=== PATIENT | male | born 1950 | race Caucasian/White ===

== ENCOUNTER → 2018-06-01 12:08 | Outpatient (CLI) | payer MEDICARE, OTHER, SELFPAY ==
[2018-06-01 13:33] LABS: Absolute Lymphocyte Count 2.23 X10^3/ul (0.83-4.51); Absolute Neutrophil Count 6.2 X10^3/uL (2.0-7.7); Basophil# 0.02 X10^3/uL; Basophil% 0.2 % (0-1); Eosinophil# 0.09 X10^3/uL; Hematocrit 42.7 % (40-54); Lymphocyte # 2.23 X10^3/ul (4.0); Lymphocyte % 24.2 % (19-41); Mean Corp Hgb Conc 32.8 g/gl (32-36); Mean Corpuscular Hgb 31.3 pg (27.0-32.0); Mean Corpuscular Volume 95.5 fL (80-94); Mean Platelet Vol. 10.4 fl (6.2-12.0); Monocyte# 0.61 X10^3/uL; Monocyte% 6.6 % (0-10); Neutrophil # 6.23 X10^3/uL (2.7-7.7); Neutrophil % 67.7 % (47-70); POSITIVE COUNT NO; POSITIVE DIFFERENTIAL NO; POSITIVE MORPHOLOGY NO; Platelet Count 207 K/mm3 (150-450); RBC Distribution Width CV 13.6 % (11.6-14.6); RBC Distribution Width SD 46.8 fl (35.1-43.9); Red Blood Count 4.47 M/mm3 (4.6-6.2); White Blood Count 9.2 K/mm3 (4.4-11.0)
[2018-06-01 14:05] LABS: Vitamin B12 413 pg/mL (211-911)
[2018-06-01 14:06] LABS: ALB/GLOB Ratio 1.1 RATIO (0.9-2.4); AST(SGOT) 17 U/L (15-37); Alanine Aminotransfer ALT/SGPT 23 U/L (16-61); Albumin, Serum 4.1 g/dL (3.2-5.0); Alkaline Phosphatase 111 U/L (45-117); Anion Gap 6 (5-15); BUN 25 mg/dL (7-18); BUN/Creat Ratio 17.6 RATIO (10-20); Calcium,Total 8.7 mg/dL (8.5-10.1); Chloride 109 mmol/L (98-107); Creatinine, Serum 1.42 mg/dL (0.70-1.30); EST Glomerular Filtration Rate 53 mL/min (>60); Est Glom Filt Rate - Afr Amer 64 mL/min (>60); Globulin 3.7 g/dL (2.2-4.2); Glucose 76 mg/dL (74-106); Potassium 4.2 mmol/L (3.5-5.1); Protein, Total 7.8 g/dL (6.4-8.2); Sodium Level 140 mmol/L (136-145)
[2018-06-03 08:12] LABS: Ceruloplasmin 25.3 mg/dL (16.0-31.0)
[2018-06-03 09:25] LABS: Copper, Serum or Plasma 82 ug/dL (72-166)
[2018-06-03 09:36] LABS: ANTINUCLEAR ANTIBODIES DIRECT Positive (Negative)
--- OUTSIDE RECORDS SUMMARY | 2018-08-06 08:07 | XMS RPT_ITS | Summary of Care ---
:1950 Author Organization [facility] Address [address] [place] [address] Care Team Providers Name Role Phone Wil Newman MD Primary Care Provider Wil Newamn MD Unavailable Encounter Details Date Type Department Care Team Description 03/23/2018 Hospital Encounter [facility] Colette Loving, [address] [place], [place] [address] [id number] [place] [address] Allergies No Known Allergiesas of this encounter Medications Prescription Sig. Disp. Refills Start Date End Date Status gabapentin (NEURONTIN) Take 100 mg by Active 100 MG capsule mouth daily . pantoprazole (PROTONIX) Take 40 mg by Active 40 MG tablet mouth daily. nitroGLYCERIN Place 0.4 mg Active (NITROSTAT) 0.4 MG SL under the tongue tablet every 5 (five) minutes as needed for chest pain. prasugrel (EFFIENT) 10 Take 10 mg by Active mg tablet mouth daily. aspirin 325 MG EC Take 325 mg by Active tablet mouth daily. miSOPROStol (CYTOTEC) Take 200 mcg by 3 11/18/2016 Active 200 MCG tablet mouth 2 (two) times a day. diclofenac sodium Take 75 mg by Active (VOLTAREN) 75 MG EC mouth 2 (two) tablet times a day with meals. carvedilol (COREG) 6.25 Take 6.25 mg by Active MG tablet mouth 2 (two) times a day with meals. isosorbide mononitrate Take 60 mg by Active (IMDUR) 60 MG 24 hr mouth daily. tablet losartan (COZAAR) 25 MG Take 25 mg by Active tablet mouth daily. ranolazine (RANEXA) 500 Take 1 (one) 180 tablet 3 06/11/2017 Active MG 12 hr tablet (500 mg tabletIndications: total) by mouth Coronary artery disease 2 (two) times a of [place] artery of day. [place] heart with stable angina pectoris (HCC) as of this encounter Active Problems Problem Noted Date S/P PTCA (percutaneous transluminal coronary angioplasty) 03/12/2017 S/P CABG x 1 03/12/2017 ICD (implantable cardioverter-defibrillator) in place 03/12/2017 Ischemic cardiomyopathy 09/27/2015 Last Assessment & Plan: Patient has known severe LV dysfunction. He recently received ICD for primary prevention. He does not demonstrate any signs or symptoms of congestion. Hx of Lyme disease 09/27/2015 Overview: Treated in 2014. He is concerned about recurrence. Told him to follow up with PCP. ASHD (arteriosclerotic heart disease) 06/28/2015 Overview: s/p PCI MARGO to circ. with a history of aggressive coronary artery disease. With myocardial infarction 2008 with multivessel stenting second heart attack in 2009 with 4 additional stents. 2011 he was found to have severe in-stent restenosis left anterior descending underwent left internal mammary artery left anterior descending open heart surgery done at [facility]. Stress test July 2014 showed old inferior latera l infarct with no michael-infarct ischemia ejection fraction was 33%. Feels better since the stent to the circumflex. Breathing is much better still has some vague chest discomfort from time to time. Ejection fraction was reduced to 30% range. No heart failure symptoms. Last Assessment & Plan: Persistent reduced EF 28 % by echo recently. Referral to EP for prophylactic ICD. S/p cath with PCI earlier this year. Maximal medical therapy. BP and pulse reviewed. Chest pain 06/28/2015 Overview: Gentleman with a history of aggressive coronary artery disease. With myocardial infarction 2008 with multivessel stenting second heart attack in 2009 with 4 additional stents. 2011 he was found to hav e severe in-stent restenosis left anterior descending underwent left internal mammary artery left anterior descending open heart surgery done at [facility]. Stress test July 2014 showed old inferi or lateral infarct with no michael-infarct ischemia ejection fraction was 33%. He continues to smoke occasionally. Over the last 6 weeks he has had marked fatigue chest discomfort that comes and goes not clear-cut said to exertion however. Patient had decreased his exercise capacity. He was treated for Lyme's disease last year and was wondering if he has a recurrence. Denies any fever chills he has had no rashes. EKG today shows sinus rhythm with left axis old inferior myocardial infarction evidence of old anterior lateral myocardial infarction sinus rhythm at 70 bpm no new changes. He has been compliant with his medications. Last Assessment & Plan: Plan we will add isosorbide 30 mg 1 daily. Continue other medications including dual antiplatelet therapy We discussed the merits of repeat stress test versus going directly to left heart catheterization. He would favor going directly to a left heart catheterization. Which I think is reasonable. The hist ory of a nuclear stress test a year ago which showed no significant ischemia. We will check blood work including a chest x-ray. Told him to avoid any moderate or heavy exercise until results of a heart catheterization are known. It is ejection fraction is still less than 35% would consider him a candidate for prophylactic ICD therapy. Dizzy 06/28/2015 Last Assessment & Plan: The patient continues to note significant dizziness. I would recommend ENT evaluation to rule out vertigo. Is not describing classic orthostasis. Coronary artery disease Last Assessment & Plan: The patient does note occasional chest tightness every 3 or 4 days. It is not reliably elicited by exertion. 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 I would continue to observe him clinically. Hypertension Last Assessment & Plan: Blood pressures well controlled on current medical therapy. I did consider increasing his carvedilol but apparently, his systolic blood pressure does run in the 80s at home on occasion. I would leave him on his current therapy for now. Hypertriglyceridemia Social History Tobacco Use Types Packs/Day Years Used Date Former Smoker 0 Quit: 05/11/2017 Smokeless Tobacco: Never Used Alcohol Use Drinks/Week oz/Week Comments No 0 Standard drinks or equivalent 0.0 Sex Assigned at Date Recorded Not on file as of this encounter Plan of Treatment Health Maintenance Due Date Last Done Comments COLONOSCOPY 1950 HEPATITIS C SCREENING 1950 TETANUS EVERY 10 YR 1950 ZOSTER VACCINES (1 of 2) 2002 ABDOMINAL AORTIC ULTRASOUND 2017 PNEUMOCOCCAL VACCINE AGE 65+ (1 of 2 - PCV13) 2017 Steadi Fall Risk Assessment 2017 SEQUENTIAL INFLUENZA VACCINE (#1) 2018 as of this encounter Implants Implanted Type Area Reproductive Endocrinologist Device Expiration Date Model / Identifier Serial / Lot Salo [id number] Visia Af Mri Vr [id number] ICD SALO [id number] VISIA AF MRI VR / Implanted: 06/11/2016 (Quantity not on file) [id number] / Salo 6935m Pacing Lead SALO 6935M SPRINT QUATTRO SECURE S / Sprint Quattro [id number] / Secure S [id number] Salo 6935m Pacing Lead SALO 6935M SPRINT QUATTRO SECURE S MRI SURESCAN / Sprint Quattro [id number] / Secure S Mri Surescan [id number] as of this encounter
--- OUTSIDE RECORDS SUMMARY | 2018-08-06 08:07 | XMS RPT_ITS ---
:1950 Author Organization [facility] Address [address] [place] [address] Phone Care Team Providers Name Role Phone Lucie GOMEZ, Shanna Dick Unavailable Reason for Visit Reason For Visit Description Start Date New/Est - 1st visit with physician Preliminary reason for visit data, not yet signed by the author as of lower back Preliminary reason for visit data, not yet signed by the author as of Chief Complaint Chief Complaint Description Start Date lower back Preliminary chief complaint data, not yet signed by the author as of Instructions Instruction Description Start Date Patient advised to follow-up with Primary Care Physician for BMI management. Plan of Care Type Date Detail Appointment 09:40 AM Shanna GOMEZ, [address] [facility], [facility], [place], [address], Pending order XR LUMBAR 4VWS FLEX/EX Pending order CT lumbar without contrast Medications Medication Instructions Start Stop Generic Name NDC Provider Date Date MULTIVITAMIN take 1 chewable / MULTIPLE [id number] Flavia GUMMIES MENS once daily 02 VITAMINS-MINERA Abdulaziz POWER LINE INSTALLER AND REPAIRER CHEW LS HYDROCODONE-ROSANNA take 1 tablet / HYDROCODONE-ROSANNA [id number] Flavia TAMINOPHEN every 8 hours 02 TAMINOPHEN Abdulaziz VELÁSQUEZN 5-325 MG TABS as needed LOSARTAN take 1 tablet / LOSARTAN [id number] Flavia POTASSIUM 25 MG once daily 02 POTASSIUM Abdulaziz POWER LINE INSTALLER AND REPAIRER TABS ASPIRIN 81 MG take 2 tablets / ASPIRIN [id number] Flavia TABS once daily 02 [place] POWER LINE INSTALLER AND REPAIRER LASIX 20 MG take 1 tablet / FUROSEMIDE [id number] Flavia TABS three days a Abdulaziz POWER LINE INSTALLER AND REPAIRER week TRICOR 48 MG take 1 tablet / FENOFIBRATE [id number] Flavia TABS once daily 02 [place] POWER LINE INSTALLER AND REPAIRER CRESTOR 40 MG take 1 tablet / ROSUVASTATIN [id number] Flavia TABS once daily CALCIUM Abdulaziz POWER LINE INSTALLER AND REPAIRER CARVEDILOL 6.25 take 1 tablet / CARVEDILOL [id number] Flavia MG TABS twice daily 02 [place] POWER LINE INSTALLER AND REPAIRER PANTOPRAZOLE take 1 tablet / PANTOPRAZOLE 71008860246 Flavia SODIUM 40 MG once daily SODIUM [place] POWER LINE INSTALLER AND REPAIRER TBEC GABAPENTIN 300 take 1 capsule / GABAPENTIN [id number] Flavia MG CAPS twice daily Abdulaziz POWER LINE INSTALLER AND REPAIRER Conditions or Problems Problem Name Problem Onset Status Entry Provider Comment Standard Annotate Code Date Date Description Lumbar [id number] Active Shanna Dick 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 Vital Signs Date Name Value Unit Description BMI (Body Mass 31.68 kg/m2 Body Mass Index Index) [Ratio] Preliminary vital sign data, not yet signed by the author as of BP Diastolic 77 mm[Hg] blood pressure, diastolic Preliminary vital sign data, not yet signed by the author as of BP Systolic 115 mm[Hg] blood pressure, systolic Preliminary vital sign data, not yet signed by the author as of Heart Rate 71 /min pulse rate E&M Preliminary vital sign data, not yet signed by the author as of Height 70 [in_us] height E&M Preliminary vital sign data, not yet signed by the author as of Height 178 cm height in centimeters E&M Preliminary vital sign data, not yet signed by the author as of Weight Measured 220 [lb_av] weight E&M Preliminary vital sign data, not yet signed by the author as of Weight Measured 100 kg weight in kilograms E&M Preliminary vital sign data, not yet signed by the author as of Results Date Name Value Unit Range Flag Description Office Visit: New/Est - 1st visit with physician, Rm: 42 MEDS REVIEW Done Documentation of current medications (procedure) Preliminary observation data, not yet signed by the author as of Preliminary observation data, not yet signed by the author as of Clinical Summary: Scanned ROS Summary ROS: Denies genitourinary review of systems, E&M ROS: GI Denies ROS gastrointestinal E&M ROS ENDO Denies endocrine ROS ROS MSK COMM Pain,Stiffness ROS Musculoskeletal comments ROS:MUSCSKEL Complains ROS musculoskeletal E&M ROSPSYCHCOMM Difficulty ROS Psych comment Sleeping ROS: PSYCH Complains ROS psychiatric E&M ROS HEME Denies ROS hematologic/lymphatic E&M ROS SKIN Denies ROS skin E&M ROS ENT Denies ROS ENT E&M ROS:GENERAL Denies ROS general E&M ROS_NEUR_COM Numbness Review of Systems Neurologic comment ROS: NEURO Complains ROS neurological E&M ROSPULMCOMM Sleep Apnea ROS Pulmonary comment ROS:PULMON Complains ROS pulmonary E&M ROS CARD COM Chest Pain ROS Cardiac: Comments ROS: CARDIAC Complains ROS cardiovascular E&M Clinical Summary: HMSPatientID OOP account number Procedures Code Procedure Name Date Entry Date G8730 Pain assessment documented as positive - follow-up documented G8427 Current medications documented 1036F Tobacco screening was negative - non user G8417 BMI documented as above normal parameters - follow-up documented G8783 Blood pressure within normal parameters - no follow-up required [facility]-[id number] Patient Encounter Medications Administered No information available. Immunizations No information available. Advance Directives There may be information available, but it has not been provided by the sender. Assessments There may be information available, but it has not been provided by the sender. Review of Systems There may be information available, but it has not been provided by the sender. Family History There may be information available, but it has not been provided by the sender. History of Past Illness There may be information available, but it has not been provided by the sender. History of Present Illness There may be information available, but it has not been provided by the sender.
--- OUTSIDE RECORDS SUMMARY | 2018-08-06 08:07 | XMS RPT_ITS | Summary of Care ---
:1950 Author Organization [facility] Address [address] [place] [address] Care Team Providers Name Role Phone Wil Newman MD Primary Care Provider Wil Newman MD Unavailable Encounter Details Date Type Department Care Team Description 09/03/2017 Hospital Encounter [facility], [place], [address] [place], [place] [address] [facility] [address] [address] [facility] [address] [place] [address] Allergies No Known Allergiesas of this encounter Medications Prescription Sig. Disp. Refills Start Date End Date Status gabapentin (NEURONTIN) Take 100 mg by Active 100 MG capsule mouth daily . pantoprazole Take 40 mg by Active (PROTONIX) 40 MG mouth daily. tablet nitroGLYCERIN Place 0.4 mg Active (NITROSTAT) 0.4 MG SL under the tablet tongue every 5 (five) minutes as needed for chest pain. prasugrel (EFFIENT) 10 Take 10 mg by Active mg tablet mouth daily. aspirin 325 MG EC Take 325 mg by Active tablet mouth daily. miSOPROStol (CYTOTEC) Take 200 mcg by 3 11/18/2016 Active 200 MCG tablet mouth 2 (two) times a day. furosemide (LASIX) 20 Take 1 (one) 31 tablet 4 12/09/2016 12/09/2017 Active MG tablet tablet (20 mg total) by mouth Wednesday, Wednesday, Wednesday. diclofenac sodium Take 75 mg by Active (VOLTAREN) 75 MG EC mouth 2 (two) tablet times a day with meals. carvedilol (COREG) Take 6.25 mg by Active 6.25 MG tablet mouth 2 (two) times a day with meals. isosorbide mononitrate Take 60 mg by Active (IMDUR) 60 MG 24 hr mouth daily. tablet losartan (COZAAR) 25 Take 25 mg by Active MG tablet mouth daily. ranolazine (RANEXA) Take 1 (one) 180 tablet 3 06/11/2017 Active 500 MG 12 hr tablet (500 mg tabletIndications: total) by mouth Coronary artery 2 (two) times a disease of [place] day. artery of [place] heart with stable angina pectoris (HCC) as [...] anterior descending open heart surgery done at [facility]. Stress test July 2014 showed [...] anterior descending open heart surgery done at [facility]. Stress test July 2014 showed [...] as of this encounter Plan of Treatment Upcoming Encounters Date Type Specialty Care Team Description 12/10/2017 PaceArt Device Check Cardiology Health Maintenance Due Date Last Done Comments COLONOSCOPY 1950 HEPATITIS C SCREENING 1950 TETANUS EVERY 10 YR 1950 ZOSTER VACCINE 2012 ABDOMINAL AORTIC ULTRASOUND 2017 PNEUMOCOCCAL VACCINE AGE 65+ (1 of 2 - PCV13) 2017 SEQUENTIAL INFLUENZA VACCINE (Season Ended) 2018 as of this encounter Implants Implanted Type Area Risk Control Officer Device Expiration Date Model / Identifier Serial / Lot Salo [id number] Visia Af Mri Vr [id number] ICD SALO [id number] VISIA AF MRI VR / Implanted: 06/11/2016 (Quantity not on file) [id number] / Salo 6935m Pacing Lead SALO 6935M SPRINT QUATTRO SECURE S / Sprint Quattro [id number] / Secure S [id number] as of this encounter
--- OUTSIDE RECORDS SUMMARY | 2018-08-06 08:09 | XMS RPT_ITS ---
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 Consistency is the small. Find a technique that works for you and do it every day. CULTIVATE RELATIONSHIPS Loneliness and isolation have a major negative impact on health. Seek out others who can love, care for and nurture you. Avoid hurtful relationships. MAINTAIN IDEAL BODY WEIGHT The best way to do this is to do all the things above. Our bodies naturally find the right weight if we keep moving and feed ourselves the right food. If your BMI is greater than 25, we strongly recommend a referral to a weight management program. Please speak to us or your family physician about available programs. AVOID NICOTINE IN ALL FORMS This includes all tobacco products, whether chewed, smoked, vaped, or rubbed on the skin. Smoking cessation programs, which can make use of tobacco substitutes, medications to suppress cravings and behavior management, are available. Please contact your family physician about programs in your area. Referring Provider: SELF [[id number]] Allergies As of Date: 03/16/2018 Noted Allergy Reaction PERCOCET (OXYCODONE-ACETAMINOPHEN)07/21/2017 14 - Other: See Comments Comments: Pt has severe tremors when taking Percocet Date Reviewed: 03/16/2018 Reviewed by: Manolo Ga - Fully Assessed Reason for Visit: Consult [502] Primary Visit Diagnosis:ASHD (arteriosclerotic heart disease) [I25.10] Order(s):BASIC METABOLIC PNL [SQBMP] Order #: [id number] FUTURE MAGNESIUM BLD [SQMG1] Order #: [id number] FUTURE furosemide (LASIX) 40 mg tabletTake 1 tablet by mouth once daily.Disp: 30 tabletRfl: 6 Prescriptions as of 03/16/2018 Sig: FUROSEMIDE 40 MG TABLET Take 1 tablet by mouth once d* CLOPIDOGREL 75 MG TABLET Take 1 tablet by mouth once d* TRAZODONE 50 MG TABLET Take 1 tablet by mouth daily * MISOPROSTOL 200 MCG TABLET Take 1 tablet by mouth twice * DICLOFENAC SODIUM 75 MG TABLE* Take 1 tablet by mouth twice * NITROGLYCERIN 0.4 MG SUBLINGU* Dissolve 1 tablet under the t* POTASSIUM CHLORIDE ER 20 MEQ * Take 1 tablet by mouth once d* BUPROPION XL 150 MG TAB Take 150 mg by mouth twice da* BACITRACIN 500 UNIT/GRAM EYE * Use 1 application in both eye* ROSUVASTATIN 40 MG TABLET Take 1 tablet by mouth daily * LOSARTAN 25 MG TABLET Take 1 tablet by mouth once d* CARVEDILOL 6.25 MG TABLET Take 1 tablet by mouth twice * FENOFIBRATE NANOCRYSTALLIZED * Take 1 tablet by mouth once d* GABAPENTIN 300 MG CAPSULE Take 1 capsule by mouth every* MAGNESIUM OXIDE 400 MG (241.3* Take 2 tablets by mouth once * THERAPEUTIC MULTIVITAMIN TABL* Take 1 tablet by mouth daily * ASPIRIN 81 MG CHEWABLE TABLET Take 2 tablets by mouth once * PANTOPRAZOLE 40 MG TABLET,DEL* Take 1 tablet by mouth DAILY * Problem List As Of Date 03/16/2018 Noted Resolved Bladder wall thickening [N32.89] INVALID FOR* Urethral polyp [N36.2] INVALID FOR* Smoking history [Z87.891] INVALID FOR* Priority: J More... 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 Preop testing [Z01.818] INVALID FOR* More... Encounter for preoperative anesthesiology asses*INVALID FOR* Cardiomyopathy, ischemic [I25.5] INVALID FOR* Priority: A More... 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 Bronchospasm [J98.01] INVALID FOR*07/30/2017 More... Respiratory insufficiency [R06.89] INVALID FOR*07/30/2017 More... Hyperglycemia [R73.9] INVALID FOR*08/02/2017 Priority: E More... Cardiogenic shock (HCC) [R57.0] INVALID FOR*07/31/2017 Priority: C More... Dehydration [E86.0] INVALID FOR*07/30/2017 More... Postoperative hypotension [I95.89] INVALID FOR*07/30/2017 More... Atelectasis [J98.11] INVALID FOR*08/02/2017 Priority: B More... Primary hypertension [I10] INVALID FOR* Priority: C More... Altered mental status [R41.82] INVALID FOR*08/02/2017 Priority: D More... Pneumothorax [J93.9] INVALID FOR*08/02/2017 Priority: B More... Transition of care performed with sharing of cl*INVALID FOR* Priority: Very Severe More... Hyperlipidemia LDL goal <70 [E78.5] INVALID FOR* Priority: C More... Hypertriglyceridemia, essential [E78.1] INVALID FOR* Priority: C More... Gastroesophageal reflux disease without esophag*INVALID FOR* Priority: G More... Atherosclerosis of [place] coronary artery of na*INVALID FOR* More... Obesity, Class I, BMI 30-34.9 E66.9 [E66.9] INVALID FOR* More... Meibomian gland dysfunction (MGD) of upper and *INVALID FOR* NSTEMI (non-ST elevated myocardial infarction) *INVALID FOR* Priority: A More... Nicotine use disorder, F17.2 [F17.200] INVALID FOR* Post PTCA [Z98.61] INVALID FOR* More... Shortness of breath [R06.02] INVALID FOR* More... SAIMA (acute kidney injury) (HCC) [N17.9] INVALID FOR* More... Other instructions from your clinician: LIFESTYLE CHANGE A healthy lifestyle is the most important component of your overall treatment plan. Please give serious thought to the following areas and commit to making oil heaterman changes. EAT A WHOLE FOOD, PLANT BASED DIET The nutrition your body gets is more important than the medicine you take. What matters most is the overall way you eat. We encourage you to minimize the use of animal products (which include dairy and all meats except fatty fish) and use whole, unprocessed plant foods to provide your protein, vitamins and other nutrients. We have a lot of information to share with you on this topic. This is not a diet. It is a way of life that you will keep with you. EXERCISE REGULARLY It is not important to spend hours in the gym, lifting weights and perspiring heavily. A total of 2-3 hours per week of aerobic (causing you to be moderately short of breath) exercise is sufficient to improve your health. Talk to us before you begin a new exercise program, if you have heart disease or experience shortness of breath or chest pain. REDUCE STRESS Chronic emotional and physical stress leads to disease. Ways of reducing stress include meditation, visualization, prayer, yoga and other forms of relaxation therapy. Consistency is the small. Find a technique that works for you and do it every day. CULTIVATE RELATIONSHIPS Loneliness and isolation have a major negative impact on health. Seek out others who can love, care for and nurture you. Avoid hurtful relationships. MAINTAIN IDEAL BODY WEIGHT The best way to do this is to do all the things above. Our bodies naturally find the right weight if we keep moving and feed ourselves the right food. If your BMI is greater than 25, we strongly recommend a referral to a weight management program. Please speak to us or your family physician about available programs. AVOID NICOTINE IN ALL FORMS This includes all tobacco products, whether chewed, smoked, vaped, or rubbed on the skin. Smoking cessation programs, which can make use of tobacco substitutes, medications to suppress cravings and behavior management, are available. Please contact your family physician about programs in your area. Prescriptions ordered this encounter Disp Refills Start End FUROSEMIDE 40 MG TABLET 30 t* 6 03/16/2018 03/16/2018 Route: ORAL Sig: Take 1 tablet by mouth once daily. Take one tab three times a week FUROSEMIDE 40 MG TABLET 30 t* 6 03/16/2018 Route: ORAL Sig: Take 1 tablet by mouth once daily. Medications Discontinued During This Encounter furosemide (LASIX) 40 mg tablet 30 t* 6 02/16/2018 03/16/2018 Route: ORAL Sig: Take 1 tablet by mouth once daily. Take one tab three times a week Disc: Reason for discontinue is not on file. furosemide (LASIX) 40 mg tablet 30 t* 6 03/16/2018 03/16/2018 Route: ORAL Sig: Take 1 tablet by mouth once daily. Take one tab three times a week Disc: Reason for discontinue is not on file. Follow-up and Disposition History Recorded Encounter Status:Closed by DIOMEDES SHAH MD on 03/16/18 XR CHEST 2 VIEWS Observed: 03/07/2018 Status: F Source: [place] 1:[address] [facility] REPOSITORY Exam Date/Time: 03/07/2018 14:05 EDT Reason for Exam: Congestive Heart Failure Report STUDY: XR Chest 2 Views; 03/07/2018 2:05 pm INDICATION: Congestive Heart Failure. COMPARISON: Chest x-ray 02/22/2018 ACCESSION NUMBER(S): [id number] ORDERING CLINICIAN: Zi Chamberlain FINDINGS: Sternotomy wires. Pacemaker. The lungs are clear without pleural effusion. Mild cardiomegaly. Unremarkable mediastinum, gage, and pulmonary vasculature. Thoracic degenerative changes. IMPRESSION: No active disease in the chest. FINAL REPORT Dictated: 03/07/2018 6:42 pm Stan Ivan MD Signed (Electronic Signature): 03/07/2018 6:42 pm Signed by: Stan Ivan MD Technologist: JASEN PT ED Observed: 2018 Status: COMPLETED Source: [place] 2:58 PM [facility] REPOSITORY HNO ID: [id number] Author: Tawnya Reyes (Pharmacist) Service: Pharmacy Author Type: Pharmacist Type: Patient Education Filed: 2018 3:00 PM Note Text: Heart Failure Counseling with Class Instruction Education Note Patient Name:Law Leavitt Service Date: 2018 Service Time: 2:58 PM Heart Failure Education Provided: Brief overview of heart failure and non-pharmacologic therapy options. Medication Education Provided: 1. Reason for taking medications and treatment goals. 2. Benefits of medication therapy. 3. How medications work. 4. Necessary laboratory monitoring. 5. When to take medications and what to do if a dose is missed. 6. Drug interactions (Rx, OTC, herbal) and importance of notifying healthcare provider with any medication changes. 7. Potential duration of therapy. 8. Potential side effects of medications. 9. Use of control measures if applicable. 10. Importance of regularly filling prescriptions and taking medications. 11. Proper storage of medications. Patient was given opportunity to ask questions and receive answers. Current Inpatient Medications: Current hospital medications: furosemide 40 mg tab(s) (LASIX) 40 mg ORAL ONCE clopidogrel 75 mg tab(s) (PLAVIX) 75 mg ORAL DAILY traZODone 50 mg tab(s) (DESYREL) 50 mg ORAL AT BEDTIME gabapentin 300 mg cap(s) (NEURONTIN) 300 mg ORAL AT BEDTIME carvedilol 6.25 mg tab(s) (COREG) 6.25 mg ORAL BID w MEALS miSOPROStol 200 mcg tab(s) (CYTOTEC) 200 mcg ORAL BID rosuvastatin 40 mg tab(s) (CRESTOR) 40 mg ORAL AT BEDTIME fenofibrate nanocrystallized 48 mg tab(s) (TRICOR) 48 mg ORAL DAILY buPROPion XL 150 mg tab(s) (WELLBUTRIN XL) 150 mg ORAL DAILY pantoprazole DR 40 mg tab(s) (PROTONIX) 40 mg ORAL DAILY (6 AM) acetaminophen 325-650 mg tab(s) (TYLENOL) 325-650 mg ORAL q 4 H PRN docusate sodium 100 mg cap(s) (COLACE) 100 mg ORAL BID PRN heparin 5,000 Units injection 5,000 Units SUBCUTANEOUS q 12 H aspirin 81 mg chewable tab(s) 81 mg ORAL DAILY READINESS TO LEARN COGNITIVE ABILITY: Alert and Oriented MOTIVATION TO LEARN: Interested FAMILY SUPPORT: High - Very involved in pt care INSTRUCTION PROVIDED TO: Patient and family member PATIENT LEARNS BEST BY: Multiple Methods FACTORS AFFECTING LEARNING: None or unable to assess PHYSICAL LIMITATIONS AFFECTING LEARNING: none or unable to assess ? LEARNING RESPONSE DIAGNOSIS: Heart Failure PATIENT/FAMILY RESPONSE: Verbalizes understanding of: The signs and symptoms of a worsening condition that warrant a call to the physician. The correct actions to take to manage symptoms associated with his/her disease/illness. Accurate knowledge of prescribed medication prior to discharge. The correct action to take if medication dose is missed. The side effects associated with the medication that warrant a call to the physician. Post discharge follow up instruction Diet / weight monitoring METHOD OF INSTRUCTION: Group Class Instruction FOLLOW-UP PLAN: None INSTRUCTIONAL AIDS USED: Slides Your Guide to Managing Heart Failure SUPPLEMENTAL MATERIAL PROVIDED: Slides ? FURTHER RECOMMENDATIONS (IF ANY): None SIGNATURE: Aditya Duggan (Technical Adjuster) Cosigned: Tawnya Reyes Pharmacist Pager: [phone] PT ED Observed: 2018 Status: COMPLETED Source: [place] 2:32 PM [facility] [place] REPOSITORY HNO ID: [id number] Author: Penelope Marquez (Diet-T) Service: Nutrition Therapy Author Type: Braille Typist Type: Patient Education Filed: 2018 2:33 PM Note Text: [facility] NUTRITION HEART FAILURE PATIENT EDUCATION TOPIC: Survival Skills: Diet PATIENT NAME: Amelia Leavitt SERVICE DATE: 2018 Diagnosis: ADULT: Heart Failure READINESS TO LEARN Cognitive Ability: Alert and oriented Motivation to Learn: Eager Family Support: Unable to assess - Family not present Instruction Provided to: Patient Patient Learns Best by: Unable to Assess Factors Affecting Learning: None Physical Limitations Affecting Learning: None LEARNING RESPONSE Enteral Nutrition Access Device: None Patient/Family Response: Verbalizes understanding of Heart Failure Diet: Rationale of sodium restriction, food sources typically high in sodium, acceptable food choices, foods to avoid, seasoning alternatives, how to read a food label and fluid guidelines as applicable. Method of Instruction: Group class instruction Follow-Up Plan: Complete - No need for follow-up Instructional Aids Used: Slides Supplemental Material Provided to Patient: Heart Failure book addressing diet, activity, medications, symptoms and weight monitoring Referral (Recommendation): None MNT Billing Type: Routine Care/15 min 2 units Jong MendiolaT Pager: 2018 2:33 PM PROGRESS Observed: 2018 Status: COMPLETED Source: [place] 1:18 PM [facility] [place] REPOSITORY HNO ID: [id number] Author: Di Rivero (Pa) Service: Cardiovascular Medicine Author Type: Physician Striper Type: Progress Notes Filed: 2018 2:52 PM Note Text: [facility] CARDI[facility]ULAR [facility]ICINE PROGRESS NOTE (Template ID [id number]) Amelia Leavitt [id number] PRIMARY SERVICE: Hvi Card Coco, Dr Rowe [facility] DAY: # 3 INTERVAL HISTORY Pt is lying in bed. His breathing is better. He has no chest pain. Pt's had questions, ok to restart home lasix, losartan. CHF appt made For -2. PHYSICAL EXAM BP 114/79 Pulse 72 Temp 36.8 ?C (98.3 ?F) (Oral) Resp 14 Ht 177.8 cm (5' 10) Wt 98 kg (216 lb 1.6 oz) SpO2 93% BMI 31.01 kg/m? Intake/Output Summary (Last 24 hours) at 03/02/18 1318 Last data filed at 03/02/18 0840 Gross per 24 hour Intake 120 ml Output 0 ml Net 120 ml General Appearance: Well developed and No distress HEENT: EOM's intact, JVD - no and Bruits - no Lungs: Crackles in Both bases Heart: Regular rate AND rhythm, Murmur , S1, S2 normal, S4 present, Edema and Vascular: Pulses - +2 intact, Abdomen: Soft, Round, Non-tender, Bowel sounds present, Bruits - no and Organomegaly - no Skin: Warm and Dry Musculoskeletal: No deformities Neurologic/Psychiatric: Oriented to time, place AND person MEDICATIONS Current hospital medications: furosemide 40 mg tab(s) (LASIX) 40 mg ORAL ONCE clopidogrel 75 mg tab(s) (PLAVIX) 75 mg ORAL DAILY traZODone 50 mg tab(s) (DESYREL) 50 mg ORAL AT BEDTIME gabapentin 300 mg cap(s) (NEURONTIN) 300 mg ORAL AT BEDTIME carvedilol 6.25 mg tab(s) (COREG) 6.25 mg ORAL BID w MEALS miSOPROStol 200 mcg tab(s) (CYTOTEC) 200 mcg ORAL BID rosuvastatin 40 mg tab(s) (CRESTOR) 40 mg ORAL AT BEDTIME fenofibrate nanocrystallized 48 mg tab(s) (TRICOR) 48 mg ORAL DAILY buPROPion XL 150 mg tab(s) (WELLBUTRIN XL) 150 mg ORAL DAILY pantoprazole DR 40 mg tab(s) (PROTONIX) 40 mg ORAL DAILY (6 AM) acetaminophen 325-650 mg tab(s) (TYLENOL) 325-650 mg ORAL q 4 H PRN docusate sodium 100 mg cap(s) (COLACE) 100 mg ORAL BID PRN heparin 5,000 Units injection 5,000 Units SUBCUTANEOUS q 12 H aspirin 81 mg chewable tab(s) 81 mg ORAL DAILY DATA Recent Labs 03/02/18 0450 03/01/18 0500 02/28/18 0455 WBC 9.41 8.33 9.49 HB 12.5* 13.0 12.6* HCT 37.0* 40.1 38.3* PLT 203 213 222 Recent Labs 03/02/18 0450 03/01/18 0500 02/28/18 0455 NA 140 138 141 K 4.5 3.8 4.0 CO2 23 24 25 BUN 35* 36* 48* CREAT 1.57* 1.76* 2.08* GLUC 111* 83 87 MG 2.3 2.5* 2.5* IMAGING ASSESSMENT AND PLAN 67M w PMH of CAD sp multi PCI and CABG, HFrEF, HTN, HLD, Obesity who presents w chest pain without ECG changes concerning for NSTEMI. Troponins trended up at OSH to 0.7, pt was started on ASA, heparin, Brilinta loaded and placed on NTG drip with incomplete relief of CP. Transferred to [facility] C[facility] for further mgmt and possible urgent LHC if no significant relief of CP with uptitration of NTG. Pt is HDS, on RA, and with 3/10 CP. Plan for LHC w PCI vs third CABG. In acute setting, will cont ASA, heparin, and NTG, while holding BB and BP meds. Problem Nstemi (Non-St Elevated Myocardial Infarction) (Hcc) Hx: Troponin I leak to 0.7, no peak observed yet, no ECG changes A: NSTEMI Plan: PCI MARGO to SVG-RCA 02-15-2018 Re-admitted with dyspnea -14 Switch from Brilinta to Plavix For cath today, 10-16 Patent stents to SVG-RCA Cardiomyopathy, Ischemic History: h/o CAD with multiple stents and CABG. EF - 30%. Prior ICD placement Assessment: S/p 07/28/2017 CABGx3 (SVG1 to PDA, SVG2 to OM, Free ROMAN as jump graft from prox. SVG2 to LAD) Plan: ASA, heparin gtt, statin Hold BB and HTN meds in acute setting Plan for ICD check Hold lasix in acute setting Plan to restart cardiac meds when pt stable, likely after LHC vs redo CABG ECHO 02-15 EF 25% Hyperlipidemia Ldl Goal <70 History: h/o HLP well controlled on Crestor 40 Assessment: LFTs - WNL Plan: Goal LDL < 70. Crestor 40mg Primary Hypertension History: h/o HTN on Coreg, cozaar, lasix Assessment: SBP - 120s Plan: Plan: ASA, heparin gtt, statin Restarted BB and HTN meds in acute setting Plan for ICD check Hold lasix in acute setting Shortness of Breath H Recent onset of dyspnea Lasix increased not much help May be related to brilinta Switched to plavix. 02-28 Dr Rowe plan on doing cath today to look at PCI to RCA Patent SVR-RCA Dyspnea related to brilinta, improved now Saima (Acute Kidney Injury) (Hcc) H On discharge creatinine 1.50 On admission 2.34 (had taken lasix 80mg for 3 days) A 03-01 creatinine 1.76 03/02 creatinine 1.57 /P Hold losartan, lasix Continue to monitor Post Ptca S/P PCI MARGO x2 to SVG-RCA 02-15-2018 Started on brilinta, switch to Plavix, load with 300mg of Plavix Plan:cath today Patent stents to SVG-RCA Obesity, Class I, BMI 30-34.9 E66.9 Encourage diet and exercise program Case to be discussed with staff Di Rivero PA-C Pager [phone](please see below for after hours communication) 2018 1:[address] Rowe ok to DC home, follow up appts made, continue all home meds including losartan and lasix 3 days week, new med Plavix( sent to [facility] [place] pharmacy) Care Coordination Discharge Management: I personally spent greater than 30 minutes involved in the discharge management of this patient. All medications and potential SE were discussed with the Patient. Di Rivero PA-C 1:23 PM CASE MANAGEM Observed: 2018 Status: COMPLETED Source: [place] 12:21 PM [facility] REPOSITORY O ID: [id number] Author: Beryl Cortes (Asst) Service: Care Management Author Type: Resource Center Striper Type: Care Mgt Progress Note Filed: 2018 12:22 PM Note Text: CARE MANAGEMENT PROGRESS NOTE SERVICE DATE: 2018 SERVICE TIME: 11:10 am LOS: 3 days IM letter given to patient on 03/02/18. SIGNATURE: Asst Robert PATIENT NAME: Amelia Leavitt DATE: 2018 TIME: 12:21 PM PAGER/CONTACT #: [phone] CNDS Observed: 2018 Status: COMPLETED Source: [place] 7:47 AM [facility] REPOSITORY HNO ID: [id number] Author: Di Rivero (Pa) Service: Cardiovascular Medicine Author Type: Physician Striper Type: Discharge Summaries Filed: 2018 6:03 PM Note Text: Department of Cardivascular Medicine Discharge Summary PATIENT NAME: Amelia Leavitt ADMISSION DATE: 02/27/2018 DISCHARGE DATE: 2018 Attending Physician: Shen Rowe DO Code Status: Not on file Primary Service: Hvi Card Intervention Admission Diagnosis: DYSPNEA Discharge Diagnosis: dyspnea Secondary Diagnoses: Patient Active Hospital Problem List: Cardiomyopathy, ischemic (07/28/2017) NSTEMI (non-ST elevated myocardial infarction) ([facility]) (02/14/2018) Primary hypertension (07/30/2017) Hyperlipidemia LDL goal <70 (08/02/2017) Obesity, Class I, BMI 30-34.9 E66.9 (09/06/2017) Post PTCA (02/16/2018) Shortness of breath (02/27/2018) SAIMA (acute kidney injury) ([facility]) (02/27/2018) Reason for Hospitalization: CHIEF COMPLAINT: shortness of breath ? HISTORY OF PRESENT ILLNESS Amelia Leavitt is a 67 year old male with PMHx significant for ICM (EF=30 percent), s/p ICD in 04/2017, CAD s/p CABG x 2 and recent PCI to SVG to RCA who presents with dyspnea. Per the patient was doing well until 2 weeks ago when he was admitted with chest pain. He was found to have a NSTEMI. He underwent MARGO x 2 to SVG-RCA. He was placed on aspirin and brilinta. He was discharged and told to follow-up. ? He states since discharge he was having significant shortness of breath. He increased his furosemide 40 mg three times a week to 80 mg daily. He states maybe one day he felt better but than felt significantly worse. He states that he can't breathe out. He was instructed to come here by Dr. Rowe. ? Here ED workup was fairly unremarkable except for a rise in his creatinine level. His chest xray did not show significant pulmonary edema Hospital Course: Medical management of dyspnea was continued, Pt switched from Brilinta to Plavix, lasix and losartan held for elevated creatinine. .Patient was scheduled for cardiac catheterization +/- revascularation. Patient underwent cardiac catheterization which revealed a patent stents in SVG-RCA. Pt's dyspnea improved with the change in medication. His creatinine improved, to 1.57. The patient remained HD stable. Assess site was stable, no hematoma. The patient was discharged in stable condition Consults: None Major Procedure or Operation: Cath 03-01-2018 Impression: Patent SVG-PDA Recommended Treatment: Medical Therapy. Plan: Dyspnea not related to graft occlusion. Likely mediated by ticagrelor. Recommend continuation on clopidogrel. Other Procedures, Testing AND Radiology: None Patient Condition at Discharge: Stable Disposition: Home/Self Care Information Provided to the Patient: Patient given copy of After Visit Summary which included activity instructions, diet instructions, wound care instructions, medication instructions and follow up appointment ALLERGIES Allergen Reactions - Percocet [Oxycodone* Other: See Comments Pt has severe tremors when taking Percocet Discharge Medications: Discharge Medication List as of 2018 3:11 PM START taking these medications clopidogrel (PLAVIX) 75 mg tablet Take 1 tablet by mouth once daily. Normal, Disp-30 tablet, R-11, Long-term traZODone (DESYREL) 50 mg tablet Take 1 tablet by mouth daily at bedtime. Med Update CONTINUE these medications which have NOT CHANGED miSOPROStol (CYTOTEC) 200 mcg tablet Take 1 tablet by mouth twice daily. Normal, Disp-60 tablet, R-1 furosemide (LASIX) 40 mg tablet Take 1 tablet by mouth once daily. Take one tab three times a week Normal, Disp-30 tablet, R-6, Long-term diclofenac, EC, (VOLTAREN) 75 mg EC tablet Take 1 tablet by mouth twice daily. Normal, Disp-60 tablet, R-1 nitroglycerin sublingual (NITROQUICK) 0.4 mg SL tablet Dissolve 1 tablet under the tongue as needed for Chest Pain. Med Update, Long-term potassium chloride ER (K-DUR, KLOR-CON) 20 mEq tablet Take 1 tablet by mouth once daily. Normal, Disp-30 tablet, R-6 buPROPion XL (WELLBUTRIN XL) 150 mg 24 hr tablet Take 150 mg by mouth twice daily. Historical Med, R-2, Long-term bacitracin ophthalmic ophthalmic ointment Use 1 application in both eyes once each week. One application at bedtime Med Update rosuvastatin (CRESTOR) 40 mg tablet Take 1 tablet by mouth daily at bedtime. Print RX, Disp-90 tablet, R-3, Long-term losartan (COZAAR) 25 mg tablet Take 1 tablet by mouth once daily. Print RX, Disp-90 tablet, R-3, Long-term carvedilol (COREG) 6.25 mg tablet Take 1 tablet by mouth twice daily with meals. Print RX, Disp-180 tablet, R-1, Long-term fenofibrate nanocrystallized (TRICOR) 48 mg tablet Take 1 tablet by mouth once daily. Print RX, Disp-90 tablet, R-3, Long-term gabapentin (NEURONTIN) 300 mg capsule Take 1 capsule by mouth every 12 hours for 30 days. Normal, Disp-60 capsule, R-0, Long-term Dx: 1. Pain syndrome, chronic magnesium oxide (MAG-OX) 400 mg tablet Take 2 tablets by mouth once daily for 10 days. Normal, Disp-20 tablet, R-0, Long-term therapeutic multivitamin (THERA VITAMIN) tablet Take 1 tablet by mouth daily with breakfast. Normal, Disp-100 tablet, R-1, Long-term aspirin 81 mg chewable tablet Take 2 tablets by mouth once daily. Normal, Disp-180 tablet, R-1, Long-term pantoprazole DR (PROTONIX) 40 mg tablet Take 1 tablet by mouth DAILY (6 AM). Normal, Disp-90 tablet, R-1, Long-term STOP taking these medications ticagrelor (BRILINTA) 90 mg tablet Comments: Reason for Stopping: Outpatient Management: * Are there important medication changes and/or outstanding issues that need to be addressed: creatinine remains stable * What is the plan for follow up: see below Future Appointments Date Time Provider Department Center 03/16/2018 1:45 PM [id number] CARMONA [facility] 03/16/2018 1:45 PM [id number] GAR [facility] 03/18/2018 12:45 PM [id number] SALCEDO MAI 03/18/2018 12:45 PM [id number] SALCEDO [facility]Y DASH 05/23/2018 12:10 PM [id number] MAIN LBJ1-4 TEQUILA Douglas BLD 05/23/2018 12:30 PM [id number] LAB TTE J1-5B CAFLMN TEQUILA Douglas BLD 05/23/2018 2:00 PM 6025-SHEN ROWE BLD 05/23/2018 2:00 PM [id number] VILLA BLD 07/13/2018 8:45 AM [id number], RYAN OPHTSA OPHT SUGAR A Highest Readmission Risk Score: 17 The 30 day readmissions risk score is derived from an internally validated risk model which evaluates patient level characteristics, utilization history, medication orders and lab results up until the day of discharge. Patients with a score of 40 or above are considered highest risk for readmission. Specific patient level drivers will be listed at the bottom of the summary. This patient?s risk for 30-day readmission is determined using the following contributing drivers Pt variables contributing to increased readmission risk: 35 Most Recent BUN Result 13 Active Medication Orders 9.3 First Resulted Calcium During Admission 2 Number of Hospitalizations (12 mos.) 1 Previous ED Visit (6 mos.)? 1 Number of Previous ED Visits (6 mos.) 1 Insurance - Medicare 1 Active Anticoagulant Electronically SIGNED by Licensed Independent Practitioner: Di Rivero PA-C CBC Collected: 2018 Status: F Source: [place] 4:50 AM [facility] REPOSITORY TYPE CODE TESTS RESULT OUT OF REFERENCE UNITS RANGE LAB WBC 3.70-11.00 k/uL WBC 9.41 LAB RBC 4.20-6.00 m/uL Low RBC 3.97 LAB HGB 13.0-17.0 g/dL Low Hemoglobin 12.5 LAB HCT 39.0-51.0 % Low Hematocrit 37.0 LAB MCV 80.0-100.0 fL MCV 93.2 LAB MCH 26.0-34.0 pG MCH 31.5 LAB MCHC 30.5-36.0 g/dL MCHC 33.8 LAB RDWCV 11.5-15.0 % RDW-CV 13.9 LAB PLTCT 150-400 k/uL Platelet Count 203 LAB MPV 9.0-12.7 fL MPV 10.5 LAB ABSNUC <0.01 k/uL Absolute nRBC <0.01 Performed By: #### CBC, PT, CMP, MG1 #### [facility] [address] [place], [place] [address] PROTIME Collected: 2018 Status: F Source: [place] 4:50 AM [facility] REPOSITORY TYPE CODE TESTS RESULT OUT OF RANGE REFERENCE UNITS LAB PSEC 9.7-13.0 sec PT Sec 10.9 LAB INR 0.9-1.3 PT INR 1.0 Result Comment: Vitamin K Antagonist (VKA) Therapeutic Range: INR 2 to 3 (Target INR of 2.5) Note: For patients treated with VKA drugs, such as warfarin, the [place] [employer] 2012 Guideline recommends a therapeutic INR range of 2 to 3 (target INR of 2.5). This recommendation includes high-risk patients with antiphospholipid syndrome with previous arterial or venous thromboembolism, current-generation mechanical or bioprosthetic aortic heart valve replacement. Note: Patients with mechanical aortic valve replacement and additional risk factors for thromboembolic events (atrial fibrillation, previous thromboembolism, LV dysfunction, hypercoagulable conditions) or an older generation mechanical AVR (i.e., ball in-Cage) or any mechanical MVR should have a INR therapeutic range of 2.5 to 3.5 (target INR of 3). Brandontt GH, et al. Chest 2012, 141:7S-47S Wanda RA, et al. [facility] 2017, 70: 252-289 Performed By: #### CBC, PT, CMP, MG1 #### [facility] [address] [place], [place] [address] COMP METABOLIC PANEL Collected: 2018 Status: F Source: [place] 4:50 AM [facility] REPOSITORY TYPE CODE TESTS RESULT OUT OF REFERENCE UNITS RANGE LAB TP 6.3-8.0 g/dL Protein, Total 7.1 LAB ALB 3.9-4.9 g/dL Albumin 4.1 LAB CA 8.5-10.2 mg/dL Calcium, Total 9.1 LAB TBIL 0.2-1.3 mg/dL Bilirubin, Total 0.4 LAB ALKP 38-113 U/L Alkaline Phosphatase 84 LAB AST 14-40 U/L AST 16 LAB GLU 74-99 mg/dL Glucose High 111 Result Comment: The [place] [employer] (ADA) provides guidance for cutoff values for fasting glucose and random glucose. The ADA defines fasting as no caloric intake for at least 8 hours. Fas ting plasma glucose results between 100 to 125 mg/dL indicate increased risk for diabetes (prediabetes). Fasting plasma glucose results greater than or equal to 126 mg/dL meet the criteria for diagnosis of diabetes. In the absence of unequivocal hyperglycemia, results should be confirmed by repeat testing. In a patient with classic symptoms of hyperglycemia or hyperglycemic crisis, random plasma glucose results greater than or equal to 200 mg/dL meet the criteria for diagnosis of diabetes. Reference: Standards of Medical Care in Diabetes 2016, [place] [employer]. Diabetes Care. 2016.39(Suppl 1). LAB BUN 9-24 mg/dL BUN High 35 LAB CRET 0.73-1.22 mg/dL Creatinine High 1.57 LAB NA 136-144 mmol/L Sodium 140 LAB K 3.7-5.1 mmol/L Potassium 4.5 LAB CL 97-105 mmol/L Chloride 102 LAB CO2 22-30 mmol/L CO2 23 LAB AGAP 9-18 mmol/L Anion Gap 15 LAB ALT 10-54 U/L ALT 13 LAB GFRAA eGFR- Amer. 54 LAB GFRNAA . eGFR-All Other Races 44 Result Comment: eGFR (Estimated GFR) Units of measure: mL/min/1.73 meters squared eGFR is derived from the reexpressed MDRD Study equation using the following parameters: serum creatinine, age, gender and race. The creatinine assay has been calibrated to be traceable to IDMS. An eGFR <60 mL/min/1.73m2 for >3 months is consistent with chronic kidney disease. Refer to KDOQI guidelines for clinical interpretation. In patients with unstable renal function, e.g. those with acute kidney injury, the eGFR may not accurately reflect actual GFR. Performed By: #### CBC, PT, CMP, MG1 #### [facility] [address] [place], [place] [address] MAGNESIUM Collected: 2018 Status: F Source: [place] 4:50 AM [facility] REPOSITORY TYPE CODE TESTS RESULT OUT OF REFERENCE UNITS RANGE LAB MG 1.7-2.3 mg/dL Magnesium 2.3 Performed By: #### CBC, PT, CMP, MG1 #### [facility] [address] [place], [place] [address] CNCO Observed: 2018 Status: COMPLETED Source: [place] 12:00 AM [facility] REPOSITORY Letter Text Shen Rowe DO, [facility], [facility] Interventional Cardiology Vinod Carrasco Department of Cardiovascular Medicine [address] [place] [address] / [facility] [place] [address] Appt: [phone] [email or web address] Diomedes Shah MD [facility] NAME: AMELIA LEAVITT [facility] NO: [id number] DATE: 03/01/[address] Shah: Mr. Amelia Leavitt was admitted last Wednesday evening with recurrent dyspnea at rest and some exacerbation with exertion. I initially felt that this was secondary to ticagrelor, but we needed to be certain that his saphenous vein graft to the right coronary artery was patent. Repeat catheterization on March 01, 2018 demonstrated widely patent saphenous vein graft to the right coronary artery as well as a left internal mammary artery to the left anterior descending. Things were as we left them at his last percutaneous coronary intervention approximately 3-4 weeks ago. We switched him from ticagrelor to Plavix. He should do very well. Obviously, his oil heaterman prognosis is guarded secondary to the degree of left ventricular dysfunction, but I am optimistic. We will be setting him up to see one of our congestive heart failure physicians in the near future. Now that all of his ?plumbing? is patent and we have done as much as we can do in that regard, I would like one of our heart failure physicians to help us manage his left ventricular dysfunction. Fortunately, he already has an ICD to protect him from sudden arrhythmias. I hope this update will be helpful for your continued care of this very kind gentleman. Please let me know if I can be of any further service. Respectfully yours, Shen Rowe DO Electronically signed to expedite mailing CC: ZI CHAMBERLAIN MD [address] [facility] [id number] MR AMELIA LEAVITT [address] [facility] [id number] PROGRESS Observed: 03/01/2018 Status: COMPLETED Source: [place] 11:36 AM [facility] REPOSITORY HNO ID: [id number] Author: Di Rivero (Pa) Service: Cardiovascular Medicine Author Type: Physician Striper Type: Progress Notes Filed: 03/01/2018 11:41 AM Note Text: [facility] CARDIOVASCULAR [facility]ICINE PROGRESS NOTE (Template ID [id number]) Amelia Calderon Noemi [id number] PRIMARY SERVICE: Hvi Card Intervention, Dr Rowe [facility] DAY: # 2 INTERVAL HISTORY He is sitting up in bed, he has mild dyspnea, somewhat better than yesterday. He is going for cath today with either dr Rowe or Dr Willams. PHYSICAL EXAM BP 110/59 Pulse 75 Temp 36.6 ?C (97.9 ?F) (Oral) Resp 18 Ht 177.8 cm (5' 10) Wt 97.4 kg (214 lb 11.2 oz) SpO2 93% BMI 30.81 kg/m? Intake/Output Summary (Last 24 hours) at 03/01/18 1137 Last data filed at 03/01/18 0500 Gross per 24 hour Intake 540 ml Output 2350 ml Net -1810 ml General Appearance: Well developed and No distress HEENT: EOM's intact, JVD - no and Bruits - no Lungs: Crackles in L base Heart: Regular rate AND rhythm,no Murmur , S1, S2 normal, S4 present, no Edema and Vascular: Pulses -+2 intact Abdomen: Soft, Round, Non-tender, Bowel sounds present, Bruits - no and Organomegaly - no Skin: Warm and Dry Musculoskeletal: No deformities Neurologic/Psychiatric: Oriented to time, place AND person MEDICATIONS Current hospital medications: clopidogrel 75 mg tab(s) (PLAVIX) 75 mg ORAL DAILY traZODone 50 mg tab(s) (DESYREL) 50 mg ORAL AT BEDTIME gabapentin 300 mg cap(s) (NEURONTIN) 300 mg ORAL AT BEDTIME carvedilol 6.25 mg tab(s) (COREG) 6.25 mg ORAL BID w MEALS miSOPROStol 200 mcg tab(s) (CYTOTEC) 200 mcg ORAL BID rosuvastatin 40 mg tab(s) (CRESTOR) 40 mg ORAL AT BEDTIME fenofibrate nanocrystallized 48 mg tab(s) (TRICOR) 48 mg ORAL DAILY buPROPion XL 150 mg tab(s) (WELLBUTRIN XL) 150 mg ORAL DAILY pantoprazole DR 40 mg tab(s) (PROTONIX) 40 mg ORAL DAILY (6 AM) acetaminophen 325-650 mg tab(s) (TYLENOL) 325-650 mg ORAL q 4 H PRN docusate sodium 100 mg cap(s) (COLACE) 100 mg ORAL BID PRN heparin 5,000 Units injection 5,000 Units SUBCUTANEOUS q 12 H aspirin 81 mg chewable tab(s) 81 mg ORAL DAILY DATA Recent Labs 03/01/18 0500 02/28/18 0455 02/27/18 1129 WBC 8.33 9.49 9.34 HB 13.0 12.6* 12.9* HCT 40.1 38.3* 36.9* PLT 213 222 230 Recent Labs 03/01/18 0500 02/28/18 0455 02/27/18 1129 NA 138 141 141 K 3.8 4.0 4.4 CO2 24 25 25 BUN 36* 48* 48* CREAT 1.76* 2.08* 2.34* GLUC 83 87 114* MG 2.5* 2.5* 2.3 IMAGING ASSESSMENT AND PLAN 67M w PMH of CAD sp multi PCI and CABG, HFrEF, HTN, HLD, Obesity who presents w chest pain without ECG changes concerning for NSTEMI. Troponins trended up at OSH to 0.7, pt was started on ASA, heparin, Brilinta loaded and placed on NTG drip with incomplete relief of CP. Transferred to [facility] CICU for further mgmt and possible urgent LHC if no significant relief of CP with uptitration of NTG. Pt is HDS, on RA, and with 3/10 CP. Plan for LHC w PCI vs third CABG. In acute setting, will cont ASA, heparin, and NTG, while holding BB and BP meds. Problem Nstemi (Non-St Elevated Myocardial Infarction) (Hcc) Hx: Troponin I leak to 0.7, no peak observed yet, no ECG changes A: NSTEMI Plan: PCI MARGO to SVG-RCA 02-15-2018 Re-admitted with dyspnea 10-14 Switch from Brilinta to Plavix For cath today Cardiomyopathy, Ischemic History: h/o CAD with multiple stents and CABG. EF - 30%. Prior ICD placement Assessment: S/p 07/28/2017 CABGx3 (SVG1 to PDA, SVG2 to OM, Free ROMAN as jump graft from prox. SVG2 to LAD) Plan: ASA, heparin gtt, statin Hold BB and HTN meds in acute setting Plan for ICD check Hold lasix in acute setting Plan to restart cardiac meds when pt stable, likely after LHC vs redo CABG ECHO 10-2 EF 25% Hyperlipidemia Ldl Goal <70 History: h/o HLP well controlled on Crestor 40 Assessment: LFTs - WNL Plan: Goal LDL < 70. Crestor 40mg Primary Hypertension History: h/o HTN on Coreg, cozaar, lasix Assessment: SBP - 120s Plan: Plan: ASA, heparin gtt, statin Restarted BB and HTN meds in acute setting Plan for ICD check Hold lasix in acute setting Shortness of Breath H Recent onset of dyspnea Lasix increased not much help May be related to brilinta Switched to plavix. 02-28 Dr Rowe plan on doing cath today to look at PCI to RCA Saima (Acute Kidney Injury) (Hcc) H On discharge creatinine 1.50 On admission 2.34 (had taken lasix 80mg for 3 days) A 03-01 creatinine 1.76 /P Hold losartan, lasix Continue to monitor Post Ptca S/P PCI MARGO x2 to SVG-RCA 02-15-2018 Started on brilinta, switch to Plavix, load with 300mg of Plavix Plan:cath today Obesity, Class I, BMI 30-34.9 E66.9 Encourage diet and exercise program Case to be discussed with staff Di Rivero PA-C Pager [phone] (please see below for after hours communication) 03/01/2018 11:37 AM For communication after 5 pm on weekdays and after 12 pm on weekends, please page the following: - Clinical Cardiology patients on all floors: page [phone] - Other Cardiology patients on J5 and J6: page [phone] - Other Cardiology patients on J7 and J8: page [phone] PROTIME Collected: 03/01/2018 Status: F Source: [place] 5:00 AM [facility] REPOSITORY TYPE CODE TESTS RESULT OUT OF RANGE REFERENCE UNITS LAB PSEC 9.7-13.0 sec PT Sec 10.9 LAB INR 0.9-1.3 PT INR 1.0 Result Comment: Vitamin K Antagonist (VKA) Therapeutic Range: INR 2 to 3 (Target INR of 2.5) Note: For patients treated with VKA drugs, such as warfarin, the [place] [employer] 2012 Guideline recommends a therapeutic INR range of 2 to 3 (target INR of 2.5). This recommendation includes high-risk patients with antiphospholipid syndrome with previous arterial or venous thromboembolism, current-generation mechanical or bioprosthetic aortic heart valve replacement. Note: Patients with mechanical aortic valve replacement and additional risk factors for thromboembolic events (atrial fibrillation, previous thromboembolism, LV dysfunction, hypercoagulable conditions) or an older generation mechanical AVR (i.e., ball in-Cage) or any mechanical MVR should have a INR therapeutic range of 2.5 to 3.5 (target INR of 3). Josse ESCOBEDO, et al. Chest 2012, 141:7S-47S Wanda RA, et al. [facility] 2017, 70: 252-289 Performed By: #### PT, CBC, CMP, MG1 #### [facility] [address] [place], [place] [address] CBC Collected: 03/01/2018 Status: F Source: [place] 5:00 AM [facility] REPOSITORY TYPE CODE TESTS RESULT OUT OF REFERENCE UNITS RANGE LAB WBC 3.70-11.00 k/uL WBC 8.33 LAB RBC 4.20-6.00 m/uL RBC 4.22 LAB HGB 13.0-17.0 g/dL Hemoglobin 13.0 LAB HCT 39.0-51.0 % Hematocrit 40.1 LAB MCV 80.0-100.0 fL MCV 95.0 LAB MCH 26.0-34.0 pG MCH 30.8 LAB MCHC 30.5-36.0 g/dL MCHC 32.4 LAB RDWCV 11.5-15.0 % RDW-CV 14.0 LAB PLTCT 150-400 k/uL Platelet Count 213 LAB MPV 9.0-12.7 fL MPV 10.2 LAB ABSNUC <0.01 k/uL Absolute nRBC <0.01 Performed By: #### PT, CBC, CMP, MG1 #### [facility] [address] [place], [place] [address] COMP METABOLIC PANEL Collected: 03/01/2018 Status: F Source: [place] 5:00 AM [facility] REPOSITORY TYPE CODE TESTS RESULT OUT OF REFERENCE UNITS RANGE LAB TP 6.3-8.0 g/dL Protein, Total 7.4 LAB ALB 3.9-4.9 g/dL Albumin 4.1 LAB CA 8.5-10.2 mg/dL Calcium, Total 9.3 LAB TBIL 0.2-1.3 mg/dL Bilirubin, Total 0.4 LAB ALKP 38-113 U/L Alkaline Phosphatase 84 LAB AST 14-40 U/L AST 20 LAB GLU 74-99 mg/dL Glucose 83 Result Comment: The [place] [employer] (ADA) provides guidance for cutoff values for fasting glucose and random glucose. The ADA defines fasting as no caloric intake for at least 8 hours. Fas ting plasma glucose results between 100 to 125 mg/dL indicate increased risk for diabetes (prediabetes). Fasting plasma glucose results greater than or equal to 126 mg/dL meet the criteria for diagnosis of diabetes. In the absence of unequivocal hyperglycemia, results should be confirmed by repeat testing. In a patient with classic symptoms of hyperglycemia or hyperglycemic crisis, random plasma glucose results greater than or equal to 200 mg/dL meet the criteria for diagnosis of diabetes. Reference: Standards of Medical Care in Diabetes 2016, [place] [employer]. Diabetes Care. 2016.39(Suppl 1). LAB BUN 9-24 mg/dL BUN High 36 LAB CRET 0.73-1.22 mg/dL Creatinine High 1.76 LAB NA 136-144 mmol/L Sodium 138 LAB K 3.7-5.1 mmol/L Potassium 3.8 LAB CL 97-105 mmol/L Chloride 100 LAB CO2 22-30 mmol/L CO2 24 LAB AGAP 9-18 mmol/L Anion Gap 14 LAB ALT 10-54 U/L ALT 14 LAB GFRAA eGFR- Amer. 47 LAB GFRNAA . eGFR-All Other Races 39 Result Comment: eGFR (Estimated GFR) Units of measure: mL/min/1.73 meters squared eGFR is derived from the reexpressed MDRD Study equation using the following parameters: serum creatinine, age, gender and race. The creatinine assay has been calibrated to be traceable to IDMS. An eGFR <60 mL/min/1.73m2 for >3 months is consistent with chronic kidney disease. Refer to KDOQI guidelines for clinical interpretation. In patients with unstable renal function, e.g. those with acute kidney injury, the eGFR may not accurately reflect actual GFR. Performed By: #### PT, CBC, CMP, MG1 #### [facility] [address] [place], [place] [address] MAGNESIUM Collected: 03/01/2018 Status: F Source: [place] 5:00 AM [facility] REPOSITORY TYPE CODE TESTS RESULT OUT OF REFERENCE UNITS RANGE LAB MG 1.7-2.3 mg/dL High Magnesium 2.5 Performed By: #### PT, CBC, CMP, MG1 #### [facility] [address] [place], [place] [address] PT ED Observed: 02/28/2018 Status: COMPLETED Source: [place] 2:00 PM [facility] REPOSITORY HNO ID: [id number] Author: Flavia Koroma) Юлия Service: Nutrition Therapy Author Type: Braille Typist Type: Patient Education Filed: 02/28/2018 2:02 PM Note Text: [facility] NUTRITION HEART FAILURE PATIENT EDUCATION TOPIC: Survival Skills: Diet, Lifestyle Changes: Diet and Health Promotion: Diet PATIENT NAME: Amelia Leavitt SERVICE DATE: February 28, 2018 Diagnosis: ADULT: Congestive Heart failure READINESS TO LEARN Cognitive Ability: Alert and oriented Motivation to Learn: Interested Family Support: High - Very involved in pt care Instruction Provided to: Patient, Family member, Patient and family member and Spouse Patient Learns Best by: Individual Instruction Written Instruction - Hand-outs Verbal Instruction Factors Affecting Learning: None Physical Limitations Affecting Learning: None LEARNING RESPONSE Enteral Nutrition Access Device: None Patient/Family Response: Verbalizes understanding of Heart Failure Diet: Rationale of sodium restriction, food sources typically high in sodium, acceptable food choices, foods to avoid, seasoning alternatives, how to read a food label and fluid guidelines as applicable. Method of Instruction: Individual instruction Written instruction - handouts Verbal instruction Follow-Up Plan: Complete - No need for follow-up Instructional Aids Used: Heart Failure Pamphlet Supplemental Material Provided to Patient: Heart Failure pamplet addressing diet, activity, medications, symptoms and weight monitoring Referral (Recommendation): none MNT Billing Type: Routine Care/15 min 2 units Flavia Redman, DTR Pager: February 28, 2018 2:00 PM CASE MGT INIT Observed: 02/28/2018 Status: COMPLETED Source: [facility] 10:43 AM [facility] REPOSITORY HNO ID: [id number] Author: Tamiko BeckmanRn) KATARINA Cortez Service: Pulmonary Disease Author Type: Registered Nurse Type: Care Mgt Initial Assessment Filed: 02/28/2018 11:16 AM Note Text: CARE MANAGEMENT: ASSESSMENT AND DISCHARGE PLAN SERVICE DATE: 02/28/2018 SERVICE TIME: 10:43 AM PRIMARY CARE PHYSICIAN: Zi Chamberlain MD ADMISSION STATUS: Inpatient Needs Prior to Discharge: Discharge Prescriptions 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 Yes Is This a Planned Readmission? No: Recurrent symptoms of underlying disease Followed Up with Appointment Prior to Admission: Appointment completed Where Did the Patient Come From? Home Intervention Taken to Avoid Future Readmission? Diagnostic tests in place to determine treatment plan. Advance Directive: Current Advance Directive: Health Care Power of Document Control Clerk In Chart: Yes Up To Date and Valid: Yes Health Literacy: 1. How often do you need to have someone help you when you read instructions, pamphlets, or other written material from your doctor or pharmacy? Never - 1 2. How confident are you filling out medical forms by yourself? Extremely - 1 If Patient scores > 3 on either question, the following interventions were put into place: Patient did not score > 3 FUNCTIONAL AND COGNITIVE/BEHAVIORAL PRIOR TO ADMISSION: Baseline Mental Status: Alert AND Oriented, Person, Place , Time and Situation Functional Status: Independent Does Patient Currently Receive Any Community Services or Home Care? None Equipment Prior to Admission: CPAP at night Has the Patient Been in a Care Home Facility in the Past 30 days? No SOCIAL: Living Arrangement: Home Lives With: Partner and Daughter Financial Resources: Retired Primary Contact: Extended Emergency Contact Information Primary Emergency Contact: Silvia Leavitt Address: [address] [place] [address] OF [facility] Mobile Relation: Spouse Supportive: Yes Other Important Patient Contacts: None Caregiver Assessment: Caregiver is ready, willing and able to meet the patient's needs as recommended by the inter-professional team? Yes Patient's transition needs and plan for meeting these needs: yes Does the patient have an acute stroke diagnosis, or has the patient had a stroke during this admission? No Medication Adherence: I am convinced of the importance of my prescription medication: Agree completely - 0 I worry that my prescription medication will do more harm than good to me Disagree completely - 0 I feel financially burdened by my [id number] expenses for my prescription medication: Disagree completely - 0 Patient is categorized as low risk < 2 Are you interested in bedside delivery of your medications? No Food Concerns: In the Last Month, Have You had Trouble Getting Food? No trouble getting food During the Last Month, Have You Worried Whether Your Food Would Run Out Before You Had Enough Money to Buy More? No Is the Patient Psychosocially Complex? No ASSESSMENT AND PLAN: Medical Needs: 2 or more chronic diseases Psychosocial Needs: None FREEDOM OF CHOICE EXPLAINED: N/A POTENTIAL TRANSITION PLANS Home 67 y/o male, recurrent admissions for worsening CP and SOB. Patient has 18 stents and had a CABG 07/2017. Plan for a cath today. Lives with and daughter (RN). Family very involved. No DME, no O2, CPAP at night. No transportation issues. No copay issues. No anticipated skilled needs. CM to follow until DC. SIGNATURE: Tamiko Cortez RN PATIENT NAME: Amelia Leavitt DATE: February 28, 2018 TIME: 10:43 AM PAGER/CONTACT #: [phone] CBC Collected: 02/28/2018 Status: F Source: [place] 4:55 AM [facility] REPOSITORY TYPE CODE TESTS RESULT OUT OF REFERENCE UNITS RANGE LAB WBC 3.70-11.00 k/uL WBC 9.49 LAB RBC 4.20-6.00 m/uL Low RBC 4.06 LAB HGB 13.0-17.0 g/dL Low Hemoglobin 12.6 LAB HCT 39.0-51.0 % Low Hematocrit 38.3 LAB MCV 80.0-100.0 fL MCV 94.3 LAB MCH 26.0-34.0 pG MCH 31.0 LAB MCHC 30.5-36.0 g/dL MCHC 32.9 LAB RDWCV 11.5-15.0 % RDW-CV 14.2 LAB PLTCT 150-400 k/uL Platelet Count 222 LAB MPV 9.0-12.7 fL MPV 10.3 LAB ABSNUC <0.01 k/uL Absolute nRBC <0.01 Performed By: #### CBC, CMP, MG1, PT #### [facility] [address] [place], [place] [address] COMP METABOLIC PANEL Collected: 02/28/2018 Status: F Source: [place] 4:55 AM [facility] REPOSITORY TYPE CODE TESTS RESULT OUT OF REFERENCE UNITS RANGE LAB TP 6.3-8.0 g/dL Protein, Total 7.1 LAB ALB 3.9-4.9 g/dL Albumin 4.3 LAB CA 8.5-10.2 mg/dL Calcium, Total 9.1 LAB TBIL 0.2-1.3 mg/dL Bilirubin, Total 0.4 LAB ALKP 38-113 U/L Alkaline Phosphatase 94 LAB AST 14-40 U/L AST 19 LAB GLU 74-99 mg/dL Glucose 87 Result Comment: The [place] [employer] (ADA) provides guidance for cutoff values for fasting glucose and random glucose. The ADA defines fasting as no caloric intake for at least 8 hours. Fas ting plasma glucose results between 100 to 125 mg/dL indicate increased risk for diabetes (prediabetes). Fasting plasma glucose results greater than or equal to 126 mg/dL meet the criteria for diagnosis of diabetes. In the absence of unequivocal hyperglycemia, results should be confirmed by repeat testing. In a patient with classic symptoms of hyperglycemia or hyperglycemic crisis, random plasma glucose results greater than or equal to 200 mg/dL meet the criteria for diagnosis of diabetes. Reference: Standards of Medical Care in Diabetes 2016, [place] [employer]. Diabetes Care. 2016.39(Suppl 1). LAB BUN 9-24 mg/dL BUN High 48 LAB CRET 0.73-1.22 mg/dL Creatinine High 2.08 LAB NA 136-144 mmol/L Sodium 141 LAB K 3.7-5.1 mmol/L Potassium 4.0 LAB CL 97-105 mmol/L Chloride 98 LAB CO2 22-30 mmol/L CO2 25 LAB AGAP 9-18 mmol/L Anion Gap 18 LAB ALT 10-54 U/L ALT 16 LAB GFRAA eGFR- Amer. 39 LAB GFRNAA . eGFR-All Other Races 32 Result Comment: eGFR (Estimated GFR) Units of measure: mL/min/1.73 meters squared eGFR is derived from the reexpressed MDRD Study equation using the following parameters: serum creatinine, age, gender and race. The creatinine assay has been calibrated to be traceable to IDMS. An eGFR <60 mL/min/1.73m2 for >3 months is consistent with chronic kidney disease. Refer to KDOQI guidelines for clinical interpretation. In patients with unstable renal function, e.g. those with acute kidney injury, the eGFR may not accurately reflect actual GFR. Performed By: #### CBC, CMP, MG1, PT #### [facility] [address] [place], [place] [address] MAGNESIUM Collected: 02/28/2018 Status: F Source: [place] 4:55 AM [facility] REPOSITORY TYPE CODE TESTS RESULT OUT OF REFERENCE UNITS RANGE LAB MG 1.7-2.3 mg/dL High Magnesium 2.5 Performed By: #### CBC, CMP, MG1, PT #### [facility] [address] [place], [place] [id number] PROTIME Collected: 02/28/2018 Status: F Source: [place] 4:55 AM [facility] REPOSITORY TYPE CODE TESTS RESULT OUT OF RANGE REFERENCE UNITS LAB PSEC 9.7-13.0 sec PT Sec 11.0 LAB INR 0.9-1.3 PT INR 1.0 Result Comment: Vitamin K Antagonist (VKA) Therapeutic Range: INR 2 to 3 (Target INR of 2.5) Note: For patients treated with VKA drugs, such as warfarin, the [place] [employer] 2012 Guideline recommends a therapeutic INR range of 2 to 3 (target INR of 2.5). This recommendation includes high-risk patients with antiphospholipid syndrome with previous arterial or venous thromboembolism, current-generation mechanical or bioprosthetic aortic heart valve replacement. Note: Patients with mechanical aortic valve replacement and additional risk factors for thromboembolic events (atrial fibrillation, previous thromboembolism, LV dysfunction, hypercoagulable conditions) or an older generation mechanical AVR (i.e., ball in-Cage) or any mechanical MVR should have a INR therapeutic range of 2.5 to 3.5 (target INR of 3). Josse ESCOBEDO, et al. Chest 2012, 141:7S-47S Wanda AGUIRRE et al. [facility] 2017, 70: 252-289 Performed By: #### CBC, CMP, MG1, PT #### [facility] [address] [place], [place] [address] HISTORY PHYSICAL Observed: 02/27/2018 Status: COMPLETED Source: [place] 6:42 PM [facility] REPOSITORY HNO ID: [id number] Author: Shen Rowe DO Service: Cardiovascular Medicine Author Type: Physician Type: HANDP Filed: 02/28/2018 7:42 AM Note Text: [facility]ARDI[facility]ULAR [facility]ICINE HISTORY AND PHYSICAL (Template ID [id number]) Amelia Leavitt [id number] PRIMARY SERVICE: Cardiovascular Medicine: Intervention DATE OF ADMISSION: 02/27/2018 CHIEF COMPLAINT: shortness of breath HISTORY OF PRESENT ILLNESS Amelia Leavitt is a 67 year old male with PMHx significant for ICM (EF=30 percent), s/p ICD in 04/2017, CAD s/p CABG x 2 and recent PCI to SVG to RCA who presents with dyspnea. Per the patient was doing well until 2 weeks ago when he was admitted with chest pain. He was found to have a NSTEMI. He underwent MARGO x 2 to SVG-RCA. He was placed on aspirin and brilinta. He was discharged and told to follow-up. He states since discharge he was having significant shortness of breath. He increased his furosemide 40 mg three times a week to 80 mg daily. He states maybe one day he felt better but than felt significantly worse. He states that he can't breathe out. He was instructed to come here by Dr. Rowe. Here ED workup was fairly unremarkable except for a rise in his creatinine level. His chest xray did not show significant pulmonary edema. PAST MEDICAL HISTORY PAST MEDICAL HISTORY Diagnosis Date - CAD (coronary artery disease) - Cardiomyopathy (HCC) - CHF (congestive heart failure) ([facility]) - Family history of early CAD - H/o Lyme disease - History of smoking - Hyperlipidemia 2009 - 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 - GA (myocardial infarction) (HCC) 2009, 2015 - S/P angioplasty with stent x 16 - S/P CABG x 1 2012 - Sleep apnea CPAP prn PAST SURGICAL HISTORY Procedure Laterality Date - CABG (1) VEIN GRAFT AND ARTERIAL GRAFT 2012 L-LAD - DEFIBRILLATOR SURGERY - PACEMAKER - PAST SURGICAL HISTORY OF 2006 vertebrae surgery - ROTATOR CUFF REPAIR 1995 FAMILY HISTORY FAMILY HISTORY Problem Relation Age of Onset - other (Myocardial infarction) Father 17 multiple GA's of GA age 53 - Cancer Sister - No Ocular Disease No Family History SOCIAL HISTORY Social History Substance Use Topics - Smoking status: Former Smoker Packs/day: 0.50 Types: Cigarettes Quit date: 04/21/2017 - Smokeless tobacco: Never Used Comment: had quit for 20 years but restarted 2014 - Alcohol use 1.2 oz/week 2 Cans of beer per week Comment: Week HOME MEDICATIONS potassium chloride ER (K-DUR, KLOR-CON) 20 mEq tablet Take 1 tablet by mouth once daily. aspirin 81 mg chewable tablet Take 2 tablets by mouth once daily. miSOPROStol (CYTOTEC) 200 mcg tablet Take 1 tablet by mouth twice daily. furosemide (LASIX) 40 mg tablet Take 1 tablet by mouth once daily. Take one tab three times a week diclofenac, EC, (VOLTAREN) 75 mg EC tablet Take 1 tablet by mouth twice daily. nitroglycerin sublingual (NITROQUICK) 0.4 mg SL tablet Dissolve 1 tablet under the tongue as needed for Chest Pain. ticagrelor (BRILINTA) 90 mg tablet Take 1 tablet by mouth twice daily. buPROPion XL (WELLBUTRIN XL) 150 mg 24 hr tablet Take 150 mg by mouth twice daily. bacitracin ophthalmic ophthalmic ointment Use 1 application in both eyes once each week. One application at bedtime rosuvastatin (CRESTOR) 40 mg tablet Take 1 tablet by mouth daily at bedtime. losartan (COZAAR) 25 mg tablet Take 1 tablet by mouth once daily. carvedilol (COREG) 6.25 mg tablet Take 1 tablet by mouth twice daily with meals. fenofibrate nanocrystallized (TRICOR) 48 mg tablet Take 1 tablet by mouth once daily. gabapentin (NEURONTIN) 300 mg capsule Take 1 capsule by mouth every 12 hours for 30 days. magnesium oxide (MAG-OX) 400 mg tablet Take 2 tablets by mouth once daily for 10 days. therapeutic multivitamin (THERA VITAMIN) tablet Take 1 tablet by mouth daily with breakfast. pantoprazole DR (PROTONIX) 40 mg tablet Take 1 tablet by mouth DAILY (6 AM). INPATIENT MEDICATIONS Current hospital medications: carvedilol 6.25 mg tab(s) (COREG) 6.25 mg ORAL BID w MEALS miSOPROStol 200 mcg tab(s) (CYTOTEC) 200 mcg ORAL BID rosuvastatin 40 mg tab(s) (CRESTOR) 40 mg ORAL AT BEDTIME fenofibrate nanocrystallized 48 mg tab(s) (TRICOR) 48 mg ORAL DAILY [START ON 02/28/2018] buPROPion XL 150 mg tab(s) (WELLBUTRIN XL) 150 mg ORAL DAILY [START ON 02/28/2018] aspirin 162 mg chewable tab(s) 162 mg ORAL DAILY ticagrelor 90 mg tab(s) (BRILINTA) 90 mg ORAL BID [START ON 02/28/2018] pantoprazole DR 40 mg tab(s) (PROTONIX) 40 mg ORAL DAILY (6 AM) acetaminophen 325-650 mg tab(s) (TYLENOL) 325-650 mg ORAL q 4 H PRN docusate sodium 100 mg cap(s) (COLACE) 100 mg ORAL BID PRN heparin 5,000 Units injection 5,000 Units SUBCUTANEOUS q 12 H ALLERGIES ALLERGIES Allergen Reactions - Percocet [Oxycodone* Other: See Comments Pt has severe tremors when taking Percocet REVIEW OF SYSTEMS Constitutional: No weight loss, malaise or fevers. HEENT: Negative for frequent or significant headaches Respiratory: Positive for non-productive cough, shortness of breath on exertion and shortness of breath limiting daily activity Cardiovascular: Negative for chest pain, leg swelling or palpitations Gastrointestinal: Negative for abdominal discomfort, blood in stools or black stools or change in bowel habits Genitourinary: No history of dysuria, frequency, or incontinence Endocrine: Negative for cold or heat intolerance, polyuria, polydipsia and goiter Hematologic: Negative for prolonged bleeding, bruising easily or swollen nodes Neurologic: No history or headaches, syncope, paralysis, seizures or tremors Integumentary: Negative for lesions, rash, and itching. PHYSICAL EXAM BP 104/57 Pulse 70 Temp 36.1 ?C (97 ?F) (Oral) Resp 18 Ht 177.8 cm (5' 10) Wt 98.6 kg (217 lb 4.8 oz) SpO2 97% BMI 31.18 kg/m? General Appearance: Well developed HEENT: No lesions and JVD - no Lungs: Clear Heart: Regular rate AND rhythm Abdomen: Soft, Non-tender and Bowel sounds present Skin: Warm Musculoskeletal: No deformities Neurologic/Psychiatric: Oriented to time, place AND person and Alert DATA Laboratory: Recent Labs 02/27/18 1129 WBC 9.34 HB 12.9* HCT 36.9* PLT 230 Recent Labs 02/27/18 1129 NA 141 K 4.4 CO2 25 BUN 48* CREAT 2.34* GLUC 114* MG 2.3 Recent Labs 02/27/18 1129 TROPT <0.010 Cholesterol, Total (mg/dL) Date Value 02/14/2018 125 HDL Cholesterol (mg/dL) Date Value 02/14/2018 39 LDL Cholesterol (mg/dL) Date Value 02/14/2018 56 Triglyceride (mg/dL) Date Value 02/14/2018 148 No results found for: HBA1C EKG: Q waves inferiorly Chest Radiograph: Lines, tubes, and devices: ?Left-sided defibrillator with lead in the right ventricle. Lungs and pleura: ?No consolidation. No lung mass. No pleural effusion. ? No pleural effusion Cardiomediastinal silhouette: ?Stable mildly enlarged cardiomediastinal silhouette. ASSESSMENT AND PLAN Amelia Leavitt is a 67 year old male with PMHx significant for ICM (EF=30 percent), s/p ICD in 04/2017, CAD s/p CABG x 2 and recent PCI to SVG to RCA who presents with dyspnea. #Dyspnea- I think dyspnea more likely from brilinta than heart failure. He is fairly euvolemic and creatinine has risen significantly likely from cath and possibly from increased lasix. Plan 1) Talk to Dr. Rowe about switching to plavix #ICM- EF=30 percent. No chest pain. I think likely euvolemic to dry on exam Plan 1) Hold losartan given increase in creatinine 2) Continue coreg 3) Hold furosemide for now #CAD- s/p PCI to SVG to RCA. No symptoms or signs of stent thrombosis or complications. Plan 1) Continue aspirin 2) As above switch ticagrelor to clopidogrel if Dr. Rowe okay with it 3) Continue rosuvastatin #SAIMA- creatinine was 1.50 on discharge now up to 2.34. Plan 1) Hold diuretics and nephrotoxins as above Case to be discussed with staff Donaldo Choe MD Pager [phone] (please see below for after hours communication) 02/27/2018 6:42 PM For communication after 5 pm on weekdays and after 12 pm on weekends, please page the following: - Clinical Cardiology patients on all floors: page [phone] - Other Cardiology patients on J5 and J6: page [phone] - Other Cardiology patients on J7 and J8: page [phone] [facility] [place] STAFF PHYSICIAN NOTE OF PERSONAL INVOLVEMENT IN CARE IMPRESSION: Patient is a 67 year old male s/p emergent PCI to a totally occluded SVG to RCA on 02/15. He began having Dyspnea several days ago. He received 80mg lasix Wednesday and Wednesday without improvement. He feels the dyspnea at rest. It may be related to the Ticagrelor PLAN: 1. DC Ticagrelor and begin Plavix. 2. PET today. He had moderate anastomosis lesion of the GUDINO graft. 3. +/- cath tomorrow. I have reviewed the documentation obtained and documented by the Fellow and have reviewed and updated the problem list as appropriate. I have personally performed a face to face assessment of the patient and have personally participated in the small components. I have discussed the case and management of the patient's care. STAFF PHYSICIAN: Shen Rowe DO DATE OF SERVICE: February 28, 2018 TIME OF SERVICE: 7:38 AM NURSING PROG Observed: 02/27/2018 Status: COMPLETED Source: [place] 6:17 PM [facility] REPOSITORY HNO ID: [id number] Author: Yady Francis) KATARINA Bustillo Service: (none) Author Type: Registered Nurse Type: Nursing Progress Note Filed: 02/27/2018 6:17 PM Note Text: Admission/Transfer Note PATIENT NAME: Amelia Leavitt Patient transferred from ED via wheelchair in stable condition. Actions taken: Patient oriented to room, call light function, prescribed activities, Patient rights and Quiet at night. No futher actions taken at this time. Will continue to monitor and check with patient. This note was completed by: Yady Bustillo RN PROGRESS Observed: 02/27/2018 Status: COMPLETED Source: [place] 11:39 AM [facility] REPOSITORY HNO ID: [id number] Author: Raul Scales (Rt) Service: Radiology Author Type: Distance Education Teacher Type: Progress Notes Filed: 02/27/2018 11:39 AM Note Text: Radiology Service Progress Note PATIENT NAME: Amelia Leavitt DATE OF SERVICE: February 27, 2018 TIME: 11:39 AM PATIENT IDENTITY VERIFICATION COMPLETED USING TWO (2) METHODS: Patient confirmed name verbally and ID band matches.. PATIENT GENDER DATA: Male PATIENT RELEVANT IMPLANT DATA REVIEWED: Not Applicable RADIOLOGY DEPARTMENT: General X-ray: Exam(s) Completed: Chest X-Ray PERIPHERAL IV DATA: Not applicable SIGNED BY: RT Yordy February 27, 2018 11:39 AM XR CHEST 2V FRONTAL/LAT Observed: 02/27/2018 Status: F Source: [place] 11:38 AM [facility] REPOSITORY * * *Final Report* * * DATE OF EXAM: Feb 27 2018 11:38AM EGX [id number] - XR CHEST 2V FRONTAL/LAT / PROCEDURE REASON: Chest pain or SOB, pleurisy or effusion suspected * * * * Physician Interpretation * * * * EXAMINATION: CHEST RADIOGRAPH (2 VIEW FRONTAL and LATERAL) CLINICAL HISTORY: Chest pain or SOB, pleurisy or effusion suspected, MQ: XC2_5 Comparison: 1 view chest 02/15/2018 RESULT: Lines, tubes, and devices: Left-sided defibrillator with lead in the right ventricle. Lungs and pleura: No consolidation. No lung mass. No pleural effusion. No pleural effusion Cardiomediastinal silhouette: Stable mildly enlarged cardiomediastinal silhouette. Other: Median sternotomy wires. Prior CABG. Degenerative changes. IMPRESSION: No acute radiographic abnormality. Sterilizer Operator: KEVIN Transcribe Date/Time: Feb 27 2018 11:41A Dictated by : STEVIE HERNANDEZ DO This examination was interpreted and the report reviewed and electronically signed by: NESHA PARR MD on Feb 27 2018 1:28PM EST [id number] CBC AND DIFFERENTIAL Collected: 02/27/2018 Status: F Source: [place] 11:29 AM [facility] REPOSITORY TYPE CODE TESTS RESULT OUT OF REFERENCE UNITS RANGE LAB WBC 3.70-11.00 k/uL WBC 9.34 LAB RBC 4.20-6.00 m/uL Low RBC 4.06 LAB HGB 13.0-17.0 g/dL Low Hemoglobin 12.9 LAB HCT 39.0-51.0 % Low Hematocrit 36.9 LAB MCV 80.0-100.0 fL MCV 90.9 LAB MCH 26.0-34.0 pG MCH 31.8 LAB MCHC 30.5-36.0 g/dL MCHC 35.0 LAB RDWCV 11.5-15.0 % RDW-CV 13.9 LAB PLTCT 150-400 k/uL Platelet Count 230 LAB MPV 9.0-12.7 fL MPV 10.5 LAB ANEUT % Neut% 68.8 LAB AANEUT 1.45-7.50 k/uL Abs Neut 6.43 LAB ALYMP % Lymph% 20.7 LAB AALYMP 1.00-4.00 k/uL Abs Lymph 1.93 LAB AMONO % Coleman% 7.6 LAB AAMONO <0.87 k/uL Abs Coleman 0.71 LAB AEOS % Eosin% 2.4 LAB AAEOS <0.46 k/uL Abs Eosin 0.22 LAB ABASO % Baso% 0.5 LAB AABASO <0.11 k/uL Abs Baso 0.05 LAB AUNRBC 0 /100 WBC NRBCs 0.0 LAB ABNRBC <0.01 k/uL Absolute nRBC <0.01 LAB DTYP DTYPE Auto Diff Performed By: #### CBCDIF, CMP, MG1, NTBNP #### [facility] [address] [place] [address] COMP METABOLIC PANEL Collected: 02/27/2018 Status: F Source: [place] 11:29 AM [facility] REPOSITORY TYPE CODE TESTS RESULT OUT OF REFERENCE UNITS RANGE LAB TP 6.3-8.0 g/dL Protein, Total 7.3 LAB ALB 3.9-4.9 g/dL Albumin 4.3 LAB CA 8.5-10.2 mg/dL Calcium, Total 9.3 LAB TBIL 0.2-1.3 mg/dL Bilirubin, Total 0.5 LAB ALKP 38-113 U/L Alkaline Phosphatase 91 LAB AST 14-40 U/L AST 17 LAB GLU 74-99 mg/dL Glucose High 114 Result Comment: The [place] [employer] (ADA) provides guidance for cutoff values for fasting glucose and random glucose. The ADA defines fasting as no caloric intake for at least 8 hours. Fas ting plasma glucose results between 100 to 125 mg/dL indicate increased risk for diabetes (prediabetes). Fasting plasma glucose results greater than or equal to 126 mg/dL meet the criteria for diagnosis of diabetes. In the absence of unequivocal hyperglycemia, results should be confirmed by repeat testing. In a patient with classic symptoms of hyperglycemia or hyperglycemic crisis, random plasma glucose results greater than or equal to 200 mg/dL meet the criteria for diagnosis of diabetes. Reference: Standards of Medical Care in Diabetes 2016, [place] [employer]. Diabetes Care. 2016.39(Suppl 1). LAB BUN 9-24 mg/dL BUN High 48 LAB CRET 0.73-1.22 mg/dL Creatinine High 2.34 LAB NA 136-144 mmol/L Sodium 141 LAB K 3.7-5.1 mmol/L Potassium 4.4 LAB CL 97-105 mmol/L Chloride 100 LAB CO2 22-30 mmol/L CO2 25 LAB AGAP 9-18 mmol/L Anion Gap 16 LAB ALT 10-54 U/L ALT 16 LAB GFRAA eGFR- Amer. 34 LAB GFRNAA . eGFR-All Other Races 28 Result Comment: eGFR (Estimated GFR) Units of measure: mL/min/1.73 meters squared eGFR is derived from the reexpressed MDRD Study equation using the following parameters: serum creatinine, age, gender and race. The creatinine assay has been calibrated to be traceable to IDMS. An eGFR <60 mL/min/1.73m2 for >3 months is consistent with chronic kidney disease. Refer to KDOQI guidelines for clinical interpretation. In patients with unstable renal function, e.g. those with acute kidney injury, the eGFR may not accurately reflect actual GFR. Performed By: #### CBCDIF, CMP, MG1, NTBNP #### [facility] [address] [place] [address] MAGNESIUM Collected: 02/27/2018 Status: F Source: [place] 11:29 AM [facility] REPOSITORY TYPE CODE TESTS RESULT OUT OF REFERENCE UNITS RANGE LAB MG 1.7-2.3 mg/dL Magnesium 2.3 Performed By: #### CBCDIF, CMP, MG1, NTBNP #### [facility] [address] [place] [address] NT PRO BNP Collected: 02/27/2018 Status: F Source: [place] 11:29 AM [facility] REPOSITORY TYPE CODE TESTS RESULT OUT OF REFERENCE UNITS RANGE LAB PBNP <125 pg/mL High PRO B Natr 733 Peptide Performed By: #### CBCDIF, CMP, MG1, NTBNP #### [facility] [address] [place], [place] [address] TROPONIN T Collected: 02/27/2018 Status: F Source: [place] 11:29 AM [facility] REPOSITORY TYPE CODE TESTS RESULT OUT OF REFERENCE UNITS RANGE LAB TROPT 0.000-0.029 ng/mL Troponin T <0.010 Performed By: #### MJ #### [facility] [address] [place], [place] [address] ED PROV NOTE Observed: 02/27/2018 Status: COMPLETED Source: [place] 11:18 AM [facility] REPOSITORY HNO ID: [id number] Author: Nesha Amin MD Service: Emergency Medicine Author Type: Physician Type: ED Provider Notes Filed: 02/27/2018 5:03 PM Note Text: ED Provider Note Patient Name: Amelia Leavitt SERVICE DATE: 02/27/18 History Patient presents with: Shortness of Breath Amelia is a 67 year old male with PMH significant for HTN, HLD, CAD (s/p stent placement x16; CABG x1), CHF (EF25%), YOUSIF who presents the emergency department complaining of dyspnea. Patient reports he is experiencing dyspnea on exertion as well as at rest. He reports he will be sitting in his chair and have to concentrate on his breathing as he feels he is unable to catch his breath. Patient reports he contacted his herbicide service sales representative, Dr. Rowe, who recommended he increase his Lasix dose to 80 mg a day. He states he's numbness over the last 2 days however his symptoms have not improved and was recommended to come into the emergency department for likely admission. Patient recently had stent placement on 02/15/18 to his RCA. He admits he has also had some intermittent midsternal chest pain. He states he did not take any nitroglycerin to help and is not having any chest pain at this time. He denies any fevers, chills, congestion, nausea, vomiting, abdominal pain. Patient states he does not know what his weight is today but does not believe he skinned weight. She denies any lower extremity swelling or retention of fluid. He relates he was seen by his PCP earlier in the week, chest x-ray at that time was negative and was given trazodone which helps his symptoms for approximately a day however they have returned. History provided by: Patient and spouse site interpreter used: No PAST MEDICAL HISTORY Diagnosis Date - CAD (coronary artery disease) - Cardiomyopathy ([facility]) - CHF (congestive heart failure) ([facility]) - Family history of early CAD - H/o Lyme disease - History of smoking - Hyperlipidemia 2009 - 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 - GA (myocardial infarction) ([facility]) 2009, 2015 - S/P angioplasty with stent x 16 - S/P CABG x 1 2012 - Sleep apnea CPAP prn PAST SURGICAL HISTORY Procedure Laterality Date - CABG (1) VEIN GRAFT AND ARTERIAL GRAFT 2012 L-LAD - DEFIBRILLATOR SURGERY - PACEMAKER - PAST SURGICAL HISTORY OF 2006 vertebrae surgery - ROTATOR CUFF REPAIR 1995 FAMILY HISTORY Problem Relation Age of Onset - other (Myocardial infarction) Father 17 multiple GA's of GA age 53 - Cancer Sister - No Ocular Disease No Family History Social History Social History Main Topics - Smoking status: Former Smoker Packs/day: 0.50 Types: Cigarettes Quit date: 04/21/2017 - Smokeless tobacco: Never Used Comment: had quit for 20 years but restarted 2014 - Alcohol use 1.2 oz/week 2 Cans of beer per week Comment: Week - Drug use: No - Sexual activity: Not on file Comment: Patient was not asked ALLERGIES Allergen Reactions - Percocet [Oxycodone* Other: See Comments Pt has severe tremors when taking Percocet Review of Systems Constitutional: Positive for activity change. Negative for chills and fever. HENT: Negative for congestion, facial swelling and sore throat. Eyes: Negative for visual disturbance. Respiratory: Positive for cough, chest tightness and shortness of breath. Cardiovascular: Positive for chest pain. Skin: Negative for rash and wound. Psychiatric/Behavioral: The patient is not nervous/anxious. All other systems reviewed and are negative. Physical Exam BP 137/81 Pulse 83 Temp (Src) 97.8 (Oral) Resp 20 SpO2 97% Physical Exam Constitutional: He is oriented to person, place, and time. He appears well-developed and well-nourished. No distress. HENT: Head: Normocephalic and atraumatic. Cardiovascular: Normal rate, regular rhythm, normal heart sounds and intact distal pulses. Exam reveals no gallop and no friction rub. No murmur heard. Pulmonary/Chest: Effort normal. No respiratory distress. He has no wheezes. He has rhonchi. He has no rales. Abdominal: Soft. Bowel sounds are normal. He exhibits ascites. He exhibits no distension. There is no tenderness. There is no rigidity, no rebound, no guarding and no CVA tenderness. Neurological: He is alert and oriented to person, place, and time. No cranial nerve deficit. Skin: Skin is warm and dry. Capillary refill takes less than 2 seconds. No rash noted. He is not diaphoretic. Psychiatric: He has a normal mood and affect. Nursing note and vitals reviewed. Diagnostic Testing ED Labs Ordered and Reviewed - No data to display Procedures ED Course / Clinical Impression ED Course as of Feb 28 1544 Mami Woodson's Documentation Sun Feb 27, 2018 1203 CBC shows no leukocytosis, mild anemia. CMP reveals SAIMA with creatinine 2.34, elevated over baseline 1.3 with elevated BUN as well. Patient has no other electrolyte abnormalities with good liver function. Magnesium normal. Troponin normal. ProBNP is 733 stable to reading at discharge from hospital. 1206 no consolidation, pleural effusion, pneumothorax. Defibrillator present. stable cardiomegaly. XR CHEST 2V FRONTAL/LAT Clinical Impressions as of Feb 28 1544 SOB (shortness of breath) Post PTCA Acute on chronic systolic heart failure (HCC) Cardiomyopathy, ischemic SAIMA (acute kidney injury) (HCC) MDM / Disposition / Plan Vital signs were reviewed. Triage records were reviewed. Medical records were reviewed. Nursing notes were reviewed and incorporated. 67 year old male presents to the ED d/t worsening sob over the last week. Pt remained afebrile throughout hospital course and hemodynamically stable, well-appearing, and non-toxic. Physical exam as above. Patient placed on night monitor. The patient's EKG was reviewed and stable compared to prior. No additional acute changes are noted. Labs reviewed and interpreted as ASIMA with elevated BUN and creatinine, BNP stable with prior readings, troponin has trended back down to normal. Labs otherwise unremarkable. Radiographs were reviewed, chest x-ray appears stable without vascular congestion, pleural effusion, pneumothorax or consolidation. Given patient's SAIMA, he was given small bolus of Intravenous fluids. Discussed patient's case with herbicide service sales representative who recommended admission to hospital for gentle rehydration and medication adjustments. At this time is low suspicion for PE, acute GA, pneumonia, pneumothorax. Patient was admitted to the hospital. Patient expressed understanding and consented to the above plan. No barriers of communication were apparent and I answered all questions. Additional Tests or Interventions: ECG EKG INTERPRETATION: Ordered and Reviewed Rhythm: Normal sinus rhythm Rate: 80 Kinzers: Left axis deviation Intervals: Normal AL interval QRS Complex: Normal ST Segment: Other (comment) (Anterior infarct and inferior infarct, age undetermined) QT Interval: Normal Compared with Prior: Unchanged Interpretation performed by Mami Woodson PA-C Disposition The patient was admitted. Admitted to Regular Nursing Floor. Condition at disposition is stable. 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 My small findings include: 67-year-old male with history of hypertension, hyperlipidemia, severe CAD status post multiple stents and coronary artery bypass grafting, CHF with ischemic cardiomyopathy with reduced ejection fraction of 25% and obstructive sleep apnea presenting with chief complaint of dyspnea at rest and on exertion. Patient is discussed the case with his herbicide service sales representative who recommended an increase of his Lasix to 80 mg a day states that symptoms have not improved. Patient most recently had an GA and a stents placed on 02/15/2018 to the RCA. Exam: Vital signs reviewed, no respiratory distress, no acute distress, no jugular venous distention, no Rales, abdomen is soft, nontender extremities are warm and well perfused. Labs and imaging reviewed, SAIMA appreciated, chest x-ray without significant pulmonary edema. Case discussed with flatbed truck driver, plan for admission Signature: Nesha Amin MD Date: 02/27/2018 Time: 5:01 PM Nesha Amin MD 02/27/18 7119 ED NOTE Observed: 02/27/2018 Status: COMPLETED Source: [place] 11:03 AM [facility] REPOSITORY HNO ID: [id number] Author: Denise BeckmanRn) KATARINA Merrill Service: (none) Author Type: Registered Nurse Type: ED Notes Filed: 02/27/2018 11:04 AM Note Text: Patient presents to ER with c/o shortness of breath since having 2 stents placed last Wednesday - was advised to come to ed for CHF admission by cardiology after increasing lasix without relief. XR CHEST 2 VIEWS Observed: 02/22/2018 Status: F Source: [place] 9:[address] [facility] REPOSITORY Exam Date/Time: 02/22/2018 09:18 EDT Reason for Exam: Shortness of breath (SOB) Report STUDY: XR Chest 2 Views; 02/22/2018 9:18 am INDICATION: Shortness of breath (SOB). COMPARISON: 02/14/2018 ACCESSION NUMBER(S): [id number] ORDERING CLINICIAN: Zi Chamberlain FINDINGS: PA and lateral views of the chest were obtained. Sternal wires and mediastinal surgical clips are present. A single lead pacer/AICD is seen over the left chest. No focal infiltrate, pleural effusion or pneumothorax is identified. The cardiac silhouette is within normal limits for size. Moderate discogenic degenerative changes are seen throughout the thoracic spine. IMPRESSION: No focal infiltrate or pneumothorax. FINAL REPORT Dictated: 02/22/2018 12:22 pm Ambrocio Joe MD Signed (Electronic Signature): 02/22/2018 12:22 pm Signed by: Ambrocio oJe MD Technologist: JASEN NURSING PROG Observed: 02/16/2018 Status: COMPLETED Source: [place] 1:47 PM [facility] REPOSITORY HNO ID: [id number] Author: Brian BeckmanRn) KATARINA Flowers Service: Nursing Author Type: Registered Nurse Type: Nursing Progress Note Filed: 02/16/2018 3:00 PM Note Text: Nursing Progress Note Patient Name: Amelia Leavitt Patient Location: J073 [id number]/[id number] Daily Note: Pt discharged in stable condition by wheelchair at 1345. Pt has all belongings, discharge instructions reviewed, meds sent to home pharmacy. Pt has stent cards and perclose cards from chart. Tele box returned. IV removed. This note was completed by: Brian Flowers RN CASE MANAGEM Observed: 02/16/2018 Status: COMPLETED Source: [place] 1:46 PM [facility] REPOSITORY HNO ID: [id number] Author: Beryl Marley) Sophia Service: Care Management Author Type: Resource Center Striper Type: Care Mgt Progress Note Filed: 02/16/2018 1:47 PM Note Text: CARE MANAGEMENT PROGRESS NOTE SERVICE DATE: 02/16/2018 SERVICE TIME: 1:04 pm LOS: 2 days IM letter given to patient on 02/16/18. SIGNATURE: Asst Robert PATIENT NAME: Amelia Leavitt DATE: February 16, 2018 TIME: 1:46 PM PAGER/CONTACT #: [phone] CASE MANAGEM Observed: 02/16/2018 Status: COMPLETED Source: [place] 1:44 PM [facility] REPOSITORY HNO ID: [id number] Author: Rad Osorio RN Service: Case Management Author Type: Registered Nurse Type: Care Mgt Progress Note Filed: 02/16/2018 1:53 PM Note Text: CARE MANAGEMENT DISCHARGE NOTE SERVICE DATE: 02/16/2018 SERVICE TIME: 1:52 PM LOS: 2 days Needs Prior to Discharge: Ready for Discharge Plan of care discussed with primary team ready for discharge home no skilled needs. Ready for discharge from CM standpoint. SIGNATURE: Rad Osorio RN PATIENT NAME: Amelia Leavitt DATE: February 16, 2018 TIME: 1:44 PM PAGER/CONTACT #: [phone] PLAN OF CARE Observed: 02/16/2018 Status: COMPLETED Source: [place] 12:09 PM [facility] REPOSITORY HNO ID: [id number] Author: Loretta Lutz (Steno Pool Supervisor) Service: (none) Author Type: (none) Type: Plan of Care Filed: 02/16/2018 12:09 PM Note Text: Pharmacy Discharge Medication Service: This patient has elected to receive their discharge prescriptions through the [facility] Bedside Prescription Delivery program. The prescriptions are currently being processed. A follow-up note will be entered once the prescriptions have been filled and delivered to the patient. Please contact me with any questions or updates to the patient's discharge medications. Loretta Lutz (Game[employer]) DCT Contact Info: PLAN OF CARE Observed: 02/16/2018 Status: COMPLETED Source: [place] 12:09 PM [facility] REPOSITORY HNO ID: [id number] Author: Loretta Lutz (Game[employer]) Service: (none) Author Type: (none) Type: Plan of Care Filed: 02/16/2018 12:09 PM Note Text: FLATBED TRUCK DRIVER BEDSIDE DELIVERY SURVEY 1. Patient to use [facility] Bedside Delivery - YES 2. If fax, patient would like us to fax prescriptions to Pharmacy of choice a. Pharmacy: b. Location: c. Phone: 3. Insurance card on file - YES 4. Credit card for payment - YES No prescriptions yet. Please page upon discharge. CNDS Observed: 02/16/2018 Status: COMPLETED Source: [place] 11:49 AM [facility] REPOSITORY HNO ID: [id number] Author: Di Rivero (Pa) Service: Cardiovascular Medicine Author Type: Physician Striper Type: Discharge Summaries Filed: 02/16/2018 3:00 PM Note Text: Department of Cardivascular Medicine Discharge Summary PATIENT NAME: Amelia Leavitt ADMISSION DATE: 02/14/2018 DISCHARGE DATE: 02/16/2018 Attending Physician: Shen Rowe DO Code Status: Not on file Primary Service: Hvi Card Intervention Admission Diagnosis: NSTEMI Discharge Diagnosis: NSTEMI Secondary Diagnoses: Patient Active Hospital Problem List: Cardiomyopathy, ischemic (07/28/2017) NSTEMI (non-ST elevated myocardial infarction) (HCC) (02/14/2018) Primary hypertension (07/30/2017) Hyperlipidemia LDL goal <70 (08/02/2017) Gastroesophageal reflux disease without esophagitis (08/02/2017) Pain syndrome, chronic (07/28/2017) Atherosclerosis of [place] coronary artery of [place] heart with angina pectoris (HCC) (09/06/2017) Obesity, Class I, BMI 30-34.9 E66.9 (09/06/2017) Nicotine use disorder, F17.2 (02/15/2018) Post PTCA (02/16/2018) Reason for Hospitalization: 67 year old male w PMH ? CAD sp CABG x2 (GUDINO to LAD in 2010, SVG x2-OM, proxPDA, and LAD w free ROMAN from SVG-PDA graft in July 2017) and PCI x ~16 per Pt to mid LAD (occluded), LCX w multi stents, mid RCA (subtotal occluded), dist RCA GUDINO w 50% anastomotic narrowing as of May 2017 ? CHF 2/2 ICM/HFrEF ~30% w infero-apical hypokinetic s/p ICD in Apr 2017, no hx of shock, on lasix 20 PRN ? Obesity c/b YOUSIF, hx of CPAP use Hx of Smoking - 5pkyr hx HLD on Crestor and Tricor HTN on Cozaar and Coreg FHx of early CAD/GA and in Father 53yo ? Pt had CP-pressure, like elephant sitting on chest- after working in the yard on 02/14. The pt normally walks about 100 yrds before requiring a break to catch his breath but is otherwise very active - splitting firewood, gardening. Pain radiated w numbness in L and R arms, also with diaphoresis. Pt took SL NTG x 2 wo relief. Pain lasted from 8AM to 1PM, when pt was treated at ED. Pt went to [facility], where he was started on ASA and heparin, loaded with Brilinta with improvement but not complete cessation of his CP. ECG showed and trended Troponin I (0.14->0.32->0.7). ? Pt was transferred to [facility] CICU where on arrival he was HDS and on NTG and heparin drips. He endorses 3/10 pressure like CP but denies other symptoms. Hospital Course: Medical management of NSTEMI Patient underwent cardiac catheterization with successful MARGO x2 to SVG-RCA on 02-15-2018. Post PCI the patient remained in the CICU for the next 24-48 hours for medical management. Peak CK/Troponin 690/2.320 Echo with EF EF 25%(see below for full report) CICU course was not complicated. He had no further chest pain following the PCI. He was transferred to nursing floor. Pt was started on brilinta along with ASA and advised to increase lasix dose from 20mg to 40mg daily. The patient remained HD stable. He had no CP or associated symptoms. The procedure site remained stable with no signs of bruit of hematoma. Cardiac enzymes and EKG remained with no acute changes. The patient was discharged in stable condition. Dr Rowe advised return visit in 3 month with a heart failure MD appt and repeat echo Consults: None Major Procedure or Operation: PCI MARGO x2 overlapping stent to SVG-RCA 02-15-2018 Echo 02-15-2018 CONCLUSIONS: - Technically difficult exam due to body habitus. - Exam indication: Evaluation of ventricular function following ACS - The left ventricle is dilated. Left ventricular systolic function is severely decreased. EF = 25 ? 5% (visual est.) Definity contrast used for endocardial border detection. - The right ventricle is dilated. RV not well assessed from the apical imaging window. RVOT appears to be mildly dilated with mildly reduced RVOT contraction. - The left atrial cavity is dilated. - The right atrial cavity is dilated. - Exam was compared with the prior echocardiographic exam performed on 09/06/2017. On direct [id number] comparison, LV contraction appears slightly worse on today's examination (especially on comparison of apical imaging). Other Procedures, Testing AND Radiology: None Patient Condition at Discharge: Improved Disposition: Home/Self Care Information Provided to the Patient: Patient given copy of After Visit Summary which included activity instructions, diet instructions, wound care instructions, medication instructions and follow up appointment ALLERGIES Allergen Reactions - Percocet [Oxycodone* Other: See Comments Pt has severe tremors when taking Percocet Discharge Medications: Discharge Medication List as of 02/16/2018 1:05 PM START taking these medications nitroglycerin sublingual (NITROQUICK) 0.4 mg SL tablet Dissolve 1 tablet under the tongue as needed for Chest Pain. Med Update, Long-term potassium chloride ER (K-DUR, KLOR-CON) 20 mEq tablet Take 1 tablet by mouth once daily. Normal, Disp-30 tablet, R-6 CONTINUE these medications which have CHANGED miSOPROStol (CYTOTEC) 200 mcg tablet Take 1 tablet by mouth twice daily. Normal, Disp-60 tablet, R-1 furosemide (LASIX) 40 mg tablet Take 1 tablet by mouth once daily. Take one tab three times a week Normal, Disp-30 tablet, R-6, Long-term diclofenac, EC, (VOLTAREN) 75 mg EC tablet Take 1 tablet by mouth twice daily. Normal, Disp-60 tablet, R-1 ticagrelor (BRILINTA) 90 mg tablet Take 1 tablet by mouth twice daily. Normal, Disp-60 tablet, R-11 CONTINUE these medications which have NOT CHANGED buPROPion XL (WELLBUTRIN XL) 150 mg 24 hr tablet Take 150 mg by mouth twice daily. Historical Med, R-2, Long-term bacitracin ophthalmic ophthalmic ointment Use 1 application in both eyes once each week. One application at bedtime Med Update rosuvastatin (CRESTOR) 40 mg tablet Take 1 tablet by mouth daily at bedtime. Print RX, Disp-90 tablet, R-3, Long-term losartan (COZAAR) 25 mg tablet Take 1 tablet by mouth once daily. Print RX, Disp-90 tablet, R-3, Long-term carvedilol (COREG) 6.25 mg tablet Take 1 tablet by mouth twice daily with meals. Print RX, Disp-180 tablet, R-1, Long-term fenofibrate nanocrystallized (TRICOR) 48 mg tablet Take 1 tablet by mouth once daily. Print RX, Disp-90 tablet, R-3, Long-term gabapentin (NEURONTIN) 300 mg capsule Take 1 capsule by mouth every 12 hours for 30 days. Normal, Disp-60 capsule, R-0, Long-term Dx: 1. Pain syndrome, chronic magnesium oxide (MAG-OX) 400 mg tablet Take 2 tablets by mouth once daily for 10 days. Normal, Disp-20 tablet, R-0, Long-term therapeutic multivitamin (THERA VITAMIN) tablet Take 1 tablet by mouth daily with breakfast. Normal, Disp-100 tablet, R-1, Long-term aspirin 81 mg chewable tablet Take 2 tablets by mouth once daily. Normal, Disp-180 tablet, R-1, Long-term pantoprazole DR (PROTONIX) 40 mg tablet Take 1 tablet by mouth DAILY (6 AM). Normal, Disp-90 tablet, R-1, Long-term STOP taking these medications acetaminophen (TYLENOL) 500 mg tablet Comments: Reason for Stopping: Transitions of Care Critical Issues: Outpatient Management: * Are there important medication changes and/or outstanding issues that need to be addressed: check up, resume losartan on Wednesday. * What is the plan for follow up: see below Future Appointments: Future Appointments Date Time Provider Department Center 03/16/2018 1:45 PM [id number] CARMONA [facility] 03/16/2018 1:45 PM [id number] GAR [facility] 05/23/2018 2:00 PM [id number] ROWE J [facility] 05/23/2018 2:00 PM [id number] FORTUNATO MANDEL Misael B[facility] 07/13/2018 8:45 AM [id number], RYAN (OD) OPHTSA OPHT SUGAR A Highest Readmission Risk Score: 9 The 30 day readmissions risk score is derived from an internally validated risk model which evaluates patient level characteristics, utilization history, medication orders and lab results up until the day of discharge. Patients with a score of 40 or above are considered highest risk for readmission. Specific patient level drivers will be listed at the bottom of the summary. This patient?s risk for 30-day readmission is determined using the following contributing drivers Pt variables contributing to increased readmission risk: 21 Most Recent BUN Result 9.1 First Resulted Calcium During Admission 7 Active Medication Orders 1 Insurance - Medicare 1 Number of Hospitalizations (12 mos.) Electronically SIGNED by Licensed Independent Practitioner: Di Rivero PA-C PROGRESS Observed: 02/16/2018 Status: COMPLETED Source: [place] 11:43 AM [facility] REPOSITORY HNO ID: [id number] Author: Di Rivero (Pa) Service: Cardiovascular Medicine Author Type: Physician Striper Type: Progress Notes Filed: 02/16/2018 11:48 AM Note Text: [facility]ARD[facility]ULAR [facility]ICINE PROGRESS NOTE (Template ID [id number]) Amelia Leavitt [id number] PRIMARY SERVICE: Dr Mamadou Robertson [facility] DAY: # 2 INTERVAL HISTORY Pt is lying in the bed, is present. He has had no chest pain or dyspnea. He reports occ dyspnea at rest, Dr Rowe wants lasix 40mg qd. He has no groin pain. PHYSICAL EXAM BP 128/76 Pulse 90 Temp 36.8 ?C (98.2 ?F) (Oral) Resp 18 Ht 177.8 cm (5' 10) Wt 98.6 kg (217 lb 4.8 oz) SpO2 96% BMI 31.18 kg/m? Intake/Output Summary (Last 24 hours) at 02/16/18 1144 Last data filed at 02/16/18 0900 Gross per 24 hour Intake 1010 ml Output 1725 ml Net -715 ml General Appearance: Well developed, Overweight and No distress HEENT: EOM's intact, JVD - no and Bruits - no Lungs: Clear Heart: Regular rate AND rhythm,no Murmur , S1, S2 normal, S4 present, no Edema and Vascular: Pulses - +2 intact R groin assess site ok slight tenderness Abdomen: Soft, Round, Non-tender, Bowel sounds present, Bruits - no and Organomegaly - no Skin: Warm and Dry Musculoskeletal: No deformities Neurologic/Psychiatric: Oriented to time, place AND person MEDICATIONS Current hospital medications: ticagrelor 90 mg tab(s) (BRILINTA) 90 mg ORAL BID carvedilol 6.25 mg tab(s) (COREG) 6.25 mg ORAL BID w MEALS pantoprazole DR 40 mg tab(s) (PROTONIX) 40 mg ORAL DAILY (6 AM) aspirin 81 mg chewable tab(s) 81 mg ORAL DAILY nitroglycerin sublingual 0.4 mg tab(s) (NITROQUICK) 0.4 mg SUBLINGUAL PRN buPROPion XL 150 mg tab(s) (WELLBUTRIN XL) 150 mg ORAL BID rosuvastatin 40 mg tab(s) (CRESTOR) 40 mg ORAL AT BEDTIME DATA Recent Labs 02/16/18 0846 02/15/18 0307 02/14/18 2100 WBC 11.90* 12.38* 11.99* HB 13.1 12.0* 13.6 HCT 38.7* 35.1* 40.7 PLT 174 153 170 Recent Labs 02/16/18 0846 02/15/18 1230 02/15/18 0307 02/14/18 2100 NA 136 -- 142 144 K 3.8 4.5 3.8 4.2 CO2 22 -- 21* 22 BUN 21 -- 23 25* CREAT 1.50* -- 1.25* 1.35* GLUC 183* -- 117* 91 MG -- 2.3 1.6* 1.8 IMAGING ASSESSMENT AND PLAN 67M w PMH of CAD sp multi PCI and CABG, HFrEF, HTN, HLD, Obesity who presents w chest pain without ECG changes concerning for NSTEMI. Troponins trended up at OSH to 0.7, pt was started on ASA, heparin, Brilinta loaded and placed on NTG drip with incomplete relief of CP. Transferred to [facility] CICU for further mgmt and possible urgent LHC if no significant relief of CP with uptitration of NTG. Pt is HDS, on RA, and with 3/10 CP. Plan for C w PCI vs third CABG. In acute setting, will cont ASA, heparin, and NTG, while holding BB and BP meds. Problem Nstemi (Non-St Elevated Myocardial Infarction) (Hcc) Hx: Troponin I leak to 0.7, no peak observed yet, no ECG changes A: NSTEMI Plan: ASA, heparin gtt, statin Pt loaded on Brilinta at OSH before Transfer, Holding Brilinta Hold BB and HTN meds in acute setting Plan for ICD check Hold lasix in acute setting Plan to restart cardiac meds when pt stable, likely after C vs redo CABG ECHO, CXR EKG, Tele Trend Troponins and CKMB Plan for [facility] PCI MARGO to SVG-RCA Cardiomyopathy, Ischemic History: h/o CAD with multiple stents and CABG. EF - 30%. Prior ICD placement Assessment: S/p 07/28/2017 CABGx3 (SVG1 to PDA, SVG2 to OM, Free ROMAN as jump graft from prox. SVG2 to LAD) Plan: ASA, heparin gtt, statin Hold BB and HTN meds in acute setting Plan for ICD check Hold lasix in acute setting Plan to restart cardiac meds when pt stable, likely after C vs redo CABG ECHO 02-15 EF 25% Hyperlipidemia Ldl Goal <70 History: h/o HLP well controlled on Crestor 40 Assessment: LFTs - WNL Plan: Goal LDL < 70. Crestor 40mg Primary Hypertension History: h/o HTN on Coreg, cozaar, lasix Assessment: SBP - 120s Plan: Plan: ASA, heparin gtt, statin Restarted BB and HTN meds in acute setting Plan for ICD check Hold lasix in acute setting Gastroesophageal Reflux Disease Without Esophagitis History: h/o GERD on PPI Assessment: No acute issues Plan: Continue PPI Pain Syndrome, Chronic History: Pt reports back and arthritis chronic pain using Neurontin 300mg bid for pain control, as well as cytotec and diclofenac for arthritis pain Assessment: Pt not in any pain from back or arthritis now Plan: Continue Tylenol PRN Hold cytotec and diclofenac in acute [place] setting, hold gabapentin Plan to restart pain meds outside acute setting NOTE Pt with severe tremors with oxycodone, AVOID Post Ptca S/P PCI MARGO x2 to SVG-RCA 02-15-2018 Atherosclerosis of [place] Coronary Artery of [place] Heart With Angina Pectoris (Hcc) Hx: Troponin I leak to 0.7, no peak observed yet, no ECG changes CAD sp CABG x2 (GUDINO to LAD in 2010, SVG x2-OM, proxPDA, and LAD w free ROMAN from SVG-PDA graft in July 2017) and PCI x ~16 per Pt to mid LAD (occluded), LCX w multi stents, mid RCA (subtotal occluded), dist RCA GUDINO w 50% anastomotic narrowing as of May 2017 A: NSTEMI Plan: ASA, heparin gtt, statin Pt loaded on Brilinta at OSH before Transfer, Holding Brilinta Hold BB and HTN meds in acute setting Plan for ICD check Hold lasix in acute setting Plan to restart cardiac meds when pt stable, likely after LHC vs redo CABG ECHO, CXR EKG, Tele Trend Troponins and CKMB Plan for LHC if CP not improved with increasing NTG drip PCI MARGO to SVG-RCA 02-15 Obesity, Class I, BMI 30-34.9 E66.9 Encourage diet and exercise program Case to be discussed with staff Di Rivero PA-C [id number] (please see below for after hours communication) 02/16/2018 11:[address] Rowe saw Pt this am, ok to DC home follow up with Dr Rowe and CHF MD in 3 months. Ok to resume losartan in 2 days, ok to start lasix 40mg qd. Care Coordination Discharge Management: I personally spent greater than 30 minutes involved in the discharge management of this patient. All medications and potential SE were discussed with the Patient. Di Rivero PA-C 11:47 AM PROGRESS Observed: 02/16/2018 Status: COMPLETED Source: [place] 9:18 AM [facility] [place] REPOSITORY O ID: [id number] Author: Royal Alex (Fel) Service: Cardiovascular Medicine Author Type: Physician Type: Progress Notes Filed: 02/16/2018 9:28 AM Note Text: INTERVENTIONAL CARDIOLOGY Post Intervention Progress Note PROCEDURE: PCI SUBJECTIVE: No events overnight. No CP or SOB. Feels well and ready for discharge. Prior to Admission Medications miSOPROStol (CYTOTEC) 200 mcg tablet Take 200 mcg by mouth twice daily. diclofenac, EC, (VOLTAREN) 75 mg EC tablet Take 75 mg by mouth twice daily. buPROPion XL (WELLBUTRIN XL) 150 mg 24 hr tablet Take 150 mg by mouth twice daily. bacitracin ophthalmic ophthalmic ointment Use 1 application in both eyes once each week. One application at bedtime rosuvastatin (CRESTOR) 40 mg tablet Take 1 tablet by mouth daily at bedtime. losartan (COZAAR) 25 mg tablet Take 1 tablet by mouth once daily. carvedilol (COREG) 6.25 mg tablet Take 1 tablet by mouth twice daily with meals. furosemide (LASIX) 20 mg tablet Take 1 tablet by mouth once daily. Take one tab three times a week fenofibrate nanocrystallized (TRICOR) 48 mg tablet Take 1 tablet by mouth once daily. gabapentin (NEURONTIN) 300 mg capsule Take 1 capsule by mouth every 12 hours for 30 days. magnesium oxide (MAG-OX) 400 mg tablet Take 2 tablets by mouth once daily for 10 days. therapeutic multivitamin (THERA VITAMIN) tablet Take 1 tablet by mouth daily with breakfast. aspirin 81 mg chewable tablet Take 2 tablets by mouth once daily. pantoprazole DR (PROTONIX) 40 mg tablet Take 1 tablet by mouth DAILY (6 AM). acetaminophen (TYLENOL) 500 mg tablet Take 1-2 tablets by mouth every 6 hours as needed for Pain (for mild surgical pain). Current Inpatient Medications Current hospital medications: ticagrelor 90 mg tab(s) (BRILINTA) 90 mg ORAL BID carvedilol 6.25 mg tab(s) (COREG) 6.25 mg ORAL BID w MEALS pantoprazole DR 40 mg tab(s) (PROTONIX) 40 mg ORAL DAILY (6 AM) aspirin 81 mg chewable tab(s) 81 mg ORAL DAILY nitroglycerin sublingual 0.4 mg tab(s) (NITROQUICK) 0.4 mg SUBLINGUAL PRN buPROPion XL 150 mg tab(s) (WELLBUTRIN XL) 150 mg ORAL BID rosuvastatin 40 mg tab(s) (CRESTOR) 40 mg ORAL AT BEDTIME PHYSICAL EXAM BP 128/76 Pulse 90 Temp 36.8 ?C (98.2 ?F) (Oral) Resp 18 Ht 177.8 cm (5' 10) Wt 98.6 kg (217 lb 4.8 oz) SpO2 96% BMI 31.18 kg/m? GEN: Awake, alert and orientedx3, pleasant and cooperative HEENT: MMM, OP clear, sclera anicteric NECK: no jugular venous distention CV: Regular rate and rhythm, normal S1 and S2 PULM: Normal effort, clear to the bases bilaterally ABD: Soft, non-tender, non-distended, EXT: Warm and well perfused without peripheral edema, no hematoma LABS: Recent Labs 02/15/18 0307 02/14/18 2100 HCT 35.1* 40.7 PLT 153 170 CREAT 1.25* 1.35* EKG: no significant changes from prior Assessment and Plan: 67 year old male status post PCI to the SVG-RCA - Will discuss with Dr. Rowe possible triple therapy for one month in the setting of graft thrombosis versus standard DAPT - Medical therapy and cardiac risk factor reduction - Activity: ad roberto - Disposition: Home ADDENDUM: Discussed with Dr. Rowe, ut for discharge on Aspirin/Ticagrelor Please don't hesitate to contact me with any questions or concerns. Royal Alex MD Pager [phone] Interventional Payroll Representative CBC Collected: 02/16/2018 Status: F Source: [place] 8:46 AM [facility] REPOSITORY TYPE CODE TESTS RESULT OUT OF REFERENCE UNITS RANGE LAB WBC 3.70-11.00 k/uL WBC High 11.90 LAB RBC 4.20-6.00 m/uL RBC 4.20 LAB HGB 13.0-17.0 g/dL Hemoglobin 13.1 LAB HCT 39.0-51.0 % Low Hematocrit 38.7 LAB MCV 80.0-100.0 fL MCV 92.1 LAB MCH 26.0-34.0 pG MCH 31.2 LAB MCHC 30.5-36.0 g/dL MCHC 33.9 LAB RDWCV 11.5-15.0 % RDW-CV 14.7 LAB PLTCT 150-400 k/uL Platelet Count 174 LAB MPV 9.0-12.7 fL MPV 11.1 LAB ABSNUC <0.01 k/uL Absolute nRBC <0.01 Performed By: #### CBC, CMP #### [facility] [address] [place], [place] [address] COMP METABOLIC PANEL Collected: 02/16/2018 Status: F Source: [place] 8:46 AM [facility] REPOSITORY TYPE CODE TESTS RESULT OUT OF REFERENCE UNITS RANGE LAB TP 6.3-8.0 g/dL Protein, Total 7.2 LAB ALB 3.9-4.9 g/dL Albumin 4.3 Result Comment: Result rechecked. LAB CA 8.5-10.2 mg/dL Calcium, Total 9.4 Result Comment: Result rechecked. LAB TBIL 0.2-1.3 mg/dL Bilirubin, Total 0.7 LAB ALKP 38-113 U/L Alkaline Phosphatase 87 LAB AST 14-40 U/L AST High 77 LAB GLU 74-99 mg/dL Glucose High 183 Result Comment: The [place] Diabetes Association (ADA) provides guidance for cutoff values for fasting glucose and random glucose. The ADA defines fasting as no caloric intake for at least 8 hours. Fas ting plasma glucose results between 100 to 125 mg/dL indicate increased risk for diabetes (prediabetes). Fasting plasma glucose results greater than or equal to 126 mg/dL meet the criteria for diagnosis of diabetes. In the absence of unequivocal hyperglycemia, results should be confirmed by repeat testing. In a patient with classic symptoms of hyperglycemia or hyperglycemic crisis, random plasma glucose results greater than or equal to 200 mg/dL meet the criteria for diagnosis of diabetes. Reference: Standards of Medical Care in Diabetes 2016, [place] [employer] Association. Diabetes Care. 2016.39(Suppl 1). LAB BUN 9-24 mg/dL BUN 21 LAB CRET 0.73-1.22 mg/dL Creatinine High 1.50 LAB NA 136-144 mmol/L Sodium 136 LAB K 3.7-5.1 mmol/L Potassium 3.8 LAB CL 97-105 mmol/L Low Chloride 96 LAB CO2 22-30 mmol/L CO2 22 LAB AGAP 9-18 mmol/L Anion Gap 18 LAB ALT 10-54 U/L ALT 25 LAB GFRAA eGFR- Amer. 57 LAB GFRNAA . eGFR-All Other Races 47 Result Comment: eGFR (Estimated GFR) Units of measure: mL/min/1.73 meters squared eGFR is derived from the reexpressed MDRD Study equation using the following parameters: serum creatinine, age, gender and race. The creatinine assay has been calibrated to be traceable to IDMS. An eGFR <60 mL/min/1.73m2 for >3 months is consistent with chronic kidney disease. Refer to KDOQI guidelines for clinical interpretation. In patients with unstable renal function, e.g. those with acute kidney injury, the eGFR may not accurately reflect actual GFR. Performed By: #### CBC, CMP #### [facility] [address] [place], [place] [address] TROPONIN T Collected: 02/16/2018 Status: F Source: [place] 8:46 AM [facility] REPOSITORY TYPE CODE TESTS RESULT OUT OF REFERENCE UNITS RANGE LAB TROPT 0.000-0.029 ng/mL High Troponin T 1.210 Result Comment: Urgent value previously called 02/15/18 1431 Performed By: #### MJ #### [facility] [address] [place], [place] [address] ECG COMPLETE W Observed: 02/16/2018 Status: F Source: [place] INTERPRETATION 8:26 AM [facility] REPOSITORY NAME : AMELIA LEAVITT PID : [id number] : 1950 Gender : Male Race : ORD : [id number] Procedure Date : Feb 16 2018 08:26:45 Edit Date : Feb 17 2018 08:50:36 Diagnosis:SINUS RHYTHM WITH OCCASIONAL PREMATURE VENTRICULAR COMPLEXES LEFT AXIS DEVIATION INFERIOR MYOCARDIAL INFARCTION , AGE UNDETERMINED ST & LATERAL T WAVE ABNORMALITY ABNORMAL ECG Confirmed by MD GILMA, PhD, CARL ([id number]) on 02/17/2018 8:50:33 AM Ventricular Rate : 91 BPM Atrial Rate : 91 BPM P-R Interval : 184 ms QRS Duration : 124 ms Q-T Interval : 382 ms QTC Calculation(Bezet) : 469 ms P Kinzers : 22 degrees R Kinzers : -44 degrees T Kinzers : 127 degrees Test Reason : [place] Location : 373 : [id number] Overread By : MD GILMA, PhD,CARL Edited By : MD GILMA, PhD,CARL Referred By : LAURA PINEDA Acquired by : TATE PAYNE TROPONIN T Collected: 02/16/2018 Status: F Source: [place] 2:43 AM [facility] REPOSITORY TYPE CODE TESTS RESULT OUT OF REFERENCE UNITS RANGE LAB TROPT 0.000-0.029 ng/mL High Troponin T 1.590 Result Comment: Urgent value previously called 02/15/18 1431 Performed By: #### MJ #### [facility] [address] [place], [place] [address] NURSING PROG Observed: 02/15/2018 Status: COMPLETED Source: [place] 9:49 PM [facility] [place] REPOSITORY HNO ID: [id number] Author: Morris (Rn) KATARINA Moreira Service: (none) Author Type: Registered Nurse Type: Nursing Progress Note Filed: 02/15/2018 10:50 PM Note Text: Nursing Progress Note Patient Name: Amelia Leavitt Patient Location: [place] [address] Transfer Note: Patient transferred out to room/unit J73-05 in stable condition. Actions taken: Report given/called to pt's nurse. This note was completed by: Morris Moreira RN CK, TOTAL AND CKMB Collected: 02/15/2018 Status: F Source: [place] 6:30 PM [facility] REPOSITORY TYPE CODE TESTS RESULT OUT OF REFERENCE UNITS RANGE LAB CK 51-298 U/L High CK 608 LAB MB <7.7 ng/mL High MB 50.9 LAB CKMBRI 0.0-4.0 % High CK MB % 8.4 Result Comment: Called to and read back by: Nona Guajardo JMariluz 02/15/18 21:15 T Conn Performed By: #### CKCKMB, MJ #### [facility] [address] [place], [place] [address] TROPONIN T Collected: 02/15/2018 Status: F Source: [place] 6:30 PM [facility] REPOSITORY TYPE CODE TESTS RESULT OUT OF REFERENCE UNITS RANGE LAB TROPT 0.000-0.029 ng/mL High Troponin T 2.280 Result Comment: Urgent value previously called on 02/15/18 at 1431 T Conn Performed By: #### CKCKMB, MJ #### [facility] [address] [place], [place] [address] CK, TOTAL AND CKMB Collected: 02/15/2018 Status: F Source: [place] 12:30 [facility] REPOSITORY TYPE CODE TESTS RESULT OUT OF REFERENCE UNITS RANGE LAB CK 51-298 U/L High CK 690 LAB MB <7.7 ng/mL High MB 79.0 LAB CKMBRI 0.0-4.0 % High CK MB % 11.4 Result Comment: Called to and read back by: Gaby J31 02/15/18 Adrian Woods Performed By: #### CKCKMB, K1, MBE, MG1, MJ #### [facility] [address] [place] [address] POTASSIUM Collected: 02/15/2018 Status: F Source: [place] 12:30 [facility] REPOSITORY TYPE CODE TESTS RESULT OUT OF REFERENCE UNITS RANGE LAB K 3.7-5.1 mmol/L Potassium 4.5 Performed By: #### CKCKMB, K1, MBE, MG1, MJ #### [place] [address] CKMB Collected: 02/15/2018 Status: F Source: [place] 12:30 [facility] REPOSITORY TYPE CODE TESTS RESULT OUT OF RANGE REFERENCE UNITS LAB MBE1 <7.7 ng/mL High CKMB 79.0 Performed By: #### CKCKMB, K1, MBE, MG1, MJ #### [place] [address] MAGNESIUM Collected: 02/15/2018 Status: F Source: [place] 12:30 [facility] REPOSITORY TYPE CODE TESTS RESULT OUT OF REFERENCE UNITS RANGE LAB MG 1.7-2.3 mg/dL Magnesium 2.3 Performed By: #### CKCKMB, K1, MBE, MG1, MJ #### [place] [address] [place] [address] TROPONIN T Collected: 02/15/2018 Status: F Source: [place] 12:30 [facility] REPOSITORY TYPE CODE TESTS RESULT OUT OF REFERENCE UNITS RANGE LAB TROPT 0.000-0.029 ng/mL High Troponin T 2.320 Result Comment: Called to and read back by: Gaby J31 02/15/18 Adrian Woods Performed By: #### CKCKMB, K1, MBE, MG1, MJ #### [facility] [address] [id number] CASE MGT INIT Observed: 02/15/2018 Status: COMPLETED Source: [place]DE AMAYA 12:14 PM [facility] REPOSITORY HNO ID: [id number] Author: Yady Barnes (Sw) Service: Care Management Author Type: Organizational Research Consultant Type: Care Mgt Initial Assessment Filed: 02/15/2018 12:22 PM Note Text: CARE MANAGEMENT: ASSESSMENT AND DISCHARGE PLAN SERVICE DATE: 02/15/2018 SERVICE TIME: 12:14 PM PRIMARY CARE PHYSICIAN: Domo Newman MD ADMISSION STATUS: Inpatient Needs Prior to Discharge: To Be Determined;OT/PT Evaluation 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 No Advance Directive: Current Advance Directive: Health Care Power of Document Control Clerk;Living Will In Chart: Yes Up To Date and Valid: Yes Agent: Silvia Leavitt (Spouse) [phone]. Health Literacy: 1. How often do you need to have someone help you when you read instructions, pamphlets, or other written material from your doctor or pharmacy? Never - 1 2. How confident are you filling out medical forms by yourself? Quite a bit - 2 If Patient scores > 3 on either question, the following interventions were put into place: Patient did not score > 3 FUNCTIONAL AND COGNITIVE/BEHAVIORAL PRIOR TO ADMISSION: Baseline Mental Status: Alert AND Oriented, Person, Place , Time and Situation Functional Status: Independent Does Patient Currently Receive Any Community Services or Home Care? None Equipment Prior to Admission: Bi-level Positive Airway Pressure/Continuous Positive Airway Pressure Has the Patient Been in a Care Home Facility in the Past 30 days? No SOCIAL: Living Arrangement: Home Lives With: Spouse and granddtr Financial Resources: Retired Primary Contact: Extended Emergency Contact Information Primary Emergency Contact: Silvia Leavitt Relation: Spouse Supportive: Yes Other Important Patient Contacts: None Caregiver Assessment: Caregiver is ready, willing and able to meet the patient's needs as recommended by the inter-professional team? Yes Patient's transition needs and plan for meeting these needs: Needs TBD at this time. CM will continue to follow for evolving d/c needs. Does the patient have an acute stroke diagnosis, or has the patient had a stroke during this admission? No Medication Adherence: I am convinced of the importance of my prescription medication: Agree completely - 0 I worry that my prescription medication will do more harm than good to me Agree somewhat - 4 I feel financially burdened by my fon-ra-mynwso expenses for my prescription medication: Disagree completely - 0 Patient is categorized as medium risk score 2-7: The following interventions are being put into place - Consult pharmacy Are you interested in bedside delivery of your medications? No Food Concerns: In the Last Month, Have You had Trouble Getting Food? No trouble getting food During the Last Month, Have You Worried Whether Your Food Would Run Out Before You Had Enough Money to Buy More? No Is the Patient Psychosocially Complex? No ASSESSMENT AND PLAN: Medical Needs: 2 or more chronic diseases and Obesity Psychosocial Needs: None FREEDOM OF CHOICE EXPLAINED: N/A POTENTIAL TRANSITION PLANS Home Home Nursing Home OT/PT To Be Determined Pt is a 67 year old male from [place], [place] who is currently in the CICU due to chest pain and SOB. Sw spoke with pt at the bedside; introduced self and explained role. Pt stated that he was living independently with his spouse, Silvia, and granddtr prior to this admission. Pt went on to say that he has two dtrs; one who is a traveling nurse and the other who lives in [place]. Both can assist if needed. Pt has transportation home once he is medically ready. Discharge needs TBD at this time. Case Management will continue to follow medical course and plan discharge accordingly. SIGNATURE: ANAY Meyer PATIENT NAME: Amelia Leavitt DATE: February 15, 2018 TIME: 12:14 PM PAGER/CONTACT #: [phone] ST[facility] AUREUS PCR Collected: 02/15/2018 Status: F Source: [place] 8:28 AM [facility] REPOSITORY TYPE CODE TESTS RESULT OUT OF REFERENCE UNITS RANGE LAB SASRC Nasal S aureus Spec Source LAB MRSRES MRSA PCR Duplicate request Result Comment: SWAB ALREADY ORDERED IN LAST 24 HOURS. MW [id number] Account Credited LAB FABRICIO Staph Duplicate aureus PCR request Result Comment: SWAB ALREADY ORDERED IN LAST 24 HOURS. [id number] Account Credited Performed By: #### SAPCR #### [facility] [address] [place], [place] [address] PTT,ANTICOAG THERAPY Collected: 02/15/2018 Status: F Source: [place] 5:50 AM [facility] REPOSITORY TYPE CODE TESTS RESULT OUT OF RANGE REFERENCE UNITS LAB APTT 23.0-32.4 sec High APTT 40.5 Result Comment: Unfractionated Heparin Therapeutic Ranges: Standard Heparin Nomogram: 53 to 78 seconds (anti-Xa level of 0.3 to 0.7 U/ml) Low Dose/ACS Nomogram: 49 to 67 seconds (anti-Xa level of 0.2 to 0.5 U/ml) Stroke Treatment Nomogram: 49 to 67 seconds (anti-Xa level of 0.2 to 0.5 U/ml) Note: The APTT therapeutic range has been determined for the current lot of laboratory APTT reagent in use throughout the [facility]. Performed By: #### PTTAC #### [facility] [address] [place], [place] [address] ECG COMPLETE W Observed: 02/15/2018 Status: F Source: [place] INTERPRETATION 3:49 AM [facility] REPOSITORY NAME : AMELIA LEAVITT PID : [id number] : 1950 Gender : Male Race : ORD : [id number] Procedure Date : Feb 15 2018 03:49:14 Edit Date : Feb 18 2018 14:48:20 Diagnosis:NORMAL SINUS RHYTHM LOW VOLTAGE QRS, CONSIDER PULMONARY DISEASE, PERICARDIAL EFFUSION, OR NORMAL VARIANT LEFT ANTERIOR FASCICULAR BLOCK INFERIOR MYOCARDIAL INFARCTION , AGE UNDETERMINED ABNORMAL ECG Confirmed by Vincent TAVARES M.D. (22) on 02/18/2018 2:45:08 PM Ventricular Rate : 77 BPM Atrial Rate : 77 BPM P-R Interval : 184 ms QRS Duration : 114 ms Q-T Interval : 420 ms QTC Calculation(Bezet) : 475 ms P Kinzers : 31 degrees R Kinzers : -46 degrees T Kinzers : 120 degrees Test Reason : [place] Location : 331 : J31 8 Overread By : Vincent TAVARES M.D. Edited By : Vincent TAVARES M.D. Referred By : LAURA PINEDA Acquired by : PRN,WALLBOARD WORKER CBC Collected: 02/15/2018 Status: F Source: [place] 3:07 AM [facility] REPOSITORY TYPE CODE TESTS RESULT OUT OF REFERENCE UNITS RANGE LAB WBC 3.70-11.00 k/uL WBC High 12.38 LAB RBC 4.20-6.00 m/uL Low RBC 3.78 LAB HGB 13.0-17.0 g/dL Low Hemoglobin 12.0 LAB HCT 39.0-51.0 % Low Hematocrit 35.1 LAB MCV 80.0-100.0 fL MCV 92.9 LAB MCH 26.0-34.0 pG MCH 31.7 LAB MCHC 30.5-36.0 g/dL MCHC 34.2 LAB RDWCV 11.5-15.0 % RDW-CV 14.6 LAB PLTCT 150-400 k/uL Platelet Count 153 LAB MPV 9.0-12.7 fL MPV 10.6 LAB ABSNUC <0.01 k/uL Absolute nRBC <0.01 Performed By: #### CBC, CKCKMB, CMP, MG1, PHOS, MJ #### [facility] [address] [place], [place] [address] CK, TOTAL AND CKMB Collected: 02/15/2018 Status: F Source: [place] 3:07 [facility] REPOSITORY TYPE CODE TESTS RESULT OUT OF REFERENCE UNITS RANGE LAB CK 51-298 U/L High CK 493 LAB MB <7.7 ng/mL High MB 72.6 LAB CKMBRI 0.0-4.0 % High CK MB % 14.7 Result Comment: Called to and read back by: Mikhail Patel 02/15/18 Gricel JEAN Performed By: #### CBC, CKCKMB, CMP, MG1, PHOS, MJ #### [facility] [address] [place], [place] [address] COMP METABOLIC PANEL Collected: 02/15/2018 Status: F Source: [place] 3:07 [facility] REPOSITORY TYPE CODE TESTS RESULT OUT OF REFERENCE UNITS RANGE LAB TP 6.3-8.0 g/dL Low Protein, Total 5.9 LAB ALB 3.9-4.9 g/dL Low Albumin 3.6 LAB CA 8.5-10.2 mg/dL Low Calcium, Total 7.5 LAB TBIL 0.2-1.3 mg/dL Bilirubin, Total 0.5 LAB ALKP 38-113 U/L Alkaline Phosphatase 74 LAB AST 14-40 U/L AST High 74 LAB GLU 74-99 mg/dL Glucose High 117 Result Comment: The [place] Diabetes Association (ADA) provides guidance for cutoff values for fasting glucose and random glucose. The ADA defines fasting as no caloric intake for at least 8 hours. Fas ting plasma glucose results between 100 to 125 mg/dL indicate increased risk for diabetes (prediabetes). Fasting plasma glucose results greater than or equal to 126 mg/dL meet the criteria for diagnosis of diabetes. In the absence of unequivocal hyperglycemia, results should be confirmed by repeat testing. In a patient with classic symptoms of hyperglycemia or hyperglycemic crisis, random plasma glucose results greater than or equal to 200 mg/dL meet the criteria for diagnosis of diabetes. Reference: Standards of Medical Care in Diabetes 2016, [place] [employer]. Diabetes Care. 2016.39(Suppl 1). LAB BUN 9-24 mg/dL BUN 23 LAB CRET 0.73-1.22 mg/dL Creatinine High 1.25 LAB NA 136-144 mmol/L Sodium 142 LAB K 3.7-5.1 mmol/L Potassium 3.8 LAB CL 97-105 mmol/L Chloride High 108 LAB CO2 22-30 mmol/L Low CO2 21 LAB AGAP 9-18 mmol/L Anion Gap 13 LAB ALT 10-54 U/L ALT 23 LAB GFRAA eGFR- Amer. >60 LAB GFRNAA . eGFR-All Other Races 58 Result Comment: eGFR (Estimated GFR) Units of measure: mL/min/1.73 meters squared eGFR is derived from the reexpressed MDRD Study equation using the following parameters: serum creatinine, age, gender and race. The creatinine assay has been calibrated to be traceable to IDMS. An eGFR <60 mL/min/1.73m2 for >3 months is consistent with chronic kidney disease. Refer to KDOQI guidelines for clinical interpretation. In patients with unstable renal function, e.g. those with acute kidney injury, the eGFR may not accurately reflect actual GFR. Performed By: #### CBC, CKCKMB, CMP, MG1, PHOS, MJ #### [facility] [address] [place] [address] MAGNESIUM Collected: 02/15/2018 Status: F Source: [place] 3:07 AM [facility] REPOSITORY TYPE CODE TESTS RESULT OUT OF REFERENCE UNITS RANGE LAB MG 1.7-2.3 mg/dL Low Magnesium 1.6 Performed By: #### CBC, CKCKMB, CMP, MG1, PHOS, MJ #### [place] [address] PHOSPHORUS Collected: 02/15/2018 Status: F Source: [place] 3:07 AM [facility] REPOSITORY TYPE CODE TESTS RESULT OUT OF REFERENCE UNITS RANGE LAB PHOS 2.7-4.8 mg/dL Low Phosphorus 2.6 Performed By: #### CBC, CKCKMB, CMP, MG1, PHOS, MJ #### [place] [address] TROPONIN T Collected: 02/15/2018 Status: F Source: [place] 3:07 AM [facility] REPOSITORY TYPE CODE TESTS RESULT OUT OF REFERENCE UNITS RANGE LAB TROPT 0.000-0.029 ng/mL High Troponin T 0.832 Result Comment: Called to and read back by: Mikhail Patel 02/15/18 Gricel JEAN Performed By: #### CBC, CKCKMB, CMP, MG1, PHOS, MJ #### [place] [address] PROGRESS Observed: 02/15/2018 Status: COMPLETED Source: [place] 2:33 AM [facility] REPOSITORY HNO ID: [id number] Author: Melba Rose Service: (none) Author Type: Nurse Practitioner Type: Progress Notes Filed: 02/15/2018 3:41 AM Note Text: Critical Care Transport Note Patient Name: Amelia Leavitt Service Date: 02/14/18 Referring Physician: Jessica Accepting Physician: Rima Referring Facility: [facility] Accepting Facility: [facility] SUBJECTIVE/CHIEF COMPLAINT: Chest pain REASON FOR TRANSPORT: Higher level of cardiology services/Need for urgent LHC; services unavailable at current facility. History of Present Illness: The following history is what was known to CCT team at time of given care and summarized through review of available medical records, patient/family interview and from nursing report. Amelia Leavitt is a 67 year old male current smoker with a past medical history significant for CAD, hyperlipidemia, GA, ICM, HFrEF with ICD/PPM, CABG ( x 1 in 2010, x 3 in 2018) and multiple coronary artery stents. He presented to [facility] ED today for evaluation of chest pain. The patient developed chest pain and shortness of breath ~ 1030 today while using a rototiller in his garden. Symptoms did not resolve with rest and chest pain felt similar to his prior GA's prompting him to go to the ED for evaluation. The patient denies recent fever, chills, weight gain, PND, orthopnea, peripheral edema, palpitations, headache, syncope, abdominal pain, hematemesis or hematochezia. 12-lead EKG was unremarkable. Troponin I trended upward during his ED course of care (0.14 --> 0.32 --> 0.7). The patient received aspirin and nitroglycerin per EMS. He was loaded with heparin and Brilinta while in the ED and placed on heparin infusion. Chest xray showed pulmonary congestion per report. The patient continued to have chest pain despite morphine and nitroglycerin infusion. Dr. Pineda requested transfer for possible LHC. At this time, the physician managing the patient requested transfer to the [facility] for tertiary and/or quaternary services unavailable at the referring facility. The physician managing the patient requested the [facility] Critical Care Transport Team transport and treat the patient for the purpose of tertiary care, evaluation, and management of his cardiac condition(s). Patient condition at time of exam was: Acutely ill. Due to the unique circumstances of the patient, it was determined that this was the closest, most appropriate facility by referring physician. ROS: A complete review of systems was completed and is negative except where noted. The patient denied a headache, dizziness, numbness, weakness, malaise, diplopia, blurry vision, neck pain or stiffness, chest/neck/jaw/shoulder/arm pain, back pain, shortness of breath, a cough, hemoptysis, abdominal pain, nausea, vomiting, difficulty urinating, hematuria, diarrhea, bloody stool, leg/calf pain, trouble walking, recent trauma or surgery, or any other complaints when questioned. See [place] above. PAST MEDICAL HISTORY: Diagnosis Date - CAD (coronary artery disease) - Cardiomyopathy (HCC) - CHF (congestive heart failure) ([facility]) - Family history of early CAD - H/o Lyme disease - History of smoking - Hyperlipidemia 2009 - 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 - GA (myocardial infarction) ([facility]) 2009, 2015 - S/P angioplasty with stent x 16 - S/P CABG x 1 2012 - Sleep apnea CPAP prn PAST SURGICAL HISTORY: Procedure Laterality Date - CABG (1) VEIN GRAFT AND ARTERIAL GRAFT 2012 L-LAD - DEFIBRILLATOR SURGERY - PACEMAKER - PAST SURGICAL HISTORY OF 2006 vertebrae surgery - ROTATOR CUFF REPAIR 1995 ALLERGIES: Percocet, Lovastatin SOCIAL HISTORY: Substance Use Topics - Smoking status: Current smoker Packs/day: 0.50 Types: Cigarettes - Smokeless tobacco: Never Used Comment: had quit for 20 years but restarted 2014 - Alcohol use 1.2 oz/week 2 Cans of beer per week Comment: Week FAMILY HISTORY: Problem Relation Age of Onset - other (Myocardial infarction) Father 17 multiple GA's of GA age 53 - Cancer Sister - No Ocular Disease No Family History HOME MEDICATIONS: miSOPROStol (CYTOTEC) 200 mcg tablet Take 200 mcg by mouth twice daily. diclofenac, EC, (VOLTAREN) 75 mg EC tablet Take 75 mg by mouth twice daily. buPROPion XL (WELLBUTRIN XL) 150 mg 24 hr tablet Take 150 mg by mouth twice daily. bacitracin ophthalmic ophthalmic ointment Use 1 application in both eyes once each week. One application at bedtime rosuvastatin (CRESTOR) 40 mg tablet Take 1 tablet by mouth daily at bedtime. losartan (COZAAR) 25 mg tablet Take 1 tablet by mouth once daily. carvedilol (COREG) 6.25 mg tablet Take 1 tablet by mouth twice daily with meals. furosemide (LASIX) 20 mg tablet Take 1 tablet by mouth once daily. Take one tab three times a week fenofibrate nanocrystallized (TRICOR) 48 mg tablet Take 1 tablet by mouth once daily. gabapentin (NEURONTIN) 300 mg capsule Take 1 capsule by mouth every 12 hours for 30 days. magnesium oxide (MAG-OX) 400 mg tablet Take 2 tablets by mouth once daily for 10 days. therapeutic multivitamin (THERA VITAMIN) tablet Take 1 tablet by mouth daily with breakfast. aspirin 81 mg chewable tablet Take 2 tablets by mouth once daily. pantoprazole DR (PROTONIX) 40 mg tablet Take 1 tablet by mouth DAILY (6 AM). acetaminophen (TYLENOL) 500 mg tablet Take 1-2 tablets by mouth every 6 hours as needed for Pain (for mild surgical pain). Medications Administered by Referring Facility: Aspirin 324 mg po (per EMS) Nitroglycerin 0.4 mg SL x 2 (per EMS) Heparin 4000 units IV Heparin infusion at 1000 units/hr Nitroglycerin infusion at 10 mcg/min Ticagrelor 180 mg po OBJECTIVE: Recent Labs, Diagnostics AND Procedure Reports reviewed as available. Referring Facility Labs CBC: WBC 11.1k, Hgb 13.1, Hct 38.9, Plt 159K CHEMISTRY: Na 140, K 4.7, Cl 104, CO2 25.8, BUN 32, SCr 1.5, Glu 140 Coags: INR 1.2, PT 14.1 Cardiac Enzymes: Trop I 0.14 --> 0.32 --> 0.7 Diagnostics AND Procedure Reports ECG: Reviewed. Sinus rhythm, rate 76 bpm. QTc 444 ms. Left axis deviation. Inferior/anterior infarct pattern present. TWI lateral leads (I, aVL). No ST elevation present. CXR: Diffuse interstitial edema per review of OSH radiology report. CT Scan: None Procedure/Operative Report(s): None Invasive Lines/Devices/Tubes Placed by Referring Facility: Peripheral IV x 2 PHYSICAL EXAM: Upon CCT Arrival at Referring Facility Vital Signs: HR 83 bpm, BP 122/80 mmHg, RR 16, SpO2 98% Oxygen/Ventilator Settings: Room air General appearance: Awake, conversant, acutely ill, in no apparent distress. Eyes: Pupils equal and reactive bilaterally. Anicteric sclera. EOMs intact. ENT: Mucous membranes moist. Oropharynx unremarkable. No drainage from ears or nose. Neck supple and trachea midline. Respiratory: CTA bilaterally. Without respiratory distress, wheezing, or rhonchi. Equal chest excursion. Cardiovascular: S1 S2 auscultated. No murmur, rub, or gallop appreciated. Peripheral pulses palpable and equal. Gastrointestinal: Abdomen soft, nondistended, nontender. Without mass or pulsatile mass. Atraumatic and without ecchymosis. Genitourinary: Deferred. Musculoskeletal: Appropriate muscle mass, without deformities. No clubbing, cyanosis, or edema. Skin: Limited exam due to patient clinical condition. Warm, pale, dry. CR < 3 seconds. Psychiatric: Calm, cooperative, appropriate affect. Heme/Lymph: No abnormal bleeding, ecchymosis, inflammation, or swelling. Neurologic: GCS = 15 (E4, V5, M6). Without focal deficits. CRITICAL CARE COURSE Upon bedside arrival at referring facility the patient was assessed and detailed physical exam performed. Initial exam findings as described above. The patient was placed on the transport monitor and all transport equipment transitioned in standard fashion. The patient was transferred to the transport cot and transported to the Aircraft and loaded without incident. The patient was medically managed, monitored, and reassessed during transport. Medications Managed AND Administered by CCT: Heparin infusion Nitroglycerin infusion Procedures Performed by CCT: None ASSESSMENT/PLAN: Amelia Leavitt is a 67 year old male current smoker with a past medical history significant for CAD, hyperlipidemia, GA, ICM, HFrEF (LVEF 30-35%) with ICD/PPM, CABG ( x 1 in 2009, x 3 in 2018) and multiple coronary artery stents. He presented to [facility] ED today for evaluation of chest pain. The patient developed chest pain and shortness of breath ~ 1030 today while using a rototiller in his garden. Symptoms did not resolve with rest and chest pain felt similar to his prior GA's prompting him to go to the ED for evaluation. The patient denies recent fever, chills, weight gain, PND, orthopnea, peripheral edema, palpitations, headache, syncope, abdominal pain, hematemesis or hematochezia. 12-lead EKG was unremarkable. Troponin I trended upward during his ED course of care (0.14 --> 0.32 --> 0.7). The patient received aspirin and nitroglycerin per EMS. He was loaded with heparin and Brilinta while in the ED and placed on heparin infusion. Chest xray showed pulmonary congestion per report. The patient continued to have chest pain despite morphine and nitroglycerin infusion. NSTEMI - Close hemodynamic monitoring during transport. - Continue heparin and nitroglycerin infusions -- titrate nitro infusion for continued cp. - Supplemental O2 to maintain SpO2 > 90%. - Further management at [facility]. The transport was completed. The patient was transported to the the [facility] by Rotor (Helicopter) for tertiary and/or quaternary evaluation and management of his Emergent cardiac condition(s). Upon arrival to the receiving facility, a [id number] report was given to [id number] bedside nursing staff and physician. Patient care was transferred. The patient condition was Acutely Ill at the time of transfer. Vital Signs at time care transferred to the receiving facility unit: HR 84 bpm, Rhythm Sinus, BP 127/86 mmHg, RR 14, SpO2 98% on Room air SPECIAL EQUIPMENT: None MODE OF TRANSPORT: Rotor (Helicopter) CRITICAL CARE TIME: I personally performed 41 minutes of critical care time exclusive of separately billable procedures, ambulance charges and treating other patients. This was necessary to treat or prevent further deterioration of the following condition(s): Acute GA and Hemodynamic compromise Cardiovascular impairment, Respiratory impairment, EMU FARMER impairment, Shock and Cardiac Arrest which the patient had and/or had a high probability of suddenly developing. SIGNATURE: Melba Rose APRN.[facility] Acute Care Nurse Practitioner [facility] Critical Care Transport Team XR CHEST 1V FRONTAL Observed: 02/15/2018 Status: F Source: [facility] 1:18 AM [facility] REPOSITORY * * *Final Report* * * DATE OF EXAM: Feb 15 2018 1:18AM [id number] - XR CHEST 1V FRONTAL PORT / PROCEDURE REASON: Shortness of breath * * * * Physician Interpretation * * * * EXAMINATION: CHEST RADIOGRAPH (PORTABLE SINGLE VIEW AP) Exam Date/Time: 02/15/2018 1:18 AM Clinical History: Shortness of breath, MQ: XCPMC_5 Comparison: 1 day prior RESULT: See impression. IMPRESSION: Lines, tubes, and devices: Left subclavian approach cardiac device with intact lead ending in the right ventricle is unchanged. Lungs and pleura: The lung volumes are small. Mild bibasilar atelectasis is present. Blunting of the right costophrenic angle may represent a tiny pleural effusion. There is no pneumothorax. Cardiomediastinal silhouette: The heart remains enlarged. The mediastinal contours are unchanged. Median sternotomy wires are well aligned. Other: Degenerative changes are seen in the spine. Sterilizer Operator: KEVIN Transcribe Date/Time: Feb 15 2018 8:00A Dictated by : SONI MENDOZA MD This examination was interpreted and the report reviewed and electronically signed by: SONI MENDOZA MD on Feb 15 2018 8:02AM EST [id number] TYPE AND SCREEN Collected: 02/14/2018 Status: F Source: [place] 9:30 PM [facility] [place] REPOSITORY TYPE CODE TESTS RESULT OUT OF REFERENCE UNITS RANGE LAB %ABR O ABO/RH(D) POSITIVE LAB % Antibody NEG Screen Performed By: #### TSCR #### [facility] [address] [place], [place] [address] XR CHEST 1V FRONTAL Observed: 02/14/2018 Status: F Source: [facility] 9:13 PM [facility] [place] REPOSITORY * * *Final Report* * * DATE OF EXAM: Feb 14 2018 9:13PM [id number] - XR CHEST 1V FRONTAL PORT / PROCEDURE REASON: Chest pain or SOB, pleurisy or effusion suspected * * * * Physician Interpretation * * * * EXAMINATION: CHEST RADIOGRAPH (PORTABLE SINGLE VIEW AP) Exam Date/Time: 02/14/2018 9:13 PM Clinical History: Chest pain or SOB, pleurisy or effusion suspected, MQ: XCPMC_5 Comparison: 08/03/2017 RESULT: See impression. IMPRESSION: Lines, tubes, and devices: Stable Lungs and pleura: Small right apical pneumothorax is no longer present. Lungs remain hypoinflated with mild improvement of basilar atelectatic changes. No pleural effusion.. Cardiomediastinal silhouette: Heart remains borderline considering AP positioning. Thoracic aorta is tortuous.. Other: Median sternotomy Sterilizer Operator: [facility] Transcribe Date/Time: Feb 14 2018 9:52P Dictated by : TANYA PAZ MD This examination was interpreted and the report reviewed and electronically signed by: TANYA PAZ MD on Feb 14 2018 9:53PM EST [id number] HISTORY PHYSICAL Observed: 02/14/2018 Status: COMPLETED Source: [place] 9:10 PM [facility] REPOSITORY HNO ID: [id number] Author: Donal Abarca Service: Cardiovascular Medicine Author Type: Physician Type: HANDP Filed: 02/15/2018 10:47 AM Note Text: [facility] CARDIOVASCULAR MEDICINE HISTORY AND PHYSICAL (Template ID [id number]) Amelia Leavitt [id number] PRIMARY SERVICE: Cardiovascular Medicine: CICU DATE OF ADMISSION: 02/14/2018 CHIEF COMPLAINT NSTEMI HISTORY OF PRESENT ILLNESS Amelia Leavitt is a 67 year old male w PMH CAD sp CABG x2 (GUDINO to LAD in 2010, SVG x2-OM, proxPDA, and LAD w free ROMAN from SVG-PDA graft in July 2017) and PCI x ~16 per Pt to mid LAD (occluded), LCX w multi stents, mid RCA (subtotal occluded), dist RCA GUDINO w 50% anastomotic narrowing as of May 2017 CHF 2/2 ICM/HFrEF ~30% w infero-apical hypokinetic s/p ICD in Apr 2017, no hx of shock, on lasix 20 PRN Obesity c/b YOUSIF, hx of CPAP use Hx of Smoking - 5pkyr hx HLD on Crestor and Tricor HTN on Cozaar and Coreg FHx of early CAD/GA and in Father 53yo Pt had CP-pressure, like elephant sitting on chest- after working in the yard on 02/14. The pt normally walks about 100 yrds before requiring a break to catch his breath but is otherwise very active - splitting firewood, gardening. Pain radiated w numbness in L and R arms, also with diaphoresis. Denies SOB, syncope or palpitations. Pt took SL NTG x 2 wo relief. Pain lasted from 8AM to 1PM, when pt was treated at ED. Pt went to [facility] ED, where he was started on ASA and heparin, loaded with Brilinta with improvement but not complete cessation of his CP. ECG showed and trended Troponin I (0.14->0.32->0.7). Pt was transferred to [facility] where on arrival he was HDS and on NTG and heparin drips. He endorses 3/10 pressure like CP but denies other symptoms. PAST MEDICAL HISTORY PAST MEDICAL HISTORY Diagnosis Date - CAD (coronary artery disease) - Cardiomyopathy ([facility]) - CHF (congestive heart failure) ([facility]) - Family history of early CAD - H/o Lyme disease - History of smoking - Hyperlipidemia 2009 - 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 - GA (myocardial infarction) ([facility]) 2009, 2015 - S/P angioplasty with stent x 16 - S/P CABG x 1 2012 - Sleep apnea CPAP prn PAST SURGICAL HISTORY Procedure Laterality Date - CABG (1) VEIN GRAFT AND ARTERIAL GRAFT 2012 L-LAD - DEFIBRILLATOR SURGERY - PACEMAKER - PAST SURGICAL HISTORY OF 2006 vertebrae surgery - ROTATOR CUFF REPAIR 1995 FAMILY HISTORY FAMILY HISTORY Problem Relation Age of Onset - other (Myocardial infarction) Father 17 multiple GA's of GA age 53 - Cancer Sister - No Ocular Disease No Family History SOCIAL HISTORY Social History Substance Use Topics - Smoking status: Former Smoker Packs/day: 0.50 Types: Cigarettes Quit date: 04/21/2017 - Smokeless tobacco: Never Used Comment: had quit for 20 years but restarted 2014 - Alcohol use 1.2 oz/week 2 Cans of beer per week Comment: Week HOME MEDICATIONS miSOPROStol (CYTOTEC) 200 mcg tablet Take 200 mcg by mouth twice daily. diclofenac, EC, (VOLTAREN) 75 mg EC tablet Take 75 mg by mouth twice daily. buPROPion XL (WELLBUTRIN XL) 150 mg 24 hr tablet Take 150 mg by mouth twice daily. bacitracin ophthalmic ophthalmic ointment Use 1 application in both eyes once each week. One application at bedtime rosuvastatin (CRESTOR) 40 mg tablet Take 1 tablet by mouth daily at bedtime. losartan (COZAAR) 25 mg tablet Take 1 tablet by mouth once daily. carvedilol (COREG) 6.25 mg tablet Take 1 tablet by mouth twice daily with meals. furosemide (LASIX) 20 mg tablet Take 1 tablet by mouth once daily. Take one tab three times a week fenofibrate nanocrystallized (TRICOR) 48 mg tablet Take 1 tablet by mouth once daily. gabapentin (NEURONTIN) 300 mg capsule Take 1 capsule by mouth every 12 hours for 30 days. magnesium oxide (MAG-OX) 400 mg tablet Take 2 tablets by mouth once daily for 10 days. therapeutic multivitamin (THERA VITAMIN) tablet Take 1 tablet by mouth daily with breakfast. aspirin 81 mg chewable tablet Take 2 tablets by mouth once daily. pantoprazole DR (PROTONIX) 40 mg tablet Take 1 tablet by mouth DAILY (6 AM). acetaminophen (TYLENOL) 500 mg tablet Take 1-2 tablets by mouth every 6 hours as needed for Pain (for mild surgical pain). INPATIENT MEDICATIONS Current hospital medications: [START ON 02/15/2018] pantoprazole DR 40 mg tab(s) (PROTONIX) 40 mg ORAL DAILY (6 AM) 0.9% NaCl 2-10 mL 2-10 mL INTRAVENOUS q 12 H aspirin 81 mg chewable tab(s) 81 mg ORAL DAILY nitroglycerin sublingual 0.4 mg tab(s) (NITROQUICK) 0.4 mg SUBLINGUAL PRN acetaminophen 650 mg tab(s) (TYLENOL) 650 mg ORAL q 4 H PRN metoclopramide HCl 10 mg injection (REGLAN) 10 mg INTRAVENOUS q 6 H PRN influenza vaccine 180 mcg (Patients 65 years and older) (PF) (FLUZONE HIGH DOSE 2017-) 0.5 mL INTRAMUSCULAR ONCE (IMMUNIZATION) buPROPion XL 150 mg tab(s) (WELLBUTRIN XL) 150 mg ORAL BID heparin iv infusion (LOW DOSE ACS/NOMOGRAM) 25,000 units in NaCl 0.45% 250 mL PREMIX 0-3,000 Units/hr INTRAVENOUS CONTINUOUS heparin RATE CHANGE bolus 1,000-4,000 Units for subtherapeutic aptt results 1,000-4,000 Units INTRAVENOUS PRN heparin nomogram - NO INITIAL BOLUS OTHER ONCE (heparin bolus) nitroglycerin 50 mg in D5W 250 mL 5-200 mcg/min INTRAVENOUS CONTINUOUS rosuvastatin 40 mg tab(s) (CRESTOR) 40 mg ORAL AT BEDTIME ALLERGIES ALLERGIES Allergen Reactions - Percocet [Oxycodone* Other: See Comments Pt has severe tremors when taking Percocet REVIEW OF SYSTEMS See HPI PHYSICAL EXAM BP 109/55 Pulse 80 Temp 36.8 ?C (98.2 ?F) (Oral) Resp 24 Ht 177.8 cm (5' 10) Wt 101.6 kg (223 lb 15.8 oz) SpO2 96% BMI 32.14 kg/m? General Appearance: Well developed, Well nourished and No acute distress HEENT: Fair dentition, No lesions and JVD - no Lungs: Clear in upper lung paulino, some crackles in lower R Heart: Regular rate AND rhythm, no MRG Abdomen: Soft, Round, Non-tender, Bowel sounds present and Non-distended Skin: Warm and Dry Musculoskeletal: No deformities, No joint deformities and no LE edema Neurologic/Psychiatric: Oriented to time, place AND person and Alert DATA Laboratory: Recent Labs 02/14/18 2100 WBC 11.99* HB 13.6 HCT 40.7 PLT 170 Recent Labs 02/14/18 2100 NA 144 K 4.2 CO2 22 BUN 25* CREAT 1.35* GLUC 91 MG 1.8 Recent Labs 02/14/18 2100 CK 372* MB 43.7* TROPT 0.252* Recent Labs 02/14/18 2100 APTT 38.4* INR 1.0 Cholesterol, Total (mg/dL) Date Value 02/14/2018 125 HDL Cholesterol (mg/dL) Date Value 02/14/2018 39 LDL Cholesterol (mg/dL) Date Value 02/14/2018 56 Triglyceride (mg/dL) Date Value 02/14/2018 148 No results found for: HBA1C EKG: NORMAL SINUS RHYTHM LEFT AXIS DEVIATION INFERIOR MYOCARDIAL INFARCTION , AGE UNDETERMINED CANNOT EXCLUDE ANTERIOR MYOCARDIAL INFARCTION , AGE UNDETERMINED Chest Radiograph: Lines, tubes, and devices: ?Stable Lungs and pleura: ?Small right apical pneumothorax is no longer present. ? Lungs remain hypoinflated with mild improvement of basilar atelectatic changes. ?No pleural effusion.. Cardiomediastinal silhouette: ?Heart remains borderline considering AP positioning. ?Thoracic aorta is tortuous.. Echocardiogram: Pending Today Last 09/06/2017 Exam indication: s/p CABG - Left ventricular systolic function is moderately decreased. EF = 30 ? 5% (visual ?est.) Definity contrast used for endocardial border detection. - The right ventricle is dilated. Right ventricular systolic function is mildly decreased. - The left atrial cavity is severely dilated. - Exam was compared with the prior echocardiographic exam performed on 07/05/2017 that was a pre-op TTE. The LV function appears the same. Stress Testin07/21/2017 Stress PET INDICATIONS/SYMPTOMS: ? ATHEROSCLEROTIC HEART DISEASE NOS, SHORTNESS OF BREATH, CHEST PRESSURE/CHEST TIGHTNESS, ENCOUNTER FOR PRE-PROCEDURAL CARDIOVASCULAR EXAMINATION FOR NON-CARDIAC SURGERY. MEDICAL HISTORY/COMORBIDITIES: ? 05/17/2009 GA LOCATIONS: UNKNOWN, 05/17/2015 GA LOCATIONS: UNKNOWN, SMOKE: EXSMOKER: <1YR, HYPERCHOLESTEROLEMIA (VE=482OB/DL), HYPERTRIGLYCERIDEMIA (HN=873QS/DL), FAMILY HISTORY OF CAD: YES.ISCHEMIC CARDIOMYOPATHY, NONRHEUMATIC MITRAL VALVE INSUFFICIENCY, NONRHEUMATIC TRICUSPID VALVE INSUFFICIENCY, OBESITY, HEART FAILURE, UNSPECIFIED. PROCEDURES: ? 06/28/2017 CATH, 06/11/2016 AICD IMPLANT, 05/17/2012 CABG, 05/17/2015 CORONARY STENT IMPLANT. MEDICATIONS(LAST DOSE): ? CARVEDILOL, NITROGLYCERIN, IMDUR, LOSARTAN, LASIX, ASPIRIN, PRAVACHOL, VOLTAREN, PROTONIX, GABAPENTIN, CYTOTEC, EFFIENT, RANEXA. SPECIAL COMMENTS: ? UNDERWENT 8 STENTS; PRE-OP: BYPASS ARTERY CORONARY REDO ON PUMP 07/27/2017 RESTING ECG: ? NORMAL SINUS RHYTHM, NONSPECIFIC ST-T WAVE CHANGES, LEFT ANTERIOR HEMIBLOCK, CANNOT R/O ANTERIOR GA, INFERIOR WALL GA. OBSERVATION: ? 1. THE TEST WAS TERMINATED DUE TO END OF PROTOCOL. ? 5. NORMAL ST SEGMENT RESPONSE TO STRESS. ? 7. ANGINA WAS NOT PROVOKED BY STRESS. ? 8. UNIFOCAL PVC'S DURING THE TEST. CONCLUSION: ? NORMAL. ADDITIONAL COMMENTS: ? 3/10 CP AT BASELINE AND CONTINUED THROUGHOUT TEST. Cardiac Catheterization: April 2016 Outside Cath Review DIAGNOSIS: ? 1. Moderate left ventricular dysfunction 2. Patent left internal mammary artery to the left anterior descending 3. Percutaneous coronary intervention of the mid to distal right coronary artery 4. Continued success following percutaneous coronary intervention of AV circumflex. LEFT MAIN TRUNK: ? Normal. ? LEFT ANTERIOR DESCENDING: ? ?the left anterior descending is totally occluded in its mid-portion at the region of a stent. ?The large first major diagonal branch has a critical stenosis at its origin. ?The distal vessel fills via a patent left internal mammary artery graft with a 50% anastomosis stenosis. ? CIRCUMFLEX ARTERY: ? ?there is a long region of stenting in the circumflex which crosses a moderate sized first marginal branch and large second marginal branch leading to a moderate to large third marginal branch hugging the inferior wall. ? LEFT INTERNAL MAMMARY ARTERY TO LEFT ANTERIOR DESCENDING: ?Patent with a 50% anastomotic narrowing. ? RIGHT CORONARY ARTERY: ?There is stent material in the mid portion of this vessel. ?It is subtotal to totally occluded in the mid segment. ?The distal vessel, following successful percutaneous coronary intervention, yields a very large posterior descending branch and moderate sized posterolateral branch. ?The posterior descending artery was certainly graftable at that time. ? LEFT VENTRICLE: ?The LVEDP is mildly increased. ?There is moderate hypokinesia of the inferior and mid anterior wall. ?Overall ejection fraction appears to be fairly well preserved in the 40-45% range. ?There is no obvious valvular pathology. ? COMMENTS: ?this patient went on to successful percutaneous coronary intervention of the mid to distal right coronary artery. Catheterization May 24, 2017: The primary change in this catheterization compared to the April 2016 procedure includes a now totally occluded circumflex system between the first and second marginal branch and total occlusion of the stented right coronary artery. ?The left ventricular function appears to demonstrate some worsening, especially at the infero-apical segment, although the left ventriculogram has much to be desired. ? Other Radiology: NA ASSESSMENT AND PLAN 67M w PMH of CAD sp multi PCI and CABG, HFrEF, HTN, HLD, Obesity who presents w chest pain without ECG changes concerning for NSTEMI. Troponins trended up at OSH to 0.7, pt was started on ASA, heparin, Brilinta loaded and placed on NTG drip with incomplete relief of CP. Transferred to [facility] C[facility] for further mgmt and possible urgent LHC if no significant relief of CP with uptitration of NTG. Pt is HDS, on RA, and with 3/10 CP. Plan for LHC w PCI vs third CABG. In acute setting, will cont ASA, heparin, and NTG, while holding BB and BP meds. Active Hospital Problems Diagnosis - Cardiomyopathy, ischemic History: h/o CAD with multiple stents and CABG. EF - 30%. Prior ICD placement Assessment: S/p 07/28/2017 CABGx3 (SVG1 to PDA, SVG2 to OM, Free ROMAN as jump graft from prox. SVG2 to LAD) Plan: ASA, heparin gtt, statin Hold BB and HTN meds in acute setting Plan for ICD check Hold lasix in acute setting Plan to restart cardiac meds when pt stable, likely after LHC vs redo CABG ECHO - Hyperlipidemia LDL goal <70 History: h/o HLP well controlled on Crestor 40 Assessment: LFTs - WNL Plan: Goal LDL < 70. Crestor 40mg. - Essential hypertension History: h/o HTN on Coreg, cozaar, lasix Assessment: SBP - 120s Plan: Plan: ASA, heparin gtt, statin Hold BB and HTN meds in acute setting Plan for ICD check Hold lasix in acute setting Plan to restart cardiac meds when pt stable, likely after LHC vs redo CABG - Gastroesophageal reflux disease without esophagitis History: h/o GERD on PPI Assessment: No acute issues Plan: Continue PPI - Pain syndrome, chronic History: Pt reports back and arthritis chronic pain using Neurontin 300mg bid for pain control, as well as cytotec and diclofenac for arthritis pain Assessment: Pt not in any pain from back or arthritis now Plan: Continue Tylenol PRN Hold cytotec and diclofenac in acute [place] setting, hold gabapentin Plan to restart pain meds outside acute setting NOTE Pt with severe tremors with oxycodone, AVOID - NSTEMI (non-ST elevated myocardial infarction) ([facility]) Hx: Troponin I leak to 0.7, no peak observed yet, no ECG changes A: NSTEMI Plan: ASA, heparin gtt, statin Pt loaded on Brilinta at OSH before Transfer, Holding Brilinta Hold BB and HTN meds in acute setting Plan for ICD check Hold lasix in acute setting Plan to restart cardiac meds when pt stable, likely after LHC vs redo CABG ECHO, CXR EKG, Tele Trend Troponins and CKMB Plan for LHC if CP not improved with increasing NTG drip Otherwise LHC tomorrow for PCI vs Redo CABG - Atherosclerosis of [place] coronary artery of [place] heart with angina pectoris (HCC) Hx: Troponin I leak to 0.7, no peak observed yet, no ECG changes CAD sp CABG x2 (GUDINO to LAD in 2010, SVG x2-OM, proxPDA, and LAD w free ROMAN from SVG-PDA graft in July 2017) and PCI x ~16 per Pt to mid LAD (occluded), LCX w multi stents, mid RCA (subtotal occluded), dist RCA GUDNIO w 50% anastomotic narrowing as of May 2017 A: NSTEMI Plan: ASA, heparin gtt, statin Pt loaded on Brilinta at OSH before Transfer, Holding Brilinta Hold BB and HTN meds in acute setting Plan for ICD check Hold lasix in acute setting Plan to restart cardiac meds when pt stable, likely after LHC vs redo CABG ECHO, CXR EKG, Tele Trend Troponins and CKMB Plan for LHC if CP not improved with increasing NTG drip Otherwise LHC tomorrow for PCI vs Redo CABG Case to be discussed with staff Jacob Weber MD IM PGY2 Pager [phone] (please see below for after hours communication) 02/14/2018 9:11 PM [facility] STAFF PHYSICIAN NOTE OF PERSONAL INVOLVEMENT IN CARE Coronary Intensive Care Unit I have reviewed the documentation above, obtained and documented by the resident. I have also reviewed and updated the problem list as appropriate. I have personally participated in the small components and physical exam and have discussed the case and management of the patient's care with the residents and Mcdonald. The following comments revise or confirm relevant small components. Labs: Recent Labs 02/15/1830602/14/182099 WBC 12.38* 11.99* HB 12.0* 13.6 HCT 35.1* 40.7 PLT 153 170 INR -- 1.0 Recent Labs 02/15/1830602/14/182099 NA 142 144 K 3.8 4.2 CHLOR 108* 107* CO2 21* 22 BUN 23 25* CREAT 1.25* 1.35* GLUC 117* 91 MG 1.6* 1.8 CA 7.5* 9.1 ALB 3.6* 4.3 Recent Labs 02/14/18 2100 LDL 56 HDL 39* TG 148 Recent Labs 02/15/1830602/14/18 2100 CK 493* 372* MB 72.6* 43.7* TROPT 0.832* 0.252* ALT 23 24 AST 74* 54* Current hospital medications: ticagrelor 90 mg tab(s) (BRILINTA) 90 mg ORAL BID furosemide 80 mg injection (LASIX) 80 mg INTRAVENOUS ONCE pantoprazole DR 40 mg tab(s) (PROTONIX) 40 mg ORAL DAILY (6 AM) 0.9% NaCl 2-10 mL 2-10 mL INTRAVENOUS q 12 H aspirin 81 mg chewable tab(s) 81 mg ORAL DAILY nitroglycerin sublingual 0.4 mg tab(s) (NITROQUICK) 0.4 mg SUBLINGUAL PRN influenza vaccine 180 mcg (Patients 65 years and older) (PF) (FLUZONE HIGH DOSE 2017-) 0.5 mL INTRAMUSCULAR ONCE (IMMUNIZATION) buPROPion XL 150 mg tab(s) (WELLBUTRIN XL) 150 mg ORAL BID heparin iv infusion (LOW DOSE ACS/NOMOGRAM) 25,000 units in NaCl 0.45% 250 mL PREMIX 0-3,000 Units/hr INTRAVENOUS CONTINUOUS heparin RATE CHANGE bolus 1,000-4,000 Units for subtherapeutic aptt results 1,000-4,000 Units INTRAVENOUS PRN nitroglycerin 50 mg in D5W 250 mL 5-200 mcg/min INTRAVENOUS CONTINUOUS rosuvastatin 40 mg tab(s) (CRESTOR) 40 mg ORAL AT BEDTIME TIME BASED CARE: Critical Care: I personally spent 30 minutes of critical care time involved in the care of this patient. This care required my full attention and direct personal managment of non-STEMI, obesity, reduced ejection fraction. The time spent excluded other procedures/services provided by me. STAFF PHYSICIAN: Donal Abarca MD Cardiology Staff Physician Office: [phone] PAGER: [phone] DATE OF SERVICE: February 15, 2018 TIME OF SERVICE: 6:35 AM CBC Collected: 02/14/2018 Status: F Source: [place] 9:00 [facility] REPOSITORY TYPE CODE TESTS RESULT OUT OF REFERENCE UNITS RANGE LAB WBC 3.70-11.00 k/uL WBC High 11.99 LAB RBC 4.20-6.00 m/uL RBC 4.36 LAB HGB 13.0-17.0 g/dL Hemoglobin 13.6 LAB HCT 39.0-51.0 % Hematocrit 40.7 LAB MCV 80.0-100.0 fL MCV 93.3 LAB MCH 26.0-34.0 pG MCH 31.2 LAB MCHC 30.5-36.0 g/dL MCHC 33.4 LAB RDWCV 11.5-15.0 % RDW-CV 14.6 LAB PLTCT 150-400 k/uL Platelet Count 170 LAB MPV 9.0-12.7 fL MPV 11.0 LAB ABSNUC <0.01 k/uL Absolute nRBC <0.01 Performed By: #### CBC, PT, PTT, NTBNP, PHOS, CKCKMB, CMP, LIPB, MG1, MJ #### [facility] [address] [place], [place] [address] PROTIME Collected: 02/14/2018 Status: F Source: [place] 9:00 [facility] REPOSITORY TYPE CODE TESTS RESULT OUT OF RANGE REFERENCE UNITS LAB PSEC 9.7-13.0 sec PT Sec 10.9 LAB INR 0.9-1.3 PT INR 1.0 Result Comment: Vitamin K Antagonist (VKA) Therapeutic Range: INR 2 to 3 (Target INR of 2.5) Note: For patients treated with VKA drugs, such as warfarin, the [place] [employer] 2012 Guideline recommends a therapeutic INR range of 2 to 3 (target INR of 2.5). This recommendation includes high-risk patients with antiphospholipid syndrome with previous arterial or venous thromboembolism, current-generation mechanical or bioprosthetic aortic heart valve replacement. Note: Patients with mechanical aortic valve replacement and additional risk factors for thromboembolic events (atrial fibrillation, previous thromboembolism, LV dysfunction, hypercoagulable conditions) or an older generation mechanical AVR (i.e., ball in-Cage) or any mechanical MVR should have a INR therapeutic range of 2.5 to 3.5 (target INR of 3). Josse GH, et al. Chest 2012, 141:7S-47S Wanda RA, et al. [facility] 2017, 70: 252-289 Performed By: #### CBC, PT, PTT, NTBNP, PHOS, CKCKMB, CMP, LIPB, MG1, MJ #### [facility] [address] [place], [place] [address] APTT Collected: 02/14/2018 Status: F Source: [place] 9:00 [facility] [place] REPOSITORY TYPE CODE TESTS RESULT OUT OF RANGE REFERENCE UNITS LAB APTT 23.0-32.4 sec High APTT 38.4 Result Comment: Unfractionated Heparin Therapeutic Ranges: Standard Heparin Nomogram: 53 to 78 seconds (anti-Xa level of 0.3 to 0.7 U/ml) Low Dose/ACS Nomogram: 49 to 67 seconds (anti-Xa level of 0.2 to 0.5 U/ml) Stroke Treatment Nomogram: 49 to 67 seconds (anti-Xa level of 0.2 to 0.5 U/ml) Note: The APTT therapeutic range has been determined for the current lot of laboratory APTT reagent in use throughout the [facility]. Performed By: #### CBC, PT, PTT, NTBNP, PHOS, CKCKMB, CMP, LIPB, MG1, MJ #### [facility] [address] [place], [place] [id number] NT PRO BNP Collected: 02/14/2018 Status: F Source: [place] 9:00 [facility] REPOSITORY TYPE CODE TESTS RESULT OUT OF REFERENCE UNITS RANGE LAB PBNP <125 pg/mL High PRO B Natr 885 Peptide Performed By: #### CBC, PT, PTT, NTBNP, PHOS, CKCKMB, CMP, LIPB, MG1, MJ #### [address] [address] PHOSPHORUS Collected: 02/14/2018 Status: F Source: [place] 9:00 [facility] REPOSITORY TYPE CODE TESTS RESULT OUT OF REFERENCE UNITS RANGE LAB PHOS 2.7-4.8 mg/dL Phosphorus 2.8 Performed By: #### CBC, PT, PTT, NTBNP, PHOS, CKCKMB, CMP, LIPB, MG1, MJ #### [address] [address] CK, TOTAL AND CKMB Collected: 02/14/2018 Status: F Source: [place] 9:00 [facility] REPOSITORY TYPE CODE TESTS RESULT OUT OF REFERENCE UNITS RANGE LAB CK 51-298 U/L High CK 372 LAB MB <7.7 ng/mL High MB 43.7 LAB CKMBRI 0.0-4.0 % High CK MB % 11.7 Result Comment: Called to and read back by: LEN J31 02/14/18 Ce6 TED Performed By: #### CBC, PT, PTT, NTBNP, PHOS, CKCKMB, CMP, LIPB, MG1, MJ #### [address] [address] COMP METABOLIC PANEL Collected: 02/14/2018 Status: F Source: [place] 9:00 [facility] REPOSITORY TYPE CODE TESTS RESULT OUT OF REFERENCE UNITS RANGE LAB TP 6.3-8.0 g/dL Protein, Total 6.9 LAB ALB 3.9-4.9 g/dL Albumin 4.3 LAB CA 8.5-10.2 mg/dL Calcium, Total 9.1 LAB TBIL 0.2-1.3 mg/dL Bilirubin, Total 0.5 LAB ALKP 38-113 U/L Alkaline Phosphatase 91 LAB AST 14-40 U/L AST High 54 LAB GLU 74-99 mg/dL Glucose 91 Result Comment: The [place] Diabetes Association (ADA) provides guidance for cutoff values for fasting glucose and random glucose. The ADA defines fasting as no caloric intake for at least 8 hours. Fas ting plasma glucose results between 100 to 125 mg/dL indicate increased risk for diabetes (prediabetes). Fasting plasma glucose results greater than or equal to 126 mg/dL meet the criteria for diagnosis of diabetes. In the absence of unequivocal hyperglycemia, results should be confirmed by repeat testing. In a patient with classic symptoms of hyperglycemia or hyperglycemic crisis, random plasma glucose results greater than or equal to 200 mg/dL meet the criteria for diagnosis of diabetes. Reference: Standards of Medical Care in Diabetes 2016, [place] [employer] Association. Diabetes Care. 2016.39(Suppl 1). LAB BUN 9-24 mg/dL BUN High 25 LAB CRET 0.73-1.22 mg/dL Creatinine High 1.35 LAB NA 136-144 mmol/L Sodium 144 LAB K 3.7-5.1 mmol/L Potassium 4.2 LAB CL 97-105 mmol/L Chloride High 107 LAB CO2 22-30 mmol/L CO2 22 LAB AGAP 9-18 mmol/L Anion Gap 15 LAB ALT 10-54 U/L ALT 24 LAB GFRAA eGFR- Amer. >60 LAB GFRNAA . eGFR-All Other Races 53 Result Comment: eGFR (Estimated GFR) Units of measure: mL/min/1.73 meters squared eGFR is derived from the reexpressed MDRD Study equation using the following parameters: serum creatinine, age, gender and race. The creatinine assay has been calibrated to be traceable to IDMS. An eGFR <60 mL/min/1.73m2 for >3 months is consistent with chronic kidney disease. Refer to KDOQI guidelines for clinical interpretation. In patients with unstable renal function, e.g. those with acute kidney injury, the eGFR may not accurately reflect actual GFR. Performed By: #### CBC, PT, PTT, NTBNP, PHOS, CKCKMB, CMP, LIPB, MG1, MJ #### [facility] [address] [place], [place] [address] LIPID PANEL, BASIC Collected: 02/14/2018 Status: F Source: [place] 9:00 PM [facility] REPOSITORY TYPE CODE TESTS RESULT OUT OF REFERENCE UNITS RANGE LAB CHOL <200 mg/dL Cholesterol 125 Result Comment: <200 mg/dL, Desirable 200-239 mg/dL, Borderline high >239 mg/dL, High LAB TRIGLY <150 mg/dL Triglyceride 148 Result Comment: <150 mg/dL, Normal 150-199 mg/dL, Borderline high 200-499 mg/dL, High >499 mg/dL, Very high LAB HDL >39 mg/dL HDL-Cholesterol Low 39 Result Comment: 40-59 mg/dL, Acceptable >59 mg/dL, High: Negative risk factor for coronary heart disease <40 mg/dL, Low: Positive risk factor for coronary heart disease LAB LDL <100 mg/dL LDL-Cholesterol 56 Result Comment: <100 mg/dL, Optimal 100-129 mg/dL, Near optimal/above optimal 130-159 mg/dL, Borderline high 160-189 mg/dL, High >189 mg/dL, Very high Secondary prevention optimal LDL Cholesterol levels are recommended to be < 70 mg/dL LAB NONHDL <130 mg/dL Non HDL Cholesterol 86 Result Comment: <130 mg/dL, Optimal 130-159 mg/dL, Near optimal/above optimal 160-189 mg/dL, Borderline high 190-219 mg/dL, High >219 mg/dL, Very high Secondary prevention optimal non HDL Cholesterol levels are recommended to be < 100 mg/dL LAB FT hrs Fasting Time Unknown LAB VLDL <30 mg/dL VLDL 30 High Cholesterol LAB TCHDL <5.10 TC:HDL Ratio 3.21 LAB LDLHDL <2.54 LDL:HDL Ratio 1.44 Result Comment: Reference: 1. National Cholesterol Education Program ATP III Guideline At-A-Glance Quick Desk Reference: National Heart, Lung, and Blood [place]. National Institutes of Health. 2001: NIH Publication No. 01-3305. 2. An International Atherosclerosis Society position paper: global recommendations for the management of dyslipidemia: executive summary, Atherosclerosis. 2014: 232(2):410-413. Performed By: #### CBC, PT, PTT, NTBNP, PHOS, CKCKMB, CMP, LIPB, MG1, MJ #### [facility] [address] [place], [place] [address] MAGNESIUM Collected: 02/14/2018 Status: F Source: [place] 9:00 PM [facility] REPOSITORY TYPE CODE TESTS RESULT OUT OF REFERENCE UNITS RANGE LAB MG 1.7-2.3 mg/dL Magnesium 1.8 Performed By: #### CBC, PT, PTT, NTBNP, PHOS, CKCKMB, CMP, LIPB, MG1, MJ #### [facility] [address] [place], [place] [address] TROPONIN T Collected: 02/14/2018 Status: F Source: [place] 9:00 PM [facility] REPOSITORY TYPE CODE TESTS RESULT OUT OF REFERENCE UNITS RANGE LAB TROPT 0.000-0.029 ng/mL High Troponin T 0.252 Result Comment: Called to and read back by: LEN Douglas31 02/14/186 TED Performed By: #### CBC, PT, PTT, NTBNP, PHOS, CKCKMB, CMP, LIPB, MG1, MJ #### [facility] [address] [place], [place] [address] LD Collected: 02/14/2018 Status: F Source: [facility] 9:00 PM [facility] REPOSITORY TYPE CODE TESTS RESULT OUT OF RANGE REFERENCE UNITS LAB LD 135-225 U/L High LD 265 Performed By: #### [id number] #### [facility] [address] [place], [place] [address] STAPH AUREUS PCR Collected: 02/14/2018 Status: F Source: [place] 9:00 PM [facility] REPOSITORY TYPE CODE TESTS RESULT OUT OF REFERENCE UNITS RANGE LAB SASRC Nasal S aureus Spec Source LAB MRSRES Negative for MRSA MRSA by PCR. PCR LAB SARES Negative for Staph Staphylococcus aureus PCR aureus by PCR. Performed By: #### SAPCR #### [facility] [address] [place], [place] [address] ECG COMPLETE W Observed: 02/14/2018 Status: F Source: [facility] 8:53 PM [facility] REPOSITORY NAME : AMELIA LEAVITT PID : [id number] : 1950 Gender : Male Race : ORD : [id number] Procedure Date : Feb 14 2018 20:53:30 Edit Date : Feb 15 2018 14:47:46 Diagnosis:NORMAL SINUS RHYTHM LEFT AXIS DEVIATION INFERIOR MYOCARDIAL INFARCTION , AGE UNDETERMINED CANNOT EXCLUDE ANTERIOR MYOCARDIAL INFARCTION , AGE UNDETERMINED ABNORMAL ECG Confirmed by LESTER STEPHENS M.D. ([id number]) on 02/15/2018 2:47:38 PM Ventricular Rate : 74 BPM Atrial Rate : 74 BPM P-R Interval : 188 ms QRS Duration : 116 ms Q-T Interval : 448 ms QTC Calculation(Bezet) : 497 ms P Kinzers : 23 degrees R Kinzers : -36 degrees T Kinzers : 118 degrees Test Reason : [place] Location : 300 : [id number] Overread By : LESTER STEPHENS M.D. Edited By : LESTER STEPHENS M.D. Referred By : LAURA PINEDA Acquired by : [id number], TROPONIN-I Collected: 02/14/2018 Status: F Source: [place] 5:[address] [facility] REPOSITORY TYPE CODE TESTS RESULT OUT OF RANGE REFERENCE UNITS LAB [id number](LO .00-.03 ng/mL INC) Abnormal Alert .70 Troponin-I Result Comment: Critical Result (s) Called to and read back by: MAYUR FINNEGAN at: 02/14/2018 17:27:16 by:[email or web address] Performed By: #### [id number] #### [facility] [employer] [facility] [place] [id number] TROPONIN-I Collected: 02/14/2018 Status: F Source: [place] 1:[address] [facility] REPOSITORY TYPE CODE TESTS RESULT OUT OF RANGE REFERENCE UNITS LAB [id number](LO .00-.03 ng/mL INC) Abnormal Alert .32 Troponin-I Result Comment: Critical Result (s) Called to and read back by: MAYUR FINNEGAN at: 02/14/2018 14:13:08 by:ABUNDIO Performed By: #### [id number] #### [facility] [employer] [address] [place] [address] CBC W/ AUTO DIFF Collected: 02/14/2018 Status: F Source: [place] 11:[address] [facility] REPOSITORY TYPE CODE TESTS RESULT OUT OF RANGE REFERENCE UNITS LAB [id number](L 3.6-11.0 E3/mcL OINC) High WBC 11.1 LAB [id number](L 3.90-6.10 E6/mcL OINC) Normal RBC 4.17 LAB 31275330(L 13.5-18.0 G/DL OINC) Low Hgb 13.1 LAB 22947251(L 42.0-52.0 % OINC) Low Hct 38.9 LAB 92383910(L 11.5-14.5 % OINC) High RDW 15.4 LAB 90592281(L 27.0-31.0 pg OINC) High MCH 31.4 LAB 61058374(L 33.0-37.0 G/DL OINC) Normal MCHC 33.7 LAB 95270908(L 78.0-100.0 fL OINC) Normal MCV 93.2 LAB 57938592(L 7.4-11.0 fL OINC) Normal MPV 8.6 LAB 56448463(L 130-400 E3/mcL OINC) Normal Platelet 159 Performed By: #### [id number] #### [facility] [place] [address] AUTO DIFF Collected: 02/14/2018 Status: F Source: [place] 11:[address] [facility] REPOSITORY Order Comment: Order Added by Discern Expert. TYPE CODE TESTS RESULT OUT OF RANGE REFERENCE UNITS LAB [id number](L 37.0-75.0 % OINC) Normal Neutro Auto 73.0 LAB 48122371(L 20.0-55.0 % OINC) Low Lymph Auto 17.8 LAB 44694618(L 0.0-10.0 % OINC) Normal Coleman Auto 6.8 LAB 75370692(L 0.0-11.0 % OINC) Normal Eos Auto 1.7 LAB 68212880(L 0.0-2.0 % OINC) Normal Basophil Auto 0.7 LAB 12819987(L 1.4-6.5 E3/mcL OINC) High Neutro 8.1 Absolute LAB 66943905(L 1.2-3.4 E3/mcL OINC) Normal Lymph Absolute 2.0 LAB 17559198(L 0.0-0.7 E3/mcL OINC) High Coleman Absolute 0.8 LAB 92941423(L 0.0-0.7 E3/mcL OINC) Normal Eos Absolute 0.2 LAB 90774054(L 0.0-0.2 E3/mcL OINC) Normal Basophil 0.1 Absolute Performed By: #### [id number] #### [facility] [employer] [address] [place] [address] BMP Collected: 02/14/2018 Status: F Source: [place] 11:[address] [facility] REPOSITORY TYPE CODE TESTS RESULT OUT OF RANGE REFERENCE UNITS LAB [id number](L 70-99 mg/dL OINC) High Glucose Lvl 140 LAB 05637540(L 7-18 mg/dL OINC) High BUN 32 LAB 3260145(LO 0.5-1.3 mg/dL INC) High Creatinine 1.5 LAB 65961411(L 5.4-30.0 ratio OINC) Normal BUN/Creat Ratio 21.3 LAB 37336999(L 8.4-10.2 mg/dL OINC) Calcium Normal Lvl 8.9 LAB 32057317(L 136-145 mEq/L OINC) Sodium Normal Lvl 139 LAB 58506397(L 3.5-5.1 mEq/L OINC) Normal Potassium Lvl 4.7 LAB 83923412(L 101-111 mmol/L OINC) Chloride Normal 104 LAB 78149181(L 24.0-30.0 mEq/L OINC) CO2 Normal 25.8 LAB 63944397(L 10-20 mEq/L OINC) AGAP Normal 14 Performed By: #### [id number] #### [facility] [employer] [facility] [place] [id number] EGFR Collected: 02/14/2018 Status: F Source: [place] 11:42 [facility] REPOSITORY Order Comment: Order added by Discern Expert. TYPE CODE TESTS RESULT OUT OF RANGE REFERENCE UNITS LAB [id number](LO mL/min/1.73 INC) m2 Normal eGFR 47 LAB 23037663(LO mL/min/1.73 INC) m2 Normal eGFR AA 57 Performed By: #### [id number] #### [facility] [employer] [address] [place] [id number] TROPONIN-I Collected: 02/14/2018 Status: F Source: [place] 11:[address] [facility] REPOSITORY TYPE CODE TESTS RESULT OUT OF RANGE REFERENCE UNITS LAB [id number](LO .00-.03 ng/mL INC) Abnormal Alert .14 Troponin-I Result Comment: Critical Result (s) Called to and read back by: TEMO GONZALEZ at: 02/14/2018 12:28:23 by:ABUNDIO Performed By: #### [id number] #### [facility] [employer] [facility] [place] [id number] PT Collected: 02/14/2018 Status: F Source: [place] 11:42 AM [facility] TYPE CODE TESTS RESULT OUT OF RANGE REFERENCE UNITS LAB [id number](LO 1.0-1.2 INC) Normal INR 1.2 Result Comment: INR Recommended Therapeuptic Ranges: Prophylaxis/treatment of DVT and PE?2.0-3.0 Prevention of systemic embolism?.2.0-3.0 Mechanical prosthetic values?2.5-3.5 CRITICAL VALUES?.>4.0 LAB [id number](LOINC) 11.6-14.6 second(s) Normal 14.1 PT Performed By: #### [id number] #### [facility] [employer] [address] [place] [address] XR CHEST AP PORTABLE Observed: 02/14/2018 Status: F Source: [place] 11:[address] [facility] REPOSITORY Exam Date/Time: 02/14/2018 11:24 EDT Reason for Exam: Chest pain Report STUDY: XR Chest AP Portable; 02/14/2018 11:24 am INDICATION: Chest pain. COMPARISON: 08/08/2017 ACCESSION NUMBER(S): [id number] ORDERING CLINICIAN: Temo Mauricio FINDINGS: A single AP portable radiograph of the chest was obtained. Multiple cardiac monitoring leads are seen over the chest. Sternal wires and mediastinal surgical clips are present. A single lead pacer/AICD is seen over the left chest. Gcrt-vz-sugktnac diffuse interstitial prominence is seen bilaterally, most consistent with edema. Hazy opacity is seen at the left lung base and may represent pleural effusion, atelectasis and/or pneumonia. No pneumothorax is identified. The cardiac silhouette is enlarged, similar to the prior studies. IMPRESSION: Diffuse interstitial prominence and left basilar airspace opacity, as described above. Clinical correlation and continued follow-up until clearing is recommended. FINAL REPORT Dictated: 02/14/2018 11:47 am Ambrocio Joe MD Signed (Electronic Signature): 02/14/2018 11:47 am Signed by: Ambrocio Joe MD Technologist: CONRADO FLORENTINORITCR Observed: 02/14/2018 Status: COMPLETED Source: [place] 12:00 AM [facility] REPOSITORY Critical Care Transport (CCT) AMELIA LEAVITT ([id number]) 1950 M Date Time Provider Department 02/14/18 MELBA ROSE ([facility]) CCT During your visit today, we recorded the following information about you: Melba Rose APRN.CNP 02/15/2018 3:41 AM Signed Critical Care Transport Note Patient Name: Amelia Leavitt Service Date: 02/14/18 Referring Physician: Jessica Accepting Physician: Rima Referring Facility: [facility] Accepting Facility: [facility] SUBJECTIVE/CHIEF COMPLAINT: Chest pain REASON FOR TRANSPORT: Higher level of cardiology services/Need for urgent LHC; services unavailable at current facility. History of Present Illness: The following history is what was known to CCT team at time of given care and summarized through review of available medical records, patient/family interview and from nursing report. Amelia Leavitt is a 67 year old male current smoker with a past medical history significant for CAD, hyperlipidemia, GA, ICM, HFrEF with ICD/PPM, CABG ( x 1 in 2010, x 3 in 2018) and multiple coronary artery stents. He presented to [facility] ED today for evaluation of chest pain. The patient developed chest pain and shortness of breath ~ 1030 today while using a rototiller in his garden. Symptoms did not resolve with rest and chest pain felt similar to his prior GA's prompting him to go to the ED for evaluation. The patient denies recent fever, chills, weight gain, PND, orthopnea, peripheral edema, palpitations, headache, syncope, abdominal pain, hematemesis or hematochezia. 12-lead EKG was unremarkable. Troponin I trended upward during his ED course of care (0.14 --> 0.32 --> 0.7). The patient received aspirin and nitroglycerin per EMS. He was loaded with heparin and Brilinta while in the ED and placed on heparin infusion. Chest xray showed pulmonary congestion per report. The patient continued to have chest pain despite morphine and nitroglycerin infusion. Dr. Pineda requested transfer for possible C. At this time, the physician managing the patient requested transfer to the [facility] for tertiary and/or quaternary services unavailable at the referring facility. The physician managing the patient requested the [facility] Critical Care Transport Team transport and treat the patient for the purpose of tertiary care, evaluation, and management of his cardiac condition(s). Patient condition at time of exam was: Acutely ill. Due to the unique circumstances of the patient, it was determined that this was the closest, most appropriate facility by referring physician. ROS: A complete review of systems was completed and is negative except where noted. The patient denied a headache, dizziness, numbness, weakness, malaise, diplopia, blurry vision, neck pain or stiffness, chest/neck/jaw/shoulder/arm pain, back pain, shortness of breath, a cough, hemoptysis, abdominal pain, nausea, vomiting, difficulty urinating, hematuria, diarrhea, bloody stool, leg/calf pain, trouble walking, recent trauma or surgery, or any other complaints when questioned. See [place] above. PAST MEDICAL HISTORY: Diagnosis Date - CAD (coronary artery disease) - Cardiomyopathy ([facility]) - CHF (congestive heart failure) ([facility]) - Family history of early CAD - H/o Lyme disease - History of smoking - Hyperlipidemia 2009 - 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 - GA (myocardial infarction) ([facility]) 2009, 2015 - S/P angioplasty with stent x 16 - S/P CABG x 1 2012 - Sleep apnea CPAP prn PAST SURGICAL HISTORY: Procedure Laterality Date - CABG (1) VEIN GRAFT AND ARTERIAL GRAFT 2012 L-LAD - DEFIBRILLATOR SURGERY - PACEMAKER - PAST SURGICAL HISTORY OF 2006 vertebrae surgery - ROTATOR CUFF REPAIR 1995 ALLERGIES: Percocet, Lovastatin SOCIAL HISTORY: Substance Use Topics - Smoking status: Current smoker Packs/day: 0.50 Types: Cigarettes - Smokeless tobacco: Never Used Comment: had quit for 20 years but restarted 2014 - Alcohol use 1.2 oz/week 2 Cans of beer per week Comment: Week FAMILY HISTORY: Problem Relation Age of Onset - other (Myocardial infarction) Father 17 multiple GA's of GA age 53 - Cancer Sister - No Ocular Disease No Family History HOME MEDICATIONS: miSOPROStol (CYTOTEC) 200 mcg tablet Take 200 mcg by mouth twice daily. diclofenac, EC, (VOLTAREN) 75 mg EC tablet Take 75 mg by mouth twice daily. buPROPion XL (WELLBUTRIN XL) 150 mg 24 hr tablet Take 150 mg by mouth twice daily. bacitracin ophthalmic ophthalmic ointment Use 1 application in both eyes once each week. One application at bedtime rosuvastatin (CRESTOR) 40 mg tablet Take 1 tablet by mouth daily at bedtime. losartan (COZAAR) 25 mg tablet Take 1 tablet by mouth once daily. carvedilol (COREG) 6.25 mg tablet Take 1 tablet by mouth twice daily with meals. furosemide (LASIX) 20 mg tablet Take 1 tablet by mouth once daily. Take one tab three times a week fenofibrate nanocrystallized (TRICOR) 48 mg tablet Take 1 tablet by mouth once daily. gabapentin (NEURONTIN) 300 mg capsule Take 1 capsule by mouth every 12 hours for 30 days. magnesium oxide (MAG-OX) 400 mg tablet Take 2 tablets by mouth once daily for 10 days. therapeutic multivitamin (THERA VITAMIN) tablet Take 1 tablet by mouth daily with breakfast. aspirin 81 mg chewable tablet Take 2 tablets by mouth once daily. pantoprazole DR (PROTONIX) 40 mg tablet Take 1 tablet by mouth DAILY (6 AM). acetaminophen (TYLENOL) 500 mg tablet Take 1-2 tablets by mouth every 6 hours as needed for Pain (for mild surgical pain). Medications Administered by Referring Facility: Aspirin 324 mg po (per EMS) Nitroglycerin 0.4 mg SL x 2 (per EMS) Heparin 4000 units IV Heparin infusion at 1000 units/hr Nitroglycerin infusion at 10 mcg/min Ticagrelor 180 mg po OBJECTIVE: Recent Labs, Diagnostics AND Procedure Reports reviewed as available. Referring Facility Labs CBC: WBC 11.1k, Hgb 13.1, Hct 38.9, Plt 159K CHEMISTRY: Na 140, K 4.7, Cl 104, CO2 25.8, BUN 32, SCr 1.5, Glu 140 Coags: INR 1.2, PT 14.1 Cardiac Enzymes: Trop I 0.14 --> 0.32 --> 0.7 Diagnostics AND Procedure Reports ECG: Reviewed. Sinus rhythm, rate 76 bpm. QTc 444 ms. Left axis deviation. Inferior/anterior infarct pattern present. TWI lateral leads (I, aVL). No ST elevation present. CXR: Diffuse interstitial edema per review of OSH radiology report. CT Scan: None Procedure/Operative Report(s): None Invasive Lines/Devices/Tubes Placed by Referring Facility: Peripheral IV x 2 PHYSICAL EXAM: Upon CCT Arrival at Referring Facility Vital Signs: HR 83 bpm, BP 122/80 mmHg, RR 16, SpO2 98% Oxygen/Ventilator Settings: Room air General appearance: Awake, conversant, acutely ill, in no apparent distress. Eyes: Pupils equal and reactive bilaterally. Anicteric sclera. EOMs intact. ENT: Mucous membranes moist. Oropharynx unremarkable. No drainage from ears or nose. Neck supple and trachea midline. Respiratory: CTA bilaterally. Without respiratory distress, wheezing, or rhonchi. Equal chest excursion. Cardiovascular: S1 S2 auscultated. No murmur, rub, or gallop appreciated. Peripheral pulses palpable and equal. Gastrointestinal: Abdomen soft, nondistended, nontender. Without mass or pulsatile mass. Atraumatic and without ecchymosis. Genitourinary: Deferred. Musculoskeletal: Appropriate muscle mass, without deformities. No clubbing, cyanosis, or edema. Skin: Limited exam due to patient clinical condition. Warm, pale, dry. CR < 3 seconds. Psychiatric: Calm, cooperative, appropriate affect. Heme/Lymph: No abnormal bleeding, ecchymosis, inflammation, or swelling. Neurologic: GCS = 15 (E4, V5, M6). Without focal deficits. CRITICAL CARE COURSE Upon bedside arrival at referring facility the patient was assessed and detailed physical exam performed. Initial exam findings as described above. The patient was placed on the transport monitor and all transport equipment transitioned in standard fashion. The patient was transferred to the transport cot and transported to the Aircraft and loaded without incident. The patient was medically managed, monitored, and reassessed during transport. Medications Managed AND Administered by CCT: Heparin infusion Nitroglycerin infusion Procedures Performed by CCT: None ASSESSMENT/PLAN: Amelia Leavitt is a 67 year old male current smoker with a past medical history significant for CAD, hyperlipidemia, GA, ICM, HFrEF (LVEF 30-35%) with ICD/PPM, CABG ( x 1 in 2010, x 3 in 2018) and multiple coronary artery stents. He presented to [facility] ED today for evaluation of chest pain. The patient developed chest pain and shortness of breath ~ 1030 today while using a rototiller in his garden. Symptoms did not resolve with rest and chest pain felt similar to his prior GA's prompting him to go to the ED for evaluation. The patient denies recent fever, chills, weight gain, PND, orthopnea, peripheral edema, palpitations, headache, syncope, abdominal pain, hematemesis or hematochezia. 12-lead EKG was unremarkable. Troponin I trended upward during his ED course of care (0.14 --> 0.32 --> 0.7). The patient received aspirin and nitroglycerin per EMS. He was loaded with heparin and Brilinta while in the ED and placed on heparin infusion. Chest xray showed pulmonary congestion per report. The patient continued to have chest pain despite morphine and nitroglycerin infusion. NSTEMI - Close hemodynamic monitoring during transport. - Continue heparin and nitroglycerin infusions -- titrate nitro infusion for continued cp. - Supplemental O2 to maintain SpO2 > 90%. - Further management at [facility]. The transport was completed. The patient was transported to the the [facility] by Rotor (Helicopter) for tertiary and/or quaternary evaluation and management of his Emergent cardiac condition(s). Upon arrival to the receiving facility, a [id number] report was given to J31-8 bedside nursing staff and physician. Patient care was transferred. The patient condition was Acutely Ill at the time of transfer. Vital Signs at time care transferred to the receiving facility unit: HR 84 bpm, Rhythm Sinus, BP 127/86 mmHg, RR 14, SpO2 98% on Room air SPECIAL EQUIPMENT: None MODE OF TRANSPORT: Rotor (Helicopter) CRITICAL CARE TIME: I personally performed 41 minutes of critical care time exclusive of separately billable procedures, ambulance charges and treating other patients. This was necessary to treat or prevent further deterioration of the following condition(s): Acute GA and Hemodynamic compromise Cardiovascular impairment, Respiratory impairment, EMU FARMER impairment, Shock and Cardiac Arrest which the patient had and/or had a high probability of suddenly developing. SIGNATURE: Melba Rose APRN.PRESS CATCHER Acute Care Nurse Practitioner [facility] Critical Care Transport Team Allergies As of Date: 02/14/2018 Noted Allergy Reaction PERCOCET (OXYCODONE-ACETAMINOPHEN)07/21/2017 14 - Other: See Comments Comments: Pt has severe tremors when taking Percocet Date Reviewed: 02/14/2018 Reviewed by: Jacob (Carlos Alberto) Tia - Fully Assessed Reason for Visit: Critical Care Transport [[id number]] Prescriptions as of 02/14/2018 Sig: MISOPROSTOL 200 MCG TABLET Take 200 mcg by mouth twice d* DICLOFENAC SODIUM 75 MG TABLE* Take 75 mg by mouth twice miranda* BUPROPION XL 150 MG TAB Take 150 mg by mouth twice da* BACITRACIN 500 UNIT/GRAM EYE * Use 1 application in both eye* ROSUVASTATIN 40 MG TABLET Take 1 tablet by mouth daily * LOSARTAN 25 MG TABLET Take 1 tablet by mouth once d* CARVEDILOL 6.25 MG TABLET Take 1 tablet by mouth twice * FUROSEMIDE 20 MG TABLET Take 1 tablet by mouth once d* FENOFIBRATE NANOCRYSTALLIZED * Take 1 tablet by mouth once d* THERAPEUTIC MULTIVITAMIN TABL* Take 1 tablet by mouth daily * ASPIRIN 81 MG CHEWABLE TABLET Take 2 tablets by mouth once * PANTOPRAZOLE 40 MG TABLET,DEL* Take 1 tablet by mouth DAILY * ACETAMINOPHEN 500 MG TABLET Take 1-2 tablets by mouth marcus* Problem List As Of Date 02/14/2018 Noted Resolved Bladder wall thickening [N32.89] INVALID FOR* Urethral polyp [N36.2] INVALID FOR* Smoking history [Z87.891] INVALID FOR* Priority: J More... 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 Preop testing [Z01.818] INVALID FOR* More... Encounter for preoperative anesthesiology asses*INVALID FOR* Cardiomyopathy, ischemic [I25.5] INVALID FOR* Priority: A More... 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 Bronchospasm [J98.01] INVALID FOR*07/30/2017 More... Respiratory insufficiency [R06.89] INVALID FOR*07/30/2017 More... Hyperglycemia [R73.9] INVALID FOR*08/02/2017 Priority: E More... Cardiogenic shock (HCC) [R57.0] INVALID FOR*07/31/2017 Priority: C More... Dehydration [E86.0] INVALID FOR*07/30/2017 More... Postoperative hypotension [I95.89] INVALID FOR*07/30/2017 More... Atelectasis [J98.11] INVALID FOR*08/02/2017 Priority: B More... Essential hypertension [I10] INVALID FOR* Priority: C More... Altered mental status [R41.82] INVALID FOR*08/02/2017 Priority: D More... Pneumothorax [J93.9] INVALID FOR*08/02/2017 Priority: B More... Transition of care performed with sharing of cl*INVALID FOR* Priority: Very Severe More... Hyperlipidemia LDL goal <70 [E78.5] INVALID FOR* Priority: C More... Hypertriglyceridemia, essential [E78.1] INVALID FOR* Priority: C More... Gastroesophageal reflux disease without esophag*INVALID FOR* Priority: G More... Atherosclerosis of [place] coronary artery of na*INVALID FOR* More... Obesity, Class I, BMI 30-34.9 E66.9 [E66.9] INVALID FOR* Meibomian gland dysfunction (MGD) of upper and *INVALID FOR* NSTEMI (non-ST elevated myocardial infarction) *INVALID FOR* More... Follow-up and Disposition History Recorded Encounter Status:Closed by MELBA ROSE CNP on 02/15/18 PROGRESS Observed: 01/12/2018 Status: COMPLETED Source: [place] 8:59 AM [facility] REPOSITORY HNO ID: [id number] Author: Alex French Service: (none) Author Type: FORMING MACHINE TENDER Type: Progress Notes Filed: 01/12/2018 9:01 AM Note Text: ASSESSMENT/PLAN: 1. Meibomian gland dysfunction (MGD) of upper and lower lids of both eyes - ICD9: 373.00, ICD10: H02.89 (primary diagnosis) Improving, reduce Bacitracin ointment from daily to once per week Current Ophthalmic Meds bacitracin ophthalmic ophthalmic ointment (Taking) Use 1 application in both eyes once each week. 2. Cortical age-related cataract of both eyes - ICD9: 366.15, ICD10: H25.013 Not visually significant / Observe Alex French, MANUEL I have confirmed and edited as necessary the relevant ophthalmic history, review of systems, surgical history, and ophthalmological examination findings as obtained by the ophthalmic technical staff. I have seen and examined Amelia Leavitt. I have discussed the examination findings, diagnosis, and treatment options with Amelia Leavitt and/or his family. I have also reviewed and agree with the assessment and plan as stated above and agree with all its relevant components. I gave the patient the opportunity to ask questions about the findings, diagnosis, and treatment options. PROGRESS Observed: 12/22/2017 Status: COMPLETED Source: [place] 9:40 AM [facility] REPOSITORY O ID: [id number] Author: Alex (Manuel) Manolo Service: (none) Author Type: FORMING MACHINE TENDER Type: Progress Notes Filed: 12/22/2017 9:41 AM Note Text: ASSESSMENT/PLAN: 1. Meibomian gland dysfunction (MGD) of upper and lower lids of both eyes - ICD9: 373.00, ICD10: H02.89 (primary diagnosis) Begin: Current Ophthalmic Meds bacitracin ophthalmic ophthalmic ointment Use 1 application in both eyes daily at bedtime. One application at bedtime Systane Balance Artificial tears, 1 drop, three times a day, Both eyes. 2. Cortical age-related cataract of both eyes - ICD9: 366.15, ICD10: H25.013 Not visually significant / Observe Alex French, MANUEL I have confirmed and edited as necessary the relevant ophthalmic history, review of systems, surgical history, and ophthalmological examination findings as obtained by the ophthalmic technical staff. I have seen and examined Amelia Leavitt. I have discussed the examination findings, diagnosis, and treatment options with Amelia Leavitt and/or his family. I have also reviewed and agree with the assessment and plan as stated above and agree with all its relevant components. I gave the patient the opportunity to ask questions about the findings, diagnosis, and treatment options. XR CHEST 3 VIEWS Observed: 11/12/2017 Status: F Source: [place] 8:23 AM [facility] REPOSITORY Exam Date/Time: 11/12/2017 08:35 EDT Reason for Exam: Chest pain Report STUDY: XR Chest 3 Views; 11/12/2017 8:35 am INDICATION: Chest pain. COMPARISON: 08/08/2017 ACCESSION NUMBER(S): [id number] ORDERING CLINICIAN: Zi Chamberlain FINDINGS: PA and lateral views of the chest were obtained. Sternal wires and mediastinal surgical clips are present. A single lead pacer/AICD is seen over the left chest. No focal infiltrate, pleural effusion or pneumothorax is identified. The cardiac silhouette is mildly prominent, similar to prior studies. Moderate discogenic degenerative changes are seen throughout the thoracic spine. IMPRESSION: No focal infiltrate or pneumothorax. FINAL REPORT Dictated: 11/12/2017 10:09 am Ambrocio Joe MD Signed (Electronic Signature): 11/12/2017 10:09 am Signed by: Ambrocio Joe MD Technologist: [facility] CT SPINE LUMBAR W/O Observed: 09/28/2017 Status: F Source: [place] CONTRAST 2:24 PM [facility] REPOSITORY Exam Date/Time: 09/28/2017 14:35 EDT Reason for Exam: LUMBAR DDD Report EXAM: CT Spine Lumbar w/o Contrast CLINICAL STATEMENT: Lumbar degenerative disc disease. COMPARISON: None. TECHNIQUE: ?CT examination of the lumbar spine without IV contrast. Coronal and sagittal reformations were performed. ? Dose reduction techniques were achieved by using automated exposure control and/or adjustment of mA and/or kV according to patient size and/or use of iterative reconstruction technique. FINDINGS: The bones appear demineralized. No acute fracture is seen. There is straightening of the lumbar lordosis with chronic grade 1 retrolisthesis of L2 and L3. There is multilevel intervertebral disc height loss with vacuum disc phenomenon. There is particular endplate degeneration at the L1-L2 level. There is multilevel posterior disc osteophyte complex formation and facet joint arthropathy. There has been previous posterior decompression at L3-L4. There is multilevel severe osseous neural foraminal stenosis. There is no paraspinal swelling or hematoma. There is no abdominal aortic aneurysm. There is lower paraspinal muscular atrophy. IMPRESSION: Degenerative and postsurgical changes of the spine. Multilevel osseous neural foraminal stenosis. If feasible, MRI follow-up would provide better detail. FINAL REPORT Dictated: 09/28/2017 10:25 pm Leonila Presley MD Signed (Electronic Signature): 09/28/2017 10:25 pm Signed by: Leonila Presley MD Technologist: JIMENEZ PROGRESS Observed: 09/06/2017 Status: COMPLETED Source: [place] 2:54 PM [facility] REPOSITORY HNO ID: [id number] Author: Jacque (Rn) Astrid Encarnacion RN Service: (none) Author Type: Registered Nurse Type: Progress Notes Filed: 09/06/2017 2:56 PM Note Text: 09/06/2017 2:55 PM IV Access: IV IV Site: left Wrist IV GAUGE 24 gauge IV Removal Date 09/06/17 Time 1455 Reactions: WNL Order reviewed by nurse:yes Medications: Definity - dosage 1.5 ml diluted Definity given IV push Reaction: No CNOV Observed: 09/06/2017 Status: COMPLETED Source: [place] 2:30 PM [facility] REPOSITORY Office Visit (CAFLMN) AMELIA LEAVITT ([id number]) 1950 M Date Time Provider Department 09/06/17 2:30 PM ECHO J1-5 CARD MAIN CAFLMN During your visit today, we recorded the following information about you: Jacque Encarnacion, RN, RN 09/06/2017 2:56 PM Signed 09/06/2017 2:55 PM IV Access: IV IV Site: left Wrist IV GAUGE 24 gauge IV Removal Date 09/06/17 Time 1455 Reactions: WNL Order reviewed by nurse:yes Medications: Definity - dosage 1.5 ml diluted Definity given IV push Reaction: No Referring Provider: SHEN ROWE [[id number]] Allergies As of Date: 09/06/2017 Noted Allergy Reaction PERCOCET (OXYCODONE-ACETAMINOPHEN)07/21/2017 14 - Other: See Comments Comments: Pt's states that there is a concern for addiction, NOT an allergy. Date Reviewed: 09/06/2017 Reviewed by: Jacque (Rn) Astrid Encarnacion RN - Fully Assessed Reason for Visit: Procedure [88] Cmt: TTE with Definity Visit Diagnoses:Cardiomyopathy, ischemic [I25.5] Hyperlipidemia LDL goal <70 [E78.5] Essential hypertension [I10] Order(s):ECHO [071269] Order #: [id number]: 1 Prescriptions as of 09/06/2017 Sig: ROSUVASTATIN 40 MG TABLET Take 1 tablet by mouth daily * LOSARTAN 25 MG TABLET Take 1 tablet by mouth once d* CARVEDILOL 6.25 MG TABLET Take 1 tablet by mouth twice * FUROSEMIDE 20 MG TABLET Take 1 tablet by mouth once d* FENOFIBRATE NANOCRYSTALLIZED * Take 1 tablet by mouth once d* GABAPENTIN 300 MG CAPSULE Take 1 capsule by mouth every* MAGNESIUM OXIDE 400 MG TABLET Take 2 tablets by mouth once * THERAPEUTIC MULTIVITAMIN TABL* Take 1 tablet by mouth daily * ASPIRIN 81 MG CHEWABLE TABLET Take 2 tablets by mouth once * PANTOPRAZOLE 40 MG TABLET,DEL* Take 1 tablet by mouth DAILY * ACETAMINOPHEN 500 MG TABLET Take 1-2 tablets by mouth marcus* Problem List As Of Date 09/06/2017 Noted Resolved Bladder wall thickening [N32.89] INVALID FOR* Urethral polyp [N36.2] INVALID FOR* Smoking history [Z87.891] INVALID FOR* Priority: J More... 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 Preop testing [Z01.818] INVALID FOR* More... Encounter for preoperative anesthesiology asses*INVALID FOR* Cardiomyopathy, ischemic [I25.5] INVALID FOR* Priority: A More... 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 Bronchospasm [J98.01] INVALID FOR*07/30/2017 More... Respiratory insufficiency [R06.89] INVALID FOR*07/30/2017 More... Hyperglycemia [R73.9] INVALID FOR*08/02/2017 Priority: E More... Cardiogenic shock (HCC) [R57.0] INVALID FOR*07/31/2017 Priority: C More... Dehydration [E86.0] INVALID FOR*07/30/2017 More... Postoperative hypotension [I95.89] INVALID FOR*07/30/2017 More... Atelectasis [J98.11] INVALID FOR*08/02/2017 Priority: B More... Essential hypertension [I10] INVALID FOR* Priority: C More... Altered mental status [R41.82] INVALID FOR*08/02/2017 Priority: D More... Pneumothorax [J93.9] INVALID FOR*08/02/2017 Priority: B More... Transition of care performed with sharing of cl*INVALID FOR* Priority: Very Severe More... Hyperlipidemia LDL goal <70 [E78.5] INVALID FOR* Priority: C More... Hypertriglyceridemia, essential [E78.1] INVALID FOR* Priority: C More... Gastroesophageal reflux disease without esophag*INVALID FOR* Priority: G More... Atherosclerosis of [place] coronary artery of na*INVALID FOR* More... Obesity, Class I, BMI 30-34.9 E66.9 [E66.9] INVALID FOR* Encounter Status:Closed by JACQUE WEATHERS on 09/06/17 CNOV Observed: 09/06/2017 Status: COMPLETED Source: [place] 9:15 AM [facility] REPOSITORY Office Visit (FORTUNATO) AMELIA LEAVITT ([id number]) 1950 M Date Time Provider Department 09/06/17 9:15 AM MAMADOU, SHEN CATHMN During your visit today, we recorded the following information about you: Pulse Respiration Blood pressure Weight 87/minute 16/minute 106/61 96.6 kg Height 1.778 m Shen Rowe DO, DO 09/06/2017 10:07 AM Signed [facility] [place] Vinod Carrasco Department of Cardiovascular Medicine SECTION OF INTERVENTIONAL CARDIOLOGY OUTPATIENT VISIT DATE September 06, 2017 OUTPATIENT VISIT TYPE ESTABLISHED PRIMARY CARE PHYSICIAN: Domo Newman MD ([facility]) [address] [place] [address] CHIEF COMPLAINT: Patient presents with: Hospital F/U: Cardiomyopathy, ischemic HISTORY OF PRESENT ILLNESS: Mr. Leavitt is a 67 year old male who presents today for follow-up visit to his [facility] 5 weeks ago. He denies chest pain, shortness of breath, dyspnea on exertion, orthopnea, PND, palpitations, lightheadedness, syncope, claudication, leg swelling and cough. PAST CARDIAC HISTORY: Initially seen Dr Rowe -2017 s/p multiple stent and CABG (GUDINO to LAD) RCA stented in 2015, SHF with EF 30-35% S/P 07/28/2017 CABGx3 (SVG1 to PDA, SVG2 to OM, Free ROMAN from SVG2 to LAD) Dr uHff PAST MEDICAL HISTORY Diagnosis Date - CAD (coronary artery disease) - Cardiomyopathy ([facility]) - CHF (congestive heart failure) ([facility]) - Family history of early CAD - H/o Lyme disease - History of smoking - Hyperlipidemia 2009 - 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 - GA (myocardial infarction) ([facility]) 2009, 2015 - S/P angioplasty with stent x 16 - S/P CABG x 1 2012 - Sleep apnea CPAP prn PAST SURGICAL HISTORY Procedure Laterality Date - CABG (1) VEIN GRAFT ANDamp; ARTERIAL GRAFT 2012 L-LAD - DEFIBRILLATOR SURGERY - PACEMAKER - PAST SURGICAL HISTORY OF 2006 vertebrae surgery - ROTATOR CUFF REPAIR 1995 SOCIAL HISTORY Social History Substance Use Topics - Smoking status: Former Smoker Packs/day: 0.50 Types: Cigarettes Quit date: 04/21/2017 - Smokeless tobacco: Never Used Comment: had quit for 20 years but restarted 2014 - Alcohol use Not on file Comment: occasionally FAMILY HISTORY Problem Relation Age of Onset - Myocardial infarction [OTHER] Father 17 multiple GA's of GA age 53 - Cancer Sister - No Ocular Disease No Family History ALLERGIES: ALLERGIES Allergen Reactions - Percocet [Oxycodone* Other: See Comments Pt's states that there is a concern for addiction, NOT an allergy. MEDICATIONS: furosemide (LASIX) 20 mg tablet Take 20 mg by mouth. Take one tab three times a week carvedilol (COREG) 6.25 mg tablet Take 1 tablet by mouth twice daily with meals. gabapentin (NEURONTIN) 300 mg capsule Take 1 capsule by mouth every 12 hours for 30 days. rosuvastatin (CRESTOR) 40 mg tablet Take 1 tablet by mouth daily at bedtime. losartan (COZAAR) 25 mg tablet Take 1 tablet by mouth once daily. fenofibrate nanocrystallized (TRICOR) 48 mg tablet Take 1 tablet by mouth once daily. therapeutic multivitamin (THERA VITAMIN) tablet Take 1 tablet by mouth daily with breakfast. aspirin 81 mg chewable tablet Take 2 tablets by mouth once daily. pantoprazole DR (PROTONIX) 40 mg tablet Take 1 tablet by mouth DAILY (6 AM). acetaminophen (TYLENOL) 500 mg tablet Take 1-2 tablets by mouth every 6 hours as needed for Pain (for mild surgical pain). magnesium oxide (MAG-OX) 400 mg tablet Take 2 tablets by mouth once daily for 10 days. REVIEW OF SYSTEMS: HEENT: Denies recent severe headaches, visual changes, difficulty swallowing. GASTROINTESTINAL: Denies melena, hematochezia, heartburn. GENITOURINARY: Denies hematuria. MUSCULOSKELETAL: Denies claudication or muscle myalgias. NEUROLOGIC: Denies unilateral paralysis, slurred speech. SKIN: Denies skin ulcers or lesions. HEMATOLOGICAL: Denies gingival bleeding, or prolonged epistaxis. ENDOCRINE:Denies heat or cold intolerance, excessive thirst or urination. All Other Remaining ROS negative. PHYSICAL EXAMINATION: Ht 5' 10ANDquot; (1.78m) Wt 0 lb (0.0kg) SpO2 [room air]% General: Well appearing, in no acute distress, speaking in complete sentences. Skin: No clubbing, no cyanosis. Head/Eyes: Extra ocular movements intact Mouth: Teeth in good repair. Neck: No jugular venous distention, no carotid bruits, carotids have a normal upstroke, no palpable thyromegaly. Lungs: Clear to auscultation and no rales Heart: Regular rhythm, PMI not displaced, S1, S2 normal, no S3, no S4, no heaves, no rub and no murmur. PV Pulses:Pulses intact Abdomen: Soft, nontender, bowel sounds normal, no palpable organomegaly, no bruits. Extremities: No peripheral edema . Grade 2/4 distal pulses bilaterally. Edema Scale: No Musculoskeletal: Normal gait and ambulation Neuro: Oriented to time, place and person CARDIOVASCULAR MEDICINE TESTING: No Cardiovascular testing perfomed today. There were no tests performed for review. IMPRESSION: Mr. Leavitt is a 67 year old male S/P 07/28/2017 CABGx3 (SVG1 to PDA, SVG2 to OM, Free ROMAN from SVG2 to LAD) Dr Huff He is recovering very nicely from his OHS but his low back is very painful. He was seen at the [facility] around 10 yrs ago for the same thing. He is going to seek their help again. He wants to drive and shoot his gun again. Echo for LV function scheduled for today. He would rather not keep his appt with Dr. Zimmer. He follows with someone in [place] for his ICD. He is willing to start cardiac rehab but doesn't want to make the trip up to our Prevention Dept. September 13. PLAN AND RECOMMENDATIONS: 1. May drive in one week. 2. May follow up with Dr. Shah in [place]; his desire to have someone closer without coming to the big city. 3. Lose 10+ lbs. 4. Low carb diet. 5. All cardiac meds refilled. 6. FU appt with me in one year provided. He will decide later. CONTACT INFORMATION: Shen Rowe D.O., F.S.C.A.I., F.A.C.C. Interventional Cardiology [facility] Department of Cardiovascular Medicine Heart and Vascular [place] [facility] Desk [address] [place] [address] Office ? [phone] extension [phone] Office Appointments: [phone] extension [phone] Shen Rowe DO September 06, 2017 9:20 AM Referring Provider: KAUSHAL HUFF [[id number]] Allergies As of Date: 09/06/2017 Noted Allergy Reaction PERCOCET (OXYCODONE-ACETAMINOPHEN)07/21/2017 14 - Other: See Comments Comments: Pt's states that there is a concern for addiction, NOT an allergy. Date Reviewed: 09/06/2017 Reviewed by: Piper Garcia) JETHRO Pathak - Fully Assessed Reason for Visit: Hospital F/U [57] Cmt: Cardiomyopathy, ischemic Primary Visit Diagnosis:Cardiomyopathy, ischemic [I25.5] Other Visit Diagnoses:Obesity, Class I, BMI 30-34.9 [E66.9] S/P CABG x 3 [Z95.1] Lipid disorder [E78.9] Essential hypertension [I10] Hypertriglyceridemia, essential [E78.1] Hyperlipidemia LDL goal <70 [E78.5] Order(s):CONSULT TO CARD REHAB PHASE II [] Order #: [id number]: 1 rosuvastatin (CRESTOR) 40 mg tabletTake 1 tablet by mouth daily at bedtime.Disp: 90 tabletRfl: 3 losartan (COZAAR) 25 mg tabletTake 1 tablet by mouth once daily.Disp: 90 tabletRfl: 3 carvedilol (COREG) 6.25 mg tabletTake 1 tablet by mouth twice daily with meals.Disp: 180 tabletRfl: 1 furosemide (LASIX) 20 mg tabletTake 1 tablet by mouth once daily. Take one tab three times a weekDisp: 40 tabletRfl: 3 fenofibrate nanocrystallized (TRICOR) 48 mg tabletTake 1 tablet by mouth once daily.Disp: 90 tabletRfl: 3 Prescriptions as of 09/06/2017 Sig: ROSUVASTATIN 40 MG TABLET Take 1 tablet by mouth daily * LOSARTAN 25 MG TABLET Take 1 tablet by mouth once d* CARVEDILOL 6.25 MG TABLET Take 1 tablet by mouth twice * FUROSEMIDE 20 MG TABLET Take 1 tablet by mouth once d* FENOFIBRATE NANOCRYSTALLIZED * Take 1 tablet by mouth once d* GABAPENTIN 300 MG CAPSULE Take 1 capsule by mouth every* THERAPEUTIC MULTIVITAMIN TABL* Take 1 tablet by mouth daily * ASPIRIN 81 MG CHEWABLE TABLET Take 2 tablets by mouth once * PANTOPRAZOLE 40 MG TABLET,DEL* Take 1 tablet by mouth DAILY * ACETAMINOPHEN 500 MG TABLET Take 1-2 tablets by mouth marcus* MAGNESIUM OXIDE 400 MG TABLET Take 2 tablets by mouth once * Problem List As Of Date 09/06/2017 Noted Resolved Bladder wall thickening [N32.89] INVALID FOR* Urethral polyp [N36.2] INVALID FOR* Smoking history [Z87.891] INVALID FOR* Priority: J More... 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 Preop testing [Z01.818] INVALID FOR* More... Encounter for preoperative anesthesiology asses*INVALID FOR* Cardiomyopathy, ischemic [I25.5] INVALID FOR* Priority: A More... 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 Bronchospasm [J98.01] INVALID FOR*07/30/2017 More... Respiratory insufficiency [R06.89] INVALID FOR*07/30/2017 More... Hyperglycemia [R73.9] INVALID FOR*08/02/2017 Priority: E More... Cardiogenic shock (HCC) [R57.0] INVALID FOR*07/31/2017 Priority: C More... Dehydration [E86.0] INVALID FOR*07/30/2017 More... Postoperative hypotension [I95.89] INVALID FOR*07/30/2017 More... Atelectasis [J98.11] INVALID FOR*08/02/2017 Priority: B More... Essential hypertension [I10] INVALID FOR* Priority: C More... Altered mental status [R41.82] INVALID FOR*08/02/2017 Priority: D More... Pneumothorax [J93.9] INVALID FOR*08/02/2017 Priority: B More... Transition of care performed with sharing of cl*INVALID FOR* Priority: Very Severe More... Hyperlipidemia LDL goal <70 [E78.5] INVALID FOR* Priority: C More... Hypertriglyceridemia, essential [E78.1] INVALID FOR* Priority: C More... Gastroesophageal reflux disease without esophag*INVALID FOR* Priority: G More... Atherosclerosis of [place] coronary artery of na*INVALID FOR* More... Obesity, Class I, BMI 30-34.9 E66.9 [E66.9] INVALID FOR* Prescriptions ordered this encounter Disp Refills Start End ROSUVASTATIN 40 MG TABLET 90 t* 3 09/06/2017 Class: Print RX Route: ORAL Sig: Take 1 tablet by mouth daily at bedtime. LOSARTAN 25 MG TABLET 90 t* 3 09/06/2017 Class: Print RX Route: ORAL Sig: Take 1 tablet by mouth once daily. CARVEDILOL 6.25 MG TABLET 180 * 1 09/06/2017 Class: Print RX Route: ORAL Sig: Take 1 tablet by mouth twice daily with meals. FUROSEMIDE 20 MG TABLET 40 t* 3 09/06/2017 Class: Print RX Route: ORAL Sig: Take 1 tablet by mouth once daily. Take one tab three times a week FENOFIBRATE NANOCRYSTALLIZED 48 MG T* 90 t* 3 09/06/2017 Class: Print RX Route: ORAL Sig: Take 1 tablet by mouth once daily. Medications Discontinued During This Encounter docusate sodium (COLACE) 100 mg caps* 30 c* 0 08/03/2017 09/06/2017 Route: ORAL Sig: Take 1 capsule by mouth twice daily. Disc: Course of therapy completed albuterol HFA (PROAIR HFA) 90 mcg/ac* 1 In* 0 08/07/2017 09/06/2017 Route: INHALATION Sig: Inhale 2 Puffs as instructed every 4 hours as needed for Wheezing/Shortness of Breath. Disc: Course of therapy completed furosemide (LASIX) 20 mg tablet 09/06/2017 Class: Historical Med Route: ORAL Sig: Take 20 mg by mouth. Take one tab three times a week Disc: Changing Therapy/Dosage Form furosemide (LASIX) 20 mg tablet 13 t* 0 08/03/2017 09/06/2017 Sig: Take 2 tablets by mouth once daily for 3 days. Then take 1 tablet by mouth daily for 7 days Disc: Changing Therapy/Dosage Form rosuvastatin (CRESTOR) 40 mg tablet 30 t* 1 08/03/2017 09/06/2017 Route: ORAL Sig: Take 1 tablet by mouth daily at bedtime. Disc: Reason for discontinue is not on file. losartan (COZAAR) 25 mg tablet 30 t* 1 08/04/2017 09/06/2017 Route: ORAL Sig: Take 1 tablet by mouth once daily. Disc: Reason for discontinue is not on file. carvedilol (COREG) 6.25 mg tablet 60 t* 1 08/03/2017 09/06/2017 Route: ORAL Sig: Take 1 tablet by mouth twice daily with meals. Disc: Reason for discontinue is not on file. furosemide (LASIX) 20 mg tablet 09/06/2017 Class: Historical Med Route: ORAL Sig: Take 20 mg by mouth. Take one tab three times a week Disc: Reason for discontinue is not on file. fenofibrate nanocrystallized (TRICOR* 30 t* 1 08/04/2017 09/06/2017 Route: ORAL Sig: Take 1 tablet by mouth once daily. Disc: Reason for discontinue is not on file. Disposition: Return in about 1 year (around 09/06/2018). Follow-up and Disposition History Recorded Classic SmartForms filed during this visit: Extended Vitals Letter Text [facility] Det[facility] Of Cardiovascular Med [address] [place] [address] / Desk [place] [address] Appt [phone] Toll Free Ext [phone] Shen Rowe DO, FSCAI, FACC Interventional Cardiology Department of Cardiovascular Medicine Name: Amelia Calderon Noemi : 1950 [facility]#: [id number] Date of Service: 09/06/2017 Page:2 September 06, 2017 Domo Newman MD [address] [place] [address] NAME: Amelia Leavitt CLINIC NO: [id number] DATE OF SERVICE: 09/06/[address] Newman: We recently had the pleasure of seeing your patient for a follow-up visit in the cardiology outpatient department on 09/06/2017. My impression and recommendations are noted at the end of this letter. I do hope this information will be helpful for your continued care of this very kind patient. Please let me know if I can be of further service. Respectfully yours, Shen Rowe DO, FACC (electronically signed to expedite mailing) RER:mp Enclosure CC: Amelia Leavitt Heart [facility] [place] [facility] Carrasco Department of Cardiovascular Medicine SECTION OF INTERVENTIONAL CARDIOLOGY OUTPATIENT VISIT DATE September 06, 2017 OUTPATIENT VISIT TYPE ESTABLISHED PRIMARY CARE PHYSICIAN: Domo Newman MD ([facility]) [address] [place] [address] CHIEF COMPLAINT: Patient presents with: Hospital F/U: Cardiomyopathy, ischemic HISTORY OF PRESENT ILLNESS: Mr. Leavitt is a 67 year old male who presents today for follow-up visit to his OHS 5 weeks ago. He denies chest pain, shortness of breath, dyspnea on exertion, orthopnea, PND, palpitations, lightheadedness, syncope, claudication, leg swelling and cough. PAST CARDIAC HISTORY: Initially seen Dr Rowe 2-2017 s/p multiple stent and CABG (GUDINO to LAD) RCA stented in 2015, SHF with EF 30-35% S/P 07/28/2017 CABGx3 (SVG1 to PDA, SVG2 to OM, Free ROMAN from SVG2 to LAD) Dr Huff PAST MEDICAL HISTORY Diagnosis Date - CAD (coronary artery disease) - Cardiomyopathy ([facility]) - CHF (congestive heart failure) ([facility]) - Family history of early CAD - H/o Lyme disease - History of smoking - Hyperlipidemia 2009 - 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 - GA (myocardial infarction) ([facility]) 2009, 2015 - S/P angioplasty with stent x 16 - S/P CABG x 1 2012 - Sleep apnea CPAP prn PAST SURGICAL HISTORY Procedure Laterality Date - CABG (1) VEIN GRAFT AND ARTERIAL GRAFT 2012 L-LAD - DEFIBRILLATOR SURGERY - PACEMAKER - PAST SURGICAL HISTORY OF 2006 vertebrae surgery - ROTATOR CUFF REPAIR 1995 SOCIAL HISTORY Social History Substance Use Topics - Smoking status: Former Smoker Packs/day: 0.50 Types: Cigarettes Quit date: 04/21/2017 - Smokeless tobacco: Never Used Comment: had quit for 20 years but restarted 2014 - Alcohol use Not on file Comment: occasionally FAMILY HISTORY Problem Relation Age of Onset - Myocardial infarction [OTHER] Father 17 multiple GA's of GA age 53 - Cancer Sister - No Ocular Disease No Family History ALLERGIES: ALLERGIES Allergen Reactions - Percocet [Oxycodone* Other: See Comments Pt's states that there is a concern for addiction, NOT an allergy. MEDICATIONS: furosemide (LASIX) 20 mg tablet Take 20 mg by mouth. Take one tab three times a week carvedilol (COREG) 6.25 mg tablet Take 1 tablet by mouth twice daily with meals. gabapentin (NEURONTIN) 300 mg capsule Take 1 capsule by mouth every 12 hours for 30 days. rosuvastatin (CRESTOR) 40 mg tablet Take 1 tablet by mouth daily at bedtime. losartan (COZAAR) 25 mg tablet Take 1 tablet by mouth once daily. fenofibrate nanocrystallized (TRICOR) 48 mg tablet Take 1 tablet by mouth once daily. therapeutic multivitamin (THERA VITAMIN) tablet Take 1 tablet by mouth daily with breakfast. aspirin 81 mg chewable tablet Take 2 tablets by mouth once daily. pantoprazole DR (PROTONIX) 40 mg tablet Take 1 tablet by mouth DAILY (6 AM). acetaminophen (TYLENOL) 500 mg tablet Take 1-2 tablets by mouth every 6 hours as needed for Pain (for mild surgical pain). magnesium oxide (MAG-OX) 400 mg tablet Take 2 tablets by mouth once daily for 10 days. REVIEW OF SYSTEMS: HEENT: Denies recent severe headaches, visual changes, difficulty swallowing. GASTROINTESTINAL: Denies melena, hematochezia, heartburn. GENITOURINARY: Denies hematuria. MUSCULOSKELETAL: Denies claudication or muscle myalgias. NEUROLOGIC: Denies unilateral paralysis, slurred speech. SKIN: Denies skin ulcers or lesions. HEMATOLOGICAL: Denies gingival bleeding, or prolonged epistaxis. ENDOCRINE:Denies heat or cold intolerance, excessive thirst or urination. All Other Remaining ROS negative. PHYSICAL EXAMINATION: Ht 5' 10 (1.78m) Wt 0 lb (0.0kg) SpO2 [room air]% General: Well appearing, in no acute distress, speaking in complete sentences. Skin: No clubbing, no cyanosis. Head/Eyes: Extra ocular movements intact Mouth: Teeth in good repair. Neck: No jugular venous distention, no carotid bruits, carotids have a normal upstroke, no palpable thyromegaly. Lungs: Clear to auscultation and no rales Heart: Regular rhythm, PMI not displaced, S1, S2 normal, no S3, no S4, no heaves, no rub and no murmur. PV Pulses:Pulses intact Abdomen: Soft, nontender, bowel sounds normal, no palpable organomegaly, no bruits. Extremities: No peripheral edema . Grade 2/4 distal pulses bilaterally. Edema Scale: No Musculoskeletal: Normal gait and ambulation Neuro: Oriented to time, place and person CARDIOVASCULAR MEDICINE TESTING: No Cardiovascular testing perfomed today. There were no tests performed for review. IMPRESSION: Mr. Leavitt is a 67 year old male S/P 07/28/2017 CABGx3 (SVG1 to PDA, SVG2 to OM, Free ROMAN from SVG2 to LAD) Dr Huff He is recovering very nicely from his OHS but his low back is very painful. He was seen at the [facility] around 10 yrs ago for the same thing. He is going to seek their help again. He wants to drive and shoot his gun again. Echo for LV function scheduled for today. He would rather not keep his appt with Dr. Zimmer. He follows with someone in [place] for his ICD. He is willing to start cardiac rehab but doesn't want to make the trip up to our Prevention Dept. September 13. PLAN AND RECOMMENDATIONS: 1. May drive in one week. 2. May follow up with Dr. Shah in [place]; his desire to have someone closer without coming to the big city. 3. Lose 10+ lbs. 4. Low carb diet. 5. All cardiac meds refilled. 6. FU appt with me in one year provided. He will decide later. CONTACT INFORMATION: Shen Rowe D.O., F.Logan.Bambi.A.I., F.A.C.C. Interventional Cardiology [facility] Department of Cardiovascular Medicine Heart and Vascular [facility] Desk [place] [address] Office ? [phone] extension [phone] Office Appointments: [phone] extension [phone] Shen Rowe DO September 06, 2017 9:20 AM Encounter Status:Closed by SHEN ROWE DO on 09/06/17 PROGRESS Observed: 09/06/2017 Status: COMPLETED Source: [place] 9:04 AM [facility] REPOSITORY HNO ID: [id number] Author: Shen Rowe DO Service: (none) Author Type: Physician Type: Progress Notes Filed: 09/06/2017 10:07 AM Note Text: [facility] [place] [facility] Car[facility]co Department of Cardiovascular Medicine SECTION OF INTERVENTIONAL CARDIOLOGY OUTPATIENT VISIT DATE September 06, 2017 OUTPATIENT VISIT TYPE ESTABLISHED PRIMARY CARE PHYSICIAN: Domo Newman MD ([facility]) [address] [place] [address] CHIEF COMPLAINT: Patient presents with: Hospital F/U: Cardiomyopathy, ischemic HISTORY OF PRESENT ILLNESS: Mr. Leavitt is a 67 year old male who presents today for follow-up visit to his OHS 5 weeks ago. He denies chest pain, shortness of breath, dyspnea on exertion, orthopnea, PND, palpitations, lightheadedness, syncope, claudication, leg swelling and cough. PAST CARDIAC HISTORY: Initially seen Dr Rowe 2-2017 s/p multiple stent and CABG (GUDINO to LAD) RCA stented in 2015, SHF with EF 30-35% S/P 07/28/2017 CABGx3 (SVG1 to PDA, SVG2 to OM, Free ROMAN from SVG2 to LAD) Dr Huff PAST MEDICAL HISTORY Diagnosis Date - CAD (coronary artery disease) - Cardiomyopathy ([facility]) - CHF (congestive heart failure) ([facility]) - Family history of early CAD - H/o Lyme disease - History of smoking - Hyperlipidemia 2009 - 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 - GA (myocardial infarction) ([facility]) 2009, 2015 - S/P angioplasty with stent x 16 - S/P CABG x 1 2012 - Sleep apnea CPAP prn PAST SURGICAL HISTORY Procedure Laterality Date - CABG (1) VEIN GRAFT AND ARTERIAL GRAFT 2012 L-LAD - DEFIBRILLATOR SURGERY - PACEMAKER - PAST SURGICAL HISTORY OF 2006 vertebrae surgery - ROTATOR CUFF REPAIR 1995 SOCIAL HISTORY Social History Substance Use Topics - Smoking status: Former Smoker Packs/day: 0.50 Types: Cigarettes Quit date: 04/21/2017 - Smokeless tobacco: Never Used Comment: had quit for 20 years but restarted 2014 - Alcohol use Not on file Comment: occasionally FAMILY HISTORY Problem Relation Age of Onset - Myocardial infarction [OTHER] Father 17 multiple GA's of GA age 53 - Cancer Sister - No Ocular Disease No Family History ALLERGIES: ALLERGIES Allergen Reactions - Percocet [Oxycodone* Other: See Comments Pt's states that there is a concern for addiction, NOT an allergy. MEDICATIONS: furosemide (LASIX) 20 mg tablet Take 20 mg by mouth. Take one tab three times a week carvedilol (COREG) 6.25 mg tablet Take 1 tablet by mouth twice daily with meals. gabapentin (NEURONTIN) 300 mg capsule Take 1 capsule by mouth every 12 hours for 30 days. rosuvastatin (CRESTOR) 40 mg tablet Take 1 tablet by mouth daily at bedtime. losartan (COZAAR) 25 mg tablet Take 1 tablet by mouth once daily. fenofibrate nanocrystallized (TRICOR) 48 mg tablet Take 1 tablet by mouth once daily. therapeutic multivitamin (THERA VITAMIN) tablet Take 1 tablet by mouth daily with breakfast. aspirin 81 mg chewable tablet Take 2 tablets by mouth once daily. pantoprazole DR (PROTONIX) 40 mg tablet Take 1 tablet by mouth DAILY (6 AM). acetaminophen (TYLENOL) 500 mg tablet Take 1-2 tablets by mouth every 6 hours as needed for Pain (for mild surgical pain). magnesium oxide (MAG-OX) 400 mg tablet Take 2 tablets by mouth once daily for 10 days. REVIEW OF SYSTEMS: HEENT: Denies recent severe headaches, visual changes, difficulty swallowing. GASTROINTESTINAL: Denies melena, hematochezia, heartburn. GENITOURINARY: Denies hematuria. MUSCULOSKELETAL: Denies claudication or muscle myalgias. NEUROLOGIC: Denies unilateral paralysis, slurred speech. SKIN: Denies skin ulcers or lesions. HEMATOLOGICAL: Denies gingival bleeding, or prolonged epistaxis. ENDOCRINE:Denies heat or cold intolerance, excessive thirst or urination. All Other Remaining ROS negative. PHYSICAL EXAMINATION: Ht 5' 10 (1.78m) Wt 0 lb (0.0kg) SpO2 [room air]% General: Well appearing, in no acute distress, speaking in complete sentences. Skin: No clubbing, no cyanosis. Head/Eyes: Extra ocular movements intact Mouth: Teeth in good repair. Neck: No jugular venous distention, no carotid bruits, carotids have a normal upstroke, no palpable thyromegaly. Lungs: Clear to auscultation and no rales Heart: Regular rhythm, PMI not displaced, S1, S2 normal, no S3, no S4, no heaves, no rub and no murmur. PV Pulses:Pulses intact Abdomen: Soft, nontender, bowel sounds normal, no palpable organomegaly, no bruits. Extremities: No peripheral edema . Grade 2/4 distal pulses bilaterally. Edema Scale: No Musculoskeletal: Normal gait and ambulation Neuro: Oriented to time, place and person CARDIOVASCULAR MEDICINE TESTING: No Cardiovascular testing perfomed today. There were no tests performed for review. IMPRESSION: Mr. Leavitt is a 67 year old male S/P 07/28/2017 CABGx3 (SVG1 to PDA, SVG2 to OM, Free ROMAN from SVG2 to LAD) Dr Huff He is recovering very nicely from his OHS but his low back is very painful. He was seen at the [facility] around 10 yrs ago for the same thing. He is going to seek their help again. He wants to drive and shoot his gun again. Echo for LV function scheduled for today. He would rather not keep his appt with Dr. Zimmer. He follows with someone in [place] for his ICD. He is willing to start cardiac rehab but doesn't want to make the trip up to our Prevention Dept. September 13. PLAN AND RECOMMENDATIONS: 1. May drive in one week. 2. May follow up with Dr. Shah in [place]; his desire to have someone closer without coming to the big city. 3. Lose 10+ lbs. 4. Low carb diet. 5. All cardiac meds refilled. 6. FU appt with me in one year provided. He will decide later. CONTACT INFORMATION: Shen Rowe D.O., CassandraAKirt., F.A.CVincentC. Interventional Cardiology Vin[facility] Car[facility]co Department of Cardiovascular Medicine Heart and Vascular [place] [facility] Desk [place] [address] Office ? [phone] extension [phone] Office Appointments: [phone] extension [phone] Shen Rowe DO September 06, 2017 9:20 AM CBC AND DIFFERENTIAL Collected: 09/06/2017 Status: F Source: [place] 8:28 AM [facility] REPOSITORY TYPE CODE TESTS RESULT OUT OF REFERENCE UNITS RANGE LAB WBC 3.70-11.00 k/uL WBC 10.92 LAB RBC 4.20-6.00 m/uL Low RBC 4.15 LAB HGB 13.0-17.0 g/dL Low Hemoglobin 12.9 LAB HCT 39.0-51.0 % Hematocrit 40.6 LAB MCV 80.0-100.0 fL MCV 97.8 LAB MCH 26.0-34.0 pG MCH 31.1 LAB MCHC 30.5-36.0 g/dL MCHC 31.8 LAB RDWCV 11.5-15.0 % RDW-CV 13.0 LAB PLTCT 150-400 k/uL Platelet Count 233 LAB MPV 9.0-12.7 fL MPV 11.0 LAB ANEUT % Neut% 68.6 LAB AANEUT 1.45-7.50 k/uL Abs Neut 7.50 LAB ALYMP % Lymph% 21.3 LAB AALYMP 1.00-4.00 k/uL Abs Lymph 2.33 LAB AMONO % Coleman% 7.1 LAB AAMONO <0.87 k/uL Abs Coleman 0.77 LAB AEOS % Eosin% 2.5 LAB AAEOS <0.46 k/uL Abs Eosin 0.27 LAB ABASO % Baso% 0.5 LAB AABASO <0.11 k/uL Abs Baso 0.05 LAB AUNRBC 0 /100 WBC NRBCs 0.0 LAB ABNRBC <0.01 k/uL Absolute nRBC <0.01 LAB DTYP DTYPE Auto Diff Performed By: #### CBCDIF, CMP #### [facility] [address] [place], [place] [address] COMP METABOLIC PANEL Collected: 09/06/2017 Status: F Source: [place] 8:28 AM [facility] REPOSITORY TYPE CODE TESTS RESULT OUT OF REFERENCE UNITS RANGE LAB TP 6.3-8.0 g/dL Protein, Total 7.3 LAB ALB 3.9-4.9 g/dL Albumin 4.3 LAB CA 8.5-10.2 mg/dL Calcium, Total 9.3 LAB TBIL 0.2-1.3 mg/dL Bilirubin, Total 0.4 LAB ALKP 36-108 U/L Alkaline Phosphatase 103 LAB AST 14-40 U/L AST 25 LAB GLU 74-99 mg/dL Glucose High 136 Result Comment: The [place] Diabetes Association (ADA) provides guidance for cutoff values for fasting glucose and random glucose. The ADA defines fasting as no caloric intake for at least 8 hours. Fas ting plasma glucose results between 100 to 125 mg/dL indicate increased risk for diabetes (prediabetes). Fasting plasma glucose results greater than or equal to 126 mg/dL meet the criteria for diagnosis of diabetes. In the absence of unequivocal hyperglycemia, results should be confirmed by repeat testing. In a patient with classic symptoms of hyperglycemia or hyperglycemic crisis, random plasma glucose results greater than or equal to 200 mg/dL meet the criteria for diagnosis of diabetes. Reference: Standards of Medical Care in Diabetes 2016, [place] Diabetes Association. Diabetes Care. 2016.39(Suppl 1). LAB BUN 9-24 mg/dL BUN 18 LAB CRET 0.73-1.22 mg/dL Creatinine High 1.29 LAB NA 136-144 mmol/L Sodium 142 LAB K 3.7-5.1 mmol/L Potassium 4.8 LAB CL 97-105 mmol/L Chloride 100 LAB CO2 22-30 mmol/L CO2 25 LAB AGAP 9-18 mmol/L Anion Gap 17 LAB ALT 10-54 U/L ALT 17 LAB GFRAA eGFR- Amer. >60 LAB GFRNAA . eGFR-All Other Races 56 Result Comment: eGFR (Estimated GFR) Units of measure: mL/min/1.73 meters squared eGFR is derived from the reexpressed MDRD Study equation using the following parameters: serum creatinine, age, gender and race. The creatinine assay has been calibrated to be traceable to IDMS. An eGFR <60 mL/min/1.73m2 for >3 months is consistent with chronic kidney disease. Refer to KDOQI guidelines for clinical interpretation. In patients with unstable renal function, e.g. those with acute kidney injury, the eGFR may not accurately reflect actual GFR. Performed By: #### CBCDIF, CMP #### [facility] [address] [place], [place] [address] LIPID PANEL, BASIC Collected: 09/06/2017 Status: F Source: [place] 8:27 AM [facility] REPOSITORY TYPE CODE TESTS RESULT OUT OF REFERENCE UNITS RANGE LAB CHOL <200 mg/dL Cholesterol 112 Result Comment: <200 mg/dL, Desirable 200-239 mg/dL, Borderline high >239 mg/dL, High LAB TRIGLY <150 mg/dL Triglyceride High 242 Result Comment: <150 mg/dL, Normal 150-199 mg/dL, Borderline high 200-499 mg/dL, High >499 mg/dL, Very high LAB HDL >39 mg/dL HDL-Cholesterol Low 32 Result Comment: 40-59 mg/dL, Acceptable >59 mg/dL, High: Negative risk factor for coronary heart disease <40 mg/dL, Low: Positive risk factor for coronary heart disease LAB LDL <100 mg/dL LDL-Cholesterol 32 Result Comment: <100 mg/dL, Optimal 100-129 mg/dL, Near optimal/above optimal 130-159 mg/dL, Borderline high 160-189 mg/dL, High >189 mg/dL, Very high Secondary prevention optimal LDL Cholesterol levels are recommended to be < 70 mg/dL LAB NONHDL <130 mg/dL Non HDL Cholesterol 80 Result Comment: <130 mg/dL, Optimal 130-159 mg/dL, Near optimal/above optimal 160-189 mg/dL, Borderline high 190-219 mg/dL, High >219 mg/dL, Very high Secondary prevention optimal non HDL Cholesterol levels are recommended to be < 100 mg/dL LAB FT hrs Fasting Time 0 LAB VLDL <30 mg/dL High VLDL Cholesterol 48 LAB TCHDL <5.10 TC:HDL Ratio 3.50 LAB LDLHDL <2.54 LDL:HDL Ratio 1.00 Result Comment: Reference: 1. National Cholesterol Education Program ATP III Guideline At-A-Glance Quick Desk Reference: National Heart, Lung, and Blood [place]. National Institutes of Health. 2001: NIH Publication No. 01-3305. 2. An International Atherosclerosis Society position paper: global recommendations for the management of dyslipidemia: executive summary, Atherosclerosis. 2014: 232(2):410-413. Performed By: #### LIPB #### [facility] [address] [place] [address] CNCO Observed: 08/17/2017 Status: COMPLETED Source: [place] 12:00 AM [facility] REPOSITORY Letter Text [address] [place] [address] Kaushal Huff MD PhD Air Traffic Control Manager Department of Thoracic AND Cardiovascular Surgery Professor, Cardiovascular Surgery Director, Congenital Heart Surgery Office: [phone] August 17, 2017 Domo Newman MD [facility] [address] PATIENT NAME: AMELIA LEAVITT : [address] Newman: Our mutual patient Mr. Amelia Leavitt underwent open heart surgery on July 27, 2017. I am pleased to inform you that Mr. Leavitt was discharged on August 03, 2017. A copy of his complete discharge summary is attached for your review and file. Please feel free to contact me if you have any questions or concerns. Sincerely, Kaushal Huff MD PhD XR CHEST 2 VIEWS Observed: 08/08/2017 Status: F Source: [place] 9:15 AM [facility] REPOSITORY Exam Date/Time: 08/08/2017 09:18 EDT Reason for Exam: Cough Report PA AND LATERAL CHEST CLINICAL INDICATION: Open heart surgery one week ago. Coughing and shortness of breath over since. COMPARISON: 08/02/2010. Previous CTA of the chest from 08/05/2017. FINDINGS: Frontal and lateral views of the chest were obtained. Patient is status post median sternotomy and coronary artery bypass grafting with a single lead cardiac device in place. The cardiac silhouette is mildly enlarged. Mediastinal contours are stable. There is no new focal consolidation or effusion. No pneumothorax. Osseous structures are intact with moderate multilevel thoracic spondylitic change evident. No alveolar consolidation localized to document alveolar edema or bronchopneumonia. There is diffuse peribronchial thickening which could reflect the presence of acute on chronic bronchitis. IMPRESSION: 1. No conventional radiographic evidence of CHF or bronchopneumonia. No effusion. No pneumothorax. 2. Diffuse peribronchial thickening is present which could represent acute on chronic bronchitis. 3. Mild cardiac silhouette enlargement and poststernotomy changes with single lead cardiac device in place. FINAL REPORT Dictated: 08/08/2017 12:31 pm Melvin Morton MD Signed (Electronic Signature): 08/08/2017 12:31 pm Signed by: Melvin Morton MD Technologist: LANA DUNN Collected: 08/08/2017 Status: F Source: [place] 8:[address] [facility] REPOSITORY TYPE CODE TESTS RESULT OUT OF RANGE REFERENCE UNITS LAB [id number](L 70-99 mg/dL OINC) High Glucose Lvl 170 LAB 10517645(L 7-18 mg/dL OINC) High BUN 29 LAB 2803954(LO 0.6-1.3 mg/dL INC) High Creatinine 1.4 LAB [id number](L 5.4-30.0 ratio OINC) Normal BUN/Creat Ratio 20.7 LAB [id number](L 8.4-10.2 mg/dL OINC) Calcium Normal Lvl 9.1 LAB [id number](L 136-145 mEq/L OINC) Low Sodium Lvl 135 LAB [id number](L 3.5-5.1 mEq/L OINC) Normal Potassium Lvl 4.7 LAB [id number](L 98-107 mEq/L OINC) Low Chloride 97 LAB 18972614(L 24.0-30.0 mEq/L OINC) High CO2 32.1 Performed By: #### [id number] #### SIM[facility]AN [facility] [place] [id number] EGFR Collected: 08/08/2017 Status: F Source: [place] 8:38 [facility] REPOSITORY Order Comment: Order added by Discern Expert. TYPE CODE TESTS RESULT OUT OF RANGE REFERENCE UNITS LAB [id number](LO mL/min/1.73 INC) m2 Normal eGFR 51 LAB [id number](LO mL/min/1.73 INC) m2 Normal eGFR AA >60 Performed By: #### [id number] #### SIMRAN [employer] [facility] [place] [id number] CBC W/ AUTO DIFF Collected: 08/08/2017 Status: F Source: [place] 8:38 [facility] REPOSITORY TYPE CODE TESTS RESULT OUT OF RANGE REFERENCE UNITS LAB [id number](L 3.6-11.0 E3/mcL OINC) High WBC 20.2 LAB 99899997(L 3.90-6.10 E6/mcL OINC) Low RBC 3.77 LAB 94246969(L 13.5-18.0 G/DL OINC) Low Hgb 11.8 LAB 74317797(L 42.0-52.0 % OINC) Low Hct 35.4 LAB 19832163(L 11.5-14.5 % OINC) Normal RDW 13.8 LAB 79672392(L 27.0-31.0 pg OINC) High MCH 31.2 LAB 60905259(L 33.0-37.0 G/DL OINC) Normal MCHC 33.2 LAB 07459671(L 78.0-100.0 fL OINC) Normal MCV 93.9 LAB 62168231(L 7.4-11.0 fL OINC) Normal MPV 8.3 LAB 41328363(L 130-400 E3/mcL OINC) High Platelet 417 Performed By: #### [id number] #### SIMRAN [facility] [place] [address] MANUAL DIFF Collected: 08/08/2017 Status: F Source: [place] 8:[address] [facility] REPOSITORY Order Comment: Order Added by Discern Expert. TYPE CODE TESTS RESULT OUT OF REFERENCE UNITS RANGE LAB 15428046( 37-75 % LOINC) Segs Man 77 High LAB 49579207( 14-48 % LOINC) Lymph Man 15 Normal LAB 03075692( 1-11 % LOINC) Monocyte 6 Normal Man LAB 19198637( 0-5 % LOINC) Eos Man 2 Normal LAB 12938435( 0-1 % LOINC) Basophil 0 Normal Man LAB 16407678( LOINC) RBC Morph SEE Normal MORPHOLOGY LAB 35354406( LOINC) 1+ Normal Anisocytosis Performed By: #### [id number] #### SIMRAN Rem[facility] [place] [address] ZZPLT MORPH Collected: 08/08/2017 Status: F Source: [place] 8:[address] [facility] REPOSITORY TYPE CODE TESTS RESULT OUT OF RANGE REFERENCE UNITS LAB 48601579(L OINC) Normal Platelet INCREASED Estimate LAB 64362865(L OINC) Normal Platelet Morph NORMAL Performed By: #### [id number] #### [facility] [address] [place] [address] .MANUAL ABS Collected: 08/08/2017 Status: F Source: [place] 8:[address] [facility] REPOSITORY Order Comment: Order Added by Discern Expert. TYPE CODE TESTS RESULT OUT OF RANGE REFERENCE UNITS LAB [id number](L 1.4-6.5 10x3/ OINC) High Segs Abs Man 15.6 LAB 88057277(L 1.2-3.4 10x3/ OINC) Normal Lymph Abs Man 3.0 LAB 63205970(L 0.0-0.7 10x3/ OINC) High Coleman Abs Man 1.2 LAB 46527282(L 0.0-0.5 10x3/ OINC) Normal Eos Abs Man 0.4 LAB 63787434(L 0.0-0.2 10x3/ OINC) Normal Basophil Abs 0.0 Man Performed By: #### [id number] #### SIMRAN Rem[facility] [address] [place] [address] TROPONIN-I Collected: 08/08/2017 Status: F Source: [place] 8:38 AM [facility] REPOSITORY TYPE CODE TESTS RESULT OUT OF RANGE REFERENCE UNITS LAB [id number](LO .00-.03 ng/mL INC) Abnormal Alert .06 Troponin-I Result Comment: repeated and verified\Critical Result Topponin I: Called to: ASIF PERRY at: 09:16:35 by:NATASHA Read back by:ASIF PERRY Performed By: #### [id number] #### SIMRAN [employer] [address] [place] [address] CTA CHEST Observed: 08/05/2017 Status: F Source: [place] 9:21 PM [facility] REPOSITORY Exam Date/Time: 08/05/2017 21:38 EDT Reason for Exam: Pulmonary Emboli (PE) Report EXAM: CTA CHEST CLINICAL STATEMENT: CABG 8 days ago. Productive cough. Question pulmonary embolism. COMPARISON: Chest x-ray of 06/12/2016 TECHNIQUE: CT angiography of the pulmonary arteries following the administration of 75 mL of Omnipaque 350 intravenous contrast. Coronal and sagittal MIP (maximum intensity projection) images were performed. Dose reduction techniques were achieved by using automated exposure control and/or adjustment of mA and/or kV according to patient size and/or use of iterative reconstruction technique. FINDINGS: CT PE: Pulmonary arteries are well-opacified without filling defects to suggest pulmonary embolism. No aortic aneurysmal dilatation or dissection is seen. There is a satisfactory appearing three-vessel aortic arch. CT CHEST: Evidence of recent midsternal open heart surgery with cardiomegaly and coronary vascular calcifications present. Left AICD is present with multi lead satisfactory placement. No significant mediastinal or hilar adenopathy is identified. No pericardial effusion is seen. No prominent tracheal bronchial tree secretions are suggested. Lung paulino are mildly hyperinflated. There is a small right apical pneumothorax measuring 32 x 29 x 12 mm seen. This may relate to residual from recent surgery. Other evidence of pneumothorax is not seen. There is small right base atelectatic and pleural reactive change. Small effusion may be present as well. No major pneumonic consolidation or edema is seen. Dorsal arthrosis with intervertebral bridging is noted. No acute dorsal compression change is identified. IMPRESSION: No pulmonary embolism or aortic aneurysmal dilatation/dissection. Status post open heart surgery with cardiomegaly, AICD, and coronary vascular calcification. Exam Date/Time: 08/05/2017 21:38 EDT Report Right lung base mild atelectatic and small effusion density without major pulmonary consolidation or edema. Small right apical pneumothorax is present. Prominent dorsal arthrosis. Critical results were called by Dr. Jerome Quinteor DO to Dilshad Carlyn At 08/05/2017 9:53 PM. FINAL REPORT Dictated: 08/05/2017 10:21 pm Jerome Quintero DO Signed (Electronic Signature): 08/05/2017 10:21 pm Signed by: Jerome Quintero DO Technologist: AM, CBC W/ AUTO DIFF Collected: 08/05/2017 Status: F Source: [place] 8:[address] [facility] REPOSITORY TYPE CODE TESTS RESULT OUT OF RANGE REFERENCE UNITS LAB [id number](L 3.6-11.0 E3/mcL OINC) High WBC 17.2 LAB 44227460(L 3.90-6.10 E6/mcL OINC) Low RBC 3.78 LAB 06577039(L 13.5-18.0 G/DL OINC) Low Hgb 12.0 LAB 45991716(L 42.0-52.0 % OINC) Low Hct 35.4 LAB 48915595(L 11.5-14.5 % OINC) Normal RDW 13.3 LAB 95549770(L 27.0-31.0 pg OINC) High MCH 31.9 LAB 61670514(L 33.0-37.0 G/DL OINC) Normal MCHC 34.1 LAB 05548686(L 78.0-100.0 fL OINC) Normal MCV 93.6 LAB 26694559(L 7.4-11.0 fL OINC) Normal MPV 9.2 LAB 56213092(L 130-400 E3/mcL OINC) Normal Platelet 379 Performed By: #### [id number] #### SIMRAN [facility] [address] [place] [address] AUTO DIFF Collected: 08/05/2017 Status: F Source: [place] 8:47 PM [facility] REPOSITORY Order Comment: Order Added by Discern Expert. TYPE CODE TESTS RESULT OUT OF RANGE REFERENCE UNITS LAB [id number](L 37.0-75.0 % OINC) Normal Neutro Auto 72.5 LAB 46711012(L 20.0-55.0 % OINC) Low Lymph Auto 15.4 LAB 44135810(L 0.0-10.0 % OINC) Normal Coleman Auto 7.6 LAB 32605171(L 0.0-11.0 % OINC) Normal Eos Auto 3.8 LAB 19415117(L 0.0-2.0 % OINC) Normal Basophil Auto 0.7 LAB 74920719(L 1.4-6.5 E3/mcL OINC) High Neutro 12.4 Absolute LAB 70517609(L 1.2-3.4 E3/mcL OINC) Normal Lymph Absolute 2.6 LAB 78952796(L 0.0-0.7 E3/mcL OINC) High Coleman Absolute 1.3 LAB 21348003(L 0.0-0.7 E3/mcL OINC) Normal Eos Absolute 0.7 LAB [id number](L 0.0-0.2 E3/mcL OINC) Normal Basophil 0.1 Absolute Performed By: #### [id number] #### SIMRANMikhail StilesAdamzoran [address] [place] [address] PT Collected: 08/05/2017 Status: F Source: [place] 8:47 PM [facility] REPOSITORY TYPE CODE TESTS RESULT OUT OF RANGE REFERENCE UNITS LAB [id number](LO 1.0-1.2 INC) High INR 1.3 Result Comment: INR Recommended Therapeuptic Ranges: Prophylaxis/treatment of DVT and PE?2.0-3.0 Prevention of systemic embolism?.2.0-3.0 Mechanical prosthetic values?2.5-3.5 CRITICAL VALUES?.>4.0 LAB 06839282(LOINC) 11.6-14.6 second(s) High PT 15.1 Performed By: #### [id number] #### SIMRAN [employer] [address] [place] [address] PTT Collected: 08/05/2017 Status: F Source: [place] 8:47 PM [facility] REPOSITORY TYPE CODE TESTS RESULT OUT OF RANGE REFERENCE UNITS LAB [id number](LO 23.2-36.4 second(s) INC) Normal PTT 31.4 Performed By: #### [id number] #### SIMRAN [employer] [address] [place] [address] PTT CONTROL RATIO Collected: 08/05/2017 Status: F Source: [place] 8:47 [facility] REPOSITORY Order Comment: Order added by Discern Expert. TYPE CODE TESTS RESULT OUT OF RANGE REFERENCE UNITS LAB [id number](LO 0.8-1.2 ratio INC) Normal PTT Ratio 1.1 Performed By: #### [id number] #### SIMRAN [employer] [address] [place] [address] BMP Collected: 08/05/2017 Status: F Source: [place] 8:47 [facility] REPOSITORY TYPE CODE TESTS RESULT OUT OF RANGE REFERENCE UNITS LAB 51311603(L 70-99 mg/dL OINC) High Glucose Lvl 108 LAB [id number](L 8.4-10.2 mg/dL OINC) Calcium Normal Lvl 8.6 LAB 23910621(L 136-145 mEq/L OINC) Low Sodium Lvl 134 LAB 21080441(L 3.5-5.1 mEq/L OINC) Normal Potassium Lvl 4.1 LAB 98367753(L 98-107 mEq/L OINC) Low Chloride 97 LAB 96328582(L 24.0-30.0 mEq/L OINC) CO2 Normal 27.6 LAB 02474202(L 7-18 mg/dL OINC) BUN Normal 18 LAB [id number](LO 0.6-1.3 mg/dL INC) Normal Creatinine 1.2 LAB 04816454(L 5.4-30.0 ratio OINC) Normal BUN/Creat Ratio 15.0 Performed By: #### [id number] #### SIMRAN Richardson [address] [place] [address] CK Collected: 08/05/2017 Status: F Source: [place] 8:47 [facility] REPOSITORY TYPE CODE TESTS RESULT OUT OF RANGE REFERENCE UNITS LAB 63537653(LO 26-140 Int._Unit/L INC) Normal Total CK 95 Performed By: #### [id number] #### [facility] [address] [place] [address] EGFR Collected: 08/05/2017 Status: F Source: [place] 8:47 [facility] REPOSITORY Order Comment: Order added by Discern Expert. TYPE CODE TESTS RESULT OUT OF RANGE REFERENCE UNITS LAB 04696211(LO mL/min/1.73 INC) m2 Normal eGFR >60 LAB 82948861(LO mL/min/1.73 INC) m2 Normal eGFR AA >60 Performed By: #### [id number] #### [place] [address] [place] [id number] MAGNESIUM Collected: 08/05/2017 Status: F Source: [place] 8:47 [facility] REPOSITORY TYPE CODE TESTS RESULT OUT OF RANGE REFERENCE UNITS LAB 68050658(L 1.7-2.8 mg/dL OINC) Normal Magnesium 2.1 Performed By: #### [id number] #### [place] [address] [place] [id number] BNP. Collected: 08/05/2017 Status: F Source: [place] 8:47 [facility] REPOSITORY TYPE CODE TESTS RESULT OUT OF RANGE REFERENCE UNITS LAB CD:[id number] <=100 pg/mL 67(LOINC) High BNP. 334 Result Comment: Notice: Effective 10/28/2016 the methodology for BNP testing has changed. BNP values less than or equal to 100 pg/mL is considered normal for patients without CHF.The decision threshold was determined by the 95% confidence limit of BNP concentration in the non-CHF population age 55 and older.It is recommended that a new baseline value be established using the new method if monitoring patient's BNP level. Performed By: #### [id number] #### SIMRAN [employer] [address] [place] [address] TROPONIN-I Collected: 08/05/2017 Status: F Source: [place] 8:47 [facility] REPOSITORY TYPE CODE TESTS RESULT OUT OF RANGE REFERENCE UNITS LAB [id number](LO .00-.03 ng/mL INC) Abnormal Alert .07 Troponin-I Result Comment: Critical Result Topponin I: Called to: MESSI FAIRCHILD at: 21:43:46 by:GUSTAVO Read back by:MESSI FAIRCHILD Performed By: #### [id number] #### SIMRAN [employer] [address] [place] [address] PROGRESS Observed: 08/03/2017 Status: COMPLETED Source: [place] 12:00 PM [facility] REPOSITORY HNO ID: [id number] Author: Rosalind Boyd (Early Childhood Associate) APRN. JayPRESS CATCHER Service: Cardiac Surgery Author Type: Nurse Practitioner Type: Progress Notes Filed: 08/03/2017 6:02 PM Note Text: [facility] C[facility] POSTOP PROGRESS NOTE Day of Surgery:07/27/2017 S/P SURGERY: CABGx3 (SVG1 to PDA, SVG2 to OM, Free ROMAN from SVG2 to LAD) INTERVAL EVENTS / PERTINENT ROS: No TPM wires ICD Check Completed ICM - Coreg, ARB, lasix CT removed per CTS Okay to dc 08/03 per CTS Rhythm: SR - 80-90s Intake/Output Summary (Last 24 hours) at 08/03/17 1801 Last data filed at 08/03/17 1200 Gross per 24 hour Intake 240 ml Output 601 ml Net -361 ml EKG: most recent image reviewed, most recent report reviewed TELE: most recent recordings reviewed CXR: most recent image reviewed, most recent report reviewed Echocardiogram: most recent report reviewed PHYSICAL EXAM: BP 124/68 Pulse 100 Temp 37.3 ?C (99.2 ?F) (Oral) Resp 18 Ht 177.8 cm (5' 10) Wt 95.6 kg (210 lb 12.8 oz) SpO2 96% BMI 30.25 kg/m2 Neuro: AANDO x 3 moves all extremities; generalized post-op weakness but no overt focal deficits CV: No JVD. RRR without murmur, gallop, or rubs. ICD noted to left chest Resp: Diminished BUL and BLL. On RA Abd: Soft, nontender, nondistended; +BS x 4. + flatus / +postop BM Skin: skin color, texture, turgor normal, no suspicious rashes or lesions Ext: trace BLE edema, trace BUE edema Surgical incisions: MSI well approximated without erythema, induration or fluctuation. SVG sites C/D/I. Sternum Stable with cough Chest tube: Removed 08/02 Pacer wires: No HISTORY, ASSESSMENT AND PLAN: Problem Transition of Care Performed With Sharing of Clinical Summary Indication for Surgery: CAD, post prior CAB LVEF: Moderate (37%) RVF: Low Normal EKG: ST [facility] Cards: Shen Rowe and Amelia Zimmer Important/Relevant PMH/PSH: 0.5 ppd smoker, quit 2017. Prior GA. Prior ICD placement Preoperative:67to with PMH of CAD s/p multiple stent and CABG (GUDINO to LAD) RCA stented in 2016, SHF with EF 30-35% Procedure/Surgeries: 07/28/2017 CABGx3 (SVG1 to PDA, SVG2 to OM, Free ROMAN from SVG2 to LAD) Airway Difficulty: Grade I OR Course: cardiac dysfunction treated with epi Pacing wires: No TPM wires CVICU Post-op vent dyssynchrony requiring sedation and pain medication with improvement. Cardiac insufficiency requiring inotropic support has been resolved. Hypertension requiring nitroglycerin drip has resolved with addition of oral meds. Respiratory insufficiency post extubation improved with stable oxygenation on 2 L NC. Pneumothorax from 07/30/17 has resolved. BG and pain control. A/P: s/p CABG - ASA, BB, statin ICM - Coreg, Cozaar, lasix Dispo -67yo male from [place], [place]. PT recs Home with PT. CM following. [facility]PD and [facility] Cards req. Okay to dc 08/03 per CTS Cardiomyopathy, Ischemic History: h/o CAD with multiple stents and CABG. Preop EF - 37%. Prior ICD placement Assessment: S/p 07/28/2017 CABGx3 (SVG1 to PDA, SVG2 to OM, Free ROMAN as jump graft from prox. SVG2 to LAD) Plan: ASA, BB, statin. ICD check - completed 08/02 Hyperlipidemia Ldl Goal <70 History: h/o HLP on Pravastatin 40mg. Recent LDL - Un-measurable d/t high triglycerides Assessment: LFTs - WNL Plan: Goal LDL < 70. Crestor 40mg. f/u FLP and LFTs in 6- 8 weeks with PCP/Cards. Hypertriglyceridemia, Essential History: h/o Hypertriglyceridemia on pravastatin 40mg. Recent Trig - 510 Assessment: LFTs - WNL Plan: Goal Trig < 200. Crestor 40mg and Tricor 48mg. f/u FLP and LFTs in 6-8 weeks with PCP/Cards. Essential Hypertension History: h/o HTN on Coreg, cozaar, Imdur, lasix Assessment: SBP - 100-120s Plan: Continue Coreg 6.25mg bid, Cozaar 25mg, lasix PO Gastroesophageal Reflux Disease Without Esophagitis History: h/o GERD on PPI preop Assessment: No acute issues Plan: Continue PPI at dc Pain Syndrome, Chronic History: Pt reports recent chronic pain using Neurontin 100mg bid for pain control Assessment: Pt reports pain is controlled with PO pain meds / lidocaine patches Plan: Continue Tylenol PRN. Continue PO Ultram PRN. Neurontin 300mg bid Smoking History History: h/o smoking that quit 2016 Assessment: Pt on RA, Lungs diminished Plan: Encourage continued cessation Discharge Planning Issues 67yo male from [place], [place]. PT recs Home with PT. CM following. [facility]PD and [facility] Cards req. Okay to md 08/[address] scan Noncalcified lung nodules and groundglass opacities. ?Follow-up CT in 6-12 months recommended. DAILY STEP DOWN CHECKLIST FOR CATHETER RELATED INFECTION PREVENTION CVC, PICC, Chayito and/or Permacath present? No Does the patient have a urinary catheter beyond POD 2? No VTE Risk Assessment: Moderate risk VTE Mechanical and/or Pharmacologic Prophylaxis: GCS, Subcutaneous Heparin and SCD Labs and medications reviewed in Epic Case discussed in depth with: Dr. Huff Signature: Rosalind Thompson APRN.CNP Pager: [phone], PHONE: [phone] Date: 08/03/2017 CNDS Observed: 08/03/2017 Status: COMPLETED Source: [place] 12:00 PM [facility] REPOSITORY HNO ID: [id number] Author: Rosalind Thompson APRN.CNP Service: Cardiac Surgery Author Type: Nurse Practitioner Type: Discharge Summaries Filed: 08/03/2017 6:05 PM Note Text: Department of Cardiothoracic Surgery Discharge Summary Patient Name: Amelia Leavitt Patient Admission Date: 07/27/2017 Discharge Date: 08/03/2017 Attending Physician: Kaushal Huff M.D. 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 [facility] Primary Mid Level Developer: Shen Rowe D.O. 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 High LDL and Triglycerides - You will be discharged on Crestor and Tricor Your chest tubes sutures will be removed at your outpatient appointment. Complications: Yes: See additional findings * Wound care/treatment: Wash wound daily with soap and water, pat dry. Leave open to air. Do not apply any lotions, powders or ointments for 6 weeks after surgery. Do not soak in a tub, pool or hot tub until your incisions are completely healed. Inspect incision(s) daily for signs of infection: increased pain, redness, drainage, swelling. If you notice these call your surgeon's office or see your local provider. * Pain control: Adequate management * Activity after discharge: Do not lift, push, or pull greater than 10 lbs for 6 weeks after open heart surgery. Do not ride in the front seat of a car with airbags for 6 weeks after surgery. You can drive in 6 weeks. Discuss beginning outpatient cardiac rehab with your primary herbicide service sales representative at your follow up visit. See your herbicide service sales representative before resuming strenuous activities to make sure your sternum has healed. Please continue your daily walking, increasing both your effort and endurance. Please discuss Stage II Cardiac Rehabilitation with your physician at your follow-up appointment. 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 Discharge Planning Issues Preop Testing Encounter for Preoperative Anesthesiology Assessment for Cardiac Surgery Cardiomyopathy, Ischemic Pain Syndrome, Chronic Essential Hypertension Transition of Care Performed With Sharing of Clinical Summary Hyperlipidemia Ldl Goal <70 Hypertriglyceridemia, Essential Gastroesophageal Reflux Disease Without Esophagitis Consults: None Procedures Performed and Major Radiology: ICD check Patient condition at discharge: Improved Discharge Disposition: Home with Homecare Nurse and Therapies: specify (PT) Information Provided to the Patient: Patient given copy of After Visit Summary which included activity instructions, diet instructions, wound care instructions, medication instructions and follow up appointment Discharge Medications: Discharge Medication List as of 08/03/2017 11:16 AM START taking these medications traMADol (ULTRAM) 50 mg tablet Take 1 tablet by mouth every 6 hours as needed (for moderate to severe surgical pain) for up to 7 days. Print RX, Disp-28 tablet, R-0 Dx: 1. Pain syndrome, chronic rosuvastatin (CRESTOR) 40 mg tablet Take 1 tablet by mouth daily at bedtime. Normal, Disp-30 tablet, R-1, Long-term docusate sodium (COLACE) 100 mg capsule Take 1 capsule by mouth twice daily. Normal, Disp-30 capsule, R-0 fenofibrate nanocrystallized (TRICOR) 48 mg tablet Take 1 tablet by mouth once daily. Normal, Disp-30 tablet, R-1, Long-term magnesium oxide (MAG-OX) 400 mg tablet Take 2 tablets by mouth once daily for 10 days. Normal, Disp-20 tablet, R-0, Long-term therapeutic multivitamin (THERA VITAMIN) tablet Take 1 tablet by mouth daily with breakfast. Normal, Disp-100 tablet, R-1, Long-term potassium chloride ER (K-DUR, KLOR-CON) 20 mEq tablet Take 1 tablet by mouth once daily for 10 days. Normal, Disp-10 tablet, R-0 acetaminophen (TYLENOL) 500 mg tablet Take 1-2 tablets by mouth every 6 hours as needed for Pain (for mild surgical pain). Normal, Disp-100 tablet, R-0 CONTINUE these medications which have CHANGED carvedilol (COREG) 6.25 mg tablet Take 1 tablet by mouth twice daily with meals. Normal, Disp-60 tablet, R-1, Long-term gabapentin (NEURONTIN) 300 mg capsule Take 1 capsule by mouth every 12 hours for 30 days. Normal, Disp-60 capsule, R-0, Long-term Dx: 1. Pain syndrome, chronic losartan (COZAAR) 25 mg tablet Take 1 tablet by mouth once daily. Normal, Disp-30 tablet, R-1, Long-term furosemide (LASIX) 20 mg tablet Take 2 tablets by mouth once daily for 3 days. Then take 1 tablet by mouth daily for 7 days Normal, Disp-13 tablet, R-0, Long-term aspirin 81 mg chewable tablet Take 2 tablets by mouth once daily. Normal, Disp-180 tablet, R-1, Long-term pantoprazole DR (PROTONIX) 40 mg tablet Take 1 tablet by mouth DAILY (6 AM). Normal, Disp-90 tablet, R-1, Long-term STOP taking these medications mupirocin (BACTROBAN) 2 % ointment Comments: Reason for Stopping: aspirin, enteric coated (ASPIRIN, ENTERIC COATED) 325 mg EC tablet Comments: Reason for Stopping: nitroglycerin sublingual (NITROQUICK) 0.4 mg SL tablet Comments: Reason for Stopping: isosorbide mononitrate ER (IMDUR) 60 mg 24 hr tablet Comments: Reason for Stopping: EFFIENT 10 mg tab Comments: Reason for Stopping: RANEXA 500 mg 12 hr tablet Comments: Reason for Stopping: pravastatin (PRAVACHOL) 40 mg tablet Comments: Reason for Stopping: Outpatient Management: * Are there important medication changes and/or outstanding issues that need to be addressed: CV - HF management * What is the plan for follow up: 1. Amelia Leavitt was offered an appointment to return to [facility] Outpatient department for a post operative visit with the Nurse Practitioner. Please return for a follow up appointment with the CT Surgery Nurse Practitioner. This appointment has been requested for you and you will be called with the time and date. 2. Please see your primary care physician (PCP) in 7-10 days after discharge. 3. Please see your [facility] Cardiology on 09/06 and your local herbicide service sales representative in 4-6 weeks after discharge. 4. Since you had coronary artery bypass grafting, it is recommended that you follow up with preventive cardiology and nutrition in six weeks. These appointments have been requested for you. 5. Please see Dr. Zimmer on 09/13. Future Appointments Date Time Provider Department Center 08/10/2017 10:00 AM LBJ1-4 MAIN LBJ1-4 CARD J BLD 08/10/2017 10:10 AM XR CHEST MAIN J1 RADMNJ RADIO J BLDG 08/10/2017 10:15 AM EKGJ1-4 MAIN EKGF16 CARD J BLD 08/10/2017 10:30 AM Dalton (Silviano) MARY LOU Woo.PRESS CATCHER THOSMN CTHO J BLDG 09/06/2017 8:15 AM EKGJ1-4 MAIN EKGF16 CARD J BLD 09/06/2017 8:40 AM LBJ1-4 MAIN LBJ1-4 CARD J BLD 09/06/2017 9:15 AM Shen Rowe DO CATHMN CARD J BLD 09/06/2017 2:30 PM ECHO J1-5 CARD MAIN CAFLMN CARD J BLD 09/13/2017 8:00 AM EKGJ1-4 MAIN EKGF16 CARD J BLD 09/13/2017 8:30 AM Amelia Zimmer MD CARDMN CARD J BLD 09/13/2017 11:00 AM Demetrius Argueta CARD P CARD J BLD 09/13/2017 1:00 PM Ewa Ruby CARD P CARD J BLD 10/20/2017 9:30 AM Sofía TIMA OPHT SUGAR A Electronically SIGNED by Licensed Independent Practitioner: Rosalind Thompson APRN.PRESS CATCHER NUTRITION Observed: 08/03/2017 Status: COMPLETED Source: [place] 10:20 AM [facility] [place] REPOSITORY O ID: [id number] Author: Whitney Harris (Tech) Service: Nutrition Therapy Author Type: Braille Typist Type: Nutrition Filed: 08/03/2017 10:21 AM Note Text: NUTRITION THERAPY FOLLOW-UP NOTE SERVICE DATE: 08/03/2017 SERVICE TIME: 745am Anthropometrics: Height: 177.8 cm (5' 10) Current Weight: Weight: 95.6 kg (210 lb 12.8 oz) Body mass index is 30.25 kg/(m2). 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 No Allergies: ALLERGIES Allergen Reactions - Percocet [Oxycodone* Other: See Comments Pt's states that there is a concern for addiction, NOT an allergy. Reason for Visit: Nutrition screen: LOS > 6 days Nutrient intake assessment: Current intake of meals: 50 - 100% Patient concerns/Issues: Patient has a good intake and appetite. Patient dislikes the food but is eating well. Will continue to monitor for changes. Nursing Admission Assessment Malnutrition Score Tool: 0 Plan of Care: Recommendation No problems noted at this time. Will screen again within 7 days Discharge Plan: home on heart healthy diet MNT Billing Type: Routine Care/15 min 1 unit SIGNATURE: Whitney Harris DTR PATIENT NAME: Amelia Leavitt DATE: August 03, 2017 TIME: 10:20 AM PAGER: [phone] ALLIED HEALTH Observed: 08/03/2017 Status: COMPLETED Source: [place] 9:35 AM [facility] REPOSITORY O ID: [id number] Author: Ej (Ex Olivia) Link Service: Cardiovascular Medicine Author Type: Profiling Machine Operator Type: Allied Health Filed: 08/03/2017 10:47 AM Note Text: CARDIAC REHABILITATION PHASE I FOLLOW-UP PATIENT NAME: Amelia Leavitt SERVICE DATE: August 03, 2017 SESSION TIME: 934 Comments: Patient up in chair, preparing for DC home today. No complaints with indep. amb. of 300 ft. + in hallways yesterday. Progress as tolerated and outlined in provided activity guidelines. Questions regarding activity and phase 2 cardiac rehab answered to patient and family member's satisfaction. Copy of order for outpatient cardiac rehab provided. Tolerating exercise well, continue with exercise 4 - 6 x/day. Recommend enrollment in Phase 2, Outpatient Cardiac Rehab in 4-6 weeks at local hospital program. Home Program: Provided and reviewed home activity guidelines as outlined below. Frequency: 4 - 6 days/week Intensity: 3 - 4/10 RPE Type: walking - start at 3 - 5 minutes/4 - 6 x day Duration: 20 - 30 minutes -----> 45 + minutes YULIANA Suggs Pager: [phone] August 03, 2017 CASE MANAGEM Observed: 08/03/2017 Status: COMPLETED Source: [place] 8:35 AM [facility] REPOSITORY HNO ID: [id number] Author: Daphnie Templeton (Sw) Service: Care Management Author Type: Organizational Research Consultant Type: Care Mgt Progress Note Filed: 08/03/2017 8:36 AM Note Text: CARE MANAGEMENT PROGRESS NOTE SERVICE DATE: 08/03/2017 SERVICE TIME: 8:35 am LOS: 7 days Needs Prior to Discharge: To Be Determined;OT/PT Evaluation 67 yo. [place], [place]. SP Redo Sternotomy, CABGx3 Lives with spouse. 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 PT rec'd HHC 07/30. Pt walked 280' w/SB assist w/[facility] yesterday. Started HHC referral, but paged for updated PT input. ZAFAR continues to follow. SIGNATURE: NIKO Manuel PATIENT NAME: Amelia Leavitt DATE: August 03, 2017 TIME: 8:35 AM PAGER/CONTACT #: [phone] PROGRESS Observed: 08/03/2017 Status: COMPLETED Source: [place] 8:01 AM [facility] REPOSITORY HNO ID: [id number] Author: Mauricio Busby Service: (none) Author Type: (none) Type: Progress Notes Filed: 08/03/2017 8:01 AM Note Text: Radiology Service Progress Note PATIENT NAME: Amelia Leavitt DATE OF SERVICE: August 03, 2017 TIME: 8:01 AM PATIENT IDENTITY VERIFICATION COMPLETED USING TWO (2) METHODS: Patient confirmed name verbally and ID band matches.. PATIENT GENDER DATA: Male PATIENT RELEVANT IMPLANT DATA REVIEWED: Yes RADIOLOGY DEPARTMENT: General X-ray: Exam(s) Completed: Chest X-Ray PERIPHERAL IV DATA: Not applicable SIGNED BY: Mauricio Busby August 03, 2017 8:01 AM XR CHEST 2V FRONTAL/LAT Observed: 08/03/2017 Status: F Source: [place] 8:01 AM [facility] REPOSITORY * * *Final Report* * * DATE OF EXAM: Aug 03 2017 8:01AM JIX [id number] - XR CHEST 2V FRONTAL/LAT / PROCEDURE REASON: Encounter for chest tube removal * * * * Physician Interpretation * * * * EXAMINATION: CHEST RADIOGRAPH (2 VIEW FRONTAL and LATERAL) Clinical History: Encounter for chest tube removal MQ: XC2_4 Comparison: 1 day prior RESULT: Lines, tubes, and devices: The patient is status post median sternotomy. Left ICD device is in place, with right ventricle. Right chest tube has been removed. Lungs and pleura: Patchy reticular opacities are noted, likely related to pulmonary edema. A small right pleural effusion is noted with adjacent atelectasis. Small right apical pneumothorax is noted, probably unchanged since prior examination. Cardiomediastinal silhouette: Cardiac silhouette is enlarged with pulmonary venous congestion. Other: Degenerative changes are noted in the thoracic spine. Small amount of subcutaneous emphysema is noted in the right lower neck. IMPRESSION: Please see body of report. Sterilizer Operator: PSCErinn Transcribe Date/Time: Aug 03 2017 10:09A Dictated by : SUSU BERMUDEZ MD This examination was interpreted and the report reviewed and electronically signed by: SUSU BERMUDEZ MD on Aug 03 2017 10:10AM EST [id number] CBC Collected: 08/03/2017 Status: F Source: [place] 4:15 AM [facility] REPOSITORY TYPE CODE TESTS RESULT OUT OF REFERENCE UNITS RANGE LAB WBC 3.70-11.00 k/uL WBC High 17.18 LAB RBC 4.20-6.00 m/uL Low RBC 3.46 LAB HGB 13.0-17.0 g/dL Low Hemoglobin 11.1 LAB HCT 39.0-51.0 % Low Hematocrit 33.4 LAB MCV 80.0-100.0 fL MCV 96.5 LAB MCH 26.0-34.0 pG MCH 32.1 LAB MCHC 30.5-36.0 g/dL MCHC 33.2 LAB RDWCV 11.5-15.0 % RDW-CV 13.2 LAB PLTCT 150-400 k/uL Platelet Count 255 LAB MPV 9.0-12.7 fL MPV 11.2 LAB ABSNUC <0.01 k/uL Absolute nRBC <0.01 Performed By: #### CBC, CMP, MG1 #### [facility] [address] [place], [place] [address] COMP METABOLIC PANEL Collected: 08/03/2017 Status: F Source: [place] 4:15 AM [facility] REPOSITORY TYPE CODE TESTS RESULT OUT OF REFERENCE UNITS RANGE LAB TP 6.3-8.0 g/dL Protein, Total 6.5 LAB ALB 3.9-4.9 g/dL Low Albumin 3.4 LAB CA 8.5-10.2 mg/dL Low Calcium, Total 8.4 LAB TBIL 0.2-1.3 mg/dL Bilirubin, Total 0.8 LAB ALKP 36-108 U/L Alkaline Phosphatase 65 LAB AST 14-40 U/L AST 25 LAB GLU 74-99 mg/dL Glucose High 109 Result Comment: The [place] Diabetes Association (ADA) provides guidance for cutoff values for fasting glucose and random glucose. The ADA defines fasting as no caloric intake for at least 8 hours. Fas ting plasma glucose results between 100 to 125 mg/dL indicate increased risk for diabetes (prediabetes). Fasting plasma glucose results greater than or equal to 126 mg/dL meet the criteria for diagnosis of diabetes. In the absence of unequivocal hyperglycemia, results should be confirmed by repeat testing. In a patient with classic symptoms of hyperglycemia or hyperglycemic crisis, random plasma glucose results greater than or equal to 200 mg/dL meet the criteria for diagnosis of diabetes. Reference: Standards of Medical Care in Diabetes 2016, [place] Diabetes Association. Diabetes Care. 2016.39(Suppl 1). LAB BUN 9-24 mg/dL BUN 14 LAB CRET 0.73-1.22 mg/dL Creatinine 1.07 LAB NA 136-144 mmol/L Sodium 139 LAB K 3.7-5.1 mmol/L Potassium Low 3.4 LAB CL 97-105 mmol/L Chloride 99 LAB CO2 22-30 mmol/L CO2 23 LAB AGAP 9-18 mmol/L Anion Gap 17 LAB ALT 10-54 U/L ALT 32 LAB GFRAA eGFR- Amer. >60 LAB GFRNAA . eGFR-All Other Races >60 Result Comment: eGFR (Estimated GFR) Units of measure: mL/min/1.73 meters squared eGFR is derived from the reexpressed MDRD Study equation using the following parameters: serum creatinine, age, gender and race. The creatinine assay has been calibrated to be traceable to IDMS. An eGFR <60 mL/min/1.73m2 for >3 months is consistent with chronic kidney disease. Refer to KDOQI guidelines for clinical interpretation. In patients with unstable renal function, e.g. those with acute kidney injury, the eGFR may not accurately reflect actual GFR. Performed By: #### CBC, CMP, MG1 #### [facility] [address] [place], [place] [id number] MAGNESIUM Collected: 08/03/2017 Status: F Source: [place] 4:15 AM [facility] REPOSITORY TYPE CODE TESTS RESULT OUT OF REFERENCE UNITS RANGE LAB MG 1.7-2.3 mg/dL Magnesium 2.0 Performed By: #### CBC, CMP, MG1 #### [facility] [address] [place], [place] [address] CNCO Observed: 08/03/2017 Status: COMPLETED Source: [place] 12:00 AM [facility] REPOSITORY Clinical report posted in error Void Comment: correction Letter Text [address] [place], [place] [address] Kaushal Huff MD PhD Air Traffic Control Manager Department of Thoracic AND Cardiovascular Surgery Professor, Cardiovascular Surgery Director, Congenital Heart Surgery Office: [phone] Domo Newman MD [address] [place], [place] [id number] PATIENT NAME: AMELIA LEAVITT : [address] Newman: Our mutual patient Mr. Amelia Leavitt underwent open heart surgery on July 27, 2017. A copy of his operative report is attached for your review and file. Please feel free to contact me if you have any questions or concerns. Sincerely, Kaushal Huff MD PhD Letter Text [address] [place], [place] [address] Kaushal Huff MD PhD Air Traffic Control Manager Department of Thoracic AND Cardiovascular Surgery Professor, Cardiovascular Surgery Director, Congenital Heart Surgery Office: [phone] August 03, 2017 Domo Newman MD [address] [place] [id number] PATIENT NAME: AMELIA LEAVITT : [address] Newman: Our mutual patient Mr. Amelia Leavitt underwent open heart surgery on July 27, 2017. A copy of his operative report is attached for your review and file. Please feel free to contact me if you have any questions or concerns. Sincerely, Kaushal Huff MD PhD PROGRESS Observed: 08/02/2017 Status: COMPLETED Source: [place] 6:56 PM [facility] REPOSITORY HNO ID: [id number] Author: Rosalind Boyd (Early Childhood Associate) MARY LOU Thompson.SILVIANO Service: Cardiac Surgery Author Type: Nurse Practitioner Type: Progress Notes Filed: 08/02/2017 7:00 PM Note Text: [facility] C[facility] POSTOP PROGRESS NOTE Day of Surgery:07/27/2017 S/P SURGERY: CABGx3 (SVG1 to PDA, SVG2 to OM, Free ROMAN from SVG2 to LAD) INTERVAL EVENTS / PERTINENT ROS: No TPM wires ICD Check Completed ICM - Coreg, ARB, lasix CT removed per CTS Rhythm: SR - 80-90s Intake/Output Summary (Last 24 hours) at 08/02/17 1856 Last data filed at 08/02/17 1200 Gross per 24 hour Intake 410 ml Output 1940 ml Net -1530 ml EKG: most recent image reviewed, most recent report reviewed TELE: most recent recordings reviewed CXR: most recent image reviewed, most recent report reviewed Echocardiogram: most recent report reviewed PHYSICAL EXAM: BP 113/66 Pulse 99 Temp 37.7 ?C (99.9 ?F) (Oral) Resp 18 Ht 177.8 cm (5' 10) Wt 95.9 kg (211 lb 6.4 oz) SpO2 92% BMI 30.33 kg/m2 Neuro: AANDO x 3 moves all extremities; generalized post-op weakness but no overt focal deficits CV: No JVD. RRR without murmur, gallop, or rubs. ICD noted to left chest Resp: Diminished BUL and BLL. On 1L O2 Abd: Soft, nontender, nondistended; +BS x 4. + flatus / +postop BM Skin: skin color, texture, turgor normal, no suspicious rashes or lesions Ext: trace BLE edema, trace BUE edema Surgical incisions: MSI well approximated without erythema, induration or fluctuation. SVG sites C/D/I. Sternum Stable with cough Chest tube: Yes, 1 x chest tube(s) connected to atrium to wall suction, serosang drainage, dressing without shadowing, removed 08/02 Pacer wires: No HISTORY, ASSESSMENT AND PLAN: Problem Transition of Care Performed With Sharing of Clinical Summary Indication for Surgery: CAD, post prior CAB LVEF: Moderate (37%) RVF: Low Normal EKG: [facility] Cards: Shen Rowe and Amelia Zimmer Important/Relevant PMH/PSH: 0.5 ppd smoker, quit 2017. Prior GA. Prior ICD placement Preoperative:67to with PMH of CAD s/p multiple stent and CABG (GUDINO to LAD) RCA stented in 2016, SHF with EF 30-35% Procedure/Surgeries: 07/28/2017 CABGx3 (SVG1 to PDA, SVG2 to OM, Free ROMAN from SVG2 to LAD) Airway Difficulty: Grade I OR Course: cardiac dysfunction treated with epi Pacing wires: No TPM wires CVICU Post-op vent dyssynchrony requiring sedation and pain medication with improvement. Cardiac insufficiency requiring inotropic support has been resolved. Hypertension requiring nitroglycerin drip has resolved with addition of oral meds. Respiratory insufficiency post extubation improved with stable oxygenation on 2 L NC. Pneumothorax from 07/30/17 has resolved. BG and pain control. A/P: s/p CABG - ASA, BB, statin ICM - Coreg, liana Vanegas Dispo - 67yo male from [place], [place]. PT recs Home with PT. CM following. [facility]PD and [facility] Cards req. Plan to dc 08/03. Cardiomyopathy, Ischemic History: h/o CAD with multiple stents and CABG. Preop EF - 37%. Prior ICD placement Assessment: S/p 07/28/2017 CABGx3 (SVG1 to PDA, SVG2 to OM, Free ROMAN as jump graft from prox. SVG2 to LAD) Plan: ASA, BB, statin. ICD check - completed 08/02 Hyperlipidemia Ldl Goal <70 History: h/o HLP on Pravastatin 40mg. Recent LDL - Un-measurable d/t high triglycerides Assessment: LFTs - WNL Plan: Goal LDL < 70. Started Crestor 20mg with plans to increase to 40mg before dc. Monitor LFTs. f/u FLP and LFTs in 6-8 weeks with PCP/Cards. Hypertriglyceridemia, Essential History: h/o Hypertriglyceridemia on pravastatin 40mg. Recent Trig - 510 Assessment: LFTs - WNL Plan: Goal Trig < 200. Started Crestor 20mg and Tricor 48mg. Monitor LFTs. f/u FLP and LFTs in 6-8 weeks with PCP/Cards. Essential Hypertension History: h/o HTN on Coreg, cozaar, Imdur, lasix Assessment: SBP - 100-120s Plan: Continue Coreg 6.25mg bid, Cozaar 25mg, lasix PO Gastroesophageal Reflux Disease Without Esophagitis History: h/o GERD on PPI preop Assessment: No acute issues Plan: Continue PPI Pain Syndrome, Chronic History: Pt reports recent chronic pain using Neurontin 100mg bid for pain control Assessment: Pt reports pain is not controlled with PO pain meds / lidocaine patches Plan: Continue Lidocaine Patches. Continue PO Ultram PRN. Increased Neurontin to 300mg bid Smoking History History: h/o smoking that quit 2016 Assessment: Pt on 1L O2, Lungs diminished Plan: Encourage continued cessation Discharge Planning Issues 67yo male from [place], [place]. PT recs Home with PT. CM following. [facility]PD and [facility] Cards req. Plan to dc 08/03. CT scan Noncalcified lung nodules and groundglass opacities. ?Follow-up CT in 6-12 months recommended. DAILY STEP DOWN CHECKLIST FOR CATHETER RELATED INFECTION PREVENTION CVC, PICC, Chayito and/or Permacath present? No Does the patient have a urinary catheter beyond POD 2? No VTE Risk Assessment: Moderate risk VTE Mechanical and/or Pharmacologic Prophylaxis: GCS, Subcutaneous Heparin and SCD Labs and medications reviewed in Epic Case discussed in depth with: Dr. Huff Signature: Rosalind Thompson APRN.PRESS CATCHER Pager: [phone], PHONE: [phone] Date: 08/02/2017 THERAPY NT Observed: 08/02/2017 Status: COMPLETED Source: [place] 2:43 PM [facility] REPOSITORY HNO ID: [id number] Author: Maddy BeckmanPtMaura Ramírez Service: Physical Therapy Author Type: Physical Therapist Type: Therapy (PT/OT/Speech/Resp) Filed: 08/02/2017 2:43 PM Note Text: PHYSICAL THERAPY MISSED VISIT SERVICE DATE: 08/02/2017 SERVICE TIME: 1430 to 1430 ROOM: [place] [address] ([facility] (J22 Device Check)) Attempted Treatment. Patient not seen due to Test/Procedure. SIGNATURE: Maddy Ramírez PT PATIENT NAME: Amelia Leavitt DATE: August 02, 2017 TIME: 2:43 PM PAGER/CONTACT #: [phone] CASE MANAGEM Observed: 08/02/2017 Status: COMPLETED Source: [place] 1:46 PM [facility] REPOSITORY HNO ID: [id number] Author: Daphnie Templeton (Sw) Service: Care Management Author Type: Organizational Research Consultant Type: Care Mgt Progress Note Filed: 08/02/2017 1:47 PM Note Text: CARE MANAGEMENT PROGRESS NOTE SERVICE DATE: 08/02/2017 SERVICE TIME: 1:46 pm LOS: 6 days Needs Prior to Discharge: To Be Determined 67 yo. [place], [place]. SP Redo Sternotomy, CABGx3. Lives with spouse. 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 PT rec'd [facility] 07/30, but now that CT is out, patient walked 280' w/standby assist w/[facility] today. Started C referral, but awaiting updated PT input as pt may have progressed to home with outpatient follow up. Anticipate dc around Wed. SIGNATURE: NIKO Manuel PATIENT NAME: Amelia Leavitt DATE: August 02, 2017 TIME: 1:46 PM PAGER/CONTACT #: [phone] ALLIED HEALTH Observed: 08/02/2017 Status: COMPLETED Source: [place] 12:03 PM [facility] REPOSITORY HNO ID: [id number] Author: Kirti Mak (Ex Phys) Service: Cardiovascular Medicine Author Type: Profiling Machine Operator Type: Allied Health Filed: 08/02/2017 12:04 PM Note Text: CARDIAC REHABILITATION PHASE I ASSESSMENT PATIENT NAME: Amelia Leaivtt SERVICE DATE: August 02, 2017 SESSION TIME: 10:15am Patient was laying in bed upon arrival, reports ambulating in the halls using the iv pole for assistance. No c/o voiced with ambulation. Will follow. Instructed on continued increased ambulation as tolerated 4-6 times per day. Reviewed signs and symptoms of exercise intolerance. Exercise Distance: ~280 feet Duration: n/a minutes Assistance: Standby supervision Device: IV pole RECOMMENDATIONS: Ambulate: with supervision Oxygen: without O2 Assist Device: yes - IV pole / prn Yuliana Avitia Pager: [phone] August 02, 2017 PROCEDURE Observed: 08/02/2017 Status: COMPLETED Source: [place] 10:58 AM [facility] REPOSITORY HNO ID: [id number] Author: Rosalnid Boyd (Silviano) Jay Service: Cardiac Surgery Author Type: Nurse Practitioner Type: Procedures Filed: 08/02/2017 10:59 AM Note Text: CXR reviewed with CTS; <200ml output from chest tube over the last 24 hours; no airleak noted; 1x CT removed without difficulty, pt tolerated procedure well. Will repeat CXR and review with CTS. Rosalind Thompson CNP CBC Collected: 08/02/2017 Status: F Source: [place] 5:21 AM [facility] REPOSITORY TYPE CODE TESTS RESULT OUT OF REFERENCE UNITS RANGE LAB WBC 3.70-11.00 k/uL WBC High 14.36 LAB RBC 4.20-6.00 m/uL Low RBC 3.46 LAB HGB 13.0-17.0 g/dL Low Hemoglobin 11.0 LAB HCT 39.0-51.0 % Low Hematocrit 33.1 LAB MCV 80.0-100.0 fL MCV 95.7 LAB MCH 26.0-34.0 pG MCH 31.8 LAB MCHC 30.5-36.0 g/dL MCHC 33.2 LAB RDWCV 11.5-15.0 % RDW-CV 13.2 LAB PLTCT 150-400 k/uL Platelet Count 199 LAB MPV 9.0-12.7 fL MPV 11.2 LAB ABSNUC <0.01 k/uL Absolute nRBC <0.01 Performed By: #### CBC, CMP, MG1 #### [facility] [address] [place], [place] [address] COMP METABOLIC PANEL Collected: 08/02/2017 Status: F Source: [place] 5:21 AM [facility] REPOSITORY TYPE CODE TESTS RESULT OUT OF REFERENCE UNITS RANGE LAB TP 6.3-8.0 g/dL Protein, Total 6.3 LAB ALB 3.9-4.9 g/dL Low Albumin 3.3 LAB CA 8.5-10.2 mg/dL Calcium, Total 8.7 LAB TBIL 0.2-1.3 mg/dL Bilirubin, Total 0.9 LAB ALKP 36-108 U/L Alkaline Phosphatase 61 LAB AST 14-40 U/L AST 27 LAB GLU 74-99 mg/dL Glucose 99 Result Comment: The [place] Diabetes [employer] (ADA) provides guidance for cutoff values for fasting glucose and random glucose. The ADA defines fasting as no caloric intake for at least 8 hours. Fas ting plasma glucose results between 100 to 125 mg/dL indicate increased risk for diabetes (prediabetes). Fasting plasma glucose results greater than or equal to 126 mg/dL meet the criteria for diagnosis of diabetes. In the absence of unequivocal hyperglycemia, results should be confirmed by repeat testing. In a patient with classic symptoms of hyperglycemia or hyperglycemic crisis, random plasma glucose results greater than or equal to 200 mg/dL meet the criteria for diagnosis of diabetes. Reference: Standards of Medical Care in Diabetes 2016, [place] [employer]. Diabetes Care. 2016.39(Suppl 1). LAB BUN 9-24 mg/dL BUN 18 LAB CRET 0.73-1.22 mg/dL Creatinine 1.11 LAB NA 136-144 mmol/L Sodium 139 LAB K 3.7-5.1 mmol/L Potassium 4.0 LAB CL 97-105 mmol/L Chloride 101 LAB CO2 22-30 mmol/L CO2 24 LAB AGAP 9-18 mmol/L Anion Gap 14 LAB ALT 10-54 U/L ALT 23 LAB GFRAA eGFR- Amer. >60 LAB GFRNAA . eGFR-All Other Races >60 Result Comment: eGFR (Estimated GFR) Units of measure: mL/min/1.73 meters squared eGFR is derived from the reexpressed MDRD Study equation using the following parameters: serum creatinine, age, gender and race. The creatinine assay has been calibrated to be traceable to IDMS. An eGFR <60 mL/min/1.73m2 for >3 months is consistent with chronic kidney disease. Refer to KDOQI guidelines for clinical interpretation. In patients with unstable renal function, e.g. those with acute kidney injury, the eGFR may not accurately reflect actual GFR. Performed By: #### CBC, CMP, MG1 #### [facility] [address] [place], [place] [address] MAGNESIUM Collected: 08/02/2017 Status: F Source: [place] 5:21 AM [facility] REPOSITORY TYPE CODE TESTS RESULT OUT OF REFERENCE UNITS RANGE LAB MG 1.7-2.3 mg/dL Magnesium 2.1 Performed By: #### CBC, CMP, MG1 #### [facility] [address] [place], [place] [address] XR CHEST 1V FRONTAL Observed: 08/02/2017 Status: F Source: [facility] 5:06 AM [facility] REPOSITORY * * *Final Report* * * DATE OF EXAM: Aug 02 2017 5:06AM JIX [id number] - XR CHEST 1V FRONTAL PORT / PROCEDURE REASON: Post-operative state * * * * Physician Interpretation * * * * EXAMINATION: CHEST RADIOGRAPH (PORTABLE SINGLE VIEW AP) Exam Date/Time: 08/02/2017 5:06 AM Indication: Post-operative state MQ: XCP_4 Comparison: 1 day prior RESULT: See impression. IMPRESSION: Lines, tubes, and devices: A left transvenous single chamber ICD terminates in the expected position of the right ventricle. Patient is status post median sternotomy for probable CABG. Right basilar thoracostomy tube noted. Lungs and pleura: Bibasilar opacities are likely due to atelectasis. No substantial pleural effusion or pulmonary edema. Small right apical pneumothorax has not substantially changed in size in the interval given differences in technique. Cardiomediastinal silhouette: Stable enlargement of the cardiomediastinal silhouette. Other: Unchanged subcutaneous emphysema in the right supraclavicular region. Sterilizer Operator: KEVIN Transcribe Date/Time: Aug 02 2017 8:53A Dictated by : ASH WANG MD This examination was interpreted and the report reviewed and electronically signed by: ASH WANG MD on Aug 02 2017 8:55AM EST [id number] PROGRESS Observed: 08/01/2017 Status: COMPLETED Source: [place] 6:44 PM [facility] REPOSITORY HNO ID: [id number] Author: Zain Villa (Fel) Service: Cardiac Surgery Author Type: Fellow Type: Progress Notes Filed: 08/01/2017 6:44 PM Note Text: reno Leavitto CABG*3 , POD 4 Well , SR 95 , BP ok , on 1 L Sat 95 LAB SERGEI Uop 1850 cc , CXR tight apical pneumothorax CTR 120 cc Plan :repeat CXR , keep drain tonight , ambulate Zain Villa MD CTS fellow PROGRESS Observed: 08/01/2017 Status: COMPLETED Source: [place] 8:55 AM [facility] REPOSITORY HNO ID: [id number] Author: Antonio Dewitt (Rt) Raul Harmon Service: Radiology Author Type: Distance Education Teacher Type: Progress Notes Filed: 08/01/2017 8:55 AM Note Text: Radiology Service Progress Note PATIENT NAME: Amelia Leavitt DATE OF SERVICE: August 01, 2017 TIME: 8:55 AM PATIENT IDENTITY VERIFICATION COMPLETED USING TWO (2) METHODS: Patient confirmed name verbally and Date of . PATIENT GENDER DATA: Male PATIENT RELEVANT IMPLANT DATA REVIEWED: Not Applicable RADIOLOGY DEPARTMENT: General X-ray: Exam(s) Completed: Chest X-Ray PERIPHERAL IV DATA: Not applicable SIGNED BY: RT Nilsa August 01, 2017 8:55 AM XR CHEST 2V FRONTAL/LAT Observed: 08/01/2017 Status: F Source: [place] 8:54 AM [facility] REPOSITORY * * *Final Report* * * DATE OF EXAM: Aug 01 2017 8:54AM [id number] - XR CHEST 2V FRONTAL/LAT / PROCEDURE REASON: Atelectasis * * * * Physician Interpretation * * * * EXAMINATION: CHEST RADIOGRAPH (2 VIEW FRONTAL and LATERAL) Clinical History: Atelectasis M: XC2_4 Comparison: 1 day earlier RESULT: Lines, tubes, and devices: Stable ICD. Right basilar chest tube. Lungs and pleura: Interstitial edema and scattered atelectasis. Small right pneumothorax slightly increased. Cardiomediastinal silhouette: Stable cardiac silhouette enlargement. Other: Degenerative changes of the thoracic spine. IMPRESSION: See Result. Sterilizer Operator: PSCB Transcribe Date/Time: Aug 01 2017 5:31P Dictated by : JACOB AUGUSTINE MD This examination was interpreted and the report reviewed and electronically signed by: JACOB AUGUSTINE MD on Aug 01 2017 5:34PM EST [id number] CBC Collected: 08/01/2017 Status: F Source: [place] 5:15 AM [facility] REPOSITORY TYPE CODE TESTS RESULT OUT OF REFERENCE UNITS RANGE LAB WBC 3.70-11.00 k/uL WBC High 12.17 LAB RBC 4.20-6.00 m/uL Low RBC 3.25 LAB HGB 13.0-17.0 g/dL Low Hemoglobin 10.3 LAB HCT 39.0-51.0 % Low Hematocrit 30.9 LAB MCV 80.0-100.0 fL MCV 95.1 LAB MCH 26.0-34.0 pG MCH 31.7 LAB MCHC 30.5-36.0 g/dL MCHC 33.3 LAB RDWCV 11.5-15.0 % RDW-CV 13.1 LAB PLTCT 150-400 k/uL Platelet Count 166 LAB MPV 9.0-12.7 fL MPV 11.2 LAB ABSNUC <0.01 k/uL Absolute nRBC <0.01 Performed By: #### CBC, CMP, MG1 #### [facility] [address] [place], [place] [address] COMP METABOLIC PANEL Collected: 08/01/2017 Status: F Source: [place] 5:15 AM [facility] REPOSITORY TYPE CODE TESTS RESULT OUT OF REFERENCE UNITS RANGE LAB TP 6.3-8.0 g/dL Protein, Total 6.3 LAB ALB 3.9-4.9 g/dL Low Albumin 3.6 LAB CA 8.5-10.2 mg/dL Calcium, Total 8.8 LAB TBIL 0.2-1.3 mg/dL Bilirubin, Total 0.9 LAB ALKP 36-108 U/L Alkaline Phosphatase 54 LAB AST 14-40 U/L AST 22 LAB GLU 74-99 mg/dL Glucose High 106 Result Comment: The [place] Diabetes Association (ADA) provides guidance for cutoff values for fasting glucose and random glucose. The ADA defines fasting as no caloric intake for at least 8 hours. Fas ting plasma glucose results between 100 to 125 mg/dL indicate increased risk for diabetes (prediabetes). Fasting plasma glucose results greater than or equal to 126 mg/dL meet the criteria for diagnosis of diabetes. In the absence of unequivocal hyperglycemia, results should be confirmed by repeat testing. In a patient with classic symptoms of hyperglycemia or hyperglycemic crisis, random plasma glucose results greater than or equal to 200 mg/dL meet the criteria for diagnosis of diabetes. Reference: Standards of Medical Care in Diabetes 2016, [place] [employer]. Diabetes Care. 2016.39(Suppl 1). LAB BUN 9-24 mg/dL BUN 22 LAB CRET 0.73-1.22 mg/dL Creatinine 1.11 LAB NA 136-144 mmol/L Sodium 140 LAB K 3.7-5.1 mmol/L Potassium Low 3.5 LAB CL 97-105 mmol/L Chloride 102 LAB CO2 22-30 mmol/L CO2 27 LAB AGAP 9-18 mmol/L Anion Gap 11 LAB ALT 10-54 U/L ALT 24 LAB GFRAA eGFR- Amer. >60 LAB GFRNAA . eGFR-All Other Races >60 Result Comment: eGFR (Estimated GFR) Units of measure: mL/min/1.73 meters squared eGFR is derived from the reexpressed MDRD Study equation using the following parameters: serum creatinine, age, gender and race. The creatinine assay has been calibrated to be traceable to IDPA. An eGFR <60 mL/min/1.73m2 for >3 months is consistent with chronic kidney disease. Refer to KDOQI guidelines for clinical interpretation. In patients with unstable renal function, e.g. those with acute kidney injury, the eGFR may not accurately reflect actual GFR. Performed By: #### CBC, CMP, MG1 #### [facility] [address] [place] [address] MAGNESIUM Collected: 08/01/2017 Status: F Source: [place] 5:15 AM [facility] REPOSITORY TYPE CODE TESTS RESULT OUT OF REFERENCE UNITS RANGE LAB MG 1.7-2.3 mg/dL Magnesium 2.2 Performed By: #### CBC, CMP, MG1 #### [facility] [address] [place], [place] [address] NURSING PROG Observed: 07/31/2017 Status: COMPLETED Source: [place] 8:04 PM [facility] REPOSITORY HNO ID: [id number] Author: Ana Rosa (Rn) KATARINA Peterson Service: (none) Author Type: Registered Nurse Type: Nursing Progress Note Filed: 07/31/2017 8:06 PM Note Text: Nursing Progress Note Patient Name: Amelia Leavitt Patient Location: J053 008/J5-3-08 Transfer Note: Patient transferred into room/unit J53-08 in stable conditionat 1300. Actions taken: Pt oriented to room, call light and floor routine. Saw fall video. Skin check done with Wilda DELA CRUZ This note was completed by: Ana Rosa Peterson RN PT ED Observed: 07/31/2017 Status: COMPLETED Source: [place] 1:12 PM [facility] REPOSITORY HNO ID: [id number] Author: Ccf Provider Service: (none) Author Type: Physician Type: Patient Education Filed: 07/31/2017 1:12 PM Note Text: [facility] Patient Education Report --------- Name: AMELIA LEAVITT Date: 07/31/2017 Time: 1:11 PM Patient Ordered Video: Inpatient Falls from [id number] via phone number [phone] at 1:11 PM PROGRESS Observed: 07/31/2017 Status: COMPLETED Source: [place] 9:07 AM [facility] REPOSITORY HNO ID: [id number] Author: Kirti Dickerson Service: Critical Care Author Type: Nurse Practitioner Type: Progress Notes Filed: 07/31/2017 9:22 AM Note Text: [facility] Note Name: Amelia Leavitt Coordination of Care Note: Indication for Surgery: CAD, post prior CAB LVEF: Moderate (37%) RVF: Low Normal Important/Relevant PMH/PSH: 0.5 ppd smoker, quit 2017. Prior [place]. Prior ICD placement Preoperative Hospital Course (narrative): 67 year old, long history of CAD, post multiple stent procedures. ?Postop CABG with a left internal mammary artery to the left anterior descending. RCA stented in 2016. ?The ejection fraction was 30-35%. ?A relook on April 25, 2016 demonstrated widely patent left internal mammary artery. ?The right coronary artery and circumflex were occluded. ?He was most recently seen in the office by Dr. Rosalind Carbajal on June 11, 2017. ?They elected to recommend continued medical treatment with up titrating of Ranexa. ?He is coming to [facility] for a second opinion. Procedure/Surgeries: 07/28/2017 Redo Sternotomy CABGx3 (SVG1 to PDA, SVG2 to OM, Free ROMAN as jump graft from prox. SVG2 to LAD ) Airway Difficulty: Grade I OR Course: cardiac dysfunction treated with epi Pacing wires: Per CTS Postoperative Course/General Impression: (narrative or log of major events with date of onset): Post-op vent dyssynchrony requiring sedation and pain medication with improvement. Cardiac insufficiency requiring inotropic support has been resolved. Hypertension requiring nitroglycerin drip has resolved with addition of oral meds. Respiratory insufficiency post extubation improved with stable oxygenation on 2 L NC. Pneumothorax from 07/30/17 has resolved. BG and pain control. Issues to communicate at signout: 07/31/17 Transfer to floor Other Problems I Reviewed and/or Managed During This Encounter: Problem Cardiomyopathy, Ischemic S/p 07/28/2017 Redo Sternotomy CABGx3 (SVG1 to PDA, SVG2 to OM, Free ROMAN as jump graft from prox. SVG2 to LAD ) A/P: ASA Pneumothorax Pneumothorax on CXR 07/30/17. Pt remained stable on [address] suction to -20. Weak chest tube connection, corrected. A/P: Current CXR shows pneumothorax has resolved. Pt remains stable on 2 L NC. Postoperative Hypertension Home meds: Carvedilol, losartan, Imdur A/P: Post-op hypertension requiring nitroglycerin drip has been resolved with addition of home meds: Continue Carvedilol, losartan. Up-titrate as needed Altered Mental Status A/P: Pt AANDOx2-3 this morning. MAEx4. Mentation improving. Continue PT/OT Pain, Postoperative, Acute A/P: Pain adequately controlled. Continue ultram prn. Avoid narcotics due to mental status. Hyperglycemia A/P: Stress hyperglycemia post-op resolved and no longer requiring insulin drip. SSI to maintain blood glucose < 150. Smoking History A/P: Clear to auscultation this morning. Duonebs no longer needed. PHYSICAL EXAM: Neuro: Awake, Follows commands, Alert and oriented x 2-3 and MAEx4 Cardiovascular: Rhythm: regular rate and rhythm and Rate:normal sinus rhythm Pulmonary: Breath sounds equal, Rales and Diminished breath sounds, Ventilator: patient is extubated CXR Findings: Atelectasis Bilateral, Increased Vascular Markings Bilateral, Pleural effusion Bilateral and CXR personally viewed and interpreted by ICU staff Nurse Practitioner Gastrointestinal: Abdominal: Soft, Non-tender and Bowel sounds yes DAILY CVICU CHECKLIST VTE Prophylaxis: Pharmacologic Yes VTE Prophylaxis: Mechanical: Yes Line infection prevention: Can CVC, PAC or arterial line be removed: N/a Continued need for urinary catheter: Yes - clinical indication: Patient post major surgery requiring fluid balance and input and output measurement. Restraints needed: No SIGNATURE: Kirti Dickerson CNP DATE of SERVICE: 07/31/2017 TIME of SERVICE: 9:07 AM XR CHEST 1V FRONTAL Observed: 07/31/2017 Status: F Source: [facility] 6:28 AM [facility] REPOSITORY * * *Final Report* * * DATE OF EXAM: Jul 31 2017 6:28AM JIX [id number] - XR CHEST 1V FRONTAL PORT / PROCEDURE REASON: Surgery follow-up * * * * Physician Interpretation * * * * EXAMINATION: CHEST RADIOGRAPH (PORTABLE SINGLE VIEW AP) Exam Date/Time: 07/31/2017 6:28 AM Indication: Surgery follow-up MQ: XCP_4 Comparison: 1 day prior RESULT: See impression. IMPRESSION: Lines, tubes, and devices: Left transvenous single chamber ICD is present with the lead terminating in expected position of the right ventricle. Patient is status post median sternotomy. Right basilar thoracostomy tube is stable in position. Lungs and pleura: Stable mild elevation of the right hemidiaphragm. Mild bibasilar opacities are likely largely due to atelectasis. No substantial pleural effusion. There is vascular crowding without overt pulmonary edema. No substantial pneumothorax identified. However, evaluation for a small right apical pneumothorax is limited given overlying subcutaneous emphysema. Cardiomediastinal silhouette: Stable enlargement of the cardiomediastinal silhouette. Other: Subcutaneous emphysema in the right supraclavicular region is unchanged. Sterilizer Operator: KEVIN Transcribe Date/Time: Jul 31 2017 11:03A Dictated by : ASH WANG MD This examination was interpreted and the report reviewed and electronically signed by: ASH WANG MD on Jul 31 2017 11:04AM EST [id number] CBC Collected: 07/31/2017 Status: F Source: [place] 1:20 AM [facility] REPOSITORY TYPE CODE TESTS RESULT OUT OF REFERENCE UNITS RANGE LAB WBC 3.70-11.00 k/uL WBC High 14.15 LAB RBC 4.20-6.00 m/uL Low RBC 3.05 LAB HGB 13.0-17.0 g/dL Low Hemoglobin 9.7 LAB HCT 39.0-51.0 % Low Hematocrit 29.2 LAB MCV 80.0-100.0 fL MCV 95.7 LAB MCH 26.0-34.0 pG MCH 31.8 LAB MCHC 30.5-36.0 g/dL MCHC 33.2 LAB RDWCV 11.5-15.0 % RDW-CV 13.2 LAB PLTCT 150-400 k/uL Low Platelet Count 108 LAB MPV 9.0-12.7 fL MPV 11.7 LAB ABSNUC <0.01 k/uL Absolute nRBC <0.01 Performed By: #### CBC, CMP #### [facility] [address] [place], [place] [address] COMP METABOLIC PANEL Collected: 07/31/2017 Status: F Source: [place] 1:20 AM [facility] REPOSITORY TYPE CODE TESTS RESULT OUT OF REFERENCE UNITS RANGE LAB TP 6.3-8.0 g/dL Protein, Total 6.8 LAB ALB 3.9-4.9 g/dL Low Albumin 3.4 LAB CA 8.5-10.2 mg/dL Calcium, Total 8.8 LAB TBIL 0.2-1.3 mg/dL Bilirubin, Total 0.9 LAB ALKP 36-108 U/L Alkaline Phosphatase 53 LAB AST 14-40 U/L AST 22 LAB GLU 74-99 mg/dL Glucose High 106 Result Comment: The [place] Diabetes Association (ADA) provides guidance for cutoff values for fasting glucose and random glucose. The ADA defines fasting as no caloric intake for at least 8 hours. Fas ting plasma glucose results between 100 to 125 mg/dL indicate increased risk for diabetes (prediabetes). Fasting plasma glucose results greater than or equal to 126 mg/dL meet the criteria for diagnosis of diabetes. In the absence of unequivocal hyperglycemia, results should be confirmed by repeat testing. In a patient with classic symptoms of hyperglycemia or hyperglycemic crisis, random plasma glucose results greater than or equal to 200 mg/dL meet the criteria for diagnosis of diabetes. Reference: Standards of Medical Care in Diabetes 2016, [place] [employer]. Diabetes Care. 2016.39(Suppl 1). LAB BUN 9-24 mg/dL BUN 21 LAB CRET 0.73-1.22 mg/dL Creatinine 0.98 LAB NA 136-144 mmol/L Sodium 137 LAB K 3.7-5.1 mmol/L Potassium 4.3 LAB CL 97-105 mmol/L Chloride 99 LAB CO2 22-30 mmol/L CO2 25 LAB AGAP 9-18 mmol/L Anion Gap 13 LAB ALT 10-54 U/L ALT 17 LAB GFRAA eGFR- Amer. >60 LAB GFRNAA . eGFR-All Other Races >60 Result Comment: eGFR (Estimated GFR) Units of measure: mL/min/1.73 meters squared eGFR is derived from the reexpressed MDRD Study equation using the following parameters: serum creatinine, age, gender and race. The creatinine assay has been calibrated to be traceable to IDMS. An eGFR <60 mL/min/1.73m2 for >3 months is consistent with chronic kidney disease. Refer to KDOQI guidelines for clinical interpretation. In patients with unstable renal function, e.g. those with acute kidney injury, the eGFR may not accurately reflect actual GFR. Performed By: #### CBC, CMP #### [facility] [address], [place] [id number] TYPE AND SCREEN Collected: 07/31/2017 Status: F Source: [place] 1:20 AM [facility] REPOSITORY TYPE CODE TESTS RESULT OUT OF REFERENCE UNITS RANGE LAB %ABR O ABO/RH(D) POSITIVE LAB % Antibody NEG Screen Performed By: #### TSCR #### [facility] [address], [place] [address] PROGRESS Observed: 07/30/2017 Status: COMPLETED Source: [place] 7:35 PM [facility] REPOSITORY HNO ID: [id number] Author: Kirti Dickerson Service: Critical Care Author Type: Nurse Practitioner Type: Progress Notes Filed: 07/30/2017 7:47 PM Note Text: [facility] CV[facility] Note Name: Amelia Leavitt Coordination of Care Note: Indication for Surgery: CAD, post prior CAB LVEF: Moderate (37%) RVF: Low Normal Important/Relevant PMH/PSH: 0.5 ppd smoker, quit 2017. Prior [place]. Prior ICD placement Preoperative Hospital Course (narrative): 67 year old, long history of CAD, post multiple stent procedures. ?Postop CABG with a left internal mammary artery to the left anterior descending. RCA stented in 2016. ?The ejection fraction was 30-35%. ?A relook on April 25, 2016 demonstrated widely patent left internal mammary artery. ?The right coronary artery and circumflex were occluded. ?He was most recently seen in the office by Dr. Rosalind Carbajal on June 11, 2017. ?They elected to recommend continued medical treatment with up titrating of Ranexa. ?He is coming to [facility] for a second opinion. Procedure/Surgeries: 07/28/2017 Redo Sternotomy CABGx3 (SVG1 to PDA, SVG2 to OM, Free ROMAN as jump graft from prox. SVG2 to LAD ) Airway Difficulty: Grade I OR Course: cardiac dysfunction treated with epi Pacing wires: Per CTS Postoperative Course/General Impression: (narrative or log of major events with date of onset): Post-op vent dyssynchrony requiring sedation and pain medication with improvement. Cardiac insufficiency requiring inotropic support has been resolved. Hypertension requiring nitroglycerin drip has resolved with addition of oral meds. Respiratory insufficiency post extubation improved with stable oxygenation on 2 L NC. BG and pain control. Issues to communicate at signout: July 30, 2017 Transfer to floor Other Problems I Reviewed and/or Managed During This Encounter: Problem Cardiomyopathy, Ischemic S/p 07/28/2017 Redo Sternotomy CABGx3 (SVG1 to PDA, SVG2 to OM, Free ROMAN as jump graft from prox. SVG2 to LAD ) A/P: ASA Pneumothorax A/P: Pneumothorax on CXR today. Pt remained stable on [address] suction to -20. Weak chest tube connection, corrected. Repeat CXR showed resolved. Atelectasis A/P: Bibasilar atelectasis on recent CXR. Stable oxygenation on 4 L NC. Continue BPH: PEP, CDB, OOBTC, Ambulation and pain control. Postoperative Hypertension Home meds: Carvedilol, losartan, Imdur /P: Post-op hypertension requiring nitroglycerin drip has been resolved with addition of home meds: Carvedilol, losartan. Up-titrate as needed Cardiogenic Shock (Hcc) A/P: Post-op cardiac insufficiency requiring inotrope support has resolved. Altered Mental Status A/P: Pt AANDOx1-2 this morning with prompts. MAEx4. PT/OT consulted. Pain, Postoperative, Acute A/P: Pain adequately controlled. Continue ultram prn. Avoid narcotics due to mental status. Hyperglycemia A/P: Stress hyperglycemia post-op resolved and no longer requiring insulin drip. Will transition to SSI to maintain blood glucose < 150. Smoking History A/P: Clear to auscultation this morning. Duonebs no longer needed. PHYSICAL EXAM: Neuro: Awake, Follows commands with difficulty, Alert and oriented x 1 and MAEx4 Cardiovascular: Rhythm: regular rate and rhythm and Rate:normal sinus rhythm Pulmonary: Breath sounds equal, Rales and Diminished breath sounds, Ventilator: N/A, patient is extubated CXR Findings: Atelectasis Bilateral, Pneumothorax / Subcutaneous Emphysema Bilateral, Increased Vascular Markings Bilateral, Pleural effusion Bilateral and CXR personally viewed and interpreted by ICU staff Nurse Practitioner Gastrointestinal: Abdominal: Soft, Non-tender and Bowel sounds yes DAILY CVICU CHECKLIST VTE Prophylaxis: Pharmacologic Yes VTE Prophylaxis: Mechanical: Yes Line infection prevention: Can CVC, PAC or arterial line be removed: Yes - Remove arterial line, Remove PA catheter and Remove Central venous catheter Continued need for urinary catheter: Yes - clinical indication: Patient post major surgery requiring fluid balance and input and output measurement. Restraints needed: No SIGNATURE: Kirti Dickerson CNP DATE of SERVICE: 07/30/2017 TIME of SERVICE: 7:35 PM XR CHEST 1V FRONTAL Observed: 07/30/2017 Status: F Source: [facility] 6:55 PM [facility] REPOSITORY * * *Final Report* * * DATE OF EXAM: Jul 30 2017 6:55PM RANDEE [id number] - XR CHEST 1V FRONTAL PORT / PROCEDURE REASON: Surgery follow-up * * * * Physician Interpretation * * * * EXAMINATION: CHEST RADIOGRAPH (PORTABLE SINGLE VIEW AP) Exam Date/Time: 07/30/2017 6:55 PM Indication: Surgery follow-up MQ: XCP_4 Comparison: Same day RESULT: See impression. IMPRESSION: Lines, tubes, and devices: AICD placement is unchanged. Mediastinal drain remains in place. Lungs and pleura: Large remaining hypoinflated with basilar atelectatic changes. Prominence of the lung markings bilaterally could be due to crowded vessels given the low lung volume. Underlying mild interstitial edema or inflammation cannot be entirely excluded. Cardiomediastinal silhouette: Stable cardiomediastinal silhouette. Other: Sterilizer Operator: [facility] Transcribe Date/Time: Jul 30 2017 8:49P Dictated by : TANYA PAZ MD This examination was interpreted and the report reviewed and electronically signed by: TANYA PAZ MD on Jul 30 2017 8:50PM EST [id number] XR CHEST 1V FRONTAL Observed: 07/30/2017 Status: F Source: [facility] 4:19 PM [facility] REPOSITORY * * *Final Report* * * DATE OF EXAM: Jul 30 2017 4:19PM JIX [id number] - XR CHEST 1V FRONTAL PORT / PROCEDURE REASON: Surgery follow-up * * * * Physician Interpretation * * * * EXAMINATION: CHEST RADIOGRAPH (PORTABLE SINGLE VIEW AP) Exam Date/Time: 07/30/2017 4:19 PM Indication: Surgery follow-up MQ: XCP_4 Comparison: Same day RESULT: See impression. IMPRESSION: Lines, tubes, and devices: PA catheter removed. No other change. Lungs and pleura: Tiny right pneumothorax has slightly decreased in size. Atelectatic changes remain at the bases. Superimposed infiltrates/infection or edema cannot be entirely excluded. Right hemidiaphragm remains elevated. Cardiomediastinal silhouette: Stable cardiomediastinal silhouette. Other: The patient is status post median sternotomy. Sterilizer Operator: [employer] Transcribe Date/Time: Jul 30 2017 4:55P Dictated by : TANYA PAZ MD This examination was interpreted and the report reviewed and electronically signed by: TANYA PAZ MD on Jul 30 2017 4:56PM EST [id number] THERAPY NT Observed: 07/30/2017 Status: COMPLETED Source: [facility] 11:23 AM [facility] REPOSITORY HNO ID: [id number] Author: Rishi BeckmanPtMaura Nance PT Service: Physical Therapy Author Type: Physical Therapist Type: Therapy (PT/OT/Speech/Resp) Filed: 07/30/2017 11:28 AM Note Text: Physical Therapy Evaluation SERVICE DATE: 07/30/2017 SERVICE TIME: 1030 to 1110 ROOM: [place] [address] Recommended Discharge Disposition: Home PT Anticipated Discharge Needs: Undetermined Recommended Discharge Equipment: To Be Determined PT Recommendations to Nursing: Transfer to/from chair;OOB for Meals;With assist of 1 person Device: Hand Held Assist PT 6 Clicks Score: 16 Precautions/Activity Restrictions: Sternal;Cardiac;Fall Risk;Lines/Tubes/Drains ASSESSMENT : Patient demonstrated slightly impaired mobility, balance, and activity tolerance. Patient appeared to be limited by lethargy. Patient appeared motivated to participate. Patient was confused throughout the session and required frequent re-direction to remain on task. Patient is appropriate for continued physical therapy while in-house and may benefit from home health physical therapy upon discharge. Patient Disposition at Start of Session: OOB in Chair Patient Disposition at End of Session: Supine in Bed Tolerated Full Session Physical Therapy Problem List: Cognitive Deficit;Education Deficit;Pain;Safety Deficits;Impaired Self Care;Decreased Activity Tolerance;Functional Mobility Impairment;Balance Impaired Patient /Caregiver Goals: Walk;Go Home Goals for Plan of Care: Able to perform HEP with: Independent Transfer supine to/from sit with: Independent Transfer sit to/from stand with: Modified Independent Ambulate with: Modified Independent Distance: 100 Device: Wheeled Walker (or least restrictive) Ambulate up and down steps with: Contact Guard Assistance Number of steps: 3 Device: Hand Held Assist Rehab Potential: Good PLAN: Treatment Frequency (times per week): 3 Current admission Treatment Interventions: Education;Self Care / Home Management;Energy Conservation Training;Strengthening;Functional Mobility Training;Balance Training Plan of Care developed with: Patient () TREATMENT INTERVENTIONS: Therapy Diagnosis: Reduced mobility-other Interventions Provided: Evaluation;Therapeutic Exercise (23701);Therapeutic Activity (03259) $ Evaluation-Low (85819) Billed Units: 1 unit Therapeutic Exercise (01802) Treatment Minutes: 13 1 unit Skilled Intervention(s): - Instruction in therapeutic exercise per doc flowsheet. - Verbal and tactile cuing provided to facilitate muscle control, optimal recruitment and alignment Therapeutic Activity (34900) Treatment Minutes: 12 1 unit Skilled Intervention(s): - Education to patient: PT plan/role/freq, mobility plan with nursing, benefits of early mobility, precautions - Edge of bed sitting activities: verbal and tactile cues for upright posture, focus to task - Sit to Stand training: verbal cues for hand placement; tactile cues for anterior weight shift of trunk - sit to supine training: verbal cues and assistance for lower extremity lift to mattress, controlled descent of trunk to sidelying, and reaching UE to rail - Skilled intervention for ICU line/room setup for safe mobility environment - Skilled intervention for vital sign monitoring to assess hemodynamic and respiratory response to activity to prescribe safe intensity and duration of activity/exercise during above interventions - Instructed patient in sit to supine using safe, effective technique - Instruction in sit to stand technique with proper hand placement and body positioning at edge of bed/chair - Instruction in stand to sit technique with lower extremities touching chair/bed and reaching back for surface Total Timed Code Treatment Minutes: 25 Total Treatment Time (minutes): 40 FUNCTIONAL G CODE: PT 6 Clicks Score: 16 (07/30/17 1030) Mobility: Walking and Moving Around Current Status (G8978): CK (07/30/17 1030) Mobility: Walking and Moving Around Goal Status (G8979): CJ (07/30/17 1030) Based on clinical assessment and the score on the 6 Clicks Functional Assessment Tool, the G code and corresponding severity modifiers are documented above. SUBJECTIVE: Current Hospital Course: Chart reviewed; Patient is a 67 year old male admitted status post: 07/28/2017 redo sternotomy, CABGx3 Patient Report: agreeable to physical therapy Home Environment Patient Lives With: Significant Other (history obtained from pt's ) Assistance Available: 24 Hour Entry To Home: Stairs;Without Rail Number Of Stairs Into Home: 3 Number Of Stairs To Bed/Bath: 0 Prior Functional Level: Within Functional Limits OBJECTIVE: Mini Cog Score: 2 (07/30/17 1030) CURRENT FUNCTIONAL STATUS: Current Functional Mobility Assist Level Additional Information Rolling Supine to Sit Sit to Supine Minimal Assistance Scooting Sit to Stand Minimal Assistance Stand to Sit Minimal Assistance Bed to Chair Minimal Assistance Toilet/Commode Gait Stairs Curb Step Car Transfer Balance: Static Sitting;Dynamic Sitting;Static Standing;Dynamic Standing Static Sitting Balance: Stand By Assistance Dynamic Sitting Balance: Stand By Assistance Static Standing Balance: Contact Guard Assistance Dynamic Standing Balance: Minimal Assistance Please see discipline specific clinical documentation flowsheet for complete details for this therapy evaluation/treatment. SIGNATURE: Rishi Nance PT PATIENT NAME: Amelia Leavitt DATE: July 30, 2017 TIME: 11:24 AM PAGER/CONTACT #: [phone] THERAPY NT Observed: 07/30/2017 Status: COMPLETED Source: [facility] 10:14 AM [facility] [place] REPOSITORY HNO ID: [id number] Author: Kika (Otr/L) Gencer Service: Occupational Therapy Author Type: Occupational Therapist Type: Therapy (PT/OT/Speech/Resp) Filed: 07/30/2017 10:21 AM Note Text: Occupational Therapy Evaluation SERVICE DATE: 07/30/2017 SERVICE TIME: 48 to 925 ROOM: [place] [address] Recommended Discharge Disposition: Unable to determine due to critical care status Anticipated Discharge Needs: Undetermined Recommended Discharge Equipment: To Be Determined OT Recommendations to Nursing: ADL?s in chair;OOB for meals;With assist of 2 people OT 6 Clicks Score: 17 Precautions/Activity Restrictions: Cardiac;Sternal;Fall Risk;Lines/Tubes/Drains ASSESSMENT: Patient Disposition at Start of Session: SCDs;OOB in Chair Patient Disposition at End of Session: OOB in Chair;Call Louie in Reach;SCDs Tolerance Limited By Pain;Fatigue Pt with increased drowsiness, but agreeable to participate in therapy session. Pt confused (oriented to self only) and with decreased STM. Pt required frequent cues to attend to tasks d/t increased distraction/fatigue. Pt. presents with impaired cognition, activity tolerance, strength, and functional mobility which directly impacts their ability to safely and independently perform I/ADL's. Pt. will benefit from continued OT services during admission to address deficits and increase functional independence and safety. OT will continue to follow and update d/c recommendations as appropriate. Occupational Therapy Problem List: Cognitive Deficit;Impaired Self Care;Decreased Activity Tolerance;Decreased Strength;Functional Mobility Impairment Patient /Caregiver Goals: Go Home Goals for Plan of Care: Able to perform HEP with: Verbal Cues Only Grooming with: Modified Independent Upper Body Dressing with: Contact Guard Assistance Lower Body Dressing with: Minimal Assistance Toilet Hygiene with: Minimal Assistance Chair Transfer with: Minimal Assistance Toilet Transfer with: Minimal Assistance Tolerate (minutes of functional activity): 30 Functional Activity with: Minimal Assistance Demonstrate Positive Coping Strategies with: Verbal Cues Only Additional Goal 1: Pt will follow 100% of 1 step commands without cues. Demonstrate Competence With Education with: Verbal Cues Only Transfer: Pt will complete functional bed mobility with Benjie. Rehab Potential: Good PLAN: Treatment Frequency (times per week): 2 (with 1 PRN visit per week) Current admission Treatment Interventions: Education;Self Care / Home Management;Strengthening;Cognitive Training Plan of Care developed with: Patient TREATMENT INTERVENTIONS: Therapy Diagnosis: Reduced mobility-other;Decreased activities of daily living (ADL);Muscle Weakness (generalized) Interventions Provided: Evaluation;Therapeutic Activity (66318);2018 Only Cognitive Training (G0515) $ Evaluation-High (64181) Billed Units: 1 unit Therapeutic Activity (72023) Treatment Minutes: 13 1 unit Skilled Intervention(s): - Pt. educated on role of OT, OT POC, d/c plans, and benefits of mobility. Pt. verbalized learned knowledge. - Provided skilled intervention for room set up/line management for increased mobility and safety. - All vital signs, critical lines and patient symptoms observed throughout session for increased patient safety. Pt's vitals stable throughout the session. - Educated patient on BUE exercises and monitored vitals to establish appropriate prescription (10 reps) pt demonstrated learned knowledge and provided handout for reference. - Provided education regarding precautions and provided handout for reference. Cognitive Training (G0515) Treatment Minutes (2018 Only): 10 $ Cognitive Training (G0515) Billed Units (2018 Only): 1 unit Skilled Intervention(s): - Provided cues and choices for orientation. Provided signs to promote orientation throughout the day. - Provided skilled intervention to arrange room to promote alertness during the day and decrease risk of delirium. - Provided concrete single-step instructions for focus on singular task. - Provided max cues, increased time, and repetition for pt to complete cognitive assessment and to promote pt alertness, command following, and active participation in session. Total Timed Code Treatment Minutes: 23 Total Treatment Time (minutes): 38 FUNCTIONAL G CODE: OT 6 Clicks Score: 17 (07/30/17847) Self Care Current Status (G8987): CK (07/30/17847) Self Care Goal Status (G8988): CI (07/30/17847) Based on clinical assessment and the score on the 6 Clicks Functional Assessment Tool, the G code and corresponding severity modifiers are documented above. SUBJECTIVE: Current Hospital Course: Chart reviewed; Procedure/Surgeries: 07/28/2017 redo sternotomy, CABGx3 Reason for Occupational Therapy Consult: generalized muscle weakness, decreased ADL's, reduced mobility Relevant Past Medical History: previous GA and ICD placement Patient Report: I'm at 421. Home Environment Patient Lives With: Significant Other () Prior Functional Level: Within Functional Limits (pt questionable historian d/t increased confusion) OBJECTIVE: Orientation Deficits: Not oriented to Place;Not oriented to Time;Not oriented to Situation Responsiveness: Awake Follows Commands: 1-step Commands;Cueing Needed Cueing to Follow Commands: Moderate Attention Deficits: Distractible (required frequent cues to attend to tasks) Memory Deficits: Short Term Executive Function Deficits: (grossly impaired) Mini Cog Score: 0 (07/30/17 0848) Vision Deficits: Wears glasses Administered mini-cog with score of 0/5 (<4 warrants further cognitive assessment). Unable to recall banana, chair, sunrise without verbal cues. Unable to position numbers on clock, able to draw resighini only. Hand Dominance: Right Range Of Motion: Within Functional Limits Strength: Within Functional Limits Except Location Strength Not WFL: Upper Extremity Left Upper Extremity Strength: 3/5 Right Upper Extremity Strength: 3/5 CURRENT FUNCTIONAL STATUS: Current Activities of Daily Living Assist Level Feeding Set Up Grooming Minimal Assistance Bathing Upper Body Minimal Assistance Bathing Lower Body Minimal Assistance Dressing Upper Body Minimal Assistance Dressing Lower Body Moderate Assistance Toileting Total Assistance Instrumental Activities of Daily Living Assist Level Meal/Beverage Prep Light Cleaning Laundry Medication Management with Strategies Functional Mobility Assist Level Rolling Supine to Sit Sit to Supine Scooting Sit to Stand Minimal Assistance Stand to Sit Minimal Assistance Bed to Chair Toilet/Commode Functional Mobility Balance: Static Standing Static Standing Balance: Minimal Assistance Please see discipline specific clinical documentation flowsheet for complete details for this therapy evaluation/treatment. SIGNATURE: Kika Benson OTR/L PATIENT NAME: Amelia Leavitt DATE: July 30, 2017 TIME: 10:14 AM PAGER: [phone] GASV + ALL Collected: 07/30/2017 Status: F Source: [facility] 9:10 AM [facility] REPOSITORY TYPE CODE TESTS RESULT OUT OF REFERENCE UNITS RANGE LAB VPH 7.32-7.42 pH 7.38 LAB VPC2 42-55 mm Hg pCO2 Low 38 LAB VPO2 35-45 mm Hg pO2 39 LAB VBE mmol/L Base Excess NEG 2 LAB VHC3 24-28 mmol/L Bicarbonate Low 22 LAB VC2C 25-29 mmol/L CO2 Content Low 24 LAB O2HBCX 60-85 % Oxyhemoglobin, Patrice. 70 LAB CO <2.0 % Carboxyhemoglobin, 1.9 Patrice LAB METHB 0.4-1.5 % Methemoglobin 1.0 LAB VTMP C Temperature, Body 37.0 LAB VPHTC 7.32-7.42 pH, Temp Corrected 7.38 LAB VPC2T mm Hg pCO2, Temp Correct 38 LAB VPO2T mm Hg pO2, Temp Corrected 39 LAB NAB 135-146 mmol/L Sodium,Whole Bld 138 LAB KWB 3.5-5.0 mmol/L Potassium, Whole Bld 3.9 LAB HGBB 13.0-17.0 g/dL Low Hemoglobin,Total,A 8.8 CL LAB HCTB 39.0-51.0 % Hematocrit, Low ACL 27 LAB IC 1.08-1.30 mmol/L Calcium, Ion, WB 1.17 LAB GLB 60-105 mg/dL Glucose,Whole High Bld 123 LAB LACT 0.5-2.2 mmol/L Lactate 0.8 LAB VCBDTE Notify Date, Patrice [id number] LAB VCBTME Notify Time, Patrice Performed By: #### VALLBG #### [facility] [address] [place], [place] [address] GASA + ALL Collected: 07/30/2017 Status: F Source: [facility] FOR 9:07 AM [facility] RADIANCE USE ONLY REPOSITORY TYPE CODE TESTS RESULT OUT OF REFERENCE UNITS RANGE LAB PH 7.35-7.45 pH 7.45 LAB PCO2 34-46 mm Hg pCO2 Low 30 LAB PO2 85-95 mm Hg pO2 High 121 LAB BE mmol/L Base Excess NEG 3 LAB HCO3 22-26 mmol/L Bicarbonate Low 20 LAB CO2CT 22.0-28.0 mmol/L CO2 Content Low 21 LAB O2HB 95-98 % Oxyhemoglobin, Art. 96 LAB COHB 0-5.0 % Carboxyhemoglobin, 0.8 Art LAB MHGB 0.4-1.5 % Methemoglobin 0.4 LAB TEMP C Temperature, Body 37.0 LAB PHTC 7.35-7.45 pH, Temp Corrected 7.45 LAB PCO2T 34-46 mm Hg pCO2, Temp Low Correct 30 LAB PO2T mm Hg pO2, Temp Corrected 121 LAB NAB 135-146 mmol/L Sodium,Whole Bld 139 LAB KWB 3.5-5.0 mmol/L Potassium, Whole Bld 3.9 LAB HGBB 13.0-17.0 g/dL Low Hemoglobin,Total,A 8.7 CL LAB HCTB 39.0-51.0 % Hematocrit, Low ACL 27 LAB IC 1.08-1.30 mmol/L Calcium, Ion, WB 1.14 LAB GLB 60-105 mg/dL Glucose,Whole High Bld 118 LAB LACT 0.5-2.2 mmol/L Lactate 0.8 LAB ACBDTE Notify Date, Art [id number] LAB ACBTME Notify Time, Art Performed By: #### ALLBG #### [facility] [address] [place], [place] [address] XR CHEST 1V FRONTAL Observed: 07/30/2017 Status: F Source: [facility] 4:56 AM [facility] [place] REPOSITORY * * *Final Report* * * DATE OF EXAM: Jul 30 2017 4:56AM JIX [id number] - XR CHEST 1V FRONTAL PORT / PROCEDURE REASON: Status post cardiac surgery * * * * Physician Interpretation * * * * CHEST RADIOGRAPH (PORTABLE SINGLE VIEW AP) Exam Date/Time: 07/30/2017 4:56 AM Indications: Status post cardiac surgery M: XCP_3 Comparison: 1 day earlier RESULTS: See Impression. IMPRESSION: Lines, Tubes, and Devices: Interval removal of nasogastric tube and otherwise stable support lines and tubes. Lungs and Pleura: Interstitial lung opacities are not significantly changed. Increased right upper moderate-sized pneumothorax in the setting of chest tube. Cardiomediastinal silhouette: Stable cardiac silhouette. 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0-28.0 mmol/L CO2 Content 24 LAB O2HB 95-98 % Oxyhemoglobin, Art. 96 LAB COHB 0-5.0 % Carboxyhemoglobin,A 0.8 rt LAB MHGB 0.4-1.5 % Methemoglobin Low 0.0 LAB TEMP C Temperature, Body 37.0 LAB PHTC 7.35-7.45 pH, Temp Corrected 7.40 LAB PCO2T 34-46 mm Hg pCO2, Temp Correct 38 LAB PO2T mm Hg pO2, Temp Corrected 121 LAB NAB 135-146 mmol/L Sodium,Whole Bld 136 LAB KWB 3.5-5.0 mmol/L Potassium, Whole Bld 4.0 LAB HGBB 13.0-17.0 g/dL Low Hemoglobin,Total,AC 8.7 L LAB HCTB 39.0-51.0 % Hematocrit, ACL Low 27 LAB IC 1.08-1.30 mmol/L Calcium, Ion, WB 1.19 LAB GLB 60-105 mg/dL Glucose,Whole Bld 95 LAB LACT 0.5-2.2 mmol/L Lactate 0.7 Performed By: #### ALLBG #### [facility] [address] [place] [address] GASV + ALL Collected: 07/30/2017 Status: F Source: [place] 12:41 AM [facility] REPOSITORY TYPE CODE TESTS RESULT OUT OF REFERENCE UNITS RANGE LAB VPH 7.32-7.42 pH 7.38 LAB VPC2 42-55 mm Hg pCO2 Low 40 LAB VPO2 35-45 mm Hg pO2 36 LAB VBE mmol/L Base Excess NEG 1 LAB VHC3 24-28 mmol/L Bicarbonate Low 23 LAB VC2C 25-29 mmol/L CO2 Content Low 24 LAB O2HBCX 60-85 % Oxyhemoglobin, Patrice. 65 LAB CO <2.0 % Carboxyhemoglobin,V 1.5 en LAB METHB 0.4-1.5 % Methemoglobin 1.3 LAB VTMP C Temperature, Body 37.0 LAB VPHTC 7.32-7.42 pH, Temp Corrected 7.38 LAB VPC2T mm Hg pCO2, Temp Correct 40 LAB VPO2T mm Hg pO2, Temp Corrected 36 LAB NAB 135-146 mmol/L Sodium,Whole Bld 140 LAB KWB 3.5-5.0 mmol/L Potassium, Whole Bld 3.8 LAB HGBB 13.0-17.0 g/dL Low Hemoglobin,Total,AC 8.6 L LAB HCTB 39.0-51.0 % Hematocrit, ACL Low 27 LAB IC 1.08-1.30 mmol/L Calcium, Ion, WB 1.18 LAB GLB 60-105 mg/dL Glucose,Whole Bld 83 LAB LACT 0.5-2.2 mmol/L Lactate 0.5 Performed By: #### VALLBG #### [facility] [address] [place] [address] GASA + ALL Collected: 07/30/2017 Status: F Source: [place] FOR 12:39 AM [facility] USE ONLY REPOSITORY TYPE CODE TESTS RESULT OUT OF REFERENCE UNITS RANGE LAB PH 7.35-7.45 pH 7.43 LAB PCO2 34-46 mm Hg pCO2 35 LAB PO2 85-95 mm Hg pO2 High 130 LAB BE mmol/L Base Excess NEG 1 LAB HCO3 22-26 mmol/L Bicarbonate 23 LAB CO2CT 22.0-28.0 mmol/L CO2 Content 24 LAB O2HB 95-98 % Oxyhemoglobin, Art. 96 LAB COHB 0-5.0 % Carboxyhemoglobin,A 1.8 rt LAB MHGB 0.4-1.5 % Methemoglobin 0.9 LAB TEMP C Temperature, Body 37.0 LAB PHTC 7.35-7.45 pH, Temp Corrected 7.43 LAB PCO2T 34-46 mm Hg pCO2, Temp Correct 35 LAB PO2T mm Hg pO2, Temp Corrected 130 LAB NAB 135-146 mmol/L Sodium,Whole Bld 136 LAB KWB 3.5-5.0 mmol/L Potassium, Whole Bld 4.0 LAB HGBB 13.0-17.0 g/dL Low Hemoglobin,Total,AC 9.0 L LAB HCTB 39.0-51.0 % Hematocrit, ACL Low 28 LAB IC 1.08-1.30 mmol/L Calcium, Ion, WB 1.18 LAB GLB 60-105 mg/dL Glucose,Whole Bld 86 LAB LACT 0.5-2.2 mmol/L Lactate 0.6 Performed By: #### ALLBG #### [facility] [place], [place] [id number] CBC Collected: 07/30/2017 Status: F Source: [place] 12:30 AM [facility] REPOSITORY TYPE CODE TESTS RESULT OUT OF REFERENCE UNITS RANGE LAB WBC 3.70-11.00 k/uL WBC High 15.08 LAB RBC 4.20-6.00 m/uL Low RBC 2.77 LAB HGB 13.0-17.0 g/dL Low Hemoglobin 8.8 LAB HCT 39.0-51.0 % Low Hematocrit 26.1 LAB MCV 80.0-100.0 fL MCV 94.2 LAB MCH 26.0-34.0 pG MCH 31.8 LAB MCHC 30.5-36.0 g/dL MCHC 33.7 LAB RDWCV 11.5-15.0 % RDW-CV 13.4 LAB PLTCT 150-400 k/uL Low Platelet Count 88 Result Comment: No clot detected. LAB MPV 9.0-12.7 fL MPV 11.2 LAB ABSNUC <0.01 k/uL Absolute nRBC <0.01 Performed By: #### CBC, CMP #### [facility] [address] [place] [id number] COMP METABOLIC PANEL Collected: 07/30/2017 Status: F Source: [place] 12:30 AM [facility] REPOSITORY TYPE CODE TESTS RESULT OUT OF REFERENCE UNITS RANGE LAB TP 6.3-8.0 g/dL Low Protein, Total 6.1 LAB ALB 3.9-4.9 g/dL Low Albumin 3.4 LAB CA 8.5-10.2 mg/dL Calcium, Total 8.5 LAB TBIL 0.2-1.3 mg/dL Bilirubin, Total 1.3 LAB ALKP 36-108 U/L Alkaline Phosphatase 49 LAB AST 14-40 U/L AST 29 LAB GLU 74-99 mg/dL Glucose 86 Result Comment: The [place] [employer] (ADA) provides guidance for cutoff values for fasting glucose and random glucose. The ADA defines fasting as no caloric intake for at least 8 hours. Fas ting plasma glucose results between 100 to 125 mg/dL indicate increased risk for diabetes (prediabetes). Fasting plasma glucose results greater than or equal to 126 mg/dL meet the criteria for diagnosis of diabetes. In the absence of unequivocal hyperglycemia, results should be confirmed by repeat testing. In a patient with classic symptoms of hyperglycemia or hyperglycemic crisis, random plasma glucose results greater than or equal to 200 mg/dL meet the criteria for diagnosis of diabetes. Reference: Standards of Medical Care in Diabetes 2016, [place] [employer]. Diabetes Care. 2016.39(Suppl 1). LAB BUN 9-24 mg/dL BUN 15 LAB CRET 0.73-1.22 mg/dL Creatinine 1.07 LAB NA 136-144 mmol/L Sodium 139 LAB K 3.7-5.1 mmol/L Potassium 4.1 LAB CL 97-105 mmol/L Chloride 104 LAB CO2 22-30 mmol/L CO2 Low 21 LAB AGAP 9-18 mmol/L Anion Gap 14 LAB ALT 10-54 U/L ALT 16 LAB GFRAA eGFR- Amer. >60 LAB GFRNAA . eGFR-All Other Races >60 Result Comment: eGFR (Estimated GFR) Units of measure: mL/min/1.73 meters squared eGFR is derived from the reexpressed MDRD Study equation using the following parameters: serum creatinine, age, gender and race. The creatinine assay has been calibrated to be traceable to IDMS. An eGFR <60 mL/min/1.73m2 for >3 months is consistent with chronic kidney disease. Refer to KDOQI guidelines for clinical interpretation. In patients with unstable renal function, e.g. those with acute kidney injury, the eGFR may not accurately reflect actual GFR. Performed By: #### CBC, CMP #### [facility] [address] [place] [id number] GASV + ALL Collected: 07/29/2017 Status: F Source: [place] 9:36 PM [facility] REPOSITORY TYPE CODE TESTS RESULT OUT OF REFERENCE UNITS RANGE LAB VPH 7.32-7.42 pH 7.39 LAB VPC2 42-55 mm Hg pCO2 Low 39 LAB VPO2 35-45 mm Hg pO2 41 LAB VBE mmol/L Base Excess NEG 1 LAB VHC3 24-28 mmol/L Bicarbonate Low 23 LAB VC2C 25-29 mmol/L CO2 Content Low 24 LAB O2HBCX 60-85 % Oxyhemoglobin, Patrice. 70 LAB CO <2.0 % Carboxyhemoglobin,V 1.9 en LAB METHB 0.4-1.5 % Methemoglobin 0.5 LAB VTMP C Temperature, Body 37.0 LAB VPHTC 7.32-7.42 pH, Temp Corrected 7.39 LAB VPC2T mm Hg pCO2, Temp Correct 39 LAB VPO2T mm Hg pO2, Temp Corrected 41 LAB NAB 135-146 mmol/L Sodium,Whole Bld 140 LAB KWB 3.5-5.0 mmol/L Potassium, Whole Bld 4.1 LAB HGBB 13.0-17.0 g/dL Low Hemoglobin,Total,AC 9.0 L LAB HCTB 39.0-51.0 % Hematocrit, ACL Low 28 LAB IC 1.08-1.30 mmol/L Calcium, Ion, WB 1.19 LAB GLB 60-105 mg/dL Glucose,Whole Bld 93 LAB LACT 0.5-2.2 mmol/L Lactate 0.7 Performed By: #### VALLBG #### [facility] [address] [place] [address] GASA + ALL Collected: 07/29/2017 Status: F Source: [place] FOR 9:34 PM [facility] RADIANCE USE ONLY REPOSITORY TYPE CODE TESTS RESULT OUT OF REFERENCE UNITS RANGE LAB PH 7.35-7.45 pH 7.44 LAB PCO2 34-46 mm Hg pCO2 Low 33 LAB PO2 85-95 mm Hg pO2 High 123 LAB BE mmol/L Base Excess NEG 1 LAB HCO3 22-26 mmol/L Bicarbonate 22 LAB CO2CT 22.0-28.0 mmol/L CO2 Content 23 LAB O2HB 95-98 % Oxyhemoglobin, Art. 97 LAB COHB 0-5.0 % Carboxyhemoglobin,A 0.9 rt LAB MHGB 0.4-1.5 % Methemoglobin Low 0.0 LAB TEMP C Temperature, Body 37.0 LAB PHTC 7.35-7.45 pH, Temp Corrected 7.44 LAB PCO2T 34-46 mm Hg pCO2, Temp Low Correct 33 LAB PO2T mm Hg pO2, Temp Corrected 123 LAB NAB 135-146 mmol/L Sodium,Whole Bld 138 LAB KWB 3.5-5.0 mmol/L Potassium, Whole Bld 4.2 LAB HGBB 13.0-17.0 g/dL Low Hemoglobin,Total,AC 9.3 L LAB HCTB 39.0-51.0 % Hematocrit, ACL Low 29 LAB IC 1.08-1.30 mmol/L Calcium, Ion, WB 1.21 LAB GLB 60-105 mg/dL Glucose,Whole Bld 94 LAB LACT 0.5-2.2 mmol/L Lactate 0.8 Performed By: #### ALLBG #### [facility] [address] [place] [address] GASV + ALL Collected: 07/29/2017 Status: F Source: [place] 7:44 PM [facility] REPOSITORY TYPE CODE TESTS RESULT OUT OF REFERENCE UNITS RANGE LAB VPH 7.32-7.42 pH 7.40 LAB VPC2 42-55 mm Hg pCO2 Low 37 LAB VPO2 35-45 mm Hg pO2 39 LAB VBE mmol/L Base Excess NEG 2 LAB VHC3 24-28 mmol/L Bicarbonate Low 22 LAB VC2C 25-29 mmol/L CO2 Content Low 23 LAB O2HBCX 60-85 % Oxyhemoglobin, Patrice. 68 LAB CO <2.0 % Carboxyhemoglobin,V 1.6 en LAB METHB 0.4-1.5 % Methemoglobin 0.9 LAB VTMP C Temperature, Body 37.0 LAB VPHTC 7.32-7.42 pH, Temp Corrected 7.40 LAB VPC2T mm Hg pCO2, Temp Correct 37 LAB VPO2T mm Hg pO2, Temp Corrected 39 LAB NAB 135-146 mmol/L Sodium,Whole Bld 138 LAB KWB 3.5-5.0 mmol/L Potassium, Whole Bld 4.1 LAB HGBB 13.0-17.0 g/dL Low Hemoglobin,Total,AC 9.0 L LAB HCTB 39.0-51.0 % Hematocrit, ACL Low 28 LAB IC 1.08-1.30 mmol/L Calcium, Ion, WB 1.17 LAB GLB 60-105 mg/dL Glucose,Whole Bld 98 LAB LACT 0.5-2.2 mmol/L Lactate 0.8 Performed By: #### VALLBG #### [facility] [address] [place], [place] [address] GASA + ALL Collected: 07/29/2017 Status: F Source: [facility] 7:41 PM [facility] [place] RADIANCE USE ONLY REPOSITORY TYPE CODE TESTS RESULT OUT OF REFERENCE UNITS RANGE LAB PH 7.35-7.45 pH High 7.46 LAB PCO2 34-46 mm Hg pCO2 Low 31 LAB PO2 85-95 mm Hg pO2 High 147 LAB BE mmol/L Base Excess NEG 1 LAB HCO3 22-26 mmol/L Bicarbonate 22 LAB CO2CT 22.0-28.0 mmol/L CO2 Content 22 LAB O2HB 95-98 % Oxyhemoglobin, Art. 96 LAB COHB 0-5.0 % Carboxyhemoglobin,A 0.8 rt LAB MHGB 0.4-1.5 % Methemoglobin 0.5 LAB TEMP C Temperature, Body 37.0 LAB PHTC 7.35-7.45 pH, Temp High Corrected 7.46 LAB PCO2T 34-46 mm Hg pCO2, Temp Low Correct 31 LAB PO2T mm Hg pO2, Temp Corrected 147 LAB NAB 135-146 mmol/L Sodium,Whole Bld 137 LAB KWB 3.5-5.0 mmol/L Potassium, Whole Bld 4.3 LAB HGBB 13.0-17.0 g/dL Low Hemoglobin,Total,AC 9.2 L LAB HCTB 39.0-51.0 % Hematocrit, ACL Low 29 LAB IC 1.08-1.30 mmol/L Calcium, Ion, WB 1.20 LAB GLB 60-105 mg/dL Glucose,Whole Bld 99 LAB LACT 0.5-2.2 mmol/L Lactate 0.9 Performed By: #### ALLBG #### [facility] [address] [place], [place] [address] GASV + ALL Collected: 07/29/2017 Status: F Source: [place] 5:39 PM [facility] [place] REPOSITORY TYPE CODE TESTS RESULT OUT OF REFERENCE UNITS RANGE LAB VPH 7.32-7.42 pH 7.42 LAB VPC2 42-55 mm Hg pCO2 Low 35 LAB VPO2 35-45 mm Hg pO2 35 LAB VBE mmol/L Base Excess NEG 1 LAB VHC3 24-28 mmol/L Bicarbonate Low 22 LAB VC2C 25-29 mmol/L CO2 Content Low 23 LAB O2HBCX 60-85 % Oxyhemoglobin, Patrice. 63 LAB CO <2.0 % Carboxyhemoglobin,V 1.7 en LAB METHB 0.4-1.5 % Methemoglobin 0.8 LAB VTMP C Temperature, Body 37.0 LAB VPHTC 7.32-7.42 pH, Temp Corrected 7.42 LAB VPC2T mm Hg pCO2, Temp Correct 35 LAB VPO2T mm Hg pO2, Temp Corrected 35 LAB NAB 135-146 mmol/L Sodium,Whole Bld 137 LAB KWB 3.5-5.0 mmol/L Potassium, Whole Bld 3.6 LAB HGBB 13.0-17.0 g/dL Low Hemoglobin,Total,AC 9.1 L LAB HCTB 39.0-51.0 % Hematocrit, ACL Low 28 LAB IC 1.08-1.30 mmol/L Calcium, Ion, WB 1.14 LAB GLB 60-105 mg/dL Glucose,Whole Bld High 121 LAB LACT 0.5-2.2 mmol/L Lactate 0.9 Performed By: #### VALLBG #### [facility] [address] [place] [address] GASA + ALL Collected: 07/29/2017 Status: F Source: [place] FOR 5:35 PM [facility] RADIANCE USE ONLY REPOSITORY TYPE CODE TESTS RESULT OUT OF REFERENCE UNITS RANGE LAB PH 7.35-7.45 pH High 7.47 LAB PCO2 34-46 mm Hg pCO2 Low 31 LAB PO2 85-95 mm Hg pO2 High 105 LAB BE mmol/L Base Excess NEG 1 LAB HCO3 22-26 mmol/L Bicarbonate 22 LAB CO2CT 22.0-28.0 mmol/L CO2 Content 23 LAB O2HB 95-98 % Oxyhemoglobin, Art. 95 LAB COHB 0-5.0 % Carboxyhemoglobin,A 0.9 rt LAB MHGB 0.4-1.5 % Methemoglobin 0.8 LAB TEMP C Temperature, Body 37.0 LAB PHTC 7.35-7.45 pH, Temp High Corrected 7.47 LAB PCO2T 34-46 mm Hg pCO2, Temp Low Correct 31 LAB PO2T mm Hg pO2, Temp Corrected 105 LAB NAB 135-146 mmol/L Sodium,Whole Bld 137 LAB KWB 3.5-5.0 mmol/L Potassium, Whole Bld 3.8 LAB HGBB 13.0-17.0 g/dL Low Hemoglobin,Total,AC 9.4 L LAB HCTB 39.0-51.0 % Hematocrit, ACL Low 29 LAB IC 1.08-1.30 mmol/L Calcium, Ion, WB 1.14 LAB GLB 60-105 mg/dL Glucose,Whole Bld High 124 LAB LACT 0.5-2.2 mmol/L Lactate 1.0 Performed By: #### ALLBG #### [facility] [address] [place], [place] [address] CASE MGT INIT Observed: 07/29/2017 Status: COMPLETED Source: [facility] 4:13 PM [facility] REPOSITORY HNO ID: [id number] Author: Yady Barnes (Sw) Service: Care Management Author Type: Organizational Research Consultant Type: Care Mgt Initial Assessment Filed: 07/29/2017 4:35 PM Note Text: CARE MANAGEMENT: ASSESSMENT AND DISCHARGE PLAN SERVICE DATE: 07/29/2017 SERVICE TIME: 3:45 PM PRIMARY CARE PHYSICIAN: Domo Newman MD ADMISSION STATUS: Inpatient Needs Prior to Discharge: To Be Determined;OT/PT Evaluation 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 Prior GA. Prior ICD placement Last Admission Date: none Is this Within the Past 30 days? No Advance Directive: Current Advance Directive: Health Care Power of Document Control Clerk;Living Will In Chart: Yes Up To Date and Valid: Yes Health Literacy Assessment: Patient is unable to complete at this time due to confusion. FUNCTIONAL AND COGNITIVE/BEHAVIORAL PRIOR TO ADMISSION: Baseline Mental Status: Alert AND Oriented, Person, Place , Time and Situation Functional Status: Independent Does Patient Currently Receive Any Community Services or Home Care? None Equipment Prior to Admission: None Has the Patient Been in a Care Home Facility in the Past 30 days? No SOCIAL: Living Arrangement: Home Lives With: Spouse Financial Resources: Retired Primary Contact: Extended Emergency Contact Information Primary Emergency Contact: Silvia Leavitt Relation: Spouse Supportive: Yes Other Important Patient Contacts: None Caregiver Assessment: Caregiver is ready, willing and able to meet the patient's needs as recommended by the inter-professional team? Yes Patient's transition needs and plan for meeting these needs: Needs TBD at this time. CM will continue to follow for evolving d/c needs. Does the patient have an acute stroke diagnosis, or has the patient had a stroke during this admission? No Medicaiton Adherence: Patient is unable to complete at this time due to confusion. Are you interested in bedside delivery of your medications? No Food Concerns: In the Last Month, Have You had Trouble Getting Food? No trouble getting food During the Last Month, Have You Worried Whether Your Food Would Run Out Before You Had Enough Money to Buy More? No Is the Patient Psychosocially Complex? No ASSESSMENT AND PLAN: Medical Needs: None Psychosocial Needs: None FREEDOM OF CHOICE EXPLAINED: N/A POTENTIAL TRANSITION PLANS Home Home Nursing Home OT/biological inspectorCare Home Facility/Intermediate Care Facility To Be Determined Pt is a 67 year old male from [place], [place] who is currently in the CVICU s/p Redo Sternotomy CABGx3 (SVG1 to PDA, SVG2 to OM, Free ROMAN as jump graft from prox. SVG2 to LAD ) on 07/28/17. Uziel attempted to speak to pt at the bedside, but he was in and out of sleep and appeared confused at this time. Therefore, sw spoke with pt's spouse, Silvia; introduced self and explained role. Silvia stated that pt was living independently with her prior to this admission. Silvia went on to say that pt has always been active, up until a week ago when his symptoms became worse. Pt and Silvia have two dtrs, Carmen Valenzuela and Daphnie Vale, who live near . Carmen is a nurse and is currently with Silvia at [employer]. The only concern that Silvia brought up to this sw is that she feels pt will need a lift chair once he returns home. Silvia stated that if he doesn't necessarily need one from a physical stand point then she will be able to get one on her own, but she wanted to make the concern known. Sw will look into this further. Discharge needs are TBD at this time. CM will continue to follow medical course and plan discharge accordingly. SIGNATURE: ANAY Meyer PATIENT NAME: Amelia Leavitt DATE: July 29, 2017 TIME: 4:23 PM PAGER/CONTACT #: [phone] GASA + ALL Collected: 07/29/2017 Status: F Source: [place] FOR 2:56 PM [facility] RADIANCE USE ONLY REPOSITORY TYPE CODE TESTS RESULT OUT OF REFERENCE UNITS RANGE LAB PH 7.35-7.45 pH 7.44 LAB PCO2 34-46 mm Hg pCO2 Low 31 LAB PO2 85-95 mm Hg pO2 94 LAB BE mmol/L Base Excess NEG 2 LAB HCO3 22-26 mmol/L Bicarbonate Low 21 LAB CO2CT 22.0-28.0 mmol/L CO2 Content 22 LAB O2HB 95-98 % Oxyhemoglobin, Low Art. 94 LAB COHB 0-5.0 % Carboxyhemoglobin, 0.2 Art LAB MHGB 0.4-1.5 % Methemoglobin 0.7 LAB TEMP C Temperature, Body 37.0 LAB PHTC 7.35-7.45 pH, Temp Corrected 7.44 LAB PCO2T 34-46 mm Hg pCO2, Temp Low Correct 31 LAB PO2T mm Hg pO2, Temp Corrected 94 LAB NAB 135-146 mmol/L Sodium,Whole Bld 138 LAB KWB 3.5-5.0 mmol/L Potassium, Whole Bld 3.6 LAB HGBB 13.0-17.0 g/dL Low Hemoglobin,Total,A 9.5 CL LAB HCTB 39.0-51.0 % Hematocrit, Low ACL 30 LAB IC 1.08-1.30 mmol/L Calcium, Ion, WB 1.21 LAB GLB 60-105 mg/dL Glucose,Whole High Bld 151 LAB LACT 0.5-2.2 mmol/L Lactate 1.8 LAB ACBDTE Notify Date, Art [id number] LAB ACBTME Notify Time, Art Performed By: #### ALLBG #### [facility] [address] [place], [place] [address] GASA + ALL Collected: 07/29/2017 Status: F Source: [place] FOR 11:25 AM [facility] RADIANCE USE ONLY REPOSITORY TYPE CODE TESTS RESULT OUT OF REFERENCE UNITS RANGE LAB PH 7.35-7.45 pH High 7.49 LAB PCO2 34-46 mm Hg pCO2 Low 27 LAB PO2 85-95 mm Hg pO2 High 112 LAB BE mmol/L Base Excess NEG 2 LAB HCO3 22-26 mmol/L Bicarbonate Low 20 LAB CO2CT 22.0-28.0 mmol/L CO2 Content Low 21 LAB O2HB 95-98 % Oxyhemoglobin, Art. 96 LAB COHB 0-5.0 % Carboxyhemoglobin, 0.1 Art LAB MHGB 0.4-1.5 % Methemoglobin Low 0.3 LAB TEMP C Temperature, Body 37.0 LAB PHTC 7.35-7.45 pH, Temp High Corrected 7.49 LAB PCO2T 34-46 mm Hg pCO2, Temp Low Correct 27 LAB PO2T mm Hg pO2, Temp Corrected 112 LAB NAB 135-146 mmol/L Sodium,Whole Bld 138 LAB KWB 3.5-5.0 mmol/L Potassium, Whole Bld 3.9 LAB HGBB 13.0-17.0 g/dL Low Hemoglobin,Total,A 9.3 CL LAB HCTB 39.0-51.0 % Hematocrit, Low ACL 29 LAB IC 1.08-1.30 mmol/L Calcium, Ion, WB 1.20 LAB GLB 60-105 mg/dL Glucose,Whole High Bld 150 LAB LACT 0.5-2.2 mmol/L Lactate 2.2 LAB ACBDTE Notify Date, Art [id number] LAB ACBTME Notify Time, Art Performed By: #### ALLBG #### [facility] [address] [place] [id number] GASA + ALL Collected: 07/29/2017 Status: F Source: [place] FOR 8:56 AM [facility] USE ONLY REPOSITORY TYPE CODE TESTS RESULT OUT OF REFERENCE UNITS RANGE LAB PH 7.35-7.45 pH High 7.57 LAB PCO2 34-46 mm Hg pCO2 Low 20 LAB PO2 85-95 mm Hg pO2 High 108 LAB BE mmol/L Base Excess NEG 3 LAB HCO3 22-26 mmol/L Bicarbonate Low 18 LAB CO2CT 22.0-28.0 mmol/L CO2 Content Low 19 LAB O2HB 95-98 % Oxyhemoglobin, Art. 96 LAB COHB 0-5.0 % Carboxyhemoglobin, 1.0 Art LAB MHGB 0.4-1.5 % Methemoglobin High 1.7 LAB TEMP C Temperature, Body 37.0 LAB PHTC 7.35-7.45 pH, Temp High Corrected 7.57 LAB PCO2T 34-46 mm Hg pCO2, Temp Low Correct 20 LAB PO2T mm Hg pO2, Temp Corrected 108 LAB NAB 135-146 mmol/L Sodium,Whole Bld 137 LAB KWB 3.5-5.0 mmol/L Potassium, Whole Bld 3.5 LAB HGBB 13.0-17.0 g/dL Low Hemoglobin,Total,A 8.6 CL LAB HCTB 39.0-51.0 % Hematocrit, Low ACL 27 LAB IC 1.08-1.30 mmol/L Calcium, Ion, WB 1.12 LAB GLB 60-105 mg/dL Glucose,Whole High Bld 165 LAB LACT 0.5-2.2 mmol/L Lactate High 3.5 LAB ACBDTE Notify Date, Art [id number] LAB ACBTME Notify Time, Art Performed By: #### ALLBG #### [facility] [address] [place], [place] [address] PROGRESS Observed: 07/29/2017 Status: COMPLETED Source: [place] 7:49 AM [facility] REPOSITORY HNO ID: [id number] Author: Simeon Aleman Service: Critical Care Author Type: Anesthesiologist Type: Progress Notes Filed: 07/29/2017 7:58 AM Note Text: [facility] Progress Note Name: Amelia Leavitt COORDINATION OF CARE NOTE: Indication for Surgery: CAD, post prior CAB LVEF: Moderate (37%) RVF: Low Normal Important/Relevant PMH/PSH: 0.5 ppd smoker, quit 2017. Prior GA. Prior ICD placement Preoperative Hospital Course (narrative): 67 year old, long history of CAD, post multiple stent procedures. ?Postop CABG with a left internal mammary artery to the left anterior descending. RCA stented in 2015. ?The ejection fraction was 30-35%. ?A relook on April 25, 2016 demonstrated widely patent left internal mammary artery. ?The right coronary artery and circumflex were occluded. ?He was most recently seen in the office by Dr. Rosalind Carbajal on June 11, 2017. ?They elected to recommend continued medical treatment with up titrating of Ranexa. ?He is coming to [facility] for a second opinion. Procedure/Surgeries: 07/28/2017 Redo Sternotomy CABGx3 (SVG1 to PDA, SVG2 to OM, Free ROMAN as jump graft from prox. SVG2 to LAD ) Airway Difficulty: Grade I OR Course: cardiac dysfunction treated with epi Pacing wires: Per CTS Postoperative Course/General Impression: (narrative or log of major events with date of onset): Had vent dyssynchrony requiring sedation and pain medication with improvement. Treated for wheezing with improvement. Inotropic support. Lactate trending with volume resuscitation. Issues to communicate at signout: July 27, 2017 --wean epi inotropic support as able --had vent dyssynchrony postop, sedation improved this --volume resuscitation postop--improved hemodynamics --wheezing postop--duonebs with improvement --will need ICD interrogation postop --WTE likely 07/28/17 OTHER PROBLEMS I MANAGED DURING THIS ENCOUNTER: Problem Atelectasis self extubated will encourage PEP and OOB Cardiomyopathy, Ischemic July 28, 2017 Treated with bypass surgery, inotropic support postoepratively 07/28/2017 on Epi will wean for CI > 2.0 07/29/2017 restarted EPI because SVO2 dropped will try to wean aagin Respiratory Insufficiency July 28, 2017 Treated with duonebs, mechanical ventilation, optimization of ventilator settings including PEEP and respiratory rate, driving pressure 07/28/[address] scan of the abdomen then WTE Hyperglycemia July 28, 2017 Postoperative, treated with insulin infusion 07/28- will continue to titrate for BG < 180 SUBJECTIVE INTERVAL HISTORY: self extubated PERTINENT REVIEW OF SYSTEMS: See Assessment and Plan. Remaining ROS reviewed and negative. PHYSICAL EXAM AND PERTINENT DATA: Infusions: Epinephrine Insulin Nitroglycerin Vital Signs: BP 137/92 Pulse 109 Temp 36.2 ?C (97.2 ?F) (Temporal Artery) Resp 25 Ht 177.8 cm (5' 10) Wt 102.5 kg (226 lb) SpO2 97% BMI 32.43 kg/m2 Neuro: Awake, Follows commands and CANTU Cardiovascular: Rhythm: regular rate and rhythm MAP: 82 mm Hg CVP: 10 mm Hg PAP: 29/6 mm Hg Cardiac Index: 3.6 L/min/m2 Recent Labs 07/28/17 0030 TROPT 0.799* Pulmonary: Breath sounds equal and Diminished breath sounds, at the bases Ventilator: Extubated Recent Labs 07/29/17 0637 07/29/17 0633 07/29/17 0549 07/29/17 0459 PH -- 7.46* 7.45 -- 7.57* PCO2 -- 33* 32* -- 23* PO2 -- 92 67* -- 124* HCO3 -- 23 22 -- 21* O2HB -- 94* 91* -- 96 LACT 1.3 1.4 1.9 < > 1.7 < > = values in this interval not displayed. CXR Findings: Atelectasis Bilateral and CXR personally viewed and interpreted by ICU staff Physician Gastrointestinal: Abdominal: Soft, Non-tender and Bowel sounds no Recent Labs 07/29/17 0230 07/28/17 0030 TPROT 6.1* 4.8* ALB 3.9 2.6* ALKPHOS 52 74 TBILI 2.1* 0.7 AST 36 47* ALT 18 22 Heme: Recent Labs 07/29/17 0230 07/28/17 0030 WBC 13.27* 22.90* HB 9.2* 13.1 HCT 27.3* 38.6* PLT 86* 152 Recent Labs 07/28/17 0030 PTSEC 12.6 INR 1.2 APTT 45.4* Endocrine: Renal: Stable Intake/Output Summary (Last 24 hours) at 07/29/17 0659 Last data filed at 07/29/17 0630 Gross per 24 hour Intake 1509.4 ml Output 3265 ml Net -1755.6 ml Recent Labs 07/29/17 0637 07/29/17 0502 07/29/17 0252 07/29/17 0230 07/28/17 0030 NA -- -- -- 140 -- 141 K -- -- -- 3.9 -- 3.9 CHLOR -- -- -- 104 -- 101 CO2 24* 23* 26 22 < > 24 BUN -- -- -- 15 -- 22 CREAT -- -- -- 1.09 -- 1.35* GLUC -- -- -- 146* -- 150* < > = values in this interval not displayed. Recent Labs 07/29/17 0230 07/28/17 0030 CA 8.5 8.0* Drug Blood Levels: I have discussed the case and the plan and management of the patient's care with the primary surgical team and consulting services, the bedside nurse and the respiratory therapist. SIGNATURE: Simeon Aleman MD DATE of SERVICE: 07/29/2017 TIME of SERVICE: 7:49 AM I gave my full attention and provided critical care time for 32 minutes, exclusive of separately billable procedures and treating other patients. I examined the patient and directed decision making. This was necessary to treat or prevent imminent deterioration of the following condition(s) Respiratory failure and Circulatory failure. redo CABG X 3 self extubated this AM will encourage PEP and OOB cardiac insuff on EPi will try to wean slowly stress hyperglycemia will titrate insulin for BG < 180 pain on QUALITY ENGINEER will adjust to have a better control Simeon Aleman MD 07/29/2017 7:55 AM GASV + ALL Collected: 07/29/2017 Status: F Source: [place] 6:37 AM [facility] REPOSITORY TYPE CODE TESTS RESULT OUT OF REFERENCE UNITS RANGE LAB VPH 7.32-7.42 pH High 7.43 LAB VPC2 42-55 mm Hg pCO2 Low 36 LAB VPO2 35-45 mm Hg pO2 Low 32 LAB VBE mmol/L Base Excess NEG 1 LAB VHC3 24-28 mmol/L Bicarbonate Low 23 LAB VC2C 25-29 mmol/L CO2 Content Low 24 LAB O2HBCX 60-85 % Oxyhemoglobin, Low Patrice. 57 LAB CO <2.0 % Carboxyhemoglobin,V 0.0 en LAB METHB 0.4-1.5 % Methemoglobin 0.5 LAB VTMP C Temperature, Body 37.0 LAB VPHTC 7.32-7.42 pH, Temp High Corrected 7.43 LAB VPC2T mm Hg pCO2, Temp Correct 36 LAB VPO2T mm Hg pO2, Temp Corrected 32 LAB NAB 135-146 mmol/L Sodium,Whole Bld 138 LAB KWB 3.5-5.0 mmol/L Potassium, Whole Bld 3.6 LAB HGBB 13.0-17.0 g/dL Low Hemoglobin,Total,AC 8.6 L LAB HCTB 39.0-51.0 % Hematocrit, ACL Low 27 LAB IC 1.08-1.30 mmol/L Calcium, Ion, WB 1.20 LAB GLB 60-105 mg/dL Glucose,Whole Bld High 183 LAB LACT 0.5-2.2 mmol/L Lactate 1.3 Performed By: #### VALLBG #### [facility] [address] [place], [place] [address] GASA + ALL Collected: 07/29/2017 Status: F Source: [place] FOR 6:33 AM [facility] RADIANCE USE ONLY REPOSITORY TYPE CODE TESTS RESULT OUT OF REFERENCE UNITS RANGE LAB PH 7.35-7.45 pH High 7.46 LAB PCO2 34-46 mm Hg pCO2 Low 33 LAB PO2 85-95 mm Hg pO2 92 LAB BE mmol/L Base Excess NEG 1 LAB HCO3 22-26 mmol/L Bicarbonate 23 LAB CO2CT 22.0-28.0 mmol/L CO2 Content 24 LAB O2HB 95-98 % Oxyhemoglobin, Low Art. 94 LAB COHB 0-5.0 % Carboxyhemoglobin,A 0.2 rt LAB MHGB 0.4-1.5 % Methemoglobin 0.7 LAB TEMP C Temperature, Body 37.0 LAB PHTC 7.35-7.45 pH, Temp High Corrected 7.46 LAB PCO2T 34-46 mm Hg pCO2, Temp Low Correct 33 LAB PO2T mm Hg pO2, Temp Corrected 92 LAB NAB 135-146 mmol/L Sodium,Whole Bld 137 LAB KWB 3.5-5.0 mmol/L Potassium, Whole Bld 3.8 LAB HGBB 13.0-17.0 g/dL Low Hemoglobin,Total,AC 9.0 L LAB HCTB 39.0-51.0 % Hematocrit, ACL Low 28 LAB IC 1.08-1.30 mmol/L Calcium, Ion, WB 1.23 LAB GLB 60-105 mg/dL Glucose,Whole Bld High 188 LAB LACT 0.5-2.2 mmol/L Lactate 1.4 Performed By: #### ALLBG #### [facility] [address] [place], [place] [address] GASA + ALL Collected: 07/29/2017 Status: F Source: [place] FOR 5:49 AM [facility] RADIANCE USE ONLY REPOSITORY TYPE CODE TESTS RESULT OUT OF REFERENCE UNITS RANGE LAB PH 7.35-7.45 pH 7.45 LAB PCO2 34-46 mm Hg pCO2 Low 32 LAB PO2 85-95 mm Hg pO2 Low 67 LAB BE mmol/L Base Excess NEG 1 LAB HCO3 22-26 mmol/L Bicarbonate 22 LAB CO2CT 22.0-28.0 mmol/L CO2 Content 23 LAB O2HB 95-98 % Oxyhemoglobin, Low Art. 91 LAB COHB 0-5.0 % Carboxyhemoglobin,A 0.1 rt LAB MHGB 0.4-1.5 % Methemoglobin 0.6 LAB TEMP C Temperature, Body 37.0 LAB PHTC 7.35-7.45 pH, Temp Corrected 7.45 LAB PCO2T 34-46 mm Hg pCO2, Temp Low Correct 32 LAB PO2T mm Hg pO2, Temp Corrected 67 LAB NAB 135-146 mmol/L Sodium,Whole Bld 137 LAB KWB 3.5-5.0 mmol/L Potassium, Whole Bld 3.7 LAB HGBB 13.0-17.0 g/dL Low Hemoglobin,Total,AC 9.1 L LAB HCTB 39.0-51.0 % Hematocrit, ACL Low 28 LAB IC 1.08-1.30 mmol/L Calcium, Ion, WB 1.29 LAB GLB 60-105 mg/dL Glucose,Whole Bld High 177 LAB LACT 0.5-2.2 mmol/L Lactate 1.9 Performed By: #### ALLBG #### [facility] [address] [place] [address] GASV + ALL Collected: 07/29/2017 Status: F Source: [place] 5:02 AM [facility] REPOSITORY TYPE CODE TESTS RESULT OUT OF REFERENCE UNITS RANGE LAB VPH 7.32-7.42 pH High 7.53 LAB VPC2 42-55 mm Hg pCO2 Low 27 LAB VPO2 35-45 mm Hg pO2 Low 26 LAB VBE mmol/L Base Excess 1 LAB VHC3 24-28 mmol/L Bicarbonate Low 23 LAB VC2C 25-29 mmol/L CO2 Content Low 23 LAB O2HBCX 60-85 % Oxyhemoglobin, Low Patrice. 54 LAB CO <2.0 % Carboxyhemoglobin,V 1.3 en LAB METHB 0.4-1.5 % Methemoglobin High 1.6 LAB VTMP C Temperature, Body 37.0 LAB VPHTC 7.32-7.42 pH, Temp High Corrected 7.53 LAB VPC2T mm Hg pCO2, Temp Correct 27 LAB VPO2T mm Hg pO2, Temp Corrected 26 LAB NAB 135-146 mmol/L Sodium,Whole Bld 137 LAB KWB 3.5-5.0 mmol/L Potassium, Whole Bld 4.0 LAB HGBB 13.0-17.0 g/dL Low Hemoglobin,Total,AC 10.0 L LAB HCTB 39.0-51.0 % Hematocrit, ACL Low 31 LAB IC 1.08-1.30 mmol/L Calcium, Ion, WB 1.10 LAB GLB 60-105 mg/dL Glucose,Whole Bld High 151 LAB LACT 0.5-2.2 mmol/L Lactate 1.6 Performed By: #### VALLBG #### [facility] [address] [place], [place] [address] GASA + ALL Collected: 07/29/2017 Status: F Source: [place] FOR 4:59 AM [facility] ONLY REPOSITORY TYPE CODE TESTS RESULT OUT OF REFERENCE UNITS RANGE LAB PH 7.35-7.45 pH High 7.57 LAB PCO2 34-46 mm Hg pCO2 Low 23 LAB PO2 85-95 mm Hg pO2 High 124 LAB BE mmol/L Base Excess 0 LAB HCO3 22-26 mmol/L Bicarbonate Low 21 LAB CO2CT 22.0-28.0 mmol/L CO2 Content 22 LAB O2HB 95-98 % Oxyhemoglobin, Art. 96 LAB COHB 0-5.0 % Carboxyhemoglobin,A 1.4 rt LAB MHGB 0.4-1.5 % Methemoglobin High 1.7 LAB TEMP C Temperature, Body 37.0 LAB PHTC 7.35-7.45 pH, Temp High Corrected 7.57 LAB PCO2T 34-46 mm Hg pCO2, Temp Low Correct 23 LAB PO2T mm Hg pO2, Temp Corrected 124 LAB NAB 135-146 mmol/L Sodium,Whole Bld 136 LAB KWB 3.5-5.0 mmol/L Potassium, Whole Bld 4.1 LAB HGBB 13.0-17.0 g/dL Low Hemoglobin,Total,AC 10.0 L LAB HCTB 39.0-51.0 % Hematocrit, ACL Low 31 LAB IC 1.08-1.30 mmol/L Calcium, Ion, WB 1.10 LAB GLB 60-105 mg/dL Glucose,Whole Bld High 144 LAB LACT 0.5-2.2 mmol/L Lactate 1.7 Performed By: #### ALLBG #### [facility] [address] [place], [place] [address] GASA + ALL Collected: 07/29/2017 Status: F Source: [facility] 4:30 AM [facility] RADIANCE USE ONLY REPOSITORY TYPE CODE TESTS RESULT OUT OF REFERENCE UNITS RANGE LAB PH 7.35-7.45 pH High 7.55 LAB PCO2 34-46 mm Hg pCO2 Low 24 LAB PO2 85-95 mm Hg pO2 Low 74 LAB BE mmol/L Base Excess 0 LAB HCO3 22-26 mmol/L Bicarbonate Low 21 LAB CO2CT 22.0-28.0 mmol/L CO2 Content 22 LAB O2HB 95-98 % Oxyhemoglobin, Low Art. 94 LAB COHB 0-5.0 % Carboxyhemoglobin,A 0.4 rt LAB MHGB 0.4-1.5 % Methemoglobin 0.6 LAB TEMP C Temperature, Body 37.0 LAB PHTC 7.35-7.45 pH, Temp High Corrected 7.55 LAB PCO2T 34-46 mm Hg pCO2, Temp Low Correct 24 LAB PO2T mm Hg pO2, Temp Corrected 74 LAB NAB 135-146 mmol/L Sodium,Whole Bld 138 LAB KWB 3.5-5.0 mmol/L Potassium, Whole Bld 3.9 LAB HGBB 13.0-17.0 g/dL Low Hemoglobin,Total,AC 9.4 L LAB HCTB 39.0-51.0 % Hematocrit, ACL Low 29 LAB IC 1.08-1.30 mmol/L Calcium, Ion, WB 1.09 LAB GLB 60-105 mg/dL Glucose,Whole Bld High 147 LAB LACT 0.5-2.2 mmol/L Lactate 1.8 Performed By: #### ALLBG #### [facility] [address] [place], [place] [address] XR CHEST 1V FRONTAL Observed: 07/29/2017 Status: F Source: [facility] 4:08 AM [facility] REPOSITORY * * *Final Report* * * DATE OF EXAM: Jul 29 2017 4:08AM JIX [id number] - XR CHEST 1V FRONTAL PORT / PROCEDURE REASON: Status post cardiac surgery * * * * Physician Interpretation * * * * EXAMINATION: CHEST RADIOGRAPH (PORTABLE SINGLE VIEW AP) Exam Date/Time: 07/29/2017 4:08 AM Indication: Status post cardiac surgery MQ: [id number] Comparison: 1 day prior RESULT: See impression. IMPRESSION: Lines, tubes, and devices: Interval extubation. Enteric tube courses below the diaphragm. Tip of Lincoln-Rhonda catheter overlies the right pulmonary artery. Mediastinal drainage tube and single right thoracostomy tube remain in place. Lungs and pleura: There are symmetric bilateral perihilar heterogeneous opacities, worse in the mid to lower lungs and most commonly secondary to pulmonary edema. There is bibasilar atelectasis. I suspect a small left pleural effusion. There is no definite pneumothorax. Cardiomediastinal silhouette: Stable cardiomediastinal silhouette. The patient is status post median sternotomy and probable CABG. Coronary artery stents are noted in the left coronary circulation. The cardiac silhouette appears enlarged. The tip of the unipolar ICD lead overlies the right ventricle. Curvilinear lucency consistent with postoperative pneumomediastinum circumscribes the left heart border. Sterilizer Operator: KEVIN Transcribe Date/Time: Jul 29 2017 10:01A Dictated by : ELAINA GOOD MD This examination was interpreted and the report reviewed and electronically signed by: ELAINA GOOD MD on Jul 29 2017 10:03AM EST [id number] GASV + ALL Collected: 07/29/2017 Status: F Source: [place] 2:52 AM [facility] REPOSITORY TYPE CODE TESTS RESULT OUT OF REFERENCE UNITS RANGE LAB VPH 7.32-7.42 pH High 7.47 LAB VPC2 42-55 mm Hg pCO2 Low 35 LAB VPO2 35-45 mm Hg pO2 Low 26 LAB VBE mmol/L Base Excess 2 LAB VHC3 24-28 mmol/L Bicarbonate 25 LAB VC2C 25-29 mmol/L CO2 Content 26 LAB O2HBCX 60-85 % Oxyhemoglobin, Low Patrice. 48 LAB CO <2.0 % Carboxyhemoglobin,V 0.1 en LAB METHB 0.4-1.5 % Methemoglobin 0.6 LAB VTMP C Temperature, Body 37.0 LAB VPHTC 7.32-7.42 pH, Temp High Corrected 7.47 LAB VPC2T mm Hg pCO2, Temp Correct 35 LAB VPO2T mm Hg pO2, Temp Corrected 26 LAB NAB 135-146 mmol/L Sodium,Whole Bld 139 LAB KWB 3.5-5.0 mmol/L Potassium, Whole Bld 3.8 LAB HGBB 13.0-17.0 g/dL Low Hemoglobin,Total,AC 9.5 L LAB HCTB 39.0-51.0 % Hematocrit, ACL Low 29 LAB IC 1.08-1.30 mmol/L Calcium, Ion, WB 1.14 LAB GLB 60-105 mg/dL Glucose,Whole Bld High 141 LAB LACT 0.5-2.2 mmol/L Lactate 1.5 Performed By: #### VALLBG #### [facility] [address], [place] [address] GASA + ALL Collected: 07/29/2017 Status: F Source: [place] FOR 2:49 AM [facility] RADIANCE USE ONLY REPOSITORY TYPE CODE TESTS RESULT OUT OF REFERENCE UNITS RANGE LAB PH 7.35-7.45 pH High 7.49 LAB PCO2 34-46 mm Hg pCO2 Low 30 LAB PO2 85-95 mm Hg pO2 Low 80 LAB BE mmol/L Base Excess 1 LAB HCO3 22-26 mmol/L Bicarbonate 23 LAB CO2CT 22.0-28.0 mmol/L CO2 Content 24 LAB O2HB 95-98 % Oxyhemoglobin, Low Art. 94 LAB COHB 0-5.0 % Carboxyhemoglobin,A 0.1 rt LAB MHGB 0.4-1.5 % Methemoglobin 0.5 LAB TEMP C Temperature, Body 37.0 LAB PHTC 7.35-7.45 pH, Temp High Corrected 7.49 LAB PCO2T 34-46 mm Hg pCO2, Temp Low Correct 30 LAB PO2T mm Hg pO2, Temp Corrected 80 LAB NAB 135-146 mmol/L Sodium,Whole Bld 139 LAB KWB 3.5-5.0 mmol/L Potassium, Whole Bld 3.8 LAB HGBB 13.0-17.0 g/dL Low Hemoglobin,Total,AC 9.7 L LAB HCTB 39.0-51.0 % Hematocrit, ACL Low 30 LAB IC 1.08-1.30 mmol/L Calcium, Ion, WB 1.13 LAB GLB 60-105 mg/dL Glucose,Whole Bld High 140 LAB LACT 0.5-2.2 mmol/L Lactate 1.5 Performed By: #### ALLBG #### [place] [address] CBC Collected: 07/29/2017 Status: F Source: [place] 2:30 AM [facility] REPOSITORY TYPE CODE TESTS RESULT OUT OF REFERENCE UNITS RANGE LAB WBC 3.70-11.00 k/uL WBC High 13.27 LAB RBC 4.20-6.00 m/uL Low RBC 2.93 LAB HGB 13.0-17.0 g/dL Low Hemoglobin 9.2 LAB HCT 39.0-51.0 % Low Hematocrit 27.3 LAB MCV 80.0-100.0 fL MCV 93.2 LAB MCH 26.0-34.0 pG MCH 31.4 LAB MCHC 30.5-36.0 g/dL MCHC 33.7 LAB RDWCV 11.5-15.0 % RDW-CV 13.2 LAB PLTCT 150-400 k/uL Low Platelet Count 86 Result Comment: No clot detected. LAB MPV 9.0-12.7 fL MPV 11.1 LAB ABSNUC <0.01 k/uL Absolute nRBC <0.01 Performed By: #### CBC, CMP #### [place] [address] COMP METABOLIC PANEL Collected: 07/29/2017 Status: F Source: [place] 2:30 AM [facility] REPOSITORY TYPE CODE TESTS RESULT OUT OF REFERENCE UNITS RANGE LAB TP 6.3-8.0 g/dL Low Protein, Total 6.1 LAB ALB 3.9-4.9 g/dL Albumin 3.9 Result Comment: Result rechecked. LAB CA 8.5-10.2 mg/dL Calcium, Total 8.5 LAB TBIL 0.2-1.3 mg/dL Bilirubin, High Total 2.1 LAB ALKP 36-108 U/L Alkaline Phosphatase 52 LAB AST 14-40 U/L AST 36 LAB GLU 74-99 mg/dL Glucose High 146 Result Comment: The [place] [employer] (ADA) provides guidance for cutoff values for fasting glucose and random glucose. The ADA defines fasting as no caloric intake for at least 8 hours. Fas ting plasma glucose results between 100 to 125 mg/dL indicate increased risk for diabetes (prediabetes). Fasting plasma glucose results greater than or equal to 126 mg/dL meet the criteria for diagnosis of diabetes. In the absence of unequivocal hyperglycemia, results should be confirmed by repeat testing. In a patient with classic symptoms of hyperglycemia or hyperglycemic crisis, random plasma glucose results greater than or equal to 200 mg/dL meet the criteria for diagnosis of diabetes. Reference: Standards of Medical Care in Diabetes 2016, [place] [employer]. Diabetes Care. 2016.39(Suppl 1). LAB BUN 9-24 mg/dL BUN 15 LAB CRET 0.73-1.22 mg/dL Creatinine 1.09 LAB NA 136-144 mmol/L Sodium 140 LAB K 3.7-5.1 mmol/L Potassium 3.9 LAB CL 97-105 mmol/L Chloride 104 LAB CO2 22-30 mmol/L CO2 22 LAB AGAP 9-18 mmol/L Anion Gap 14 LAB ALT 10-54 U/L ALT 18 LAB GFRAA eGFR- Amer. >60 LAB GFRNAA . eGFR-All Other Races >60 Result Comment: eGFR (Estimated GFR) Units of measure: mL/min/1.73 meters squared eGFR is derived from the reexpressed MDRD Study equation using the following parameters: serum creatinine, age, gender and race. The creatinine assay has been calibrated to be traceable to IDMS. An eGFR <60 mL/min/1.73m2 for >3 months is consistent with chronic kidney disease. Refer to KDOQI guidelines for clinical interpretation. In patients with unstable renal function, e.g. those with acute kidney injury, the eGFR may not accurately reflect actual GFR. Performed By: #### CBC, CMP #### [facility] [address] [place], [place] [address] GASA + ALL Collected: 07/29/2017 Status: F Source: [place] FOR 12:33 AM [facility] [place] RADIANCE USE ONLY REPOSITORY TYPE CODE TESTS RESULT OUT OF REFERENCE UNITS RANGE LAB PH 7.35-7.45 pH High 7.46 LAB PCO2 34-46 mm Hg pCO2 34 LAB PO2 85-95 mm Hg pO2 Low 72 LAB BE mmol/L Base Excess 1 LAB HCO3 22-26 mmol/L Bicarbonate 24 LAB CO2CT 22.0-28.0 mmol/L CO2 Content 25 LAB O2HB 95-98 % Oxyhemoglobin, Low Art. 92 LAB COHB 0-5.0 % Carboxyhemoglobin,A 0.1 rt LAB MHGB 0.4-1.5 % Methemoglobin 0.9 LAB TEMP C Temperature, Body 37.0 LAB PHTC 7.35-7.45 pH, Temp High Corrected 7.46 LAB PCO2T 34-46 mm Hg pCO2, Temp Correct 34 LAB PO2T mm Hg pO2, Temp Corrected 72 LAB NAB 135-146 mmol/L Sodium,Whole Bld 138 LAB KWB 3.5-5.0 mmol/L Potassium, Whole Bld 4.0 LAB HGBB 13.0-17.0 g/dL Low Hemoglobin,Total,AC 9.8 L LAB HCTB 39.0-51.0 % Hematocrit, ACL Low 30 LAB IC 1.08-1.30 mmol/L Calcium, Ion, WB 1.15 LAB GLB 60-105 mg/dL Glucose,Whole Bld High 144 LAB LACT 0.5-2.2 mmol/L Lactate 1.2 Performed By: #### ALLBG #### [facility] [address] [place], [place] [address] GASA + ALL Collected: 07/28/2017 Status: F Source: [place] FOR 10:48 PM [facility] [place] RADIANCE USE ONLY REPOSITORY TYPE CODE TESTS RESULT OUT OF REFERENCE UNITS RANGE LAB PH 7.35-7.45 pH 7.45 LAB PCO2 34-46 mm Hg pCO2 36 LAB PO2 85-95 mm Hg pO2 Low 79 LAB BE mmol/L Base Excess 1 LAB HCO3 22-26 mmol/L Bicarbonate 25 LAB CO2CT 22.0-28.0 mmol/L CO2 Content 26 LAB O2HB 95-98 % Oxyhemoglobin, Art. 96 LAB COHB 0-5.0 % Carboxyhemoglobin,A 1.0 rt LAB MHGB 0.4-1.5 % Methemoglobin 1.4 LAB TEMP C Temperature, Body 37.0 LAB PHTC 7.35-7.45 pH, Temp Corrected 7.45 LAB PCO2T 34-46 mm Hg pCO2, Temp Correct 36 LAB PO2T mm Hg pO2, Temp Corrected 79 LAB NAB 135-146 mmol/L Sodium,Whole Bld 139 LAB KWB 3.5-5.0 mmol/L Potassium, Whole Bld 4.1 LAB HGBB 13.0-17.0 g/dL Low Hemoglobin,Total,AC 9.5 L LAB HCTB 39.0-51.0 % Hematocrit, ACL Low 30 LAB IC 1.08-1.30 mmol/L Calcium, Ion, WB 1.16 LAB GLB 60-105 mg/dL Glucose,Whole Bld High 154 LAB LACT 0.5-2.2 mmol/L Lactate 1.0 Performed By: #### ALLBG #### [facility] [address] [place], [place] [address] GASA + ALL Collected: 07/28/2017 Status: F Source: [facility] 9:44 PM [facility] RADIANCE USE ONLY REPOSITORY TYPE CODE TESTS RESULT OUT OF REFERENCE UNITS RANGE LAB PH 7.35-7.45 pH 7.43 LAB PCO2 34-46 mm Hg pCO2 36 LAB PO2 85-95 mm Hg pO2 Low 83 LAB BE mmol/L Base Excess 0 LAB HCO3 22-26 mmol/L Bicarbonate 23 LAB CO2CT 22.0-28.0 mmol/L CO2 Content 24 LAB O2HB 95-98 % Oxyhemoglobin, Low Art. 94 LAB COHB 0-5.0 % Carboxyhemoglobin,A 0.0 rt LAB MHGB 0.4-1.5 % Methemoglobin Low 0.2 LAB TEMP C Temperature, Body 37.0 LAB PHTC 7.35-7.45 pH, Temp Corrected 7.43 LAB PCO2T 34-46 mm Hg pCO2, Temp Correct 36 LAB PO2T mm Hg pO2, Temp Corrected 83 LAB NAB 135-146 mmol/L Sodium,Whole Bld 138 LAB KWB 3.5-5.0 mmol/L Potassium, Whole Bld 4.0 LAB HGBB 13.0-17.0 g/dL Low Hemoglobin,Total,AC 9.4 L LAB HCTB 39.0-51.0 % Hematocrit, ACL Low 29 LAB IC 1.08-1.30 mmol/L Calcium, Ion, WB 1.14 LAB GLB 60-105 mg/dL Glucose,Whole Bld High 151 LAB LACT 0.5-2.2 mmol/L Lactate 1.0 Performed By: #### ALLBG #### [facility] [address] [place], [place] [address] GASV + ALL Collected: 07/28/2017 Status: F Source: [place] 8:26 PM [facility] REPOSITORY TYPE CODE TESTS RESULT OUT OF REFERENCE UNITS RANGE LAB VPH 7.32-7.42 pH 7.41 LAB VPC2 42-55 mm Hg pCO2 Low 41 LAB VPO2 35-45 mm Hg pO2 35 LAB VBE mmol/L Base Excess 1 LAB VHC3 24-28 mmol/L Bicarbonate 25 LAB VC2C 25-29 mmol/L CO2 Content 26 LAB O2HBCX 60-85 % Oxyhemoglobin, Patrice. 64 LAB CO <2.0 % Carboxyhemoglobin,V 0.0 en LAB METHB 0.4-1.5 % Methemoglobin 0.6 LAB VTMP C Temperature, Body 37.0 LAB VPHTC 7.32-7.42 pH, Temp Corrected 7.41 LAB VPC2T mm Hg pCO2, Temp Correct 41 LAB VPO2T mm Hg pO2, Temp Corrected 35 LAB NAB 135-146 mmol/L Sodium,Whole Bld 139 LAB KWB 3.5-5.0 mmol/L Potassium, Whole Bld 4.2 LAB HGBB 13.0-17.0 g/dL Low Hemoglobin,Total,AC 9.5 L LAB HCTB 39.0-51.0 % Hematocrit, ACL Low 29 LAB IC 1.08-1.30 mmol/L Calcium, Ion, WB 1.18 LAB GLB 60-105 mg/dL Glucose,Whole Bld High 139 LAB LACT 0.5-2.2 mmol/L Lactate 1.1 Performed By: #### VALLBG #### [facility] [address] [place], [place] [address] GASA + ALL Collected: 07/28/2017 Status: F Source: [place] [facility] 8:21 PM [facility] RADIANCE USE ONLY REPOSITORY TYPE CODE TESTS RESULT OUT OF REFERENCE UNITS RANGE LAB PH 7.35-7.45 pH 7.44 LAB PCO2 34-46 mm Hg pCO2 36 LAB PO2 85-95 mm Hg pO2 95 LAB BE mmol/L Base Excess 1 LAB HCO3 22-26 mmol/L Bicarbonate 24 LAB CO2CT 22.0-28.0 mmol/L CO2 Content 25 LAB O2HB 95-98 % Oxyhemoglobin, Art. 95 LAB COHB 0-5.0 % Carboxyhemoglobin,A 1.2 rt LAB MHGB 0.4-1.5 % Methemoglobin 1.5 LAB TEMP C Temperature, Body 37.0 LAB PHTC 7.35-7.45 pH, Temp Corrected 7.44 LAB PCO2T 34-46 mm Hg pCO2, Temp Correct 36 LAB PO2T mm Hg pO2, Temp Corrected 95 LAB NAB 135-146 mmol/L Sodium,Whole Bld 138 LAB KWB 3.5-5.0 mmol/L Potassium, Whole Bld 4.2 LAB HGBB 13.0-17.0 g/dL Low Hemoglobin,Total,AC 9.5 L LAB HCTB 39.0-51.0 % Hematocrit, ACL Low 29 LAB IC 1.08-1.30 mmol/L Calcium, Ion, WB 1.17 LAB GLB 60-105 mg/dL Glucose,Whole Bld High 138 LAB LACT 0.5-2.2 mmol/L Lactate 1.1 Performed By: #### ALLBG #### [facility] [address] [place], [place] [address] XR ABDOMEN 1V SUPINE Observed: 07/28/2017 Status: F Source: [place] 7:58 PM [facility] REPOSITORY * * *Final Report* * * DATE OF EXAM: Jul 28 2017 7:58PM RANDEE [id number] - XR ABDOMEN 1V SUPINE / PROCEDURE REASON: Encounter for nasogastric (NG) tube placement * * * * Physician Interpretation * * * * ABDOMEN SINGLE VIEW CLINICAL INFORMATION: Evaluate nasogastric tube placement. TECHNIQUE: A single view of the abdomen was obtained. Number of images: 1 COMPARISON: 07/28/2017 RESULT: See impression. IMPRESSION: Field of view: Pelvis excluded from the [id number]. Lines and tubes: Nasogastric tube tip and sidehole in the gastric body. Bowel: Gas present within mildly dilated small bowel loops. Colon is nondilated. Other: Right chest tube and mediastinal drains in place. Sterilizer Operator: KEVIN Transcribe Date/Time: Jul 28 2017 11:50P Dictated by : DIONTE HAWK MD This examination was interpreted and the report reviewed and electronically signed by: DIONTE HAWK MD on Jul 28 2017 11:51PM EST [id number] GASA + ALL Collected: 07/28/2017 Status: F Source: [facility] 5:59 PM [facility] RADIANCE USE ONLY REPOSITORY TYPE CODE TESTS RESULT OUT OF REFERENCE UNITS RANGE LAB PH 7.35-7.45 pH 7.42 LAB PCO2 34-46 mm Hg pCO2 39 LAB PO2 85-95 mm Hg pO2 89 LAB BE mmol/L Base Excess 1 LAB HCO3 22-26 mmol/L Bicarbonate 25 LAB CO2CT 22.0-28.0 mmol/L CO2 Content 26 LAB O2HB 95-98 % Oxyhemoglobin, Art. 95 LAB COHB 0-5.0 % Carboxyhemoglobin,A 1.0 rt LAB MHGB 0.4-1.5 % Methemoglobin 1.1 LAB TEMP C Temperature, Body 37.0 LAB PHTC 7.35-7.45 pH, Temp Corrected 7.42 LAB PCO2T 34-46 mm Hg pCO2, Temp Correct 39 LAB PO2T mm Hg pO2, Temp Corrected 89 LAB NAB 135-146 mmol/L Sodium,Whole Bld 139 LAB KWB 3.5-5.0 mmol/L Potassium, Whole Bld 3.9 LAB HGBB 13.0-17.0 g/dL Low Hemoglobin,Total,AC 9.4 L LAB HCTB 39.0-51.0 % Hematocrit, ACL Low 29 LAB IC 1.08-1.30 mmol/L Calcium, Ion, WB 1.14 LAB GLB 60-105 mg/dL Glucose,Whole Bld High 141 LAB LACT 0.5-2.2 mmol/L Lactate 1.0 Performed By: #### ALLBG #### [facility] [address] [place], [place] [address] CASE MANAGEM Observed: 07/28/2017 Status: COMPLETED Source: [place] 4:08 PM [facility] REPOSITORY HNO ID: [id number] Author: Yady Barnes (Sw) Service: Care Management Author Type: Organizational Research Consultant Type: Care Mgt Progress Note Filed: 07/28/2017 4:10 PM Note Text: CARE MANAGEMENT PROGRESS NOTE SERVICE DATE: 07/28/2017 SERVICE TIME: 4:08 PM LOS: 1 day Needs Prior to Discharge: To Be Determined;OT/PT Evaluation Sw attempted multiple times throughout the day to complete the initial assessment, but was not able to due to pt being intubated and sedated and family not being at the bedside. CM will continue to follow medical course and plan discharge accordingly. SIGNATURE: ANAY Meyer PATIENT NAME: Amelia Leavitt DATE: July 28, 2017 TIME: 4:08 PM PAGER/CONTACT #: [phone] GASA + ALL Collected: 07/28/2017 Status: F Source: [place] FOR 12:26 PM [facility] USE ONLY REPOSITORY TYPE CODE TESTS RESULT OUT OF REFERENCE UNITS RANGE LAB PH 7.35-7.45 pH 7.39 LAB PCO2 34-46 mm Hg pCO2 39 LAB PO2 85-95 mm Hg pO2 Low 84 LAB BE mmol/L Base Excess NEG 1 LAB HCO3 22-26 mmol/L Bicarbonate 23 LAB CO2CT 22.0-28.0 mmol/L CO2 Content 25 LAB O2HB 95-98 % Oxyhemoglobin, Low Art. 94 LAB COHB 0-5.0 % Carboxyhemoglobin,A 0.6 rt LAB MHGB 0.4-1.5 % Methemoglobin High 1.7 LAB TEMP C Temperature, Body 37.0 LAB PHTC 7.35-7.45 pH, Temp Corrected 7.39 LAB PCO2T 34-46 mm Hg pCO2, Temp Correct 39 LAB PO2T mm Hg pO2, Temp Corrected 84 LAB NAB 135-146 mmol/L Sodium,Whole Bld 140 LAB KWB 3.5-5.0 mmol/L Potassium, Whole Bld 4.1 LAB HGBB 13.0-17.0 g/dL Low Hemoglobin,Total,AC 9.3 L LAB HCTB 39.0-51.0 % Hematocrit, ACL Low 29 LAB IC 1.08-1.30 mmol/L Calcium, Ion, WB 1.17 LAB GLB 60-105 mg/dL Glucose,Whole Bld High 118 LAB LACT 0.5-2.2 mmol/L Lactate 1.8 Performed By: #### ALLBG #### [facility] [address] [place], [place] [address] CONSULT Observed: 07/28/2017 Status: COMPLETED Source: [place] 12:02 PM [facility] [place] REPOSITORY O ID: [id number] Author: Christiano Freed Service: General Surgery Author Type: Resident Type: Consults Filed: 07/28/2017 8:11 PM Note Text: SURGICAL SERVICES INITIAL CONSULT SERVICE DATE: 07/28/2017 SERVICE TIME: 12:03 PM REASON FOR CONSULT: ?Pneumoperitoneum REQUESTING PHYSICIAN: Kaushal Bell PRIMARY CARE PHYSICIAN: Domo Newman MD Subjective HISTORY OF PRESENT ILLNESS: Mr. Leavitt is a 67 year old male with PMH of CAD, GA, HTN, HLD, PSH of CABG with GUDINO to LAD, RCA stents in 2015, now s/p Redo CABG on 07/27/17. No prior abdominal surgeries per EMR. General surgery was consulted for questionable free air on KUB 07/28/17. Patient is currently intubated and sedated. Unable to provide history. PAST MEDICAL HISTORY Diagnosis Date - CAD (coronary artery disease) - Cardiomyopathy ([facility]) - CHF (congestive heart failure) ([facility]) - Family history of early CAD - H/o Lyme disease - History of smoking - Hyperlipidemia 2009 - 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 - GA (myocardial infarction) ([facility]) 2009, 2015 - S/P angioplasty with stent x 16 - S/P CABG x 1 2012 - Sleep apnea CPAP prn PAST SURGICAL HISTORY Procedure Laterality Date - CABG (1) VEIN GRAFT AND ARTERIAL GRAFT 2012 L-LAD - DEFIBRILLATOR SURGERY - PACEMAKER - PAST SURGICAL HISTORY OF 2006 vertebrae surgery - ROTATOR CUFF REPAIR 1995 FAMILY HISTORY Problem Relation Age of Onset - Myocardial infarction [OTHER] Father 17 multiple GA's of GA age 53 - Cancer Sister - No Ocular Disease No Family History Social History Substance Use Topics - Smoking status: Former Smoker Packs/day: 0.50 Types: Cigarettes Quit date: 04/21/2017 - Smokeless tobacco: Never Used Comment: had quit for 20 years but restarted 2014 - Alcohol use Not on file Comment: occasionally Prescriptions Prior to Admission: aspirin 81 mg chewable tablet Take 81 mg by mouth once daily. Disp: Rfl: 07/27/2017 at 0500 carvedilol (COREG) 6.25 mg tablet Take 2 tablets by mouth twice daily with meals. Disp: 120 tablet Rfl: 5 07/27/2017 at 0500 furosemide (LASIX) 20 mg tablet Take 1 tablet by mouth once daily. Disp: 90 tablet Rfl: 3 07/26/2017 at 0800 isosorbide mononitrate ER (IMDUR) 60 mg 24 hr tablet Take one tab twice daily. Disp: 120 tablet Rfl: 5 07/27/2017 at 0500 RANEXA 500 mg 12 hr tablet twice daily. Disp: Rfl: 07/27/2017 at 0500 gabapentin (NEURONTIN) 100 mg capsule Take 100 mg by mouth twice daily. Disp: Rfl: 07/26/[address] (PROTONIX) 40 mg tablet Take 40 mg by mouth once daily. Disp: Rfl: 07/26/2017 at 1999 pravastatin (PRAVACHOL) 40 mg tablet Take 40 mg by mouth once daily. Disp: Rfl: 07/26/2017 at 1999 mupirocin (BACTROBAN) 2 % ointment Apply 1 application to affected area twice daily. Apply to inside of nostrils twice a day the day prior to surgery and once on the morning of surgery Disp: 1 Tube Rfl: 0 not required aspirin, enteric coated (ASPIRIN, ENTERIC COATED) 325 mg EC tablet Take 325 mg by mouth once daily. Disp: Rfl: 07/21/2017 nitroglycerin sublingual (NITROQUICK) 0.4 mg SL tablet Dissolve 0.4 mg under the tongue every 5 minutes as needed. Disp: Rfl: 07/24/2017 losartan (COZAAR) 25 mg tablet once daily. Disp: Rfl: 07/25/2017 EFFIENT 10 mg tab once daily. Disp: Rfl: 07/21/2017 Current hospital medications: albuterol 2.5 mg /3 mL (0.083 %) 2.5 mg (PROVENTIL) 2.5 mg INHALATION ONCE ipratropium-albuterol 3 mL nebulizer solution (DUONEB) 3 mL INHALATION q 4 H fentaNYL iv infusion 20 mcg/mL in NaCl 0.9% 100 mL 25-250 mcg/hr INTRAVENOUS CONTINUOUS iv contrast (radiology procedure) INTRAVENOUS DIRECTED PRN NORepinephrine 4 mg in D5W 250 mL (LEVOPHED) 0.6-20 mcg/min INTRAVENOUS CONTINUOUS NaCl 0.9% iv infusion 200 mL/hr INTRAVENOUS CONTINUOUS Chlorhexidine Gluconate 0.12 % 15 mL (PERIDEX) 15 mL ORAL q [address] 20 mg tab(s) (PROTONIX) 20 mg ORAL DAILY (6 AM) pantoprazole 20 mg CUP (PROTONIX) 20 mg ORAL/FEEDING TUBE DAILY (6 AM) senna-docusate 8.6-50 mg 1 tablet (SENNA-S) 1 tablet ORAL BID bisacodyl 10 mg suppository (DULCOLAX) 10 mg RECTAL DAILY PRN ondansetron (PF) 4 mg injection (ZOFRAN) 4 mg INTRAVENOUS q 6 H PRN potassium chloride iv piggyback 10 mEq/100mL 10 mEq INTRAVENOUS PRN potassium chloride iv piggyback 20 mEq/50 mL 20 mEq INTRAVENOUS PRN potassium chloride 40-120 mEq oral powder (KLOR-CON) 40-120 mEq ORAL/FEEDING TUBE PRN 0.9% NaCl 3-5 mL 3-5 mL INTRAVENOUS q 12 H 0.9% NaCl 10 mL 10 mL INTRAVENOUS q 12 H insulin regular human iv bolus 2-10 Units 2-10 Units INTRAVENOUS PRN insulin regular 250 units in NaCl 0.9% 250 mL iv infusion - HVI CVICU NOMOGRAM 0.5-40 Units/hr INTRAVENOUS CONTINUOUS dextrose 50% in water 25 mL syringe 12.5 g INTRAVENOUS PRN dextrose 5% in NaCl 0.2% iv infusion 5 mL/hr INTRAVENOUS CONTINUOUS insulin glargine 0-40 Units pen (long acting) (LANTUS SOLOSTAR, BASAGLAR) 0-40 Units SUBCUTANEOUS As Directed nitroglycerin 50 mg in D5W 250 mL 5-200 mcg/min INTRAVENOUS CONTINUOUS nitroglycerin injection 100 mcg injection syringe 100 mcg INTRAVENOUS PRN PHENYLephrine 0.1 mg injection 100 mcg INTRAVENOUS PRN fentaNYL QUALITY ENGINEER 20 mcg/mL in NaCl 0.9% 100 mL INTRAVENOUS CONTINUOUS naloxone 0.04 mg injection (NARCAN) 0.04 mg INTRAVENOUS PRN lidocaine 5 % 1 Patch (LIDODERM) 1 Patch TRANSDERMAL DAILY lidocaine patch - REMOVE OTHER AT BEDTIME lidocaine - VERIFY PATCH OTHER q 8 H cefUROXime 1.5 g in D5W 50 mL (ZINACEF) 1.5 g INTRAVENOUS q 12 HR aspirin 162 mg chewable tab(s) 162 mg ORAL/FEEDING TUBE DAILY EPINEPHrine iv infusion 4 mg in D5W 250 mL 0.5-4 mcg/min INTRAVENOUS CONTINUOUS propofol infusion (DIPRIVAN) 10-50 mcg/kg/min INTRAVENOUS CONTINUOUS propofol iv bolus 10-50 mg (DIPRIVAN) 10-50 mg INTRAVENOUS q 1 H PRN fentaNYL 50 mcg/mL 25-75 mcg injection (SUBLIMAZE) 25-75 mcg INTRAVENOUS q 1 H PRN ALLERGIES Allergen Reactions - Percocet [Oxycodone* Other: See Comments patient had a reaction after last heart surgery with percocet where he was having convulsions COMPLETE REVIEW OF SYSTEMS: Patient unable to provide history as he is intubated and sedated at present PAIN ASSESSMENT: Negative for pain, history of chronic pain, or current treatment for a chronic pain condition. GENERAL: No recorded fever HEENT: Negative for frequent or significant headaches, No changes in hearing or vision, no nose bleeds or other nasal problems NECK: Negative for lumps, goiter, pain and significant neck swelling RESPIRATORY: Intubated and sedated CARDIOVASCULAR: CAD, stents, s/p Redo CABG GI: Unable to assess : Barrera in place, UOP adequate MUSCULOSKELETAL: Unable to assess SKIN: Negative for lesions, rash, and itching PSYCH: Negative for sleep disturbance, mood disorder and recent psychosocial stressors HEMATOLOGY/LYMPHOLOGY: Negative for prolonged bleeding, bruising easily or swollen nodes ENDOCRINE: Negative for cold or heat intolerance, polyuria, polydipsia and goiter NEURO: Sedated Objective PHYSICAL EXAM: BP 137/92 Pulse 88 Temp (Src) 97.2 (Temporal Artery) Resp 16 Ht 5' 10 (1.78m) Wt 226 lb (102.5kg) SpO2 97% BMI 32.43 kg/(m2). Physical Exam Performed GENERAL: Obese, Intubated, sedated NECK: No jugulovenous distention, Supple LUNGS: Intubated and mechanically ventilated CARDIAC: Regular rate and rhythm ABDOMEN: Abdomen soft, non distended. No scars/hernia noted. Non peritonitic EXTREMITIES: Normal exam of the extremities The remainder of the physical exam is noncontributory. DATA: Diagnostic tests reviewed for today's visit: Most recent labs and imaging results. CBC, Coags, BMP, Mg, Phos Recent Labs 07/28/17 1226 07/28/17 0652 07/28/17 0651 07/28/17 0344 07/28/17 0036 07/28/17 0030 WBC -- -- -- -- -- -- -- -- 22.90* HB -- -- -- -- -- -- -- -- 13.1 HCT -- -- -- -- -- -- -- -- 38.6* PLT -- -- -- -- -- -- -- -- 152 INR -- -- -- -- -- -- -- -- 1.2 APTT -- -- -- -- -- -- -- -- 45.4* NA -- -- -- -- -- -- -- -- 141 K -- -- -- -- -- -- -- -- 3.9 CHLOR -- -- -- -- -- -- -- -- 101 CO2 -- 23* -- -- 25 -- 28 -- 24 BUN -- -- -- -- -- -- -- -- 22 CREAT -- -- -- -- -- -- -- -- 1.35* GLUC -- -- -- -- -- -- -- -- 150* IC 1.17 1.12 1.11 < > 1.12 < > 1.21 < > -- CA -- -- -- -- -- -- -- -- 8.0* < > = values in this interval not displayed. Liver Function, Amylase, AND Lipase Recent Labs 07/28/17 1226 07/28/17 0652 07/28/17 0651 07/28/17 0030 TPROT -- -- -- -- 4.8* ALB -- -- -- -- 2.6* ALT -- -- -- -- 22 AST -- -- -- -- 47* ALKPHOS -- -- -- -- 74 TBILI -- -- -- -- 0.7 LACT 1.8 4.3* 3.6* < > -- < > = values in this interval not displayed. Cardiac Enzymes Recent Labs 07/28/17 0030 TROPT 0.799* KUB 07/28/17 There is no dilated small bowel or colon. ?Orogastric tube terminates at the level the proximal stomach. ?Mediastinal drains and chest tubes overlie the abdomen. ?Left lateral abdomen is not visualized. Repeat KUB 07/28/17 NG/OG tube with the tip in the proximal stomach and the side port below the level of the diaphragm. No gas-filled, dilated bowel. ?Temperature probe in the pelvis. ? Degenerative changes of the lumbar spine. ?Mediastinal drains and thoracostomy tubes overlie the abdomen. CXR 07/28/17 Lines, tubes, and devices: ?The patient is status post median sternotomy. ?Endotracheal tube, NG/OG tube, right pulmonary arterial catheter, right chest tube, mediastinal drain and left ICD device are in place. Lungs and pleura: ?Hazy opacity is noted at the left lung base, likely related to small left pleural effusion and adjacent atelectasis/consolidation. ?Trace right pleural effusion is noted with adjacent atelectasis. ?There is central pulmonary venous congestion. ?No large pneumothorax is noted. Cardiomediastinal silhouette: ?Cardiomediastinal silhouette is mildly enlarged. Crescentic lucency along the left heart border may be related to postoperative pneumomediastinum/pneumopericardium. Impression/Recommendations Mr. Leavitt is a 67 year old male with PMH of CAD, GA, HTN, HLD, PSH of CABG with GUDINO to LAD, RCA stents in 2015, ICD implantation now s/p Redo CABG on 07/27/17. No prior abdominal surgeries per EMR. General surgery was consulted for questionable pneumoperitoneum and extraluminal gas on KUB 07/28/17. On examination, his abdomen is soft, no distended, non peritonitic, no scars or hernia noted. His lactate is trending down and normalized to 1.8. KUB read by radiology negative for free air in abdomen. Plans: - CT scan of Abdomen/Pelvis with IV contrast to r/o pneumoperitoneum/foci of extraluminal gas - Will follow results - No acute surgical intervention - Other care per primary team SIGNATURE: Lexi Coley MD PATIENT NAME: Amelia Leavitt DATE: July 28, 2017 TIME: 12:02 PM PAGER/CONTACT #: [phone] Addendum : CT Abdomen Pelvis as below Liver: No mass. ?Mild steatosis Biliary: No bile duct dilation. ?Possible cholelithiasis. Spleen: No mass. No splenomegaly. ?Tiny scattered subcentimeter hypodense lesions are too small to characterize but likely benign. Pancreas: No mass or duct dilation. Adrenals: No mass. Kidneys: No mass, calculus or hydronephrosis. ?There is a 5 cm right renal cyst. GI tract: No dilation or wall thickening. ?There is an NG/OG tube in place with the distal tip at the GE junction. ?There is mild diverticulosis. Lymph nodes: No abdominal or pelvic lymphadenopathy. Mesentery/Peritoneum: No ascites or mass. No pneumoperitoneum. Retroperitoneum: No mass. Vasculature: ?The celiac axis and SMA are patent. The portal vein and branches, splenic vein, SMV, and hepatic veins are patent. ?Arterial atherosclerotic disease without aneurysm. Pelvis: No mass, ascites or fluid collection. ?There is a catheter within the bladder. ?Fat-containing RIGHT inguinal hernia. Bones/Soft Tissues: There are bilateral fat-containing inguinal hernias, right greater than left. ?There is a tiny fat-containing umbilical hernia. Small foci of gas and surgical clips within the right groin subcutaneous tissue and muscle related to previously attempted vascular access. Lower thorax: There is a midline approach mediastinal and a right-sided chest tube. ?There is bibasilar atelectasis/consolidation, right greater than left. There is pneumomediastinum. Plans: - No surgical intervention warranted - No intraabdominal pathology suspected - Please call with questions and concerns Lexi Coley MD PGY -1 General Surgery July 28, 2017 4:30 PM As above. NO EVIDENCE of pneumoperitoneum on CT. Thank you very much for this interesting consult. Please call us with further questions. Christiano Freed M.D. General Surgery Resident, PGY-5 Pager: [phone] CT ABD/PEL W IVCON Observed: 07/28/2017 Status: F Source: [place] 11:32 AM [facility] REPOSITORY * * *Final Report* * * DATE OF EXAM: Jul 28 2017 11:32AM [facility] [place] 0530 - CT ABD/PEL W IVCON / PROCEDURE REASON: Pneumoperitoneum of unknown etiology * * * * Physician Interpretation * * * * EXAMINATION: CT ABDOMEN AND PELVIS WITH IV CONTRAST CLINICAL HISTORY: Redo CABG on 07/27/2017, with postoperative hypotension, elevated lactate TECHNIQUE: CT of the abdomen and pelvis was performed using standard technique, scanning from just above the dome of the diaphragm to the symphysis pubis. MQ: CTAP_3 Contrast: IV: 150 ml of Omnipaque 300 CT Radiation dose: Integrated Dose-length product (DLP) for this visit = 1601 mGy*cm. CT Dose Reduction Employed: mAs-kVp adjusted based on patient size-age COMPARISON: None. RESULT: Liver: No mass. Mild steatosis Biliary: No bile duct dilation. Possible cholelithiasis. Spleen: No mass. No splenomegaly. Tiny scattered subcentimeter hypodense lesions are too small to characterize but likely benign. Pancreas: No mass or duct dilation. Adrenals: No mass. Kidneys: No mass, calculus or hydronephrosis. There is a 5 cm right renal cyst. GI tract: No dilation or wall thickening. There is an NG/OG tube in place with the distal tip at the GE junction. There is mild diverticulosis. Lymph nodes: No abdominal or pelvic lymphadenopathy. Mesentery/Peritoneum: No ascites or mass. No pneumoperitoneum. Retroperitoneum: No mass. Vasculature: The celiac axis and SMA are patent. The portal vein and branches, splenic vein, SMV, and hepatic veins are patent. Arterial atherosclerotic disease without aneurysm. Pelvis: No mass, ascites or fluid collection. There is a catheter within the bladder. Fat-containing RIGHT inguinal hernia. Bones/Soft Tissues: There are bilateral fat-containing inguinal hernias, right greater than left. There is a tiny fat-containing umbilical hernia. Small foci of gas and surgical clips within the right groin subcutaneous tissue and muscle related to previously attempted vascular access. Lower thorax: There is a midline approach mediastinal and a right-sided chest tube. There is bibasilar atelectasis/consolidation, right greater than left. There is pneumomediastinum. IMPRESSION: NO PNEUMOPERITONEUM OR OTHER ACUTE PROCESS IN THE ABDOMEN OR PELVIS. PNEUMOMEDIASTINUM, AN EXPECTED POSTSURGICAL CHANGE. Sterilizer Operator: [employer]SCEr[employer] Transcribe Date/Time: Jul 28 2017 11:40A Dictated by : CAITLYN CHOE MD This examination was interpreted and the report reviewed and electronically signed by: GRETA WILBURN MD on Jul 28 2017 2:30PM EST [id number] PROGRESS Observed: 07/28/2017 Status: COMPLETED Source: [place] 10:06 AM [facility] REPOSITORY O ID: [id number] Author: Ahmad Ash Service: Critical Care Author Type: Anesthesiologist Type: Progress Notes Filed: 07/28/2017 10:36 AM Note Text: [facility] Progress Note Name: Amelia Leavitt COORDINATION OF CARE NOTE: Indication for Surgery: CAD, post prior CAB LVEF: Moderate (37%) RVF: Low Normal Important/Relevant PMH/PSH: 0.5 ppd smoker, quit 2017. Prior GA. Prior ICD placement Preoperative Hospital Course (narrative): 67 year old, long history of CAD, post multiple stent procedures. ?Postop CABG with a left internal mammary artery to the left anterior descending. RCA stented in 2016. ?The ejection fraction was 30-35%. ?A relook on April 25, 2016 demonstrated widely patent left internal mammary artery. ?The right coronary artery and circumflex were occluded. ?He was most recently seen in the office by Dr. Rosalind Carbajal on June 11, 2017. ?They elected to recommend continued medical treatment with up titrating of Ranexa. ?He is coming to [facility] for a second opinion. Procedure/Surgeries: 07/28/2017 Redo Sternotomy CABGx3 (SVG1 to PDA, SVG2 to OM, Free ROMAN as jump graft from prox. SVG2 to LAD ) Airway Difficulty: Grade I OR Course: cardiac dysfunction treated with epi Pacing wires: Per CTS Postoperative Course/General Impression: (narrative or log of major events with date of onset): Had vent dyssynchrony requiring sedation and pain medication with improvement. Treated for wheezing with improvement. Inotropic support. Lactate trending with volume resuscitation. Issues to communicate at signout: July 27, 2017 --wean epi inotropic support as able --had vent dyssynchrony postop, sedation improved this --volume resuscitation postop--improved hemodynamics --wheezing postop--duonebs with improvement --will need ICD interrogation postop --WTE likely 07/28/17 OTHER PROBLEMS I MANAGED DURING THIS ENCOUNTER: Problem Cardiomyopathy, Ischemic July 28, 2017 Treated with bypass surgery, inotropic support postoepratively 07/28/2017 on Epi will wean for CI > 2.0 Respiratory Insufficiency July 28, 2017 Treated with duonebs, mechanical ventilation, optimization of ventilator settings including PEEP and respiratory rate, driving pressure 07/28/[address] scan of the abdomen then WTE Hyperglycemia July 28, 2017 Postoperative, treated with insulin infusion 07/28/2017 will continue to titrate for BG < 180 Postoperative Hypotension on levo will wean for MAP > 70 SUBJECTIVE INTERVAL HISTORY: No acute events PERTINENT REVIEW OF SYSTEMS: See Assessment and Plan. Remaining ROS reviewed and negative. PHYSICAL EXAM AND PERTINENT DATA: Infusions: Fentanyl Insulin Norepinephrine Propofol Vital Signs: BP 137/92 Pulse 93 Temp 36.2 ?C (97.2 ?F) (Temporal Artery) Resp 16 Ht 177.8 cm (5' 10) Wt 102.5 kg (226 lb) SpO2 97% BMI 32.43 kg/m2 Neuro: Sedation Cardiovascular: Rhythm: regular rate and rhythm MAP: 71 mm Hg CVP: 14 mm Hg PAP: 34/16 mm Hg Cardiac Index: 4.3 L/min/m2 Recent Labs 07/28/17 003 TROPT 0.799* Pulmonary: Breath sounds equal and Diminished breath sounds, at the bases Ventilator: Intubated: SPCV; FiO2: 40%; PEEP: 12; PSV; HOB elevated 40 degrees: Yes; Oral care with chlorhexidine: Yes; Was sedation turned off? No: Why? Contraindicated because patient is unstable Recent Labs 07/28/17 0652 07/28/17 0651 07/28/17 0611 07/28/17 0339 PH -- 7.42 7.53* -- 7.47* PCO2 -- 33* 25* -- 29* PO2 -- 100* 91 -- 164* HCO3 -- 21* 20* -- 21* O2HB -- 96 95 -- 96 LACT 4.3* 3.6* 5.7* < > 4.8* < > = values in this interval not displayed. CXR Findings: Atelectasis Bilateral, Pleural effusion Left and CXR personally viewed and interpreted by ICU staff Physician Gastrointestinal: Abdominal: Soft, Non-tender and Bowel sounds no Recent Labs 07/28/17 0030 TPROT 4.8* ALB 2.6* ALKPHOS 74 TBILI 0.7 AST 47* ALT 22 Heme: Recent Labs 07/28/17 003 WBC 22.90* HB 13.1 HCT 38.6* PLT 152 Recent Labs 07/28/17 0030 PTSEC 12.6 INR 1.2 APTT 45.4* Endocrine: Renal: Stable Intake/Output Summary (Last 24 hours) at 07/28/17 0659 Last data filed at 07/28/17 0630 Gross per 24 hour Intake 9717.5 ml Output 3510 ml Net 6207.5 ml Recent Labs 07/28/17 0652 07/28/17 0344 07/28/17 0036 07/28/17 0030 NA -- -- -- 141 K -- -- -- 3.9 CHLOR -- -- -- 101 CO2 23* 25 28 24 BUN -- -- -- 22 CREAT -- -- -- 1.35* GLUC -- -- -- 150* Recent Labs 07/28/17 0030 CA 8.0* Drug Blood Levels: I have discussed the case and the plan and management of the patient's care with the primary surgical team and consulting services, the bedside nurse and the respiratory therapist. SIGNATURE: Simeon Aleman MD DATE of SERVICE: 07/28/2017 TIME of SERVICE: 10:06 AM I gave my full attention and provided critical care time for 32 minutes, exclusive of separately billable procedures and treating other patients. I examined the patient and directed decision making. This was necessary to treat or prevent imminent deterioration of the following condition(s) Respiratory failure and Circulatory failure. redo CABG X 3 post op hypotension on levo will wean as tolerated for MAP > 70 high lactate, will have CT scan of the abdomen vent dependent will start weaning after CT scan stress hyperglycemia will titrate insulin for BG < 180 Simeon Aleman MD 07/28/2017 10:30 AM XR CHEST 1V FRONTAL Observed: 07/28/2017 Status: F Source: [facility] 8:22 AM [facility] REPOSITORY * * *Final Report* * * DATE OF EXAM: Jul 28 2017 8:22AM JIX [id number] - XR CHEST 1V FRONTAL PORT / PROCEDURE REASON: Follow up * * * * Physician Interpretation * * * * EXAMINATION: CHEST RADIOGRAPH (PORTABLE SINGLE VIEW AP) Exam Date/Time: 07/28/2017 8:22 AM Indication: Follow up MQ: XCP_4 Comparison: Same day 241 hrs RESULT: See impression. IMPRESSION: Lines, tubes, and devices: The patient is status post median sternotomy. Endotracheal tube, NG/OG tube, right pulmonary arterial catheter, right chest tube, mediastinal drain and left ICD device are in place. Lungs and pleura: Hazy opacity is noted at the left lung base, likely related to small left pleural effusion and adjacent atelectasis/consolidation. Trace right pleural effusion is noted with adjacent atelectasis. There is central pulmonary venous congestion. No large pneumothorax is noted. Cardiomediastinal silhouette: Cardiomediastinal silhouette is mildly enlarged. Crescentic lucency along the left heart border may be related to postoperative pneumomediastinum/pneumopericardium. Other: Sterilizer Operator: [facility] Transcribe Date/Time: Jul 28 2017 10:00A Dictated by : SUSU BERMUDEZ MD This examination was interpreted and the report reviewed and electronically signed by: SUSU BERMUDEZ MD on Jul 28 2017 10:01AM EST [id number] XR ABDOMEN 1V SUPINE Observed: 07/28/2017 Status: F Source: [place] 8:22 AM [facility] REPOSITORY * * *Final Report* * * DATE OF EXAM: Jul 28 2017 8:22AM JIX [id number] - XR ABDOMEN 1V SUPINE / PROCEDURE REASON: Follow up * * * * Physician Interpretation * * * * ABDOMEN PORTABLE HISTORY: Follow-up exam. TECHNIQUE: Single View, Supine Abdomen; Number of Images: 1 COMPARISON: 07/28/2017 RESULT: See impression. IMPRESSION: NG/OG tube with the tip in the proximal stomach and the side port below the level of the diaphragm. No gas-filled, dilated bowel. Temperature probe in the pelvis. Degenerative changes of the lumbar spine. Mediastinal drains and thoracostomy tubes overlie the abdomen. Sterilizer Operator: [employer] Transcribe Date/Time: Jul 28 2017 9:56A Dictated by : ZIGGY MOURA This examination was interpreted and the report reviewed and electronically signed by: ASH WINTER MD on Jul 28 2017 10:30AM EST [id number] + ALL Collected: 07/28/2017 Status: F Source: [place] 6:52 AM [facility] REPOSITORY TYPE CODE TESTS RESULT OUT OF REFERENCE UNITS RANGE LAB VPH 7.32-7.42 pH 7.39 LAB VPC2 42-55 mm Hg pCO2 Low 37 LAB VPO2 35-45 mm Hg pO2 42 LAB VBE mmol/L Base Excess NEG 2 LAB VHC3 24-28 mmol/L Bicarbonate Low 22 LAB VC2C 25-29 mmol/L CO2 Content Low 23 LAB O2HBCX 60-85 % Oxyhemoglobin, Patrice. 74 LAB CO <2.0 % Carboxyhemoglobin,V 0.0 en LAB METHB 0.4-1.5 % Methemoglobin 0.9 LAB VTMP C Temperature, Body 37.0 LAB VPHTC 7.32-7.42 pH, Temp Corrected 7.39 LAB VPC2T mm Hg pCO2, Temp Correct 37 LAB VPO2T mm Hg pO2, Temp Corrected 42 LAB NAB 135-146 mmol/L Sodium,Whole Bld 141 LAB KWB 3.5-5.0 mmol/L Potassium, Whole Bld 3.8 LAB HGBB 13.0-17.0 g/dL Low Hemoglobin,Total,AC 8.5 L LAB HCTB 39.0-51.0 % Hematocrit, ACL Low 26 LAB IC 1.08-1.30 mmol/L Calcium, Ion, WB 1.12 LAB GLB 60-105 mg/dL Glucose,Whole Bld High 144 LAB LACT 0.5-2.2 mmol/L Lactate High 4.3 Performed By: #### VALLBG #### [facility] [address] [place], [place] [address] GASA + ALL Collected: 07/28/2017 Status: F Source: [place] FOR 6:51 AM [facility] RADIANCE USE ONLY REPOSITORY TYPE CODE TESTS RESULT OUT OF REFERENCE UNITS RANGE LAB PH 7.35-7.45 pH 7.42 LAB PCO2 34-46 mm Hg pCO2 Low 33 LAB PO2 85-95 mm Hg pO2 High 100 LAB BE mmol/L Base Excess NEG 3 LAB HCO3 22-26 mmol/L Bicarbonate Low 21 LAB CO2CT 22.0-28.0 mmol/L CO2 Content 22 LAB O2HB 95-98 % Oxyhemoglobin, Art. 96 LAB COHB 0-5.0 % Carboxyhemoglobin,A 0.0 rt LAB MHGB 0.4-1.5 % Methemoglobin Low 0.0 LAB TEMP C Temperature, Body 37.0 LAB PHTC 7.35-7.45 pH, Temp Corrected 7.42 LAB PCO2T 34-46 mm Hg pCO2, Temp Low Correct 33 LAB PO2T mm Hg pO2, Temp Corrected 100 LAB NAB 135-146 mmol/L Sodium,Whole Bld 142 LAB KWB 3.5-5.0 mmol/L Potassium, Whole Bld 3.9 LAB HGBB 13.0-17.0 g/dL Low Hemoglobin,Total,AC 8.6 L LAB HCTB 39.0-51.0 % Hematocrit, ACL Low 27 LAB IC 1.08-1.30 mmol/L Calcium, Ion, WB 1.11 LAB GLB 60-105 mg/dL Glucose,Whole Bld High 122 LAB LACT 0.5-2.2 mmol/L Lactate High 3.6 Performed By: #### ALLBG #### [facility] [address] [place], [place] [address] GASA + ALL Collected: 07/28/2017 Status: F Source: [place] FOR 6:11 AM [facility] RADIANCE USE ONLY REPOSITORY TYPE CODE TESTS RESULT OUT OF REFERENCE UNITS RANGE LAB PH 7.35-7.45 pH High 7.53 LAB PCO2 34-46 mm Hg pCO2 Low 25 LAB PO2 85-95 mm Hg pO2 91 LAB BE mmol/L Base Excess NEG 1 LAB HCO3 22-26 mmol/L Bicarbonate Low 20 LAB CO2CT 22.0-28.0 mmol/L CO2 Content Low 21 LAB O2HB 95-98 % Oxyhemoglobin, Art. 95 LAB COHB 0-5.0 % Carboxyhemoglobin,A 1.4 rt LAB MHGB 0.4-1.5 % Methemoglobin High 1.8 LAB TEMP C Temperature, Body 37.0 LAB PHTC 7.35-7.45 pH, Temp High Corrected 7.53 LAB PCO2T 34-46 mm Hg pCO2, Temp Low Correct 25 LAB PO2T mm Hg pO2, Temp Corrected 91 LAB NAB 135-146 mmol/L Sodium,Whole Bld 139 LAB KWB 3.5-5.0 mmol/L Potassium, Whole Bld 4.0 LAB HGBB 13.0-17.0 g/dL Low Hemoglobin,Total,AC 9.5 L LAB HCTB 39.0-51.0 % Hematocrit, ACL Low 29 LAB IC 1.08-1.30 mmol/L Calcium, Ion, WB Low 1.07 LAB GLB 60-105 mg/dL Glucose,Whole Bld High 145 LAB LACT 0.5-2.2 mmol/L Lactate High 5.7 Performed By: #### ALLBG #### [facility] [address] [place], [place] [address] ANES POST Observed: 07/28/2017 Status: COMPLETED Source: [place] 4:46 AM [facility] REPOSITORY HNO ID: [id number] Author: Bran Morgan Service: (none) Author Type: Anesthesiologist Type: Anesthesia PostOp Filed: 07/28/2017 4:46 AM Note Text: POST ANESTHESIA EVALUATION NOTE SERVICE DATE: 07/28/2017 SERVICE TIME: 445 : 1952 Vitals: 07/27/17 0903 Temp: 36.2 ?C (97.2 ?F) 07/28/17 0330 07/28/17 0339 07/28/17 0350 07/28/17 0410 Arterial BP 1: 116/67 139/73 92/56 92/54 BP: 07/28/17 0330 07/28/17 0339 07/28/17 0350 07/28/17 0410 Pulse: 105 97 103 100 07/28/17 0045 07/28/17 0101 07/28/17 0319 07/28/17 0330 Resp: 22 17 22 22 07/28/17 0330 07/28/17 0339 07/28/17 0350 07/28/17 0410 SpO2: 100% 99% 100% 100% Validated Vital Signs: Yes POST ANES STATUS: PACU/ICU Patient Condition: Stable Neurological Status: On intravenous sedation. Pulmonary Status: On invasive mechanical ventilation. Airway Control: Intubated on mechanical ventilation. Cardiovascular Status: Stable and On inotropes Pain: Adequately controlled Postoperative Nausea/Vomiting: No significant post operative nausea or vomiting Postoperative Hydration Status: Adequate. Anesthetic Complications: None Recommendation: Continue current plan of care Other Remarks: SIGNATURE: Bran Morgan MD PATIENT NAME: Amelia Leavitt DATE: July 28, 2017 TIME: 4:46 AM PAGER/CONTACT #: [phone] GASV + ALL Collected: 07/28/2017 Status: F Source: [place] 3:44 AM [facility] REPOSITORY TYPE CODE TESTS RESULT OUT OF REFERENCE UNITS RANGE LAB VPH 7.32-7.42 pH 7.40 LAB VPC2 42-55 mm Hg pCO2 Low 39 LAB VPO2 35-45 mm Hg pO2 Low 30 LAB VBE mmol/L Base Excess NEG 1 LAB VHC3 24-28 mmol/L Bicarbonate 24 LAB VC2C 25-29 mmol/L CO2 Content 25 LAB O2HBCX 60-85 % Oxyhemoglobin, Low Patrice. 54 LAB CO <2.0 % Carboxyhemoglobin,V 1.2 en LAB METHB 0.4-1.5 % Methemoglobin 1.3 LAB VTMP C Temperature, Body 37.0 LAB VPHTC 7.32-7.42 pH, Temp Corrected 7.40 LAB VPC2T mm Hg pCO2, Temp Correct 39 LAB VPO2T mm Hg pO2, Temp Corrected 30 LAB NAB 135-146 mmol/L Sodium,Whole Bld 140 LAB KWB 3.5-5.0 mmol/L Potassium, Whole Bld 4.1 LAB HGBB 13.0-17.0 g/dL Low Hemoglobin,Total,AC 10.9 L LAB HCTB 39.0-51.0 % Hematocrit, ACL Low 34 LAB IC 1.08-1.30 mmol/L Calcium, Ion, WB 1.12 LAB GLB 60-105 mg/dL Glucose,Whole Bld High 150 LAB LACT 0.5-2.2 mmol/L Lactate High 5.2 Performed By: #### VALLBG #### [facility] [address] [place] [id number] GASA + ALL Collected: 07/28/2017 Status: F Source: [place] FOR 3:39 AM [facility] RADIANCE USE ONLY REPOSITORY TYPE CODE TESTS RESULT OUT OF REFERENCE UNITS RANGE LAB PH 7.35-7.45 pH High 7.47 LAB PCO2 34-46 mm Hg pCO2 Low 29 LAB PO2 85-95 mm Hg pO2 High 164 LAB BE mmol/L Base Excess NEG 2 LAB HCO3 22-26 mmol/L Bicarbonate Low 21 LAB CO2CT 22.0-28.0 mmol/L CO2 Content 22 LAB O2HB 95-98 % Oxyhemoglobin, Art. 96 LAB COHB 0-5.0 % Carboxyhemoglobin,A 1.1 rt LAB MHGB 0.4-1.5 % Methemoglobin High 1.9 LAB TEMP C Temperature, Body 37.0 LAB PHTC 7.35-7.45 pH, Temp High Corrected 7.47 LAB PCO2T 34-46 mm Hg pCO2, Temp Low Correct 29 LAB PO2T mm Hg pO2, Temp Corrected 164 LAB NAB 135-146 mmol/L Sodium,Whole Bld 138 LAB KWB 3.5-5.0 mmol/L Potassium, Whole Bld 4.0 LAB HGBB 13.0-17.0 g/dL Low Hemoglobin,Total,AC 11.1 L LAB HCTB 39.0-51.0 % Hematocrit, ACL Low 34 LAB IC 1.08-1.30 mmol/L Calcium, Ion, WB 1.10 LAB GLB 60-105 mg/dL Glucose,Whole Bld High 145 LAB LACT 0.5-2.2 mmol/L Lactate High 4.8 Performed By: #### ALLBG #### [facility] [address] [place] [address] XR ABDOMEN 1V SUPINE Observed: 07/28/2017 Status: F Source: [place] 3:00 AM [facility] REPOSITORY * * *Final Report* * * DATE OF EXAM: Jul 28 2017 3:00AM JIX [id number] - XR ABDOMEN 1V SUPINE / PROCEDURE REASON: Postop check * * * * Physician Interpretation * * * * PORTABLE SUPINE ABDOMEN 07/28/2017 3:00 AM HISTORY: Postop check TECHNIQUE: 1 supine abdominal film(s). IMPRESSION: There is no dilated small bowel or colon. Orogastric tube terminates at the level the proximal stomach. Mediastinal drains and chest tubes overlie the abdomen. Left lateral abdomen is not visualized. Sterilizer Operator: PSCB Transcribe Date/Time: Jul 28 2017 8:41A Dictated by : NONA MORRISON MD This examination was interpreted and the report reviewed and electronically signed by: NONA MORRISON MD on Jul 28 2017 8:42AM EST [id number] XR CHEST 1V FRONTAL Observed: 07/28/2017 Status: F Source: [facility] 3:00 AM [facility] REPOSITORY * * *Final Report* * * DATE OF EXAM: Jul 28 2017 3:00AM JIX [id number] - XR CHEST 1V FRONTAL PORT / PROCEDURE REASON: Status post cardiac surgery * * * * Physician Interpretation * * * * EXAMINATION: CHEST RADIOGRAPH (PORTABLE SINGLE VIEW AP) Exam Date/Time: 07/28/2017 3:00 AM Indication: Status post cardiac surgery MQ: XCP_4 Comparison: 1 day prior RESULT: See impression. IMPRESSION: Lines, tubes, and devices: The patient is status post median sternotomy. Endotracheal tube, NG/OG tube, right pulmonary arterial catheter, right chest tube, mediastinal drain and left ICD device are in place. Lungs and pleura: Hazy opacity is noted at the left lung base, likely related to small left pleural effusion and adjacent atelectasis/consolidation. Trace right pleural effusion is noted with adjacent atelectasis. There is central pulmonary venous congestion. New small right apical pneumothorax is noted. Cardiomediastinal silhouette: Cardiac silhouette is enlarged with pulmonary venous congestion. Left coronary stent is noted. Other: Sterilizer Operator: PSCB Transcribe Date/Time: Jul 28 2017 10:42A Dictated by : SUSU BERMUDEZ MD This examination was interpreted and the report reviewed and electronically signed by: SUSU BERMUDEZ MD on Jul 28 2017 10:44AM EST [id number] TYPE AND SCREEN Collected: 07/28/2017 Status: F Source: [place] 2:58 AM [facility] REPOSITORY TYPE CODE TESTS RESULT OUT OF REFERENCE UNITS RANGE LAB %ABR O ABO/RH(D) POSITIVE LAB % Antibody NEG Screen Performed By: #### TSCR #### [facility] [address] [place], [place] [address] GASA + ALL Collected: 07/28/2017 Status: F Source: [place] FOR 1:39 AM [facility] RADIANCE USE ONLY REPOSITORY TYPE CODE TESTS RESULT OUT OF REFERENCE UNITS RANGE LAB PH 7.35-7.45 pH 7.35 LAB PCO2 34-46 mm Hg pCO2 43 LAB PO2 85-95 mm Hg pO2 Low 81 LAB BE mmol/L Base Excess NEG 2 LAB HCO3 22-26 mmol/L Bicarbonate 23 LAB CO2CT 22.0-28.0 mmol/L CO2 Content 25 LAB O2HB 95-98 % Oxyhemoglobin, Low Art. 93 LAB COHB 0-5.0 % Carboxyhemoglobin,A 0.0 rt LAB MHGB 0.4-1.5 % Methemoglobin 0.8 LAB TEMP C Temperature, Body 37.0 LAB PHTC 7.35-7.45 pH, Temp Corrected 7.35 LAB PCO2T 34-46 mm Hg pCO2, Temp Correct 43 LAB PO2T mm Hg pO2, Temp Corrected 81 LAB NAB 135-146 mmol/L Sodium,Whole Bld 141 LAB KWB 3.5-5.0 mmol/L Potassium, Whole Bld 4.1 LAB HGBB 13.0-17.0 g/dL Low Hemoglobin,Total,AC 11.1 L LAB HCTB 39.0-51.0 % Hematocrit, ACL Low 34 LAB IC 1.08-1.30 mmol/L Calcium, Ion, WB 1.09 LAB GLB 60-105 mg/dL Glucose,Whole Bld High 154 LAB LACT 0.5-2.2 mmol/L Lactate High 4.2 Performed By: #### ALLBG #### [facility] [address] [place], [place] [address] GASA + ALL Collected: 07/28/2017 Status: F Source: [place] FOR 1:14 AM [facility] RADIANCE USE ONLY REPOSITORY TYPE CODE TESTS RESULT OUT OF REFERENCE UNITS RANGE LAB PH 7.35-7.45 pH Low 7.20 LAB PCO2 34-46 mm Hg pCO2 High 58 LAB PO2 85-95 mm Hg pO2 Low 84 LAB BE mmol/L Base Excess NEG 7 LAB HCO3 22-26 mmol/L Bicarbonate 22 LAB CO2CT 22.0-28.0 mmol/L CO2 Content 24 LAB O2HB 95-98 % Oxyhemoglobin, Low Art. 91 LAB COHB 0-5.0 % Carboxyhemoglobin,A 1.1 rt LAB MHGB 0.4-1.5 % Methemoglobin 1.2 LAB TEMP C Temperature, Body 37.0 LAB PHTC 7.35-7.45 pH, Temp Low Corrected 7.20 LAB PCO2T 34-46 mm Hg pCO2, Temp High Correct 58 LAB PO2T mm Hg pO2, Temp Corrected 84 LAB NAB 135-146 mmol/L Sodium,Whole Bld 139 LAB KWB 3.5-5.0 mmol/L Potassium, Whole Bld 4.6 LAB HGBB 13.0-17.0 g/dL Hemoglobin,Total,AC 13.8 L LAB HCTB 39.0-51.0 % Hematocrit, ACL 42 LAB IC 1.08-1.30 mmol/L Calcium, Ion, WB 1.19 LAB GLB 60-105 mg/dL Glucose,Whole Bld High 161 LAB LACT 0.5-2.2 mmol/L Lactate High 4.2 Performed By: #### ALLBG #### [facility] [address] [place], [place] [address] GASV + ALL Collected: 07/28/2017 Status: F Source: [place] 12:36 AM [facility] REPOSITORY TYPE CODE TESTS RESULT OUT OF REFERENCE UNITS RANGE LAB VPH 7.32-7.42 pH Low Alert 7.13 LAB VPC2 42-55 mm Hg pCO2 High 80 LAB VPO2 35-45 mm Hg pO2 40 LAB VBE mmol/L Base Excess NEG 6 LAB VHC3 24-28 mmol/L Bicarbonate 25 LAB VC2C 25-29 mmol/L CO2 Content 28 LAB O2HBCX 60-85 % Oxyhemoglobin, Low Patrice. 54 LAB CO <2.0 % Carboxyhemoglobin, 0.7 Patrice LAB METHB 0.4-1.5 % Methemoglobin 1.5 LAB VTMP C Temperature, Body 37.0 LAB VPHTC 7.32-7.42 pH, Temp Low Alert Corrected 7.13 LAB VPC2T mm Hg pCO2, Temp Correct 80 LAB VPO2T mm Hg pO2, Temp Corrected 40 LAB NAB 135-146 mmol/L Sodium,Whole Bld 140 LAB KWB 3.5-5.0 mmol/L Potassium, Whole Bld 3.8 LAB HGBB 13.0-17.0 g/dL Hemoglobin,Total,A 14.6 CL LAB HCTB 39.0-51.0 % Hematocrit, ACL 45 LAB IC 1.08-1.30 mmol/L Calcium, Ion, WB 1.21 LAB GLB 60-105 mg/dL Glucose,Whole High Bld 142 LAB LACT 0.5-2.2 mmol/L Lactate High 4.2 LAB VBGCOM Blood Gas Comm, Patrice Critical Value Result Comment: PH LAB VCBWHO Notified Whom, Patrice Called to and read back by Result Comment: HERBERT DIAZ VCBDTE [id number] Notify Date, Patrice LAB VCBTME [id number] Notify Time, Patrice Performed By: #### VALLBG #### [facility] [address] [place], [place] [address] GASA + ALL Collected: 07/28/2017 Status: F Source: [place] FOR 12:35 AM [facility] RADIANCE USE ONLY REPOSITORY TYPE CODE TESTS RESULT OUT OF REFERENCE UNITS RANGE LAB PH 7.35-7.45 pH Low Alert 7.16 LAB PCO2 34-46 mm Hg pCO2 High 64 LAB PO2 85-95 mm Hg pO2 94 LAB BE mmol/L Base Excess NEG 8 LAB HCO3 22-26 mmol/L Bicarbonate 22 LAB CO2CT 22.0-28.0 mmol/L CO2 Content 24 LAB O2HB 95-98 % Oxyhemoglobin, Low Art. 92 LAB COHB 0-5.0 % Carboxyhemoglobin, 1.2 Art LAB MHGB 0.4-1.5 % Methemoglobin 1.2 LAB TEMP C Temperature, Body 37.0 LAB PHTC 7.35-7.45 pH, Temp Low Alert Corrected 7.16 LAB PCO2T 34-46 mm Hg pCO2, Temp High Correct 64 LAB PO2T mm Hg pO2, Temp Corrected 94 LAB NAB 135-146 mmol/L Sodium,Whole Bld 140 LAB KWB 3.5-5.0 mmol/L Potassium, Whole Bld 3.7 LAB HGBB 13.0-17.0 g/dL Hemoglobin,Total,A 13.9 CL LAB HCTB 39.0-51.0 % Hematocrit, ACL 43 LAB IC 1.08-1.30 mmol/L Calcium, Ion, WB 1.17 LAB GLB 60-105 mg/dL Glucose,Whole High Bld 140 LAB LACT 0.5-2.2 mmol/L Lactate High 3.8 LAB ABGCOM Blood Gas Comm, Art Critical Value Result Comment: PH PCO2 LAB ACBWHO Notified Whom, Art Called to and read back by Result Comment: HERBERT CHAUDHRY LAB ACBDTE [id number] Notify Date, Art LAB ACBTME [id number] Notify Time, Art Performed By: #### ALLBG #### [facility] [address] [place], [place] [address] [phone] CBC Collected: 07/28/2017 Status: F Source: [place] 12:30 AM [facility] REPOSITORY TYPE CODE TESTS RESULT OUT OF REFERENCE UNITS RANGE LAB WBC 3.70-11.00 k/uL WBC High 22.90 LAB RBC 4.20-6.00 m/uL Low RBC 4.11 LAB HGB 13.0-17.0 g/dL Hemoglobin 13.1 LAB HCT 39.0-51.0 % Low Hematocrit 38.6 LAB MCV 80.0-100.0 fL MCV 93.9 LAB MCH 26.0-34.0 pG MCH 31.9 LAB MCHC 30.5-36.0 g/dL MCHC 33.9 LAB RDWCV 11.5-15.0 % RDW-CV 13.2 LAB PLTCT 150-400 k/uL Platelet Count 152 LAB MPV 9.0-12.7 fL MPV 11.6 LAB ABSNUC <0.01 k/uL Absolute nRBC <0.01 Performed By: #### CBC, PT, PTT, CMP, MJ #### [facility] [address] [place], [place] [address] PROTIME Collected: 07/28/2017 Status: F Source: [place] 12:30 AM [facility] REPOSITORY TYPE CODE TESTS RESULT OUT OF RANGE REFERENCE UNITS LAB PSEC 9.7-13.0 sec PT Sec 12.6 LAB INR 0.9-1.3 PT INR 1.2 Result Comment: Vitamin K Antagonist (VKA) Therapeutic Range: INR 2 to 3 (Target INR of 2.5) Note: For patients treated with VKA drugs, such as warfarin, the [place] [employer] 2012 Guideline recommends a therapeutic INR range of 2 to 3 (target INR of 2.5). This recommendation includes high-risk patients with antiphospholipid syndrome with previous arterial or venous thromboembolism, current-generation mechanical or bioprosthetic aortic heart valve replacement. Note: Patients with mechanical aortic valve replacement and additional risk factors for thromboembolic events (atrial fibrillation, previous thromboembolism, LV dysfunction, hypercoagulable conditions) or an older generation mechanical AVR (i.e., ball in-Cage) or any mechanical MVR should have a INR therapeutic range of 2.5 to 3.5 (target INR of 3). Guyatt GH, et al. Chest 2012, 141:7S-47S Wanda RA, et al. [facility] 2017, 70: 252-289 Performed By: #### CBC, PT, PTT, CMP, MJ #### [facility] [address] [place], [place] [address] APTT Collected: 07/28/2017 Status: F Source: [place] 12:30 AM [facility] REPOSITORY TYPE CODE TESTS RESULT OUT OF RANGE REFERENCE UNITS LAB APTT 23.0-32.4 sec High APTT 45.4 Result Comment: Unfractionated Heparin Therapeutic Ranges: Standard Heparin Nomogram: 53 to 78 seconds (anti-Xa level of 0.3 to 0.7 U/ml) Low Dose/ACS Nomogram: 49 to 67 seconds (anti-Xa level of 0.2 to 0.5 U/ml) Stroke Treatment Nomogram: 49 to 67 seconds (anti-Xa level of 0.2 to 0.5 U/ml) Note: The APTT therapeutic range has been determined for the current lot of laboratory APTT reagent in use throughout the [facility]. Performed By: #### CBC, PT, PTT, CMP, MJ #### [facility] [address] [place], [place] [address] COMP METABOLIC PANEL Collected: 07/28/2017 Status: F Source: [place] 12:30 [facility] REPOSITORY TYPE CODE TESTS RESULT OUT OF REFERENCE UNITS RANGE LAB TP 6.3-8.0 g/dL Low Protein, Total 4.8 LAB ALB 3.9-4.9 g/dL Low Albumin 2.6 LAB CA 8.5-10.2 mg/dL Low Calcium, Total 8.0 LAB TBIL 0.2-1.3 mg/dL Bilirubin, Total 0.7 LAB ALKP 36-108 U/L Alkaline Phosphatase 74 LAB AST 14-40 U/L AST High 47 LAB GLU 74-99 mg/dL Glucose High 150 Result Comment: The [place] [employer] (ADA) provides guidance for cutoff values for fasting glucose and random glucose. The ADA defines fasting as no caloric intake for at least 8 hours. Fas ting plasma glucose results between 100 to 125 mg/dL indicate increased risk for diabetes (prediabetes). Fasting plasma glucose results greater than or equal to 126 mg/dL meet the criteria for diagnosis of diabetes. In the absence of unequivocal hyperglycemia, results should be confirmed by repeat testing. In a patient with classic symptoms of hyperglycemia or hyperglycemic crisis, random plasma glucose results greater than or equal to 200 mg/dL meet the criteria for diagnosis of diabetes. Reference: Standards of Medical Care in Diabetes 2016, [place] [employer]. Diabetes Care. 2016.39(Suppl 1). LAB BUN 9-24 mg/dL BUN 22 LAB CRET 0.73-1.22 mg/dL Creatinine High 1.35 LAB NA 136-144 mmol/L Sodium 141 LAB K 3.7-5.1 mmol/L Potassium 3.9 LAB CL 97-105 mmol/L Chloride 101 LAB CO2 22-30 mmol/L CO2 24 LAB AGAP 9-18 mmol/L Anion Gap 16 LAB ALT 10-54 U/L ALT 22 LAB GFRAA eGFR- Amer. >60 LAB GFRNAA . eGFR-All Other Races 53 Result Comment: eGFR (Estimated GFR) Units of measure: mL/min/1.73 meters squared eGFR is derived from the reexpressed MDRD Study equation using the following parameters: serum creatinine, age, gender and race. The creatinine assay has been calibrated to be traceable to IDMS. An eGFR <60 mL/min/1.73m2 for >3 months is consistent with chronic kidney disease. Refer to KDOQI guidelines for clinical interpretation. In patients with unstable renal function, e.g. those with acute kidney injury, the eGFR may not accurately reflect actual GFR. Performed By: #### CBC, PT, PTT, CMP, MJ #### [facility] [address] [place] [address] TROPONIN T Collected: 07/28/2017 Status: F Source: [place] 12:30 AM [facility] REPOSITORY TYPE CODE TESTS RESULT OUT OF REFERENCE UNITS RANGE LAB TROPT 0.000-0.029 ng/mL High Troponin T 0.799 Result Comment: Called to and read back by: Herbert J66 07/28/17 0218 Charla Performed By: #### CBC, PT, PTT, CMP, MJ #### [facility] [address] [place], [place] [address] STAPH AUREUS PCR Collected: 07/28/2017 Status: F Source: [place] 12:25 AM [facility] REPOSITORY TYPE CODE TESTS RESULT OUT OF REFERENCE UNITS RANGE LAB SASRC Nasal S aureus Spec Source LAB MRSRES Negative for MRSA MRSA by PCR. PCR LAB SARES Negative for Staph Staphylococcus aureus PCR aureus by PCR. Performed By: #### SAPCR #### [facility] [address] [place], [place] [address] CONSULT Observed: 07/28/2017 Status: COMPLETED Source: [place] 12:21 AM [facility] REPOSITORY HNO ID: [id number] Author: Brock West V Service: Critical Care Author Type: Anesthesiologist Type: Consults Filed: 07/28/2017 2:46 AM Note Text: [facility] Admission Note Name: Amelia Leavitt Indication for Surgery: CAD, post prior CAB LVEF: Moderate (37%) RVF: Low Normal Important/Relevant PMH/PSH: 0.5 ppd smoker, quit 2017. Prior GA. Prior ICD placement Preoperative Hospital Course (narrative): 67 year old, long history of CAD, post multiple stent procedures. ?Postop CABG with a left internal mammary artery to the left anterior descending. RCA stented in 2016. ?The ejection fraction was 30-35%. ?A relook on April 25, 2016 demonstrated widely patent left internal mammary artery. ?The right coronary artery and circumflex were occluded. ?He was most recently seen in the office by Dr. Rosalind Carbajal on June 11, 2017. ?They elected to recommend continued medical treatment with up titrating of Ranexa. ?He is coming to [facility] for a second opinion. Procedure/Surgeries: 07/28/2017 Redo Sternotomy CABGx3 (SVG1 to PDA, SVG2 to OM, Free ROMAN as jump graft from prox. SVG2 to LAD ) Airway Difficulty: Grade I OR Course: cardiac dysfunction treated with epi Pacing wires: Per CTS Postoperative Course/General Impression: (narrative or log of major events with date of onset): Had vent dyssynchrony requiring sedation and pain medication with improvement. Treated for wheezing with improvement. Inotropic support. Lactate trending with volume resuscitation. Issues to communicate at signout: July 27, 2017 --wean epi inotropic support as able --had vent dyssynchrony postop, sedation improved this --volume resuscitation postop--improved hemodynamics --wheezing postop--duonebs with improvement --will need ICD interrogation postop --WTE likely 07/28/17 Additional Hospital Problems Problem Cardiomyopathy, Ischemic July 28, 2017 Treated with bypass surgery, inotropic support postoepratively Pain, Postoperative, Acute July 28, 2017 Treated with fentanyl infusion Bronchospasm July 28, 2017 Treated with duonebs Respiratory Insufficiency July 28, 2017 Treated with duonebs, mechanical ventilation, optimization of ventilator settings including PEEP and respiratory rate, driving pressure Hyperglycemia July 28, 2017 Postoperative, treated with insulin infusion Cardiogenic Shock (Hcc) July 28, 2017 Treated with inotropic support post cabg Dehydration July 28, 2017 Treated with volume resuscitation Smoking History July 28, 2017 Wheezing postop, treated with duonebs, monitor Infusions: Epinephrine Fentanyl Insulin Nitroglycerin Propofol CVICU Admission ECG: Reviewed CVICU Admission CXR: Reviewed Neuro: Sedation. Cardiovascular: Rhythm: regular rate and rhythm MAP: 70 mmHg Cardiac Index: 2.3 L/min/m2 Pulmonary: Wheezes Ventilator: Intubated Potential prolonged intubation: Yes (select all that apply) Other - wheezing Abdominal: Soft Continued need for urinary catheter: Yes - clinical indication: Patient post major surgery requiring fluid balance and input and output measurement. DAY OF SURGERY PLAN: Modified Protocol: Cardiovascular monitoring, stabilization of blood pressure and cardiac function. Pain control, glycemic control, DVT prophylaxis, antibiotic prophylaxis. Sedate and ventilate. Keep intubated and mechanically ventilated until inotropic support weaned and wheezing improved--duonebs given This patient has a high probability of sudden, clinically significant deterioration, which requires the highest level of preparedness to intervene urgently. I participated in the decision making and personally managed or directed the plan of care, including the following medical problems that required my frequent assessment to treat or prevent imminent deterioration: Problem Cardiomyopathy, Ischemic Pain, Postoperative, Acute Bronchospasm Respiratory Insufficiency Hyperglycemia Cardiogenic Shock (Hcc) Dehydration Smoking History I personally spent 55 minutes of critical care time treating the patient. Time devoted to teaching and to any procedures I billed separately is not included. SIGNATURE: Brock West MD DATE of SERVICE: 07/28/2017 TIME of SERVICE: 12:21 AM XR CHEST 1V FRONTAL Observed: 07/27/2017 Status: F Source: [facility] 11:44 PM [facility] [place] REPOSITORY * * *Final Report* * * DATE OF EXAM: Jul 27 2017 11:44PM RANDEE [id number] - XR CHEST 1V FRONTAL PORT / PROCEDURE REASON: Status post cardiac surgery * * * * Physician Interpretation * * * * EXAMINATION: CHEST RADIOGRAPH (PORTABLE SINGLE VIEW AP) Exam Date/Time: 07/27/2017 11:44 PM Indication: Status post cardiac surgery MQ: XCP_4 Comparison: 07/28/2017 at 1214 hours RESULT: See impression. IMPRESSION: Lines, tubes, and devices: Right IJ PA catheter tip in right pulmonary artery. Endotracheal tube tip in right mainstem bronchus and should be retracted. NG/OG tube extends below the diaphragm. Status post redo sternotomy with mediastinal drain and right basilar chest tube in place. Single chamber AICD device is present with the lead terminating overlying the expected position of the right ventricle. Lungs and pleura: Lung volumes are low with bibasilar atelectasis. Prominence of the interstitial markings, which may be reflective of edema versus crowding of vasculature secondary to hypoinflated lungs. Indistinct right costophrenic angle may relate to adjacent atelectasis or small pleural effusion. No large pneumothorax Cardiomediastinal silhouette: Cardiomediastinal silhouette is enlarged and accentuated by hypoinflation. PCI stent seen in the left coronary artery distribution. Small pneumomediastinum (versus loculated medial left pneumothorax) present. Sterilizer Operator: KEVIN Transcribe Date/Time: Jul 28 2017 8:28A Dictated by : DEBBIE MALIK MD This examination was interpreted and the report reviewed and electronically signed by: DEBBIE MALIK MD on Jul 28 2017 8:32AM EST [id number] BRIEF OP NOT Observed: 07/27/2017 Status: COMPLETED Source: [place] 10:49 PM [facility] REPOSITORY HNO ID: [id number] Author: Stacy (Fel) Garcia Service: Cardiac Surgery Author Type: Fellow Type: Brief Op Note Filed: 07/27/2017 10:54 PM Note Text: CARDIOTHORACIC BRIEF OP NOTE LOG ID: [id number] SURGERY/PROCEDURE DATE: 07/27/2017 INCISION/PROCEDURE START TIME: 2:40 PM INCISION CLOSE/PROCEDURE END TIME: SURGEON(S) AND METAL SPRAYING MACHINE OPERATOR(S): Surgeon(s) and Role: * Kaushal Huff - Primary * Tawanna Garcia (Fel) - Resident - Assisting * Curly Franks - Assisting * Marquita Pearson - Assisting Physician Striper: Melba Wade (Pa) Registered Nurse Access Analyst: Trina (Rn) Tereso, RN; Alex Copeland (Rn) Lobo RN; Debbie Dick (Rn) Cate, MAINTAINER [employer] AND ANESTHESIA: Procedure(s) and Anesthesia Type: * BYPASS ARTERY CORONARY REDO ON PUMP - General Great Saphenous Vein, Right, Percutaneous endoscopic Internal Thoracic Artery, Right, Open Redo Sternotomy CABGx3 (SVG1 to PDA, SVG2 to OM, Free ROMAN as jump graft from prox. SVG2 to LAD ) ANESTHESIA: General BRIEF FINDINGS: OM poor targets, other OM branches are unable to graft. No pacing wires 1 Right pleural chest tube 1 mediastinal chest tube PREOPERATIVE DIAGNOSIS: coronary artery disease POSTOPERATIVE DIAGNOSIS: coronary artery disease ESTIMATED BLOOD LOSS: 500 ml SPECIMENS: None COMPLICATIONS: None SIGNATURE: Tawanna Garcia MD PATIENT NAME: Amelia Leavitt DATE: July 27, 2017 TIME: 10:49 PM PAGER/CONTACT #: [phone] GASA + ALL Collected: 07/27/2017 Status: F Source: [place] FOR 10:27 PM [facility] USE ONLY REPOSITORY TYPE CODE TESTS RESULT OUT OF REFERENCE UNITS RANGE LAB PH 7.35-7.45 pH 7.38 LAB PCO2 34-46 mm Hg pCO2 38 LAB PO2 85-95 mm Hg pO2 High 241 LAB BE mmol/L Base Excess NEG 2 LAB HCO3 22-26 mmol/L Bicarbonate 22 LAB CO2CT 22.0-28.0 mmol/L CO2 Content 23 LAB O2HB 95-98 % Oxyhemoglobin, Art. 97 LAB COHB 0-5.0 % Carboxyhemoglobin,A 0.5 rt LAB MHGB 0.4-1.5 % Methemoglobin Low 0.3 LAB TEMP C Temperature, Body 37.0 LAB PHTC 7.35-7.45 pH, Temp Corrected 7.38 LAB PCO2T 34-46 mm Hg pCO2, Temp Correct 38 LAB PO2T mm Hg pO2, Temp Corrected 241 LAB NAB 135-146 mmol/L Sodium,Whole Bld 137 LAB KWB 3.5-5.0 mmol/L Potassium, Whole Bld 4.1 LAB HGBB 13.0-17.0 g/dL Hemoglobin,Total,AC 13.6 L LAB HCTB 39.0-51.0 % Hematocrit, ACL 42 LAB IC 1.08-1.30 mmol/L Calcium, Ion, WB 1.20 LAB GLB 60-105 mg/dL Glucose,Whole Bld High 152 LAB LACT 0.5-2.2 mmol/L Lactate High 5.9 Performed By: #### ALLBG #### [facility] [address], [place] [address] GASA + ALL Collected: 07/27/2017 Status: F Source: [place] FOR 9:42 PM [facility] RADIANCE USE ONLY REPOSITORY TYPE CODE TESTS RESULT OUT OF REFERENCE UNITS RANGE LAB PH 7.35-7.45 pH 7.36 LAB PCO2 34-46 mm Hg pCO2 40 LAB PO2 85-95 mm Hg pO2 High 235 LAB BE mmol/L Base Excess NEG 3 LAB HCO3 22-26 mmol/L Bicarbonate 22 LAB CO2CT 22.0-28.0 mmol/L CO2 Content 23 LAB O2HB 95-98 % Oxyhemoglobin, Art. 97 LAB COHB 0-5.0 % Carboxyhemoglobin,A 0.5 rt LAB MHGB 0.4-1.5 % Methemoglobin Low 0.2 LAB TEMP C Temperature, Body 37.0 LAB PHTC 7.35-7.45 pH, Temp Corrected 7.36 LAB PCO2T 34-46 mm Hg pCO2, Temp Correct 40 LAB PO2T mm Hg pO2, Temp Corrected 235 LAB NAB 135-146 mmol/L Sodium,Whole Bld 138 LAB KWB 3.5-5.0 mmol/L Potassium, Whole Bld 3.5 LAB HGBB 13.0-17.0 g/dL Hemoglobin,Total,AC 14.0 L LAB HCTB 39.0-51.0 % Hematocrit, ACL 43 LAB IC 1.08-1.30 mmol/L Calcium, Ion, WB 1.23 LAB GLB 60-105 mg/dL Glucose,Whole Bld High 176 LAB LACT 0.5-2.2 mmol/L Lactate High 5.8 Performed By: #### ALLBG #### [facility] [address] [place], [place] [address] GASA + ALL Collected: 07/27/2017 Status: F Source: [place] FOR 8:47 PM [facility] USE ONLY REPOSITORY TYPE CODE TESTS RESULT OUT OF REFERENCE UNITS RANGE LAB PH 7.35-7.45 pH 7.37 LAB PCO2 34-46 mm Hg pCO2 41 LAB PO2 85-95 mm Hg pO2 High 217 LAB BE mmol/L Base Excess NEG 2 LAB HCO3 22-26 mmol/L Bicarbonate 23 LAB CO2CT 22.0-28.0 mmol/L CO2 Content 24 LAB O2HB 95-98 % Oxyhemoglobin, Art. 96 LAB COHB 0-5.0 % Carboxyhemoglobin, 0.0 Art LAB MHGB 0.4-1.5 % Methemoglobin 0.9 LAB TEMP C Temperature, Body 37.0 LAB PHTC 7.35-7.45 pH, Temp Corrected 7.37 LAB PCO2T 34-46 mm Hg pCO2, Temp Correct 41 LAB PO2T mm Hg pO2, Temp Corrected 217 LAB NAB 135-146 mmol/L Sodium,Whole Bld 136 LAB KWB 3.5-5.0 mmol/L Potassium, Whole Bld 3.7 LAB HGBB 13.0-17.0 g/dL Low Hemoglobin,Total,A 10.8 CL LAB HCTB 39.0-51.0 % Hematocrit, Low ACL 33 LAB IC 1.08-1.30 mmol/L Calcium, Ion, Low WB 1.03 LAB GLB 60-105 mg/dL Glucose,Whole High Bld 237 LAB LACT 0.5-2.2 mmol/L Lactate High 4.6 LAB ACBDTE Notify Date, Art [id number] LAB ACBTME Notify Time, Art Performed By: #### ALLBG #### [facility] [address] [place], [place] [address] GASV + ALL Collected: 07/27/2017 Status: F Source: [place] 7:51 PM [facility] REPOSITORY TYPE CODE TESTS RESULT OUT OF REFERENCE UNITS RANGE LAB VPH 7.32-7.42 pH 7.36 LAB VPC2 42-55 mm Hg pCO2 48 LAB VPO2 35-45 mm Hg pO2 44 LAB VBE mmol/L Base Excess 1 LAB VHC3 24-28 mmol/L Bicarbonate 27 LAB VC2C 25-29 mmol/L CO2 Content 28 LAB O2HBCX 60-85 % Oxyhemoglobin, Patrice. 74 LAB CO <2.0 % Carboxyhemoglobin,V 1.3 en LAB METHB 0.4-1.5 % Methemoglobin 1.2 LAB VTMP C Temperature, Body 37.0 LAB VPHTC 7.32-7.42 pH, Temp Corrected 7.36 LAB VPC2T mm Hg pCO2, Temp Correct 48 LAB VPO2T mm Hg pO2, Temp Corrected 44 LAB NAB 135-146 mmol/L Sodium,Whole Bld 135 LAB KWB 3.5-5.0 mmol/L Potassium, Whole Bld 4.9 LAB HGBB 13.0-17.0 g/dL Low Hemoglobin,Total,AC 11.2 L LAB HCTB 39.0-51.0 % Hematocrit, ACL Low 35 LAB IC 1.08-1.30 mmol/L Calcium, Ion, WB Low 1.04 LAB GLB 60-105 mg/dL Glucose,Whole Bld High 198 LAB LACT 0.5-2.2 mmol/L Lactate 2.1 Performed By: #### VALLBG #### [facility] [address] [place] [id number] GASA + ALL Collected: 07/27/2017 Status: F Source: [place] FOR 7:47 PM [facility] RADI[facility] USE ONLY REPOSITORY TYPE CODE TESTS RESULT OUT OF REFERENCE UNITS RANGE LAB PH 7.35-7.45 pH 7.41 LAB PCO2 34-46 mm Hg pCO2 41 LAB PO2 85-95 mm Hg pO2 High 281 LAB BE mmol/L Base Excess 1 LAB HCO3 22-26 mmol/L Bicarbonate 25 LAB CO2CT 22.0-28.0 mmol/L CO2 Content 26 LAB O2HB 95-98 % Oxyhemoglobin, Art. 97 LAB COHB 0-5.0 % Carboxyhemoglobin,A 0.0 rt LAB MHGB 0.4-1.5 % Methemoglobin 0.6 LAB TEMP C Temperature, Body 37.0 LAB PHTC 7.35-7.45 pH, Temp Corrected 7.41 LAB PCO2T 34-46 mm Hg pCO2, Temp Correct 41 LAB PO2T mm Hg pO2, Temp Corrected 281 LAB NAB 135-146 mmol/L Sodium,Whole Bld 135 LAB KWB 3.5-5.0 mmol/L Potassium, Whole Bld 4.9 LAB HGBB 13.0-17.0 g/dL Low Hemoglobin,Total,AC 11.3 L LAB HCTB 39.0-51.0 % Hematocrit, ACL Low 35 LAB IC 1.08-1.30 mmol/L Calcium, Ion, WB Low 1.02 LAB GLB 60-105 mg/dL Glucose,Whole Bld High 197 LAB LACT 0.5-2.2 mmol/L Lactate 2.0 Performed By: #### ALLBG #### [facility] [address] [place], [place] [address] GASA + ALL Collected: 07/27/2017 Status: F Source: [place] FOR 7:07 PM [facility] USE ONLY REPOSITORY TYPE CODE TESTS RESULT OUT OF REFERENCE UNITS RANGE LAB PH 7.35-7.45 pH 7.39 LAB PCO2 34-46 mm Hg pCO2 43 LAB PO2 85-95 mm Hg pO2 High 324 LAB BE mmol/L Base Excess 1 LAB HCO3 22-26 mmol/L Bicarbonate 25 LAB CO2CT 22.0-28.0 mmol/L CO2 Content 27 LAB O2HB 95-98 % Oxyhemoglobin, Art. 98 LAB COHB 0-5.0 % Carboxyhemoglobin, 0.8 Art LAB MHGB 0.4-1.5 % Methemoglobin 0.9 LAB TEMP C Temperature, Body 37.0 LAB PHTC 7.35-7.45 pH, Temp Corrected 7.39 LAB PCO2T 34-46 mm Hg pCO2, Temp Correct 43 LAB PO2T mm Hg pO2, Temp Corrected 324 LAB NAB 135-146 mmol/L Sodium,Whole Bld 135 LAB KWB 3.5-5.0 mmol/L Potassium, Whole Bld 4.7 LAB HGBB 13.0-17.0 g/dL Low Hemoglobin,Total,A 11.2 CL LAB HCTB 39.0-51.0 % Hematocrit, Low ACL 35 LAB IC 1.08-1.30 mmol/L Calcium, Ion, Low WB 1.03 LAB GLB 60-105 mg/dL Glucose,Whole High Bld 197 LAB LACT 0.5-2.2 mmol/L Lactate 1.9 LAB ACBDTE Notify Date, Art [id number] LAB ACBTME Notify Time, Art Performed By: #### ALLBG #### [facility] [address] [place], [place] [address] GASV + ALL Collected: 07/27/2017 Status: F Source: [place] 6:10 PM [facility] REPOSITORY TYPE CODE TESTS RESULT OUT OF REFERENCE UNITS RANGE LAB VPH 7.32-7.42 pH 7.41 LAB VPC2 42-55 mm Hg pCO2 42 LAB VPO2 35-45 mm Hg pO2 High 46 LAB VBE mmol/L Base Excess 1 LAB VHC3 24-28 mmol/L Bicarbonate 25 LAB VC2C 25-29 mmol/L CO2 Content 27 LAB O2HBCX 60-85 % Oxyhemoglobin, Patrice. 79 LAB CO <2.0 % Carboxyhemoglobin,V 1.4 en LAB METHB 0.4-1.5 % Methemoglobin 1.1 LAB VTMP C Temperature, Body 37.0 LAB VPHTC 7.32-7.42 pH, Temp Corrected 7.41 LAB VPC2T mm Hg pCO2, Temp Correct 42 LAB VPO2T mm Hg pO2, Temp Corrected 46 LAB NAB 135-146 mmol/L Sodium,Whole Bld 137 LAB KWB 3.5-5.0 mmol/L Potassium, Whole Bld 3.9 LAB HGBB 13.0-17.0 g/dL Low Hemoglobin,Total,AC 12.2 L LAB HCTB 39.0-51.0 % Hematocrit, ACL Low 38 LAB IC 1.08-1.30 mmol/L Calcium, Ion, WB Low 1.04 LAB GLB 60-105 mg/dL Glucose,Whole Bld High 115 LAB LACT 0.5-2.2 mmol/L Lactate 1.9 Performed By: #### VALLBG #### [facility] [address] [place], [place] [address] GASA + ALL Collected: 07/27/2017 Status: F Source: [place] FOR 6:00 PM [facility] USE ONLY REPOSITORY TYPE CODE TESTS RESULT OUT OF REFERENCE UNITS RANGE LAB PH 7.35-7.45 pH High 7.46 LAB PCO2 34-46 mm Hg pCO2 35 LAB PO2 85-95 mm Hg pO2 High 293 LAB BE mmol/L Base Excess 2 LAB HCO3 22-26 mmol/L Bicarbonate 25 LAB CO2CT 22.0-28.0 mmol/L CO2 Content 26 LAB O2HB 95-98 % Oxyhemoglobin, Art. 97 LAB COHB 0-5.0 % Carboxyhemoglobin,A 1.2 rt LAB MHGB 0.4-1.5 % Methemoglobin 1.3 LAB TEMP C Temperature, Body 37.0 LAB PHTC 7.35-7.45 pH, Temp High Corrected 7.46 LAB PCO2T 34-46 mm Hg pCO2, Temp Correct 35 LAB PO2T mm Hg pO2, Temp Corrected 293 LAB NAB 135-146 mmol/L Sodium,Whole Bld 135 LAB KWB 3.5-5.0 mmol/L Potassium, Whole Bld 4.0 LAB HGBB 13.0-17.0 g/dL Low Hemoglobin,Total,AC 12.3 L LAB HCTB 39.0-51.0 % Hematocrit, ACL Low 38 LAB IC 1.08-1.30 mmol/L Calcium, Ion, WB Low 1.02 LAB GLB 60-105 mg/dL Glucose,Whole Bld High 115 LAB LACT 0.5-2.2 mmol/L Lactate 1.7 Performed By: #### ALLBG #### [facility] [address] [place] [id number] GASV + ALL Collected: 07/27/2017 Status: F Source: [place] 5:12 PM [facility] REPOSITORY TYPE CODE TESTS RESULT OUT OF REFERENCE UNITS RANGE LAB VPH 7.32-7.42 pH 7.41 LAB VPC2 42-55 mm Hg pCO2 Low 41 LAB VPO2 35-45 mm Hg pO2 42 LAB VBE mmol/L Base Excess 1 LAB VHC3 24-28 mmol/L Bicarbonate 25 LAB VC2C 25-29 mmol/L CO2 Content 27 LAB O2HBCX 60-85 % Oxyhemoglobin, Patrice. 73 LAB CO <2.0 % Carboxyhemoglobin, 1.3 Patrice LAB METHB 0.4-1.5 % Methemoglobin 1.5 LAB VTMP C Temperature, Body 37.0 LAB VPHTC 7.32-7.42 pH, Temp Corrected 7.41 LAB VPC2T mm Hg pCO2, Temp Correct 41 LAB VPO2T mm Hg pO2, Temp Corrected 42 LAB NAB 135-146 mmol/L Sodium,Whole Bld 141 LAB KWB 3.5-5.0 mmol/L Potassium, Whole Bld 4.1 LAB HGBB 13.0-17.0 g/dL Hemoglobin,Total,A 15.0 CL LAB HCTB 39.0-51.0 % Hematocrit, ACL 46 LAB IC 1.08-1.30 mmol/L Calcium, Ion, WB 1.21 LAB GLB 60-105 mg/dL Glucose,Whole High Bld 123 LAB LACT 0.5-2.2 mmol/L Lactate 1.6 LAB VCBDTE Notify Date, Patrice [id number] LAB VCBTME Notify Time, Patrice Performed By: #### VALLBG #### [facility] [address] [place], [place] [address] GASA + ALL Collected: 07/27/2017 Status: F Source: [place] FOR 1:51 PM [facility] USE ONLY REPOSITORY TYPE CODE TESTS RESULT OUT OF REFERENCE UNITS RANGE LAB PH 7.35-7.45 pH High 7.46 LAB PCO2 34-46 mm Hg pCO2 37 LAB PO2 85-95 mm Hg pO2 Low 73 LAB BE mmol/L Base Excess 2 LAB HCO3 22-26 mmol/L Bicarbonate 25 LAB CO2CT 22.0-28.0 mmol/L CO2 Content 26 LAB O2HB 95-98 % Oxyhemoglobin, Low Art. 92 LAB COHB 0-5.0 % Carboxyhemoglobin,A 0.3 rt LAB MHGB 0.4-1.5 % Methemoglobin Low 0.2 LAB TEMP C Temperature, Body 37.0 LAB PHTC 7.35-7.45 pH, Temp High Corrected 7.46 LAB PCO2T 34-46 mm Hg pCO2, Temp Correct 37 LAB PO2T mm Hg pO2, Temp Corrected 73 LAB NAB 135-146 mmol/L Sodium,Whole Bld 139 LAB KWB 3.5-5.0 mmol/L Potassium, Whole Bld 4.0 LAB HGBB 13.0-17.0 g/dL Hemoglobin,Total,AC 15.8 L LAB HCTB 39.0-51.0 % Hematocrit, ACL 48 LAB IC 1.08-1.30 mmol/L Calcium, Ion, WB 1.19 LAB GLB 60-105 mg/dL Glucose,Whole Bld High 116 LAB LACT 0.5-2.2 mmol/L Lactate 0.8 Performed By: #### ALLBG #### [place] [id number] XR CHEST 1V FRONTAL Observed: 07/27/2017 Status: F Source: [facility] 12:27 PM [facility] REPOSITORY * * *Final Report* * * DATE OF EXAM: Jul 27 2017 12:27PM JIX [id number] - XR CHEST 1V FRONTAL PORT / PROCEDURE REASON: Encounter for preoperative anesthesiology assessment for thoracic surgery * * * * Physician Interpretation * * * * EXAMINATION: CHEST RADIOGRAPH (PORTABLE SINGLE VIEW AP) Exam Date/Time: 07/27/2017 12:27 PM Indication: Encounter for preoperative anesthesiology assessment for thoracic surgery MQ: XCP_4 Comparison: 07/05/2017 RESULT: See impression. IMPRESSION: Lines, tubes, and devices: Defibrillator with lead to RV Lungs and pleura: Lung volumes diminished since prior, no consolidation, effusion, or pneumothorax. Cardiomediastinal silhouette: Post median sternotomy with intact aligned wires. Cardiac silhouette is mildly prominent, prior PCI suspected Other: Sterilizer Operator: PSCB Transcribe Date/Time: Jul 27 2017 1:30P Dictated by : JAVON GEORGE MD This examination was interpreted and the report reviewed and electronically signed by: JAVON GEORGE MD on Jul 27 2017 1:31PM EST [id number] OPERATIVE NO Observed: 07/27/2017 Status: COMPLETED Source: [place] 12:00 AM [facility] REPOSITORY HNO ID: [id number] Author: Kaushal Huff Service: Cardiovascular Surgery Author Type: Physician Type: Operative Report Filed: 07/28/2017 3:16 PM Note Text: [place] [id number] [place] OPERATIVE REPORT DEPARTMENT OF THORACIC AND CARDIOVASCULAR SURGERY NAME: AMELIA LEAVITT [facility] #: [id number] DATE: 07/27/2017 AGE: 67 SURGEON 1: Kaushal Huff M.D., Ph.D. SURGEON 2: METAL SPRAYING MACHINE OPERATOR 1: Tawanna Garcia MD METAL SPRAYING MACHINE OPERATOR 2: ANESTHESIA: No qualified resident available. OPERATION: PREOPERATIVE DIAGNOSIS: Coronary artery disease status post coronary artery bypass grafting with GUDINO to LAD in 2010 and multiple intervention with stents. He has a pacemaker and an ICD. POSTOPERATIVE DIAGNOSIS: OPERATIVE INDICATIONS: The patient now returns with severe angina. He has occlusion of circumflex and right, and stenosis at the anastomosis between the GUDINO and LAD. He has [id number] mid left ventricular dysfunction. He has mild MR and mild TR. OPERATIVE FINDINGS: Transesophageal echocardiography in the operating room confirms mild MR and TR and function as described. On exploration, we explored the potential targets and they were of acceptable quality, but the position and size of the 2 upper lateral circumflex branches were such that grafting was impossible. The right internal mammary artery was of good size and quality. The saphenous vein graft was of good quality, although slightly large. The grafted 3 vessels were of acceptable size and quality at site of grafting. Lateral circumflex branch had more distal disease, but beyond that, the arteries were too small for grafting. OPERATIVE PROCEDURE: The patient was prepped and draped in normal sterile fashion. Re-sternotomy was performed. The right internal mammary artery was harvested and skeletonized by Dr. Garcia. The saphenous vein graft was harvested endoscopically from the right leg by the PDebbie Escudero. The patient was heparinized and aortic and bicaval cannulation was carried out. Cardiopulmonary bypass was initiated. The ascending aorta and the left mammary artery were clamped. We explored the potential targets and decided to graft the most distal lateral circumflex branch immediately distal to the previous stent, PDA proximally, and LAD distal to the previous anastomosis with a free ROMAN. 1st, we did the grafting of PDA. Distal anastomosis with 7-0 Prolene and proximal anastomosis with 5-0 Prolene. Next, we grafted the distal lateral circumflex branches. The anastomosis was immediately distal to the stent. Distal anastomosis with 7-0 Prolene and proximal anastomosis with 5-0 Prolene. Finally, we grafted the LAD head distally with free ROMAN. Distal anastomosis with 7-0 Prolene to LAD and proximal anastomosis to the vein graft farooq with 7-0 Prolene. Cardioplegia hotshot was given. The cross-clamp was removed. The patient was weaned from cardiopulmonary bypass. The heart was decannulated. Protamine was given. Careful hemostasis was carried out. Chest tubes were placed in the right pleura and in the mediastinum. The sternotomy and leg incisions were closed in an ordinary fashion. Post-pump echocardiography demonstrated function like preoperatively. Initially, we had 2+ in the MR and TR that improved with recovery. Dr. Garcia harvested the right mammary artery endoscopically and AVIVA Esposito harvested the vein endoscopically from the right leg. I was present from cannulation through decannulation. I or another staff surgeon was immediately available for the rest of the procedure. Skin incision was performed at 1440, dressing on 22.49. ESTIMATED BLOOD LOSS: Bleeding was estimated to 500 mL. DRAINS: SPECIMENS: COUNTS: Correct. Kaushal Huff M.D., Ph.D. GP:[id number] /[id number] cc: PROGRESS Observed: 07/21/2017 Status: COMPLETED Source: [place] 4:59 PM [facility] REPOSITORY HNO ID: [id number] Author: Kaushal Huff Service: (none) Author Type: Physician Type: Progress Notes Filed: 07/21/2017 5:34 PM Note Text: CHART COPY DO NOT DISCARD Patient Type: New Visit to determine Surgery: Yes PCP: Domo Newman MD ([facility]) [address] [place] [address] Referring Physician:: Kaushal Huff MD [id number] [facility] [address] HPI: Mr. Amelia Leavitt is a 67 year old male seen in consultation at the request of Kaushal Huff for opinion regarding treatment options for CAD, st/p CABG, st/p PTCA and coronary stenting. 67 year old gentleman with a long standing history of coronary artery disease. ?He has had multiple stent procedures. ?He ultimately underwent open heart surgery with a left internal mammary artery to the left anterior descending. ?The right coronary artery was stented in 2015. ?The ejection fraction was 30-35%. ?A relook on April 25, 2016 demonstrated widely patent left internal mammary artery. ?The right coronary artery and circumflex were occluded. ?He was most recently seen in the office by Dr. Rosalind Carbajal on June 11, 2017. ?They elected to recommend continued medical treatment with up titrating of Ranexa. ?He is coming to [facility] for a second opinion. He is currently symptomatic and complains of back pain. PAST MEDICAL HISTORY PAST MEDICAL HISTORY Diagnosis Date - GA (myocardial infarction) ? ? x 3 ? PAST SURGICAL HISTORY PAST SURGICAL HISTORY Procedure Laterality Date - DEFIBRILLATOR SURGERY ? ? - PACEMAKER ? ? - PAST SURGICAL HISTORY OF ? 2011 ? open heart surgery - PAST SURGICAL HISTORY OF ? 2006 ? vertebrae surgery - RIGHT HEART CATHERIZATION ? ? ? SOCIAL HISTORY Social History Substance Use Topics - Smoking status: Former Smoker ? ? Packs/day: 0.50 ? ? Types: Cigarettes ? ? Quit date: 04/21/2017 - Smokeless tobacco: Never Used ? ? ? Comment: had quit for 20 years but restarted 2014 - Alcohol use Not on file ? ? ? Comment: occasionally ? FAMILY HISTORY FAMILY HISTORY Problem Relation Age of Onset - Myocardial infarction [OTHER] Father 17 ? ? multiple GA's of GA age 53 - Cancer Sister ? - No Ocular Disease No Family History ? ALLERGIES ALLERGIES No Known Allergies CURRENT MEDICATIONS ? aspirin, enteric coated (ASPIRIN, ENTERIC COATED) 325 mg EC tablet Take 325 mg by mouth once daily. nitroglycerin sublingual (NITROQUICK) 0.4 mg SL tablet Dissolve 0.4 mg under the tongue every 5 minutes as needed. carvedilol (COREG) 6.25 mg tablet Take 6.25 mg by mouth twice daily with meals. furosemide (LASIX) 20 mg tablet 20 mg. Takes 20 mg 3 times weekly M,W,FTakes extra 1 x week last few weeks isosorbide mononitrate ER (IMDUR) 30 mg 24 hr tablet 60 mg once daily. losartan (COZAAR) 25 mg tablet once daily. EFFIENT 10 mg tab once daily. RANEXA 500 mg 12 hr tablet twice daily. diclofenac, EC, (VOLTAREN) 75 mg EC tablet Take 75 mg by mouth twice daily. gabapentin (NEURONTIN) 100 mg capsule Take 100 mg by mouth twice daily. misoprostol (CYTOTEC) 200 mcg tablet Take 200 mcg by mouth once daily. pantoprazole DR (PROTONIX) 40 mg tablet Take 40 mg by mouth once daily. pravastatin (PRAVACHOL) 40 mg tablet Take 40 mg by mouth once daily. erythromycin ophthalmic ointment Use 1 application in both eyes daily at bedtime. ? I have personally reviewed his cardiac catheterization and CT scan which shows (repoort by Dr. Rowe): LEFT ANTERIOR DESCENDING: ? ?the left anterior descending is totally occluded in its mid-portion at the region of a stent. ?The large first major diagonal branch has a critical stenosis at its origin. ?The distal vessel fills via a patent left internal mammary artery graft with a 50% anastomosis stenosis. ? CIRCUMFLEX ARTERY: ? ?there is a long region of stenting in the circumflex which crosses a moderate sized first marginal branch and large second marginal branch leading to a moderate to large third marginal branch hugging the inferior wall. ? LEFT INTERNAL MAMMARY ARTERY TO LEFT ANTERIOR DESCENDING: ?Patent with a 50% anastomotic narrowing. ? RIGHT CORONARY ARTERY: ?There is stent material in the mid portion of this vessel. ?It is subtotal to totally occluded in the mid segment. ?The distal vessel, following successful percutaneous coronary intervention, yields a very large posterior descending branch and moderate sized posterolateral branch. ?The posterior descending artery was certainly graftable at that time. ? LEFT VENTRICLE: ?The LVEDP is mildly increased. ?There is moderate hypokinesia of the inferior and mid anterior wall. ?Overall ejection fraction appears to be fairly well preserved in the 40-45% range. ?There is no obvious valvular pathology. ? COMMENTS: ?this patient went on to successful percutaneous coronary intervention of the mid to distal right coronary artery. Catheterization May 24, 2017: The primary change in this catheterization compared to the April 2016 procedure includes a now totally occluded circumflex system between the first and second marginal branch and total occlusion of the stented right coronary artery. ?The left ventricular function appears to demonstrate some worsening, especially at the infero-apical segment, although the left ventriculogram has much to be desired. ? COMMENTS:I have emailed and asked Dr. Kaushal Huff to review this gentleman's catheterization and subsequent intervention. ?Although the distal right and circumflex targets are not as well appreciated in the most recent catheterization of May 24, they appear to be large in caliber and likely graftable according to the April 2016 study. ?I have asked Dr. Huff to consider redo surgery. ?We can certainly get a Rubidium PET scan with FDG looking for ischemia, scar and hibernation as well as repeating the catheterization with intracoronary nitroglycerin if necessary. ? CT chest IMPRESSION: 1. ?The thoracic aorta is normal. ?There is no definite acute aortic pathology. 2. Coronary artery disease with multiple stents and GUDINO to LAD. 3. Noncalcified lung nodules and groundglass opacities. ?Follow- up CT in 6-12 months recommended. Pet scan CONCLUSIONS: ?1. PET Perfusion Study: Abnormal. ?2. The posterior wall is scarred (LCx distribution). ?3. The inferior wall is predominantly scar with a small amount of michael-infarct jeopardized myocardium (RCA distribition). ?4. Functional capacity N/A (pharmacological). ?5. Left ventricle is severely dilated. The left ventricle systolic function is moderately-severely decreased. ?6. Right ventricle is normal in size. The right ventricle systolic function is mildly decreased. ?7. This is a high risk scan due to reduced LVEF and large stress-induced perfusion defect. The Echocardiogram reveals CONCLUSIONS: - Technically difficult exam due to body habitus. - Exam indication: Initial evaluation of known cardiomyopathy - The left ventricle is normal in size. Left ventricular systolic function is moderately decreased. EF = 37 ? 5% (2D biplane) Definity contrast used for endocardial border detection. - The right ventricle is normal in size. Right ventricular systolic function is low normal. - The left atrial cavity is mildly dilated. - Mild likely ischemic MR. - The patient has not had a prior CC echocardiographic exam for comparison. ECG Diagnosis:NORMAL SINUS RHYTHM LEFT ANTERIOR FASCICULAR BLOCK INFERIOR MYOCARDIAL INFARCTION , AGE UNDETERMINED CANNOT EXCLUDE ANTERIOR MYOCARDIAL INFARCTION , AGE UNDETERMINED ABNORMAL ECG Results for AMELIA LEAVITT Kvng ( ) as of 07/21/2017 17:22 Ref. Range 07/05/2017 07:25 07/05/2017 07:25 07/05/2017 11:21 07/21/2017 07:10 Sodium Latest Ref Range: 136 - 144 mmol/L 142 Potassium Latest Ref Range: 3.7 - 5.1 mmol/L 4.4 Chloride Latest Ref Range: 97 - 105 mmol/L 101 CO2 Latest Ref Range: 22 - 30 mmol/L 26 BUN Latest Ref Range: 9 - 24 mg/dL 25 (H) Creatinine Latest Ref Range: 0.73 - 1.22 mg/dL 1.50 (H) Glucose Latest Ref Range: 74 - 99 mg/dL 128 (H) Protein, Total Latest Ref Range: 6.3 - 8.0 g/dL 6.7 Calcium Latest Ref Range: 8.5 - 10.2 mg/dL 9.3 Albumin Latest Ref Range: 3.9 - 4.9 g/dL 4.4 Bilirubin, Total Latest Ref Range: 0.2 - 1.3 mg/dL 0.4 Alkaline Phosphatase Latest Ref Range: 36 - 108 U/L 121 (H) ALT Latest Ref Range: 10 - 54 U/L 19 AST Latest Ref Range: 14 - 40 U/L 24 Anion Gap Latest Ref Range: 9 - 18 mmol/L 15 LD Latest Ref Range: 135 - 225 U/L 167 eGFR- Unknown 57 eGFR-All Other Races Latest Units: . 47 Cholesterol, Total Latest Ref Range: <200 mg/dL 245 (H) Triglyceride Latest Ref Range: <150 mg/dL 510 (H) Fasting Time Latest Units: hrs 12 HDL Cholesterol Latest Ref Range: >39 mg/dL 27 (L) LDL Cholesterol Latest Ref Range: <100 mg/dL Unable to calcula... VLDL Cholesterol Latest Ref Range: <30 mg/dL Unable to calcula... 98 (H) TC:HDL Ratio Latest Ref Range: <5.10 9.07 (H) LDL:HDL Ratio Latest Ref Range: <2.54 Unable to calcula... LDL Cholesterol, Direct Latest Ref Range: <100 mg/dL 120 (H) Non HDL Cholesterol Latest Ref Range: <130 mg/dL 218 (H) WBC Latest Ref Range: 3.70 - 11.00 k/uL 10.35 RBC Latest Ref Range: 4.20 - 6.00 m/uL 4.94 Hemoglobin Latest Ref Range: 13.0 - 17.0 g/dL 15.6 Hematocrit Latest Ref Range: 39.0 - 51.0 % 46.6 Platelet Count Latest Ref Range: 150 - 400 k/uL 198 MCV Latest Ref Range: 80.0 - 100.0 fL 94.3 MCH Latest Ref Range: 26.0 - 34.0 pG 31.6 MCHC Latest Ref Range: 30.5 - 36.0 g/dL 33.5 MPV Latest Ref Range: 9.0 - 12.7 fL 10.8 RDW-CV Latest Ref Range: 11.5 - 15.0 % 12.8 Neut% Latest Units: % 61.4 Abs Neut (ANC) Latest Ref Range: 1.45 - 7.50 k/uL 6.35 Lymph% Latest Units: % 28.0 Abs Lymph Latest Ref Range: 1.00 - 4.00 k/uL 2.90 Coleman% Latest Units: % 8.0 Abs Coleman Latest Ref Range: <0.87 k/uL 0.83 Eosin% Latest Units: % 2.0 Abs Eosin Latest Ref Range: <0.46 k/uL 0.21 Baso% Latest Units: % 0.6 Abs Baso Latest Ref Range: <0.11 k/uL 0.06 Nucleated Reds Latest Ref Range: 0 /100 WBC 0.0 Absolute nRBC Latest Ref Range: <0.01 k/uL <0.01 Diff Type Unknown Auto Diff PT Sec Latest Ref Range: 9.7 - 13.0 sec 10.5 PT INR Latest Ref Range: 0.9 - 1.3 1.0 APTT Latest Ref Range: 23.0 - 32.4 sec 25.3 Impression: CAD, st/p CABG, st/p PTCA and coronary stenting. 67 year old gentleman with a long standing history of coronary artery disease, AQcute and chronic systolic and diastolic heart failure. Plan: Reoperation, Coronary bypass grafting, SVG to PDA, NANCY to LAD, SVG to lcx x1-3 Based on my evaluation he is medium+ risk. I spent 40 minutes in this visit, with more than 50% of the time devoted to patient counseling. These findings will be communicated back to the requesting physician via electronic medical record Kaushal Huff MD PROGRESS Observed: 07/21/2017 Status: COMPLETED Source: [place] 3:47 PM [facility] REPOSITORY O ID: [id number] Author: Lester Sarabia (Fel) Service: (none) Author Type: Fellow Type: Progress Notes Filed: 07/21/2017 4:23 PM Note Text: [facility]ALU[facility] CARDIOTHORACIC ANESTHESIA CARDIAC SURGERY SERVICE DATE: 07/21/2017 SERVICE TIME: 3:47 PM Proposed Surgical Procedure: CABG Re-do: YES ASA Class: 4 Surgeon: Refugio Surgery Date: 07/27/2017 Last Wt 07/05/17 : 99.9 kg (220 lb 3.2 oz) Last Ht 07/05/17 : 177.8 cm (5' 10) Estimated body mass index is 31.6 kg/(m2) as calculated from the following: Height as of 07/05/17: 177.8 cm (5' 10). Weight as of 07/05/17: 99.9 kg (220 lb 3.2 oz). Estimated body surface area is 2.22 meters squared as calculated from the following: Height as of 07/05/17: 177.8 cm (5' 10). Weight as of 07/05/17: 99.9 kg (220 lb 3.2 oz). Mr. Leavitt is a 67 yo retired male from [place], [place] with h/o GA x2, CAD, multiple (18 stents per patient) PCI's, CABG, CHF, PPM/ICD, HLP, h/o smoking and FH of premature CAD, sleep apnea (CPaP prn) who presents for Redo Sternotomy CABG Active Problems: * No active hospital problems. * Resolved Problems: * No resolved hospital problems. * PAST MEDICAL HISTORY Diagnosis Date - CAD (coronary artery disease) - Cardiomyopathy (HCC) - CHF (congestive heart failure) ([facility]) - Family history of early CAD - H/o Lyme disease - History of smoking - Hyperlipidemia 2009 - 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 - GA (myocardial infarction) (HCC) 2009, 2015 - S/P angioplasty with stent x 16 - S/P CABG x 1 2012 - Sleep apnea CPAP prn PAST SURGICAL HISTORY Procedure Laterality Date - CABG (1) VEIN GRAFT AND ARTERIAL GRAFT 2012 L-LAD - DEFIBRILLATOR SURGERY - PACEMAKER - PAST SURGICAL HISTORY OF 2006 vertebrae surgery - ROTATOR CUFF REPAIR 1995 FAMILY HISTORY Problem Relation Age of Onset - Myocardial infarction [OTHER] Father 17 multiple GA's of GA age 53 - Cancer Sister - No Ocular Disease No Family History Social History Substance Use Topics - Smoking status: Former Smoker Packs/day: 0.50 Types: Cigarettes Quit date: 04/21/2017 - Smokeless tobacco: Never Used Comment: had quit for 20 years but restarted 2014 - Alcohol use Not on file Comment: occasionally ALLERGIES Allergen Reactions - Percocet [Oxycodone* Other: See Comments patient had a reaction after last heart surgery with percocet where he was having convulsions REVIEW OF SYSTEMS: Neuro: none Respiratory: YOUSIF, uses CPAP, smoking Hx, quit 3 months ago Cardiovascular: See HPI GI: No history of GI symptoms or problems. No history of esophageal varices, recent ascites, or ETOH greater than 2 drinks per day., Positive for GERD Endocrine: No history of diabetes. Has not taken steroids within the past 30 days. No history of endocrinological symptoms or problems. Hematology: No history of bleeding or clotting disorder. Pt is not taking anti-coagulation or platelet medications. No history of hematological symptoms or problems. CKD AND ANEMIA ASSESSMENT: Patient has both eGFR < 60 mL/min and a Hemoglobin < 11 g/dl: Yes - Patient has CKD with Anemia, we make the following recommendations: 1. Intraoperative IV administration of desmopressin 0.3mcg/kg in 50 mL given over 10 minutes after protomine administration. 2. Postoperative blood conservation measures including using pediatric tubes for blood draws and avoiding routine lab work. 3. Will notify Dr. Pace by e-mail. if the patient is going on CPB. ANESTHETIC HISTORY: History of general anesthesia without complications. AIRWAY ASSESSMENT: Airway History: No abnormal airway history Airway Exam: General: Normal appearance Mallampati Score: CLASS II Temporo-Mandibular Displacement Test: Position B (lower teeth can be advanced even with upper teeth) Interincisor Distance: 5 cm Thyromental Distance: 5 cm Neck Circumference: 37 cm Overbite: No Cervical Mobility: Normal Facial Hair: Yes, Full Knight-Yes Head/Neck Pathology: No ANTICIPATED DIFFICULT AIRWAY: NO Pre-Existing Diagnosis of Obstructive Sleep Apnea: Yes, uses home CPAP. Asked patient to bring own device for the postoperative period. PHYSICAL EXAM: VITALS: There were no vitals taken for this visit. CARDIAC: Regular rate and rhythm. LUNGS: Lungs clear to auscultation. Good air entry bilaterally. Lines, Drains, Airway: Patient has no lines, drains or airway LABS: Lab Results Past 6 Months Component Value Date HB 15.6 07/05/2017 HCT 46.6 07/05/2017 PLT 198 07/05/2017 WBC 10.35 07/05/2017 NA 142 07/05/2017 K 4.4 07/05/2017 CREAT 1.50 (H) 07/05/2017 CA 9.3 07/05/2017 APTT 25.3 07/21/2017 INR 1.0 07/21/2017 Lab Results Past 6 Months Component Value Date GLUC 128 (H) 07/05/2017 K 4.4 07/05/2017 NA 142 07/05/2017 CHLOR 101 07/05/2017 CO2 26 07/05/2017 CREAT 1.50 (H) 07/05/2017 BUN 25 (H) 07/05/2017 ANION 15 07/05/2017 CA 9.3 07/05/2017 TPROT 6.7 07/05/2017 ALB 4.4 07/05/2017 TBILI 0.4 07/05/2017 ALKPHOS 121 (H) 07/05/2017 AST 24 07/05/2017 ALT 19 07/05/2017 ABO/RH(D) (no units) Date Value 07/21/2017 O POSITIVE Antibody Screen (no units) Date Value 07/21/2017 NEG Historical Ab Scr Status (no units) Date Value 07/21/2017 NEGATIVE Anticipated Blood Products Ordered: Ordered 2 units of PRBC. Will the Patient Accept Blood: Yes IMAGING AND TESTS: ECHO Ejection Fraction ?37 % (2D biplane) ?EF > 52 ? FINDINGS: ? LEFT VENTRICLE The left ventricle is normal in size. Left ventricular systolic function is moderately decreased. Grade I left ventricular diastolic dysfunction. Mitral annular lateral E/e': 7.2. Mitral annular septal E/e': 9.4. Definity contrast used for endocardial border detection. Wall Motion: The anterior septum, inferior wall, mid inferolateral segment, mid inferoseptal segment, and basal inferoseptal segment are severely hypokinetic. The entire anterior wall, anterolateral wall, entire apex, and basal inferolateral segment are mildly hypokinetic. ? ? RIGHT VENTRICLE The right ventricle is normal in size. Pacer wires are noted in the right ventricle. Right ventricular systolic function is low normal. RV systolic tissue Doppler velocity is 7.4 cm/s. Tricuspid annular displacement is 1.3 cm. Estimated right ventricular systolic pressure is likely underestimated due to a weak or incomplete tricuspid regurgitation signal and is, at least, 29 mmHg consistent with normal pulmonary artery pressures. Estimated right atrial pressure ?is 5 mmHg. ? LEFT ATRIUM The left atrial cavity is mildly dilated. ? RIGHT ATRIUM The right atrial cavity is normal in size. Pacer wires are noted in the right atrium. ? MITRAL VALVE There is mild (1+) mitral valve regurgitation due to restricted leaflet motion likely related to ischemic heart disease. The pressure half time is 55 msec. The peak mitral E/A ratio is 0.55. The average mitral E/e' ratio is 8.3. The mitral flow deceleration time is 189 msec. ? TRICUSPID VALVE There is trivial (trivial - 1+) tricuspid valve regurgitation. ? AORTIC VALVE There is no aortic valve stenosis. There is trivial aortic valve regurgitation. Tricuspid aortic valve. ? PULMONIC VALVE There is trivial pulmonic valve regurgitation. ? AORTA The visualized aorta is normal in size. Measurements - Sinus 3.6 cm. Sinotubular junction 3.2 cm. Mid ascending aorta 3.5 cm. INTERVENTRICULAR SEPTUM There is abnormal motion of the interventricular septum secondary to prior cardiac ?surgery and a pacemaker. ? PERICARDIUM There is no pericardial effusion. There is an epicardial fat pad. ? CONCLUSIONS: - Technically difficult exam due to body habitus. - Exam indication: Initial evaluation of known cardiomyopathy - The left ventricle is normal in size. Left ventricular systolic function is moderately decreased. EF = 37 ? 5% (2D biplane) Definity contrast used for endocardial border detection. - The right ventricle is normal in size. Right ventricular systolic function is low normal. - The left atrial cavity is mildly dilated. - Mild likely ischemic MR. - The patient has not had a prior CC echocardiographic exam for comparison. Stress SPECIAL COMMENTS: ? UNDERWENT 8 STENTS; PRE-OP: BYPASS ARTERY CORONARY REDO ON PUMP 07/27/2017 RESTING ECG: ? NORMAL SINUS RHYTHM, NONSPECIFIC ST-T WAVE CHANGES, LEFT ANTERIOR HEMIBLOCK, CANNOT R/O ANTERIOR GA, INFERIOR WALL GA. OBSERVATION: ? 1. THE TEST WAS TERMINATED DUE TO END OF PROTOCOL. ? 5. NORMAL ST SEGMENT RESPONSE TO STRESS. ? 7. ANGINA WAS NOT PROVOKED BY STRESS. ? 8. UNIFOCAL PVC'S DURING THE TEST. CONCLUSION: ? NORMAL. OSH CATH DIAGNOSIS: ? 1. Moderate left ventricular dysfunction 2. Patent left internal mammary artery to the left anterior descending 3. Percutaneous coronary intervention of the mid to distal right coronary artery 4. Continued success following percutaneous coronary intervention of AV circumflex. LEFT MAIN TRUNK: ? Normal. ? LEFT ANTERIOR DESCENDING: ? ?the left anterior descending is totally occluded in its mid-portion at the region of a stent. ?The large first major diagonal branch has a critical stenosis at its origin. ?The distal vessel fills via a patent left internal mammary artery graft with a 50% anastomosis stenosis. ? CIRCUMFLEX ARTERY: ? ?there is a long region of stenting in the circumflex which crosses a moderate sized first marginal branch and large second marginal branch leading to a moderate to large third marginal branch hugging the inferior wall. ? LEFT INTERNAL MAMMARY ARTERY TO LEFT ANTERIOR DESCENDING: ?Patent with a 50% anastomotic narrowing. ? RIGHT CORONARY ARTERY: ?There is stent material in the mid portion of this vessel. ?It is subtotal to totally occluded in the mid segment. ?The distal vessel, following successful percutaneous coronary intervention, yields a very large posterior descending branch and moderate sized posterolateral branch. ?The posterior descending artery was certainly graftable at that time. ? LEFT VENTRICLE: ?The LVEDP is mildly increased. ?There is moderate hypokinesia of the inferior and mid anterior wall. ?Overall ejection fraction appears to be fairly well preserved in the 40-45% range. ?There is no obvious valvular pathology. ? COMMENTS: ?this patient went on to successful percutaneous coronary intervention of the mid to distal right coronary artery. DEVICES: SINGLE LEAD ICD EVALUATION ? Please, call device clinic [phone] to turn ICD OFF for upcoming surgery, programmed VVI 40, no magnet rate for ICD ? UNDERLYING RHYTHM: sinus rhythm ? BATTERY STATUS: Normal and shows no significant depletion. ? COUNTERS SINCE 07-24-16: ? ARRHYTHMIAS: none ? LEAD MEASUREMENTS: Capture and sensing are appropriate. The pacing outputs maintain safety margin. Review of the lead impedance trends are normal. ? IMPLANT SITE/ SYMPTOMS: The incision and pocket are pain-free (0/10), well healed and without signs of erosion or infection. No arm swelling, syncope, pre-syncope or device related pocket stimulation. ? OTHER DIAGNOSTICS: RV pacing 0%. ? PROGRAMMING CHANGES MADE TODAY: none ? MEDICATIONS: Current Outpatient Prescriptions: aspirin 81 mg chewable tablet Take 81 mg by mouth once daily. aspirin, enteric coated (ASPIRIN, ENTERIC COATED) 325 mg EC tablet Take 325 mg by mouth once daily. nitroglycerin sublingual (NITROQUICK) 0.4 mg SL tablet Dissolve 0.4 mg under the tongue every 5 minutes as needed. carvedilol (COREG) 6.25 mg tablet Take 2 tablets by mouth twice daily with meals. furosemide (LASIX) 20 mg tablet Take 1 tablet by mouth once daily. isosorbide mononitrate ER (IMDUR) 60 mg 24 hr tablet Take one tab twice daily. losartan (COZAAR) 25 mg tablet once daily. EFFIENT 10 mg tab once daily. RANEXA 500 mg 12 hr tablet twice daily. diclofenac, EC, (VOLTAREN) 75 mg EC tablet Take 75 mg by mouth twice daily. gabapentin (NEURONTIN) 100 mg capsule Take 100 mg by mouth twice daily. misoprostol (CYTOTEC) 200 mcg tablet Take 200 mcg by mouth once daily. pantoprazole DR (PROTONIX) 40 mg tablet Take 40 mg by mouth once daily. pravastatin (PRAVACHOL) 40 mg tablet Take 40 mg by mouth once daily. No current facility-administered medications for this visit. Is the patient currently on any anticoagulant medications: Yes: Anticoagulant medications the patient is currently on: Prasugrel: Last dose: PAtient is Holding Effient This was adequately stopped before surgery: Yes PAIN AND ANXIETY EDUCATION AND MANAGEMENT: Patient has no concerns to address at this time. Additional Comments: none I have reviewed the Cardiothoracic Surgical Assessment and agree with its findings. During the course of the encounter the patient was prepared for anesthetic care. This conversation included anesthetic options, possible use of invasive monitoring, the risks, benefits, alternatives, and personnel that will be present for the anesthetic encounter. The patient agreed to proceed with the planned anesthetic. Instructed to take protonix, pravastatin, coreg, gabapentin, ASA, Imdur with a small sip of water on the morning of surgery. BETA ATILIO COMPLIANCE: Is the Patient Scheduled for a CABG: Yes. Patient currently takes a beta atilio, and was asked to take it as scheduled. SIGNATURE: Lester Sarabia DO PATIENT NAME: Amelia Leavitt DATE: July 21, 2017 TIME: 3:47 PM PAGER/CONTACT #: [email or web address] Observed: 07/21/2017 Status: COMPLETED Source: [place] 3:09 PM [facility] REPOSITORY [facility] ID: [id number] Author: Day (Rn) KATARINA Heath Service: (none) Author Type: Registered Nurse Type: Progress Notes Filed: 07/21/2017 3:09 PM Note Text: AMBULATORY PATIENT EDUCATION READINESS TO LEARN Cognitive Ability: Alert and oriented Motivation To Learn: Interested Family Support: High - Very involved in pt care Instruction Provided To: Patient AND Family Patient Learns Best By: Multiple Methods Factors Affecting Learning: None Physical Limitations Affecting Learning: None LEARNING RESPONSE Diagnosis: CAD Education Topic: Pre-Op Open Heart Surgery Instructions Teaching Points: Logistics / Protocols /Complication Prevention Instruction/Supplemental Materials: Cardiac Surgery Information Binder Video Individual Instruction Patient/Family Response: Verbalizes understanding Follow up plan: Patient/Family to call [facility] with any further questions Referral (Recommendation): None Teach completed, topic: patient to be called with times of surgery PROGRESS Observed: 07/21/2017 Status: COMPLETED Source: [place] 2:50 PM [facility] [place] REPOSITORY HNO ID: [id number] Author: Day (Rn) KATARINA Heath Service: (none) Author Type: Registered Nurse Type: Progress Notes Filed: 07/21/2017 4:49 PM Note Text: CHART COPY-DO NOT DISCARD CARDIOVASCULAR SURGERY PRE-OPERATIVE ASSESSMENT NAME: Amelia Leavitt Alert Notes: DATE: 07/21/2017 SEX: male : 1950 AGE: [age] year old Estimated body mass index is 31.6 kg/(m2) as calculated from the following: Height as of 07/05/17: 177.8 cm (5' 10). Weight as of 07/05/17: 99.9 kg (220 lb 3.2 oz). STS Score 2.759 PHYSICIAN: Kaushal Huff M.D. [facility] MD: Shen Kaur Intended Procedure: Isolated CABG REDO: Yes, CABG x1 2012 Patient scheduled for surgery on: 07/27/17. CHIEF COMPLAINT: Pre-Op Open Heart Surgery MEDICATIONS: Current Outpatient Prescriptions: - aspirin, enteric coated (ASPIRIN, ENTERIC COATED) 325 mg EC tablet - nitroglycerin sublingual (NITROQUICK) 0.4 mg SL tablet - carvedilol (COREG) 6.25 mg tablet - furosemide (LASIX) 20 mg tablet - losartan (COZAAR) 25 mg tablet - RANEXA 500 mg 12 hr tablet - gabapentin (NEURONTIN) 100 mg capsule - pantoprazole DR (PROTONIX) 40 mg tablet - pravastatin (PRAVACHOL) 40 mg tablet - isosorbide mononitrate ER (IMDUR) 60 mg 24 hr tablet - EFFIENT 10 mg tab - diclofenac, EC, (VOLTAREN) 75 mg EC tablet - misoprostol (CYTOTEC) 200 mcg tablet ALLERGIES: ALLERGIES No Known Allergies LATEX ALLERGY: No FOOD SENSITIVITIES: No ANTICOAGULANTS: effient last dose 07/21/17 STEROIDS: No HISTORIES: FAMILY HISTORY Problem Relation Age of Onset - Myocardial infarction [OTHER] Father 17 multiple GA's of GA age 53 - Cancer Sister - No Ocular Disease No Family History PAST MEDICAL HISTORY Diagnosis Date - CAD (coronary artery disease) - Cardiomyopathy (HCC) - CHF (congestive heart failure) (HCC) - Family history of early CAD - H/o Lyme disease - History of smoking - Hyperlipidemia 2009 - 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 - GA (myocardial infarction) (HCC) 2009, 2016 - S/P angioplasty with stent x 16 - S/P CABG x 1 2012 - Sleep apnea CPAP prn PAST SURGICAL HISTORY Procedure Laterality Date - CABG (1) VEIN GRAFT AND ARTERIAL GRAFT 2012 L-LAD - DEFIBRILLATOR SURGERY - PACEMAKER - PAST SURGICAL HISTORY OF 2006 vertebrae surgery - ROTATOR CUFF REPAIR 1995 Social History Marital status: Spouse name: Years of education: Number of children: Social History Main Topics Smoking status: Former Smoker Packs/day: 0.50 Years: 0.00 Types: Cigarettes Quit date: 04/21/2017 Smokeless status: Never Used Comment: had quit for 20 years but restarted 2014 Drug use: No REVIEW OF SYSTEMS: GEN: Fatigue April became more tired and getting progressively worse HEENT: Glasses, Hard of Hearing left ear deficit little to no hearing noted DERM: Denies Dermatological Complaints 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 PERFUSION INDEX: LT: 98 RT: 98 DOMINANT HAND: right-handed Pacer Check: Done: 07/21/17 CARDIAC EVALUATION: Cardiac Cath: Date - 05/24/17 on syngo Ultrasound: Date - PFT: Date - ECHO: Date - 07/05/17 CT Scan: Date - 07/21/17 MRI: Date - CXR: Date - 07/05/17 EKG: Date - 07/05/17 Dental: NA ? Recent Labs 07/21/17 0718 07/21/17 0710 INR -- 1.0 APTT -- 25.3 PTSEC -- 10.5 ABORHD O POSITIVE O POSITIVE Pre Op Instructions per protocol reviewed and handout given to patient . Patient Education completed and documented. Instructed to start Bactroban per protocol. Emotional support provided to patient and family. All questions and concerns adressed. Signature: Day Heath RN See Cardiology History and Physical dated 07/05/17 [facility] PCR Collected: 07/21/2017 Status: F Source: [place] 2:30 PM [facility] REPOSITORY TYPE CODE TESTS RESULT OUT OF REFERENCE UNITS RANGE LAB [facility] Nasal S aureus Spec Source LAB [facility] Negative for MRSA MRSA by PCR. PCR LAB [facility] Negative for Staph Staphylococcus aureus PCR aureus by PCR. Performed By: #### SAPCR #### [facility] [address] [place], [place] [address] CNOV Observed: 07/21/2017 Status: COMPLETED Source: [place] 2:00 PM [facility] REPOSITORY Office Visit (CARTMN) AMELIA LEAVITT ([id number]) 1950 M Date Time Provider Department 07/21/17 2:00 PM [facility] CARTMN During your visit today, we recorded the following information about you: Lester Sarabia DO 07/21/2017 4:23 PM Signed [facility] PRE[facility] EVALUATION CARDIOTHORACIC ANESTHESIA CARDIAC SURGERY SERVICE DATE: 07/21/2017 SERVICE TIME: 3:47 PM Proposed Surgical Procedure: CABG Re-do: YES ASA Class: 4 Surgeon: Refugio Surgery Date: 07/27/2017 Last Wt 07/05/17 : 99.9 kg (220 lb 3.2 oz) Last Ht 07/05/17 : 177.8 cm (5' 10ANDquot;) Estimated body mass index is 31.6 kg/(m2) as calculated from the following: Height as of 07/05/17: 177.8 cm (5' 10ANDquot;). Weight as of 07/05/17: 99.9 kg (220 lb 3.2 oz). Estimated body surface area is 2.22 meters squared as calculated from the following: Height as of 07/05/17: 177.8 cm (5' 10ANDquot;). Weight as of 07/05/17: 99.9 kg (220 lb 3.2 oz). Mr. Leavitt is a 67 yo retired male from [place], [place] with h/o GA x2, CAD, multiple (18 stents per patient) PCI's, CABG, CHF, PPM/ICD, HLP, h/o smoking and FH of premature CAD, sleep apnea (CPaP prn) who presents for Redo Sternotomy CABG Active Problems: * No active hospital problems. * Resolved Problems: * No resolved hospital problems. * PAST MEDICAL HISTORY Diagnosis Date - CAD (coronary artery disease) - Cardiomyopathy (HCC) - CHF (congestive heart failure) (HCC) - Family history of early CAD - H/o Lyme disease - History of smoking - Hyperlipidemia 2009 - 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 - GA (myocardial infarction) (HCC) 2009, 2015 - S/P angioplasty with stent x 16 - S/P CABG x 1 2012 - Sleep apnea CPAP prn PAST SURGICAL HISTORY Procedure Laterality Date - CABG (1) VEIN GRAFT ANDamp; ARTERIAL GRAFT 2012 L-LAD - DEFIBRILLATOR SURGERY - PACEMAKER - PAST SURGICAL HISTORY OF 2006 vertebrae surgery - ROTATOR CUFF REPAIR 1995 FAMILY HISTORY Problem Relation Age of Onset - Myocardial infarction [OTHER] Father 17 multiple GA's of GA age 53 - Cancer Sister - No Ocular Disease No Family History Social History Substance Use Topics - Smoking status: Former Smoker Packs/day: 0.50 Types: Cigarettes Quit date: 04/21/2017 - Smokeless tobacco: Never Used Comment: had quit for 20 years but restarted 2014 - Alcohol use Not on file Comment: occasionally ALLERGIES Allergen Reactions - Percocet [Oxycodone* Other: See Comments patient had a reaction after last heart surgery with percocet ANDquot; where he was having convulsions ANDquot; REVIEW OF SYSTEMS: Neuro: none Respiratory: YOUSIF, uses CPAP, smoking Hx, quit 3 months ago Cardiovascular: See HPI GI: No history of GI symptoms or problems. No history of esophageal varices, recent ascites, or ETOH greater than 2 drinks per day., Positive for GERD Endocrine: No history of diabetes. Has not taken steroids within the past 30 days. No history of endocrinological symptoms or problems. Hematology: No history of bleeding or clotting disorder. Pt is not taking anti-coagulation or platelet medications. No history of hematological symptoms or problems. CKD ANDamp; ANEMIA ASSESSMENT: Patient has both eGFR ANDlt; 60 mL/min and a Hemoglobin ANDlt; 11 g/dl: Yes - Patient has CKD with Anemia, we make the following recommendations: 1. Intraoperative IV administration of desmopressin 0.3mcg/kg in 50 mL given over 10 minutes after protomine administration. 2. Postoperative blood conservation measures including using pediatric tubes for blood draws and avoiding routine lab work. 3. Will notify Dr. Pace by e-mail. if the patient is going on CPB. ANESTHETIC HISTORY: History of general anesthesia without complications. AIRWAY ASSESSMENT: Airway History: No abnormal airway history Airway Exam: General: Normal appearance Mallampati Score: CLASS II Temporo-Mandibular Displacement Test: Position B (lower teeth can be advanced even with upper teeth) Interincisor Distance: 5 cm Thyromental Distance: 5 cm Neck Circumference: 37 cm Overbite: No Cervical Mobility: Normal Facial Hair: Yes, Full Nkight-Yes Head/Neck Pathology: No ANTICIPATED DIFFICULT AIRWAY: NO Pre-Existing Diagnosis of Obstructive Sleep Apnea: Yes, uses home CPAP. Asked patient to bring own device for the postoperative period. PHYSICAL EXAM: VITALS: There were no vitals taken for this visit. CARDIAC: Regular rate and rhythm. LUNGS: Lungs clear to auscultation. Good air entry bilaterally. Lines, Drains, Airway: Patient has no lines, drains or airway LABS: Lab Results Past 6 Months Component Value Date HB 15.6 07/05/2017 HCT 46.6 07/05/2017 PLT 198 07/05/2017 WBC 10.35 07/05/2017 NA 142 07/05/2017 K 4.4 07/05/2017 CREAT 1.50 (H) 07/05/2017 CA 9.3 07/05/2017 APTT 25.3 07/21/2017 INR 1.0 07/21/2017 Lab Results Past 6 Months Component Value Date GLUC 128 (H) 07/05/2017 K 4.4 07/05/2017 NA 142 07/05/2017 CHLOR 101 07/05/2017 CO2 26 07/05/2017 CREAT 1.50 (H) 07/05/2017 BUN 25 (H) 07/05/2017 ANION 15 07/05/2017 CA 9.3 07/05/2017 TPROT 6.7 07/05/2017 ALB 4.4 07/05/2017 TBILI 0.4 07/05/2017 ALKPHOS 121 (H) 07/05/2017 AST 24 07/05/2017 ALT 19 07/05/2017 ABO/RH(D) (no units) Date Value 07/21/2017 O POSITIVE Antibody Screen (no units) Date Value 07/21/2017 NEG Historical Ab Scr Status (no units) Date Value 07/21/2017 NEGATIVE Anticipated Blood Products Ordered: Ordered 2 units of PRBC. Will the Patient Accept Blood: Yes IMAGING ANDamp; TESTS: ECHO Ejection Fraction ?37 % (2D biplane) ?EF ANDgt; 52 ? FINDINGS: ? LEFT VENTRICLE The left ventricle is normal in size. Left ventricular systolic function is moderately decreased. Grade I left ventricular diastolic dysfunction. Mitral annular lateral E/e': 7.2. Mitral annular septal E/e': 9.4. Definity contrast used for endocardial border detection. Wall Motion: The anterior septum, inferior wall, mid inferolateral segment, mid inferoseptal segment, and basal inferoseptal segment are severely hypokinetic. The entire anterior wall, anterolateral wall, entire apex, and basal inferolateral segment are mildly hypokinetic. ? ? RIGHT VENTRICLE The right ventricle is normal in size. Pacer wires are noted in the right ventricle. Right ventricular systolic function is low normal. RV systolic tissue Doppler velocity is 7.4 cm/s. Tricuspid annular displacement is 1.3 cm. Estimated right ventricular systolic pressure is likely underestimated due to a weak or incomplete tricuspid regurgitation signal and is, at least, 29 mmHg consistent with normal pulmonary artery pressures. Estimated right atrial pressure ?is 5 mmHg. ? LEFT ATRIUM The left atrial cavity is mildly dilated. ? RIGHT ATRIUM The right atrial cavity is normal in size. Pacer wires are noted in the right atrium. ? MITRAL VALVE There is mild (1+) mitral valve regurgitation due to restricted leaflet motion likely related to ischemic heart disease. The pressure half time is 55 msec. The peak mitral E/A ratio is 0.55. The average mitral E/e' ratio is 8.3. The mitral flow deceleration time is 189 msec. ? TRICUSPID VALVE There is trivial (trivial - 1+) tricuspid valve regurgitation. ? AORTIC VALVE There is no aortic valve stenosis. There is trivial aortic valve regurgitation. Tricuspid aortic valve. ? PULMONIC VALVE There is trivial pulmonic valve regurgitation. ? AORTA The visualized aorta is normal in size. Measurements - Sinus 3.6 cm. Sinotubular junction 3.2 cm. Mid ascending aorta 3.5 cm. INTERVENTRICULAR SEPTUM There is abnormal motion of the interventricular septum secondary to prior cardiac ?surgery and a pacemaker. ? PERICARDIUM There is no pericardial effusion. There is an epicardial fat pad. ? CONCLUSIONS: - Technically difficult exam due to body habitus. - Exam indication: Initial evaluation of known cardiomyopathy - The left ventricle is normal in size. Left ventricular systolic function is moderately decreased. EF = 37 ? 5% (2D biplane) Definity contrast used for endocardial border detection. - The right ventricle is normal in size. Right ventricular systolic function is low normal. - The left atrial cavity is mildly dilated. - Mild likely ischemic MR. - The patient has not had a prior CC echocardiographic exam for comparison. Stress SPECIAL COMMENTS: ? UNDERWENT 8 STENTS; PRE-OP: BYPASS ARTERY CORONARY REDO ON PUMP 07/27/2017 RESTING ECG: ? NORMAL SINUS RHYTHM, NONSPECIFIC ST-T WAVE CHANGES, LEFT ANTERIOR HEMIBLOCK, CANNOT R/O ANTERIOR GA, INFERIOR WALL GA. OBSERVATION: ? 1. THE TEST WAS TERMINATED DUE TO END OF PROTOCOL. ? 5. NORMAL ST SEGMENT RESPONSE TO STRESS. ? 7. ANGINA WAS NOT PROVOKED BY STRESS. ? 8. UNIFOCAL PVC'S DURING THE TEST. CONCLUSION: ? NORMAL. OSH CATH DIAGNOSIS: ? 1. Moderate left ventricular dysfunction 2. Patent left internal mammary artery to the left anterior descending 3. Percutaneous coronary intervention of the mid to distal right coronary artery 4. Continued success following percutaneous coronary intervention of AV circumflex. LEFT MAIN TRUNK: ? Normal. ? LEFT ANTERIOR DESCENDING: ? ?the left anterior descending is totally occluded in its mid-portion at the region of a stent. ?The large first major diagonal branch has a critical stenosis at its origin. ?The distal vessel fills via a patent left internal mammary artery graft with a 50% anastomosis stenosis. ? CIRCUMFLEX ARTERY: ? ?there is a long region of stenting in the circumflex which crosses a moderate sized first marginal branch and large second marginal branch leading to a moderate to large third marginal branch hugging the inferior wall. ? LEFT INTERNAL MAMMARY ARTERY TO LEFT ANTERIOR DESCENDING: ?Patent with a 50% anastomotic narrowing. ? RIGHT CORONARY ARTERY: ?There is stent material in the mid portion of this vessel. ?It is subtotal to totally occluded in the mid segment. ?The distal vessel, following successful percutaneous coronary intervention, yields a very large posterior descending branch and moderate sized posterolateral branch. ?The posterior descending artery was certainly graftable at that time. ? LEFT VENTRICLE: ?The LVEDP is mildly increased. ?There is moderate hypokinesia of the inferior and mid anterior wall. ?Overall ejection fraction appears to be fairly well preserved in the 40-45% range. ?There is no obvious valvular pathology. ? COMMENTS: ?this patient went on to successful percutaneous coronary intervention of the mid to distal right coronary artery. DEVICES: SINGLE LEAD ICD EVALUATION ? Please, call device clinic [phone] to turn ICD OFF for upcoming surgery, programmed VVI 40, no magnet rate for ICD ? UNDERLYING RHYTHM: sinus rhythm ? BATTERY STATUS: Normal and shows no significant depletion. ? COUNTERS SINCE 07-24-16: ? ARRHYTHMIAS: none ? LEAD MEASUREMENTS: Capture and sensing are appropriate. The pacing outputs maintain safety margin. Review of the lead impedance trends are normal. ? IMPLANT SITE/ SYMPTOMS: The incision and pocket are pain-free (0/10), well healed and without signs of erosion or infection. No arm swelling, syncope, pre-syncope or device related pocket stimulation. ? OTHER DIAGNOSTICS: RV pacing 0%. ? PROGRAMMING CHANGES MADE TODAY: none ? MEDICATIONS: Current Outpatient Prescriptions: aspirin 81 mg chewable tablet Take 81 mg by mouth once daily. aspirin, enteric coated (ASPIRIN, ENTERIC COATED) 325 mg EC tablet Take 325 mg by mouth once daily. nitroglycerin sublingual (NITROQUICK) 0.4 mg SL tablet Dissolve 0.4 mg under the tongue every 5 minutes as needed. carvedilol (COREG) 6.25 mg tablet Take 2 tablets by mouth twice daily with meals. furosemide (LASIX) 20 mg tablet Take 1 tablet by mouth once daily. isosorbide mononitrate ER (IMDUR) 60 mg 24 hr tablet Take one tab twice daily. losartan (COZAAR) 25 mg tablet once daily. EFFIENT 10 mg tab once daily. RANEXA 500 mg 12 hr tablet twice daily. diclofenac, EC, (VOLTAREN) 75 mg EC tablet Take 75 mg by mouth twice daily. gabapentin (NEURONTIN) 100 mg capsule Take 100 mg by mouth twice daily. misoprostol (CYTOTEC) 200 mcg tablet Take 200 mcg by mouth once daily. pantoprazole DR (PROTONIX) 40 mg tablet Take 40 mg by mouth once daily. pravastatin (PRAVACHOL) 40 mg tablet Take 40 mg by mouth once daily. No current facility-administered medications for this visit. Is the patient currently on any anticoagulant medications: Yes: Anticoagulant medications the patient is currently on: Prasugrel: Last dose: PAtient is Holding Effient This was adequately stopped before surgery: Yes PAIN AND ANXIETY EDUCATION AND MANAGEMENT: Patient has no concerns to address at this time. Additional Comments: none I have reviewed the Cardiothoracic Surgical Assessment and agree with its findings. During the course of the encounter the patient was prepared for anesthetic care. This conversation included anesthetic options, possible use of invasive monitoring, the risks, benefits, alternatives, and personnel that will be present for the anesthetic encounter. The patient agreed to proceed with the planned anesthetic. Instructed to take protonix, pravastatin, coreg, gabapentin, ASA, Imdur with a small sip of water on the morning of surgery. BETA ATILIO COMPLIANCE: Is the Patient Scheduled for a CABG: Yes. Patient currently takes a beta atilio, and was asked to take it as scheduled. SIGNATURE: Lester Sarabia DO PATIENT NAME: Amelia Leavitt DATE: July 21, 2017 TIME: 3:47 PM PAGER/CONTACT #: Glenda Friedman DO 07/23/2017 8:58 AM Signed Addended by: GLENDA FRIEDMAN DO on: 07/23/2017 08:58 AM Modules accepted: Orders, SmartSet Referring Provider: KAUSHAL HUFF [[id number]] Allergies As of Date: 07/21/2017 Noted Allergy Reaction PERCOCET (OXYCODONE-ACETAMINOPHEN)07/21/2017 14 - Other: See Comments Comments: patient had a reaction after last heart surgery with percocet where he was having convulsions Date Reviewed: 07/21/2017 Reviewed by: Manolo Garcia) [place] - Fully Assessed Visit Diagnosis:Encounter for preoperative anesthesiology assessment for cardiac surgery [Z01.818] Order(s):mupirocin (BACTROBAN) 2 % ointmentApply 1 application to affected area twice daily. Apply to inside of nostrils twice a day the day prior to surgery and once on the morning of surgeryDisp: 1 TubeRfl: 0 PREOP RED BLOOD CELLS [SQPRE] Order #: [id number] Prescriptions as of 07/21/2017 Sig: MUPIROCIN 2 % TOPICAL OINTMENT Apply 1 application to affect* ASPIRIN 325 MG TABLET,DELAYED* Take 325 mg by mouth once miranda* NITROGLYCERIN 0.4 MG SUBLINGU* Dissolve 0.4 mg under the ton* CARVEDILOL 6.25 MG TABLET Take 2 tablets by mouth twice* FUROSEMIDE 20 MG TABLET Take 1 tablet by mouth once d* ISOSORBIDE MONONITRATE ER 60 * Take one tab twice daily. LOSARTAN 25 MG TABLET once daily. EFFIENT 10 MG TABLET once daily. RANEXA 500 MG TABLET,EXTENDED* twice daily. 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 Preop testing [Z01.818] INVALID FOR* More... Encounter for preoperative anesthesiology asses*INVALID FOR* Prescriptions ordered this encounter Disp Refills Start End MUPIROCIN 2 % TOPICAL OINTMENT 1 Tu* 0 07/21/2017 Class: Print RX Route: TOPICAL Sig: Apply 1 application to affected area twice daily. Apply to inside of nostrils twice a day the day prior to surgery and once on the morning of surgery Encounter Status:Closed by LESTER SARABIA DO on 07/21/17 CNOV Observed: 07/21/2017 Status: COMPLETED Source: [place] 2:00 PM [facility] REPOSITORY Office Visit (CARTMN) AMELIA LEAVITT ([id number]) 1950 M Date Time Provider Department 07/21/17 2:00 PM [facility] CARTMN During your visit today, we recorded the following information about you: Day Heath, RN, RN 07/21/2017 4:49 PM Signed CHART COPY-DO NOT DISCARD CARDIOVASCULAR SURGERY PRE-OPERATIVE ASSESSMENT NAME: Amelia Leavitt Alert Notes: DATE: 07/21/2017 SEX: male : 1950 AGE: [age] year old Estimated body mass index is 31.6 kg/(m2) as calculated from the following: Height as of 07/05/17: 177.8 cm (5' 10ANDquot;). Weight as of 07/05/17: 99.9 kg (220 lb 3.2 oz). STS Score 2.759 PHYSICIAN: Kaushal Huff M.D. CCMoo MD: Shen Kaur Intended Procedure: Isolated CABG REDO: Yes, CABG x1 2012 Patient scheduled for surgery on: 07/27/17. CHIEF COMPLAINT: Pre-Op Open Heart Surgery MEDICATIONS: Current Outpatient Prescriptions: - aspirin, enteric coated (ASPIRIN, ENTERIC COATED) 325 mg EC tablet - nitroglycerin sublingual (NITROQUICK) 0.4 mg SL tablet - carvedilol (COREG) 6.25 mg tablet - furosemide (LASIX) 20 mg tablet - losartan (COZAAR) 25 mg tablet - RANEXA 500 mg 12 hr tablet - gabapentin (NEURONTIN) 100 mg capsule - pantoprazole DR (PROTONIX) 40 mg tablet - pravastatin (PRAVACHOL) 40 mg tablet - isosorbide mononitrate ER (IMDUR) 60 mg 24 hr tablet - EFFIENT 10 mg tab - diclofenac, EC, (VOLTAREN) 75 mg EC tablet - misoprostol (CYTOTEC) 200 mcg tablet ALLERGIES: ALLERGIES No Known Allergies LATEX ALLERGY: No FOOD SENSITIVITIES: No ANTICOAGULANTS: effient last dose 07/21/17 STEROIDS: No HISTORIES: FAMILY HISTORY Problem Relation Age of Onset - Myocardial infarction [OTHER] Father 17 multiple GA's of GA age 53 - Cancer Sister - No Ocular Disease No Family History PAST MEDICAL HISTORY Diagnosis Date - CAD (coronary artery disease) - Cardiomyopathy (HCC) - CHF (congestive heart failure) ([facility]) - Family history of early CAD - H/o Lyme disease - History of smoking - Hyperlipidemia 2009 - 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 - GA (myocardial infarction) ([facility]) 2009, 2015 - S/P angioplasty with stent x 16 - S/P CABG x 1 2012 - Sleep apnea CPAP prn PAST SURGICAL HISTORY Procedure Laterality Date - CABG (1) VEIN GRAFT ANDamp; ARTERIAL GRAFT 2012 L-LAD - DEFIBRILLATOR SURGERY - PACEMAKER - PAST SURGICAL HISTORY OF 2006 vertebrae surgery - ROTATOR CUFF REPAIR 1995 Social History Marital status: Spouse name: Years of education: Number of children: Social History Main Topics Smoking status: Former Smoker Packs/day: 0.50 Years: 0.00 Types: Cigarettes Quit date: 04/21/2017 Smokeless status: Never Used Comment: had quit for 20 years but restarted 2014 Drug use: No REVIEW OF SYSTEMS: GEN: Fatigue April became more tired and getting progressively worse HEENT: Glasses, Hard of Hearing left ear deficit little to no hearing noted DERM: Denies Dermatological Complaints 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 PERFUSION INDEX: LT: 98 RT: 98 DOMINANT HAND: right-handed Pacer Check: Done: 07/21/17 CARDIAC EVALUATION: Cardiac Cath: Date - 05/24/17 on syngo Ultrasound: Date - PFT: Date - ECHO: Date - 07/05/17 CT Scan: Date - 07/21/17 MRI: Date - CXR: Date - 07/05/17 EKG: Date - 07/05/17 Dental: NA ? Recent Labs 07/21/17 0718 07/21/17 0710 INR -- 1.0 APTT -- 25.3 PTSEC -- 10.5 ABORHD O POSITIVE O POSITIVE Pre Op Instructions per protocol reviewed and handout given to patient . Patient Education completed and documented. Instructed to start Bactroban per protocol. Emotional support provided to patient and family. All questions and concerns adressed. Signature: Day Heath RN See Cardiology History and Physical dated 07/05/17 Referring Provider: KAUSHAL HUFF [[id number]] Allergies As of Date: 07/21/2017 Noted Allergy Reaction PERCOCET (OXYCODONE-ACETAMINOPHEN)07/21/2017 14 - Other: See Comments Comments: patient had a reaction after last heart surgery with percocet where he was having convulsions Date Reviewed: 07/21/2017 Reviewed by: Manolo Garcia) [place] - Fully Assessed Primary Visit Diagnosis:Pre-op testing [Z01.818] Other Visit Diagnoses:Other complications of other bariatric procedure [K95.89] Discharge planning issues [Z02.9] Preop testing [Z01.818] Order(s):STAPH AUREUS PCR [SQSAPCR] Order #: [id number] FUTURE Prescriptions as of 07/21/2017 Sig: ASPIRIN 81 MG CHEWABLE TABLET Take 81 mg by mouth once yaw* ASPIRIN 325 MG TABLET,DELAYED* Take 325 mg by mouth once miranda* NITROGLYCERIN 0.4 MG SUBLINGU* Dissolve 0.4 mg under the ton* CARVEDILOL 6.25 MG TABLET Take 2 tablets by mouth twice* FUROSEMIDE 20 MG TABLET Take 1 tablet by mouth once d* LOSARTAN 25 MG TABLET once daily. RANEXA 500 MG TABLET,EXTENDED* twice daily. GABAPENTIN 100 MG CAPSULE Take 100 mg by mouth twice da* PANTOPRAZOLE 40 MG TABLET,DEL* Take 40 mg by mouth once yaw* PRAVASTATIN 40 MG TABLET Take 40 mg by mouth once yaw* ISOSORBIDE MONONITRATE ER 60 * Take one tab twice daily. EFFIENT 10 MG TABLET once daily. 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 Preop testing [Z01.818] INVALID FOR* More... Encounter for preoperative anesthesiology asses*INVALID FOR* Medications Discontinued During This Encounter diclofenac, EC, (VOLTAREN) 75 mg EC * 07/21/2017 Class: Historical Med Route: ORAL Sig: Take 75 mg by mouth twice daily. Disc: Discontinued by Patient misoprostol (CYTOTEC) 200 mcg tablet 07/21/2017 Class: Historical Med Route: ORAL Sig: Take 200 mcg by mouth once daily. Disc: Discontinued by Patient Encounter Status:Closed by DAY HEATH on 07/21/17 CNOV Observed: 07/21/2017 Status: COMPLETED Source: [place] 1:00 PM [facility] REPOSITORY Office Visit (TOMN) AMELIA LEAVITT ([id number]) 1950 M Date Time Provider Department 07/21/17 1:00 PM KAUSHAL HUFFHSMN During your visit today, we recorded the following information about you: Kaushal Huff MD 07/21/2017 5:34 PM Signed CHART COPY DO NOT DISCARD Patient Type: New Visit to determine Surgery: Yes PCP: Domo Newman MD ([facility]) [address] [place] [address] Referring Physician:: Kaushal Huff MD [address] [facility] [id number] HPI: Mr. Amelia Leavitt is a 67 year old male seen in consultation at the request of Kaushal Huff for opinion regarding treatment options for CAD, st/p CABG, st/p PTCA and coronary stenting. 67 year old gentleman with a long standing history of coronary artery disease. ?He has had multiple stent procedures. ?He ultimately underwent open heart surgery with a left internal mammary artery to the left anterior descending. ?The right coronary artery was stented in 2015. ?The ejection fraction was 30-35%. ?A relook on April 25, 2016 demonstrated widely patent left internal mammary artery. ?The right coronary artery and circumflex were occluded. ?He was most recently seen in the office by Dr. Rosalind Carbajal on June 11, 2017. ?They elected to recommend continued medical treatment with up titrating of Ranexa. ?He is coming to [facility] for a second opinion. He is currently symptomatic and complains of back pain. PAST MEDICAL HISTORY PAST MEDICAL HISTORY Diagnosis Date - GA (myocardial infarction) ? ? x 3 ? PAST SURGICAL HISTORY PAST SURGICAL HISTORY Procedure Laterality Date - DEFIBRILLATOR SURGERY ? ? - PACEMAKER ? ? - PAST SURGICAL HISTORY OF ? 2011 ? open heart surgery - PAST SURGICAL HISTORY OF ? 2006 ? vertebrae surgery - RIGHT HEART CATHERIZATION ? ? ? SOCIAL HISTORY Social History Substance Use Topics - Smoking status: Former Smoker ? ? Packs/day: 0.50 ? ? Types: Cigarettes ? ? Quit date: 04/21/2017 - Smokeless tobacco: Never Used ? ? ? Comment: had quit for 20 years but restarted 2014 - Alcohol use Not on file ? ? ? Comment: occasionally ? FAMILY HISTORY FAMILY HISTORY Problem Relation Age of Onset - Myocardial infarction [OTHER] Father 17 ? ? multiple GA's of GA age 53 - Cancer Sister ? - No Ocular Disease No Family History ? ALLERGIES ALLERGIES No Known Allergies CURRENT MEDICATIONS ? aspirin, enteric coated (ASPIRIN, ENTERIC COATED) 325 mg EC tablet Take 325 mg by mouth once daily. nitroglycerin sublingual (NITROQUICK) 0.4 mg SL tablet Dissolve 0.4 mg under the tongue every 5 minutes as needed. carvedilol (COREG) 6.25 mg tablet Take 6.25 mg by mouth twice daily with meals. furosemide (LASIX) 20 mg tablet 20 mg. Takes 20 mg 3 times weekly M,W,FTakes extra 1 x week last few weeks isosorbide mononitrate ER (IMDUR) 30 mg 24 hr tablet 60 mg once daily. losartan (COZAAR) 25 mg tablet once daily. EFFIENT 10 mg tab once daily. RANEXA 500 mg 12 hr tablet twice daily. diclofenac, EC, (VOLTAREN) 75 mg EC tablet Take 75 mg by mouth twice daily. gabapentin (NEURONTIN) 100 mg capsule Take 100 mg by mouth twice daily. misoprostol (CYTOTEC) 200 mcg tablet Take 200 mcg by mouth once daily. pantoprazole DR (PROTONIX) 40 mg tablet Take 40 mg by mouth once daily. pravastatin (PRAVACHOL) 40 mg tablet Take 40 mg by mouth once daily. erythromycin ophthalmic ointment Use 1 application in both eyes daily at bedtime. ? I have personally reviewed his cardiac catheterization and CT scan which shows (repoort by Dr. Rowe): LEFT ANTERIOR DESCENDING: ? ?the left anterior descending is totally occluded in its mid-portion at the region of a stent. ?The large first major diagonal branch has a critical stenosis at its origin. ?The distal vessel fills via a patent left internal mammary artery graft with a 50% anastomosis stenosis. ? CIRCUMFLEX ARTERY: ? ?there is a long region of stenting in the circumflex which crosses a moderate sized first marginal branch and large second marginal branch leading to a moderate to large third marginal branch hugging the inferior wall. ? LEFT INTERNAL MAMMARY ARTERY TO LEFT ANTERIOR DESCENDING: ?Patent with a 50% anastomotic narrowing. ? RIGHT CORONARY ARTERY: ?There is stent material in the mid portion of this vessel. ?It is subtotal to totally occluded in the mid segment. ?The distal vessel, following successful percutaneous coronary intervention, yields a very large posterior descending branch and moderate sized posterolateral branch. ?The posterior descending artery was certainly graftable at that time. ? LEFT VENTRICLE: ?The LVEDP is mildly increased. ?There is moderate hypokinesia of the inferior and mid anterior wall. ?Overall ejection fraction appears to be fairly well preserved in the 40-45% range. ?There is no obvious valvular pathology. ? COMMENTS: ?this patient went on to successful percutaneous coronary intervention of the mid to distal right coronary artery. Catheterization May 24, 2017: The primary change in this catheterization compared to the April 2016 procedure includes a now totally occluded circumflex system between the first and second marginal branch and total occlusion of the stented right coronary artery. ?The left ventricular function appears to demonstrate some worsening, especially at the infero-apical segment, although the left ventriculogram has much to be desired. ? COMMENTS:I have emailed and asked Dr. Kaushal Huff to review this gentleman's catheterization and subsequent intervention. ?Although the distal right and circumflex targets are not as well appreciated in the most recent catheterization of May 24, they appear to be large in caliber and likely graftable according to the April 2016 study. ?I have asked Dr. Huff to consider redo surgery. ?We can certainly get a Rubidium PET scan with FDG looking for ischemia, scar and hibernation as well as repeating the catheterization with intracoronary nitroglycerin if necessary. ? CT chest IMPRESSION: 1. ?The thoracic aorta is normal. ?There is no definite acute aortic pathology. 2. Coronary artery disease with multiple stents and GUDINO to LAD. 3. Noncalcified lung nodules and groundglass opacities. ?Follow- up CT in 6-12 months recommended. Pet scan CONCLUSIONS: ?1. PET Perfusion Study: Abnormal. ?2. The posterior wall is scarred (LCx distribution). ?3. The inferior wall is predominantly scar with a small amount of michael-infarct jeopardized myocardium (RCA distribition). ?4. Functional capacity N/A (pharmacological). ?5. Left ventricle is severely dilated. The left ventricle systolic function is moderately-severely decreased. ?6. Right ventricle is normal in size. The right ventricle systolic function is mildly decreased. ?7. This is a high risk scan due to reduced LVEF and large stress-induced perfusion defect. The Echocardiogram reveals CONCLUSIONS: - Technically difficult exam due to body habitus. - Exam indication: Initial evaluation of known cardiomyopathy - The left ventricle is normal in size. Left ventricular systolic function is moderately decreased. EF = 37 ? 5% (2D biplane) Definity contrast used for endocardial border detection. - The right ventricle is normal in size. Right ventricular systolic function is low normal. - The left atrial cavity is mildly dilated. - Mild likely ischemic MR. - The patient has not had a prior CC echocardiographic exam for comparison. ECG Diagnosis:NORMAL SINUS RHYTHM LEFT ANTERIOR FASCICULAR BLOCK INFERIOR MYOCARDIAL INFARCTION , AGE UNDETERMINED CANNOT EXCLUDE ANTERIOR MYOCARDIAL INFARCTION , AGE UNDETERMINED ABNORMAL ECG Results for AMELIA LEAVITT ( ) as of 07/21/2017 17:22 Ref. Range 07/05/2017 07:25 07/05/2017 07:25 07/05/2017 11:21 07/21/2017 07:10 Sodium Latest Ref Range: 136 - 144 mmol/L 142 Potassium Latest Ref Range: 3.7 - 5.1 mmol/L 4.4 Chloride Latest Ref Range: 97 - 105 mmol/L 101 CO2 Latest Ref Range: 22 - 30 mmol/L 26 BUN Latest Ref Range: 9 - 24 mg/dL 25 (H) Creatinine Latest Ref Range: 0.73 - 1.22 mg/dL 1.50 (H) Glucose Latest Ref Range: 74 - 99 mg/dL 128 (H) Protein, Total Latest Ref Range: 6.3 - 8.0 g/dL 6.7 Calcium Latest Ref Range: 8.5 - 10.2 mg/dL 9.3 Albumin Latest Ref Range: 3.9 - 4.9 g/dL 4.4 Bilirubin, Total Latest Ref Range: 0.2 - 1.3 mg/dL 0.4 Alkaline Phosphatase Latest Ref Range: 36 - 108 U/L 121 (H) ALT Latest Ref Range: 10 - 54 U/L 19 AST Latest Ref Range: 14 - 40 U/L 24 Anion Gap Latest Ref Range: 9 - 18 mmol/L 15 LD Latest Ref Range: 135 - 225 U/L 167 eGFR- Unknown 57 eGFR-All Other Races Latest Units: . 47 Cholesterol, Total Latest Ref Range: ANDlt;200 mg/dL 245 (H) Triglyceride Latest Ref Range: ANDlt;150 mg/dL 510 (H) Fasting Time Latest Units: hrs 12 HDL Cholesterol Latest Ref Range: ANDgt;39 mg/dL 27 (L) LDL Cholesterol Latest Ref Range: ANDlt;100 mg/dL Unable to calcula... VLDL Cholesterol Latest Ref Range: ANDlt;30 mg/dL Unable to calcula... 98 (H) TC:HDL Ratio Latest Ref Range: ANDlt;5.10 9.07 (H) LDL:HDL Ratio Latest Ref Range: ANDlt;2.54 Unable to calcula... LDL Cholesterol, Direct Latest Ref Range: ANDlt;100 mg/dL 120 (H) Non HDL Cholesterol Latest Ref Range: ANDlt;130 mg/dL 218 (H) WBC Latest Ref Range: 3.70 - 11.00 k/uL 10.35 RBC Latest Ref Range: 4.20 - 6.00 m/uL 4.94 Hemoglobin Latest Ref Range: 13.0 - 17.0 g/dL 15.6 Hematocrit Latest Ref Range: 39.0 - 51.0 % 46.6 Platelet Count Latest Ref Range: 150 - 400 k/uL 198 MCV Latest Ref Range: 80.0 - 100.0 fL 94.3 MCH Latest Ref Range: 26.0 - 34.0 pG 31.6 MCHC Latest Ref Range: 30.5 - 36.0 g/dL 33.5 MPV Latest Ref Range: 9.0 - 12.7 fL 10.8 RDW-CV Latest Ref Range: 11.5 - 15.0 % 12.8 Neut% Latest Units: % 61.4 Abs Neut (ANC) Latest Ref Range: 1.45 - 7.50 k/uL 6.35 Lymph% Latest Units: % 28.0 Abs Lymph Latest Ref Range: 1.00 - 4.00 k/uL 2.90 Coleman% Latest Units: % 8.0 Abs Coleman Latest Ref Range: ANDlt;0.87 k/uL 0.83 Eosin% Latest Units: % 2.0 Abs Eosin Latest Ref Range: ANDlt;0.46 k/uL 0.21 Baso% Latest Units: % 0.6 Abs Baso Latest Ref Range: ANDlt;0.11 k/uL 0.06 Nucleated Reds Latest Ref Range: 0 /100 WBC 0.0 Absolute nRBC Latest Ref Range: ANDlt;0.01 k/uL ANDlt;0.01 Diff Type Unknown Auto Diff PT Sec Latest Ref Range: 9.7 - 13.0 sec 10.5 PT INR Latest Ref Range: 0.9 - 1.3 1.0 APTT Latest Ref Range: 23.0 - 32.4 sec 25.3 Impression: CAD, st/p CABG, st/p PTCA and coronary stenting. 67 year old gentleman with a long standing history of coronary artery disease, AQcute and chronic systolic and diastolic heart failure. Plan: Reoperation, Coronary bypass grafting, SVG to PDA, NANCY to LAD, SVG to lcx x1-3 Based on my evaluation he is medium+ risk. I spent 40 minutes in this visit, with more than 50% of the time devoted to patient counseling. These findings will be communicated back to the requesting physician via electronic medical record Kaushal Huff MD Referring Provider: KAUSHAL HUFF [[id number]] Allergies As of Date: 07/21/2017 Noted Allergy Reaction PERCOCET (OXYCODONE-ACETAMINOPHEN)07/21/2017 14 - Other: See Comments Comments: patient had a reaction after last heart surgery with percocet where he was having convulsions Date Reviewed: 07/21/2017 Reviewed by: Manolo Sales (Jeth[place]) [place] - Fully Assessed Primary Visit Diagnosis:Atherosclerosis of [place] coronary artery of [place] heart with stable angina pectoris (HCC) [I25.118] Other Visit Diagnoses:S/P CABG (coronary artery bypass graft) [Z95.1] Coronary stent occlusion, initial encounter [T82.897A] Cardiomyopathy, ischemic [I25.5] Acute on chronic combined systolic and diastolic congestive heart failure (HCC) [I50.43] Prescriptions as of 07/21/2017 Sig: ASPIRIN 325 MG TABLET,DELAYED* Take 325 mg by mouth once miranda* NITROGLYCERIN 0.4 MG SUBLINGU* Dissolve 0.4 mg under the ton* CARVEDILOL 6.25 MG TABLET Take 2 tablets by mouth twice* FUROSEMIDE 20 MG TABLET Take 1 tablet by mouth once d* ISOSORBIDE MONONITRATE ER 60 * Take one tab twice daily. LOSARTAN 25 MG TABLET once daily. EFFIENT 10 MG TABLET once daily. RANEXA 500 MG TABLET,EXTENDED* twice daily. 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 Preop testing [Z01.818] INVALID FOR* More... Encounter for preoperative anesthesiology asses*INVALID FOR* Encounter Status:Closed by KAUSHAL HUFF MD on 07/21/17 CT CHEST CARDIAC WO Observed: 07/21/2017 Status: F Source: [place] IVCON 10:21 AM [facility] REPOSITORY * * *Final Report* * * DATE OF EXAM: Jul 21 2017 10:21AM [facility] [place] 6 - CT CHEST CARDIAC WO IVCON / PROCEDURE REASON: multiple diagnoses * * * * Physician Interpretation * * * * Examination: CT of the chest dated 07/21/2017 10:21 AM Comparison: None History: 67 years old Male with prior CABG here for redo cardiothoracic surgery. Technique: Multi-detector CT technology was employed (Siemens Definition Flash dual source [facility] [employer] 64-slice [facility] [employer] dual source scanner). Spiral imaging with retrospective Axial, sequential imaging with prospective gating was performed of the chest without intravenous administration of contrast material at the request of the referring physician. CT Dose-Length Product (DLP): [address] Dose Reduction Employed: Automated exposure control(AEC) and iterative recon For optimization of anatomic evaluation, advanced off-line postprocessing (including thin and thick MIPs, thin and thick MPRs, and curved MPRs) were performed on a dedicated stand-alone workstation under the direct supervision of the interpreting physician. RESULT: Potential study limitations: None. CHEST: The chest wall is remarkable for remote median sternotomy with 8 sternal wires. ICD in the left upper chest with a single wire in the right ventricle. There is no significant adenopathy noted in the axillae, mediastinum, and gage. The pericardium and pulmonary arteries appear normal, as best can be assessed on a noncontrast examination. Lung windows reveal no acute abnormalities. 4 mm noncalcified nodule in the right upper lobe (image 25) and left lower lobe (image 60). Multiple ground glass opacities for instance image 30, 34, 37 in the right lung. There is no pulmonary parenchymal mass, infiltrate, or pleural effusion. The cardiac chamber sizes appear normal. The coronary arteries have normal origins and courses. There are coronary calcifications identified, though this study was not optimized for coronary artery evaluation. There are stents in all 3 coronary arteries. A GUDINO to LAD is visualized and does not cross the midline. No other grafts are seen. Aortic valve morphology cannot be assessed on this noncontrast examination but is not calcified. The thoracic aorta is normal in course, caliber, and contour. The mid ascending aorta measures 3.3 cm. There is no definite acute aortic pathology, such as dissection, intramural hematoma, or contained rupture, though assessment is limited without intravenous contrast administration. The arch vessel branching pattern is normal . PROXIMITY OF THE CARDIOVASCULAR STRUCTURES TO THE STERNUM: The current lies in close proximity to the sternum. The limited images of the upper abdomen reveal no abnormalities of the visualized organs. IMPRESSION: 1. The thoracic aorta is normal. There is no definite acute aortic pathology. 2. Coronary artery disease with multiple stents and GUDINO to LAD. 3. Noncalcified lung nodules and groundglass opacities. Follow- up CT in 6-12 months recommended. Sterilizer Operator: KEVIN Transcribe Date/Time: Jul 21 2017 10:41A Dictated by : ANDREA MAHAJAN MD This examination was interpreted and the report reviewed and electronically signed by: ANDREA MAHAJAN MD on Jul 21 2017 10:52AM EST [id number] PROGRESS Observed: 07/21/2017 Status: COMPLETED Source: [place] 10:20 AM [facility] REPOSITORY HNO ID: [id number] Author: DAY Reed (Ct) Service: Radiology Author Type: Clinical Distance Education Teacher Type: Progress Notes Filed: 07/21/2017 10:20 AM Note Text: Radiology Service Progress Note PATIENT NAME: Amelia Leavitt DATE OF SERVICE: July 21, 2017 TIME: 10:20 AM PATIENT IDENTITY VERIFICATION COMPLETED USING TWO (2) METHODS: Patient confirmed name verbally and ID band matches.. PATIENT GENDER DATA: Male PATIENT RELEVANT IMPLANT DATA REVIEWED: Yes RADIOLOGY DEPARTMENT: CT; Exam(s) Completed: Cardiac PERIPHERAL IV DATA: Not applicable SIGNED BY: DAY Reed July 21, 2017 10:20 AM [place] PET CARDIAC PERF Observed: 07/21/2017 Status: F Source: [place] REST/STRESS 10:13 AM [facility] REPOSITORY * * *Final Report* * * DATE OF EXAM: Jul 21 2017 10:13AM [facility] 0109 - [place] PET CARDIAC PERF REST/STRESS / PROCEDURE REASON: Atherosclerosis of [place] coronary artery of [place] heart with stable angina pec * * * * Physician Interpretation * * * * PATIENT: Name: AMELIA LEAVITT Age: 67 years Gender: M CONCLUSIONS: 1. PET Perfusion Study: Abnormal. 2. The posterior wall is scarred (LCx distribution). 3. The inferior wall is predominantly scar with a small amount of michael-infarct jeopardized myocardium (RCA distribition). 4. Functional capacity N/A (pharmacological). 5. Left ventricle is severely dilated. The left ventricle systolic function is moderately-severely decreased. 6. Right ventricle is normal in size. The right ventricle systolic function is mildly decreased. 7. This is a high risk scan due to reduced LVEF and large stress-induced perfusion defect. Gated Stress IR:3D:SC:CTAC Gated Rest IR:3D:SC:CTAC LVEF % 31 30 Prior Study Comparison No prior nuclear cardiology exam available for comparison. Nuclear Med Report:Gated Rb-82 Regadenoson Stress PET and FDG Viability Study: The patient was injected with Rb-82 at rest, and ECG gated tomographic images were obtained. Approximately 10 minutes later, the patient received 0.4 mg of regadenoson, via rapid IV push, immediately followed by Rb-82 30 seconds after starting the regadenoson infusion; and ECG gated tomographic images were obtained. At rest the blood glucose was [...]. See administered doses below. [facility] Date of service: 07/21/2017 8:02:02 AM Ordering Physician: Requesting Physician: KAUSHAL HUFF Indication: Viability/ischemia assessment in ischemic cardiomyopathy. Interpreting physician: Parish Guadalupe MD Patient History: History of myocardial infarction, Prior smoker, dyslipidemia, family hx of premature CAD, cardiomyopathy and valvular heart disease. Medications currently taking are B-atilio, nitrate, ARB, diuretic and ASA. Previous Cardiovascular Interventions: ICD Implant (2016) CABG (2012) PCI (2016) Height: 177.80 cm BSA: 2.22 m? Weight: 99.79 kg BMI: 31.6 kg/m? Imaging Protocol Limitation Reason G.I. uptake. CT Dose-Length Product(DLP): 69.0 mGy*cm. CT Dose Reduction Employed: Yes. Exam Type: Rest Stress Viability Radiopharm: Rb-82 Rb-82 F-18 FDG Dosage(mCi): 30 30 8 Atten Correction: performed performed performed Stress Agent: Regadenoson 0.4mg Supply provided from [facility] Rest Glucose: 114 mg/dl Resting Heart Rate: 63 bpm Resting Blood Press: 125/84 mmHg Image Quality The overall study imaging quality was deemed to be fair. The following technical issues were noted: G.I. uptake. FINDINGS: Left Ventricle Wall Motion: Stress IR:3D:SC:CTAC - The inferior wall and posterior wall are akinetic. The entire anterior wall, anterolateral wall, entire septum, and entire apex are hypokinetic. Rest IR:3D:SC:CTAC - FDG IR:3D:SC:CTAC - Gated Stress IR:3D:SC:CTAC - Reversibility - Viability - Gated Rest IR:3D:SC:CTAC - Stress IR:3D:SC:CTAC Stress Gated Stress Gated Rest IR:3D:SC:CTAC IR:3D:SC:CTAC IR:3D:SC:CTAC LVEF: 31 % 30 % ED Volume: 334 ml 206 ml ES Volume: 229 ml 145 ml TID: 0.83 Perfusion Findings Stress IR:3D:SC:CTAC - Summed Score=15 There is a severe perfusion defect in the entire inferior wall and posterior wall. All remaining scored segments show normal perfusion. Rest IR:3D:SC:CTAC - Summed Score=12 There is a severe perfusion defect in the posterior wall. There is a moderate perfusion defect in the entire inferior wall. All remaining scored segments show normal perfusion. FDG IR:3D:SC:CTAC - Summed Score=7 There is a moderate perfusion defect in the posterior wall. There is a mild perfusion defect in the entire inferior wall. All remaining scored segments show normal perfusion. Stress IR:3D:SC:CTAC Rest IR:3D:SC:CTAC FDG IR:3D:SC:CTAC Summed Score=15 Summed Score=12 Summed Score=7 FDG- There is evidence of scarred myocardium in the posterior wall. There is evidence of viable myocardium in the entire inferior wall. All remaining scored segments show normal viability. FDG LEFT VENTRICLE The left ventricle is severely dilated. Left ventricular systolic function is moderately-severely decreased. Right Ventricle The right ventricle is normal in size. Right ventricle systolic function is mildly decreased. Stress Test Findings: The stress test was terminated due to the following: End of Protocol. Peak HR 86 bpm. (56 % MPHR) Peak BP 116 mmHg/64 mmHg Patient experienced chest pain during stress. Stress ECG normal ST segment response. Stress complications: none. Final Sterilizer Operator: Civolution Transcribe Date/Time: Jul 21 2017 8:02A Dictated by : PARISH GUADALUPE MD This examination was interpreted and the report reviewed and electronically signed by: PARISH GUADALUPE MD on Jul 21 2017 2:54PM EST [id number] NM PET CARDIAC Observed: 07/21/2017 Status: F Source: [place] VIABILITY 10:13 AM [facility] REPOSITORY * * *Final Report* * * DATE OF EXAM: Jul 21 2017 10:13AM [facility] 0102 - NM PET CARDIAC VIABILITY / PROCEDURE REASON: multiple diagnoses * * * * Physician Interpretation * * * * PATIENT: Name: AMELIA LEAVITT Age: 67 years Gender: M CONCLUSIONS: 1. PET Perfusion Study: Abnormal. 2. The posterior wall is scarred (LCx distribution). 3. The inferior wall is predominantly scar with a small amount of michael-infarct jeopardized myocardium (RCA distribition). 4. Functional capacity N/A (pharmacological). 5. Left ventricle is severely dilated. The left ventricle systolic function is moderately-severely decreased. 6. Right ventricle is normal in size. The right ventricle systolic function is mildly decreased. 7. This is a high risk scan due to reduced LVEF and large stress-induced perfusion defect. Gated Stress IR:3D:SC:CTAC Gated Rest IR:3D:SC:CTAC LVEF % 31 30 Prior Study Comparison No prior nuclear cardiology exam available for comparison. Nuclear Med Report:Gated Rb-82 Regadenoson Stress PET and FDG Viability Study: The patient was injected with Rb-82 at rest, and ECG gated tomographic images were obtained. Approximately 10 minutes later, the patient received 0.4 mg of regadenoson, via rapid IV push, immediately followed by Rb-82 30 seconds after starting the regadenoson infusion; and ECG gated tomographic images were obtained. At rest the blood glucose was [...]. See administered doses below. [facility] Date of service: 07/21/2017 8:02:02 AM Ordering Physician: Requesting Physician: KAUSHAL HUFF Indication: Viability/ischemia assessment in ischemic cardiomyopathy. Interpreting physician: Parish Guadalupe MD Patient History: History of myocardial infarction, Prior smoker, dyslipidemia, family hx of premature CAD, cardiomyopathy and valvular heart disease. Medications currently taking are B-atilio, nitrate, ARB, diuretic and ASA. Previous Cardiovascular Interventions: ICD Implant (2016) CABG (2012) PCI (2015) Height: 177.80 cm BSA: 2.22 m? Weight: 99.79 kg BMI: 31.6 kg/m? Imaging Protocol Limitation Reason G.I. uptake. CT Dose-Length Product(DLP): 69.0 mGy*cm. CT Dose Reduction Employed: Yes. Exam Type: Rest Stress Viability Radiopharm: Rb-82 Rb-82 F-18 FDG Dosage(mCi): 30 30 8 Atten Correction: performed performed performed Stress Agent: Regadenoson 0.4mg Supply provided from [facility] Rest Glucose: 114 mg/dl Resting Heart Rate: 63 bpm Resting Blood Press: 125/84 mmHg Image Quality The overall study imaging quality was deemed to be fair. The following technical issues were noted: G.I. uptake. FINDINGS: Left Ventricle Wall Motion: Stress IR:3D:SC:CTAC - The inferior wall and posterior wall are akinetic. The entire anterior wall, anterolateral wall, entire septum, and entire apex are hypokinetic. Rest IR:3D:SC:CTAC - FDG IR:3D:SC:CTAC - Gated Stress IR:3D:SC:CTAC - Reversibility - Viability - Gated Rest IR:3D:SC:CTAC - Stress IR:3D:SC:CTAC Stress Gated Stress Gated Rest IR:3D:SC:CTAC IR:3D:SC:CTAC IR:3D:SC:CTAC LVEF: 31 % 30 % ED Volume: 334 ml 206 ml ES Volume: 229 ml 145 ml TID: 0.83 Perfusion Findings Stress IR:3D:SC:CTAC - Summed Score=15 There is a severe perfusion defect in the entire inferior wall and posterior wall. All remaining scored segments show normal perfusion. Rest IR:3D:SC:CTAC - Summed Score=12 There is a severe perfusion defect in the posterior wall. There is a moderate perfusion defect in the entire inferior wall. All remaining scored segments show normal perfusion. FDG IR:3D:SC:CTAC - Summed Score=7 There is a moderate perfusion defect in the posterior wall. There is a mild perfusion defect in the entire inferior wall. All remaining scored segments show normal perfusion. Stress IR:3D:SC:CTAC Rest IR:3D:SC:CTAC FDG IR:3D:SC:CTAC Summed Score=15 Summed Score=12 Summed Score=7 FDG- There is evidence of scarred myocardium in the posterior wall. There is evidence of viable myocardium in the entire inferior wall. All remaining scored segments show normal viability. FDG LEFT VENTRICLE The left ventricle is severely dilated. Left ventricular systolic function is moderately-severely decreased. Right Ventricle The right ventricle is normal in size. Right ventricle systolic function is mildly decreased. Stress Test Findings: The stress test was terminated due to the following: End of Protocol. Peak HR 86 bpm. (56 % MPHR) Peak BP 116 mmHg/64 mmHg Patient experienced chest pain during stress. Stress ECG normal ST segment response. Stress complications: none. Final Sterilizer Operator: DA Transcribe Date/Time: Jul 21 2017 8:02A Dictated by : PARISH GUADALUPE MD This examination was interpreted and the report reviewed and electronically signed by: PARISH GUADALUPE MD on Jul 21 2017 2:54PM EST [id number] PROGRESS Observed: 07/21/2017 Status: COMPLETED Source: [place] 8:45 AM [facility] REPOSITORY O ID: [id number] Author: Debbie Francis) KATARINA Harmon Service: Nursing Author Type: Registered Nurse Type: Progress Notes Filed: 07/21/2017 8:49 AM Note Text: RADIOLOGY SERVICE PROGRESS NOTE SERVICE DATE: 07/21/2017 SERVICE TIME: 8:45 AM PATIENT IDENTITY VERIFICATION COMPLETED USING TWO (2) METHODS: Patient confirmed name and Date of verbally. PATIENT GENDER DATA: male ALLERGIES: Reviewed and unchanged MEDICATIONS REVIEWED BY: Debbie Harmon RN PROCEDURE TYPE: CT PET Myocardial Imagin.4 mg of Regadenoson was administered at 0849 over 10 Seconds. Reversal agent used: None. and NM PET Myocardial Action Taken: POCT Blood Glucose 114 mg/dL at 0759 (QC = OK). 8.0 mCi FDG-18 IV at 0840. POCT Blood Glucose 111 mg/dL at 0840 (QC = OK). 2 units Regular Insulin administered IV at 0841. IV SITE: Ambulatory: A Saline lock was inserted per protocol POST EXAM PIV STATUS: Left in for next appointment PATIENT DISCHARGED TO: Ambulatory patient, left CT department area. A Diagnostic radioactive procedure has taken place, with no further precautions necessary other than routine body substance precautions. More information regarding radiation safety can be found using this link: [email or web address] SIGNATURE: Debbie Harmon RN PATIENT NAME: Amelia Leavitt DATE: July 21, 2017 TIME: 8:45 AM PAGER/CONTACT #:[phone] URINALYSIS Collected: 07/21/2017 Status: F Source: [place] 7:47 AM [facility] REPOSITORY TYPE CODE TESTS RESULT OUT OF REFERENCE UNITS RANGE LAB UCOL Yellow Color Yellow LAB [facility] Clear Clarity Clear LAB UGLUC Negative mg/dL Glucose, Urine Negative LAB UBIL Negative Bilirubin, Urine Negative LAB UKET Negative Ketones, Urine Negative LAB USPG 1.005-1.030 Specific [place], Ur 1.015 LAB UHGB Negative Hemoglobin/Blood, Negative Ur LAB UPH 4.5-8.0 pH 5.0 LAB UPROT Negative mg/dL Protein, Urine Negative LAB UUROB Normal Urobilinogen Normal LAB UNITR Negative Nitrites Negative LAB ULKEST Negative Leukest Negative LAB UCOM Comments SEE COMMENT Result Comment: Microscopic not warranted LAB UMCOM Urine SEE Javi Comment COMMENT Result Comment: N/A Performed By: #### UA #### [facility] [address] [place], [place] [address] CONFIRM BLOOD TYPE Collected: 07/21/2017 Status: F Source: [place] 7:18 [facility] REPOSITORY TYPE CODE TESTS RESULT OUT OF REFERENCE UNITS RANGE LAB %ABR O ABO/RH(D) POSITIVE Performed By: #### CONABO #### [facility] [address] [place], [place] [address] PROTIME Collected: 07/21/2017 Status: F Source: [place] 7:10 AM [facility] REPOSITORY TYPE CODE TESTS RESULT OUT OF RANGE REFERENCE UNITS LAB PSEC 9.7-13.0 sec PT Sec 10.5 LAB INR 0.9-1.3 PT INR 1.0 Result Comment: Vitamin K Antagonist (VKA) Therapeutic Range: INR 2 to 3 (Target INR of 2.5) Note: For patients treated with VKA drugs, such as warfarin, the [employer] 2012 Guideline recommends a therapeutic INR range of 2 to 3 (target INR of 2.5). This recommendation includes high-risk patients with antiphospholipid syndrome with previous arterial or venous thromboembolism, current-generation mechanical or bioprosthetic aortic heart valve replacement. Note: Patients with mechanical aortic valve replacement and additional risk factors for thromboembolic events (atrial fibrillation, previous thromboembolism, LV dysfunction, hypercoagulable conditions) or an older generation mechanical AVR (i.e., ball in-Cage) or any mechanical MVR should have a INR therapeutic range of 2.5 to 3.5 (target INR of 3). Josse GH, et al. Chest 2012, 141:7S-47S Wanda RA et al. [facility] 2017, 70: 252-289 Performed By: #### PT, PTT, LD6 #### [facility] [address] [place], [place] [address] APTT Collected: 07/21/2017 Status: F Source: [place] 7:10 [facility] REPOSITORY TYPE CODE TESTS RESULT OUT OF RANGE REFERENCE UNITS LAB APTT 23.0-32.4 sec APTT 25.3 Result Comment: Unfractionated Heparin Therapeutic Ranges: Standard Heparin Nomogram: 53 to 78 seconds (anti-Xa level of 0.3 to 0.7 U/ml) Low Dose/ACS Nomogram: 49 to 67 seconds (anti-Xa level of 0.2 to 0.5 U/ml) Stroke Treatment Nomogram: 49 to 67 seconds (anti-Xa level of 0.2 to 0.5 U/ml) Note: The APTT therapeutic range has been determined for the current lot of laboratory APTT reagent in use throughout the [facility]. Performed By: #### PT, PTT, LD6 #### [facility] [address] [place], [place] [address] LD Collected: 07/21/2017 Status: F Source: [facility] 7:10 AM [facility] REPOSITORY TYPE CODE TESTS RESULT OUT OF RANGE REFERENCE UNITS LAB LD 135-225 U/L LD 167 Performed By: #### PT, PTT, LD6 #### [facility] [address] [place], [place] [address] TYPE AND SCR (30D) Collected: 07/21/2017 Status: F Source: [place] 7:10 AM [facility] REPOSITORY TYPE CODE TESTS RESULT OUT OF REFERENCE UNITS RANGE LAB %ABR O ABO/RH(D) POSITIVE LAB % Antibody NEG Screen Performed By: #### [id number] #### [facility] [address] [place], [place] [address] CNCNPATED Observed: 07/21/2017 Status: COMPLETED Source: [place] 12:00 AM [facility] REPOSITORY Education (CARTMN) AMELIA LEAVITT ([id number]) 1950 M Date Time Provider Department 07/21/17 KAUSHAL HUFF Reason for Visit: Patient Education [91] Progress Notes: Day Heath, RN, RN 07/21/2017 3:09 PM Signed AMBULATORY PATIENT EDUCATION READINESS TO LEARN Cognitive Ability: Alert and oriented Motivation To Learn: Interested Family Support: High - Very involved in pt care Instruction Provided To: Patient AND Family Patient Learns Best By: Multiple Methods Factors Affecting Learning: None Physical Limitations Affecting Learning: None LEARNING RESPONSE Diagnosis: CAD Education Topic: Pre-Op Open Heart Surgery Instructions Teaching Points: Logistics / Protocols /Complication Prevention Instruction/Supplemental Materials: Cardiac Surgery Information Binder Video Individual Instruction Patient/Family Response: Verbalizes understanding Follow up plan: Patient/Family to call [facility] with any further questions Referral (Recommendation): None Teach completed, topic: patient to be called with times of surgery During your visit today, we recorded the following information about you: Allergies As of Date: 07/21/2017 (No Known Allergies) Date Reviewed: 07/21/2017 Reviewed by: Manolo Garcia) [place] - Fully Assessed Prescriptions as of 07/21/2017 Sig: ASPIRIN 325 MG TABLET,DELAYED* Take 325 mg by mouth once miranda* NITROGLYCERIN 0.4 MG SUBLINGU* Dissolve 0.4 mg under the ton* CARVEDILOL 6.25 MG TABLET Take 2 tablets by mouth twice* FUROSEMIDE 20 MG TABLET Take 1 tablet by mouth once d* ISOSORBIDE MONONITRATE ER 60 * Take one tab twice daily. LOSARTAN 25 MG TABLET once daily. EFFIENT 10 MG TABLET once daily. RANEXA 500 MG TABLET,EXTENDED* twice daily. DICLOFENAC SODIUM 75 MG TABLE* Take 75 mg by mouth twice miranda* GABAPENTIN 100 MG CAPSULE Take 100 mg by mouth twice da* MISOPROSTOL 200 MCG TABLET Take 200 mcg by mouth once da* PANTOPRAZOLE 40 MG TABLET,DEL* Take 40 mg by mouth once yaw* PRAVASTATIN 40 MG TABLET Take 40 mg by mouth once yaw* Encounter Status:Closed by DAY HEATH on 07/21/17 PROGRESS Observed: 07/13/2017 Status: COMPLETED Source: [place] 11:11 AM [facility] REPOSITORY [facility] ID: [id number] Author: Alex French Service: (none) Author Type: FORMING MACHINE TENDER Type: Progress Notes Filed: 07/13/2017 11:13 AM Note Text: ASSESSMENT/PLAN: 1. 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 Systane Ultra Artificial tears, 1 drop, three times a day, Both eyes. Mary Mask, 10 minutes, daily. 2. Cortical age-related cataract of both eyes - ICD9: 366.15, ICD10: H25.013 Not visually significant / Observe Alex Manolo, OD I have confirmed and edited as necessary the relevant ophthalmic history, review of systems, surgical history, and ophthalmological examination findings as obtained by the ophthalmic technical staff. I have seen and examined Amelia Leavitt. I have discussed the examination findings, diagnosis, and treatment options with Amelia Leavitt and/or his family. I have also reviewed and agree with the assessment and plan as stated above and agree with all its relevant components. I gave the patient the opportunity to ask questions about the findings, diagnosis, and treatment options. CNCO Observed: 07/09/2017 Status: COMPLETED Source: [place] 12:00 AM [facility] [place] REPOSITORY Letter Text Shen Rowe DO, [facility], [facility] Interventional Cardiology [place] Fred Carrasco Department of Cardiovascular Medicine [address] [place] [address] / [place] [address] Appt: [phone] [email or web address] July 09, 2017 ROSALIND CARBAJAL DO [facility] MEDICAL OFFICE BUILDING 3RD FLOOR [address] [place] [address] NAME: AMELIA LEAVITT [facility] NO: [id number] DATE: 07/09/[address] Carbajal: Please refer to my initial letter of July 05, 2017 regarding Mr. Amelia Leavitt. Since I sent that communication, Dr. Kaushal Huff and I have had further discussion regarding Mr. Leavitt?s cardiac situation and symptoms. Dr. Huff is willing to consider redo coronary artery bypass grafting considering the size of the posterior descending branch and posterolateral branch of the circumflex noted on the prior catheterization film of 2016. With this in mind, he will be returning on July 21, 2017 for a rubidium PET scan with FDG in addition to [facility] instructions and a sit down visit with Dr. Huff. I just wanted to keep you up to date with his clinical situation. If the patient wishes and you are still willing, we would certainly encourage him to follow up with you for future visits, postop visit, etc. Please let me know if I can be of any further service or if you have any further questions or concerns regarding this gentleman. Respectfully yours, Shen Rowe DO Electronically signed to expedite mailing CC: DOMO NEWMAN MD [address] [facility] [address] MR AMELIA LEAVITT [address] [facility] [address] HOSP Observed: 07/08/2017 Status: COMPLETED Source: [place] 12:00 AM [facility] REPOSITORY Patient:Amelia Leavitt MRN: <[id number]> Height:5' 10(1.778 m) Weight:214 lb 6.4 oz (97.251 kg) Outpatient Medications as of 07/27/17: aspirin 81 mg chewable tablet mupirocin (BACTROBAN) 2 % ointment aspirin, enteric coated (ASPIRIN, ENTERIC COATED) 325 mg EC tablet nitroglycerin sublingual (NITROQUICK) 0.4 mg SL tablet carvedilol (COREG) 6.25 mg tablet furosemide (LASIX) 20 mg tablet isosorbide mononitrate ER (IMDUR) 60 mg 24 hr tablet losartan (COZAAR) 25 mg tablet EFFIENT 10 mg tab RANEXA 500 mg 12 hr tablet gabapentin (NEURONTIN) [address] (PROTONIX) 40 mg tablet pravastatin (PRAVACHOL) 40 mg tablet Admission/Clinic Administered Medications as of 07/27/17: Patient has no admission medications. 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 [H01.029] Cortical age-related cataract of both eyes [H25.013] Discharge planning issues [Z02.9] Preop testing [Z01.818] Encounter for preoperative anesthesiology assessment for cardiac surgery [Z01.818] Allergies: Percocet [Oxycodone-Acetaminophen] Date Verified: 07/27/17 Lab Values Lab Value Units Date High Low POTA* 4.4 mmol/L 07/05/2017 5.1 3.7 TAY* 46.6 % 07/05/2017 51.0 39.0 Progress Notes ([facility]): Day Heath, RN, RN 07/21/2017 3:09 PM Signed AMBULATORY PATIENT EDUCATION READINESS TO LEARN Cognitive Ability: Alert and oriented Motivation To Learn: Interested Family Support: High - Very involved in pt care Instruction Provided To: Patient AND Family Patient Learns Best By: Multiple Methods Factors Affecting Learning: None Physical Limitations Affecting Learning: None LEARNING RESPONSE Diagnosis: CAD Education Topic: Pre-Op Open Heart Surgery Instructions Teaching Points: Logistics / Protocols /Complication Prevention Instruction/Supplemental Materials: Cardiac Surgery Information Binder Video Individual Instruction Patient/Family Response: Verbalizes understanding Follow up plan: Patient/Family to call [facility] with any further questions Referral (Recommendation): None Teach completed, topic: patient to be called with times of surgery Progress Notes ([facility]): Lester Sarabia DO 07/21/2017 4:23 PM Signed [facility] PREOP EVALUATION CARDIOTHORACIC ANESTHESIA CARDIAC SURGERY SERVICE DATE: 07/21/2017 SERVICE TIME: 3:47 PM Proposed Surgical Procedure: CABG Re-do: YES ASA Class: 4 Surgeon: Refugio Surgery Date: 07/27/2017 Last Wt 07/05/17 : 99.9 kg (220 lb 3.2 oz) Last Ht 07/05/17 : 177.8 cm (5' 10) Estimated body mass index is 31.6 kg/(m2) as calculated from the following: Height as of 07/05/17: 177.8 cm (5' 10). Weight as of 07/05/17: 99.9 kg (220 lb 3.2 oz). Estimated body surface area is 2.22 meters squared as calculated from the following: Height as of 07/05/17: 177.8 cm (5' 10). Weight as of 07/05/17: 99.9 kg (220 lb 3.2 oz). Mr. Leavitt is a 67 yo retired male from [place], [place] with h/o GA x2, CAD, multiple (18 stents per patient) PCI's, CABG, CHF, PPM/ICD, HLP, h/o smoking and FH of premature CAD, sleep apnea (CPaP prn) who presents for Redo Sternotomy CABG Active Problems: * No active hospital problems. * Resolved Problems: * No resolved hospital problems. * PAST MEDICAL HISTORY Diagnosis Date - CAD (coronary artery disease) - Cardiomyopathy (HCC) - CHF (congestive heart failure) (HCC) - Family history of early CAD - H/o Lyme disease - History of smoking - Hyperlipidemia 2009 - 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 - GA (myocardial infarction) (HCC) 2009, 2016 - S/P angioplasty with stent x 16 - S/P CABG x 1 2012 - Sleep apnea CPAP prn PAST SURGICAL HISTORY Procedure Laterality Date - CABG (1) VEIN GRAFT AND ARTERIAL GRAFT 2012 L-LAD - DEFIBRILLATOR SURGERY - PACEMAKER - PAST SURGICAL HISTORY OF 2006 vertebrae surgery - ROTATOR CUFF REPAIR 1995 FAMILY HISTORY Problem Relation Age of Onset - Myocardial infarction [OTHER] Father 17 multiple GA's of GA age 53 - Cancer Sister - No Ocular Disease No Family History Social History Substance Use Topics - Smoking status: Former Smoker Packs/day: 0.50 Types: Cigarettes Quit date: 04/21/2017 - Smokeless tobacco: Never Used Comment: had quit for 20 years but restarted 2014 - Alcohol use Not on file Comment: occasionally ALLERGIES Allergen Reactions - Percocet [Oxycodone* Other: See Comments patient had a reaction after last heart surgery with percocet where he was having convulsions REVIEW OF SYSTEMS: Neuro: none Respiratory: YOUSIF, uses CPAP, smoking Hx, quit 3 months ago Cardiovascular: See HPI GI: No history of GI symptoms or problems. No history of esophageal varices, recent ascites, or ETOH greater than 2 drinks per day., Positive for GERD Endocrine: No history of diabetes. Has not taken steroids within the past 30 days. No history of endocrinological symptoms or problems. Hematology: No history of bleeding or clotting disorder. Pt is not taking anti-coagulation or platelet medications. No history of hematological symptoms or problems. CKD AND ANEMIA ASSESSMENT: Patient has both eGFR < 60 mL/min and a Hemoglobin < 11 g/dl: Yes - Patient has CKD with Anemia, we make the following recommendations: 1. Intraoperative IV administration of desmopressin 0.3mcg/kg in 50 mL given over 10 minutes after protomine administration. 2. Postoperative blood conservation measures including using pediatric tubes for blood draws and avoiding routine lab work. 3. Will notify Dr. Pace by e-mail. if the patient is going on CPB. ANESTHETIC HISTORY: History of general anesthesia without complications. AIRWAY ASSESSMENT: Airway History: No abnormal airway history Airway Exam: General: Normal appearance Mallampati Score: CLASS II Temporo-Mandibular Displacement Test: Position B (lower teeth can be advanced even with upper teeth) Interincisor Distance: 5 cm Thyromental Distance: 5 cm Neck Circumference: 37 cm Overbite: No Cervical Mobility: Normal Facial Hair: Yes, Full Knight-Yes Head/Neck Pathology: No ANTICIPATED DIFFICULT AIRWAY: NO Pre-Existing Diagnosis of Obstructive Sleep Apnea: Yes, uses home CPAP. Asked patient to bring own device for the postoperative period. PHYSICAL EXAM: VITALS: There were no vitals taken for this visit. CARDIAC: Regular rate and rhythm. LUNGS: Lungs clear to auscultation. Good air entry bilaterally. Lines, Drains, Airway: Patient has no lines, drains or airway LABS: Lab Results Past 6 Months Component Value Date HB 15.6 07/05/2017 HCT 46.6 07/05/2017 PLT 198 07/05/2017 WBC 10.35 07/05/2017 NA 142 07/05/2017 K 4.4 07/05/2017 CREAT 1.50 (H) 07/05/2017 CA 9.3 07/05/2017 APTT 25.3 07/21/2017 INR 1.0 07/21/2017 Lab Results Past 6 Months Component Value Date GLUC 128 (H) 07/05/2017 K 4.4 07/05/2017 NA 142 07/05/2017 CHLOR 101 07/05/2017 CO2 26 07/05/2017 CREAT 1.50 (H) 07/05/2017 BUN 25 (H) 07/05/2017 ANION 15 07/05/2017 CA 9.3 07/05/2017 TPROT 6.7 07/05/2017 ALB 4.4 07/05/2017 TBILI 0.4 07/05/2017 ALKPHOS 121 (H) 07/05/2017 AST 24 07/05/2017 ALT 19 07/05/2017 ABO/RH(D) (no units) Date Value 07/21/2017 O POSITIVE Antibody Screen (no units) Date Value 07/21/2017 NEG Historical Ab Scr Status (no units) Date Value 07/21/2017 NEGATIVE Anticipated Blood Products Ordered: Ordered 2 units of PRBC. Will the Patient Accept Blood: Yes IMAGING AND TESTS: ECHO Ejection Fraction ?37 % (2D biplane) ?EF > 52 ? FINDINGS: ? LEFT VENTRICLE The left ventricle is normal in size. Left ventricular systolic function is moderately decreased. Grade I left ventricular diastolic dysfunction. Mitral annular lateral E/e': 7.2. Mitral annular septal E/e': 9.4. Definity contrast used for endocardial border detection. Wall Motion: The anterior septum, inferior wall, mid inferolateral segment, mid inferoseptal segment, and basal inferoseptal segment are severely hypokinetic. The entire anterior wall, anterolateral wall, entire apex, and basal inferolateral segment are mildly hypokinetic. ? ? RIGHT VENTRICLE The right ventricle is normal in size. Pacer wires are noted in the right ventricle. Right ventricular systolic function is low normal. RV systolic tissue Doppler velocity is 7.4 cm/s. Tricuspid annular displacement is 1.3 cm. Estimated right ventricular systolic pressure is likely underestimated due to a weak or incomplete tricuspid regurgitation signal and is, at least, 29 mmHg consistent with normal pulmonary artery pressures. Estimated right atrial pressure ?is 5 mmHg. ? LEFT ATRIUM The left atrial cavity is mildly dilated. ? RIGHT ATRIUM The right atrial cavity is normal in size. Pacer wires are noted in the right atrium. ? MITRAL VALVE There is mild (1+) mitral valve regurgitation due to restricted leaflet motion likely related to ischemic heart disease. The pressure half time is 55 msec. The peak mitral E/A ratio is 0.55. The average mitral E/e' ratio is 8.3. The mitral flow deceleration time is 189 msec. ? TRICUSPID VALVE There is trivial (trivial - 1+) tricuspid valve regurgitation. ? AORTIC VALVE There is no aortic valve stenosis. There is trivial aortic valve regurgitation. Tricuspid aortic valve. ? PULMONIC VALVE There is trivial pulmonic valve regurgitation. ? AORTA The visualized aorta is normal in size. Measurements - Sinus 3.6 cm. Sinotubular junction 3.2 cm. Mid ascending aorta 3.5 cm. INTERVENTRICULAR SEPTUM There is abnormal motion of the interventricular septum secondary to prior cardiac ?surgery and a pacemaker. ? PERICARDIUM There is no pericardial effusion. There is an epicardial fat pad. ? CONCLUSIONS: - Technically difficult exam due to body habitus. - Exam indication: Initial evaluation of known cardiomyopathy - The left ventricle is normal in size. Left ventricular systolic function is moderately decreased. EF = 37 ? 5% (2D biplane) Definity contrast used for endocardial border detection. - The right ventricle is normal in size. Right ventricular systolic function is low normal. - The left atrial cavity is mildly dilated. - Mild likely ischemic MR. - The patient has not had a prior CC echocardiographic exam for comparison. Stress SPECIAL COMMENTS: ? UNDERWENT 8 STENTS; PRE-OP: BYPASS ARTERY CORONARY REDO ON PUMP 07/27/2017 RESTING ECG: ? NORMAL SINUS RHYTHM, NONSPECIFIC ST-T WAVE CHANGES, LEFT ANTERIOR HEMIBLOCK, CANNOT R/O ANTERIOR GA, INFERIOR WALL GA. OBSERVATION: ? 1. THE TEST WAS TERMINATED DUE TO END OF PROTOCOL. ? 5. NORMAL ST SEGMENT RESPONSE TO STRESS. ? 7. ANGINA WAS NOT PROVOKED BY STRESS. ? 8. UNIFOCAL PVC'S DURING THE TEST. CONCLUSION: ? NORMAL. OSH CATH DIAGNOSIS: ? 1. Moderate left ventricular dysfunction 2. Patent left internal mammary artery to the left anterior descending 3. Percutaneous coronary intervention of the mid to distal right coronary artery 4. Continued success following percutaneous coronary intervention of AV circumflex. LEFT MAIN TRUNK: ? Normal. ? LEFT ANTERIOR DESCENDING: ? ?the left anterior descending is totally occluded in its mid-portion at the region of a stent. ?The large first major diagonal branch has a critical stenosis at its origin. ?The distal vessel fills via a patent left internal mammary artery graft with a 50% anastomosis stenosis. ? CIRCUMFLEX ARTERY: ? ?there is a long region of stenting in the circumflex which crosses a moderate sized first marginal branch and large second marginal branch leading to a moderate to large third marginal branch hugging the inferior wall. LEFT INTERNAL MAMMARY ARTERY TO LEFT ANTERIOR DESCENDING: ?Patent with a 50% anastomotic narrowing. ? RIGHT CORONARY ARTERY: ?There is stent material in the mid portion of this vessel. ?It is subtotal to totally occluded in the mid segment. ?The distal vessel, following successful percutaneous coronary intervention, yields a very large posterior descending branch and moderate sized posterolateral branch. ?The posterior descending artery was certainly graftable at that time. ? LEFT VENTRICLE: ?The LVEDP is mildly increased. ?There is moderate hypokinesia of the inferior and mid anterior wall. ?Overall ejection fraction appears to be fairly well preserved in the 40-45% range. ?There is no obvious valvular pathology. ? COMMENTS: ?this patient went on to successful percutaneous coronary intervention of the mid to distal right coronary artery. DEVICES: SINGLE LEAD ICD EVALUATION ? Please, call device clinic [phone] to turn ICD OFF for upcoming surgery, programmed VVI 40, no magnet rate for ICD ? UNDERLYING RHYTHM: sinus rhythm ? BATTERY STATUS: Normal and shows no significant depletion. ? COUNTERS SINCE 07-24-16: ? ARRHYTHMIAS: none ? LEAD MEASUREMENTS: Capture and sensing are appropriate. The pacing outputs maintain safety margin. Review of the lead impedance trends are normal. ? IMPLANT SITE/ SYMPTOMS: The incision and pocket are pain-free (0/10), well healed and without signs of erosion or infection. No arm swelling, syncope, pre-syncope or device related pocket stimulation. ? OTHER DIAGNOSTICS: RV pacing 0%. ? PROGRAMMING CHANGES MADE TODAY: none ? MEDICATIONS: Current Outpatient Prescriptions: aspirin 81 mg chewable tablet Take 81 mg by mouth once daily. aspirin, enteric coated (ASPIRIN, ENTERIC COATED) 325 mg EC tablet Take 325 mg by mouth once daily. nitroglycerin sublingual (NITROQUICK) 0.4 mg SL tablet Dissolve 0.4 mg under the tongue every 5 minutes as needed. carvedilol (COREG) 6.25 mg tablet Take 2 tablets by mouth twice daily with meals. furosemide (LASIX) 20 mg tablet Take 1 tablet by mouth once daily. isosorbide mononitrate ER (IMDUR) 60 mg 24 hr tablet Take one tab twice daily. losartan (COZAAR) 25 mg tablet once daily. EFFIENT 10 mg tab once daily. RANEXA 500 mg 12 hr tablet twice daily. diclofenac, EC, (VOLTAREN) 75 mg EC tablet Take 75 mg by mouth twice daily. gabapentin (NEURONTIN) 100 mg capsule Take 100 mg by mouth twice daily. misoprostol (CYTOTEC) 200 mcg tablet Take 200 mcg by mouth once daily. pantoprazole DR (PROTONIX) 40 mg tablet Take 40 mg by mouth once daily. pravastatin (PRAVACHOL) 40 mg tablet Take 40 mg by mouth once daily. No current facility-administered medications for this visit. Is the patient currently on any anticoagulant medications: Yes: Anticoagulant medications the patient is currently on: Prasugrel: Last dose: PAtient is Holding Effient This was adequately stopped before surgery: Yes PAIN AND ANXIETY EDUCATION AND MANAGEMENT: Patient has no concerns to address at this time. Additional Comments: none I have reviewed the Cardiothoracic Surgical Assessment and agree with its findings. During the course of the encounter the patient was prepared for anesthetic care. This conversation included anesthetic options, possible use of invasive monitoring, the risks, benefits, alternatives, and personnel that will be present for the anesthetic encounter. The patient agreed to proceed with the planned anesthetic. Instructed to take protonix, pravastatin, coreg, gabapentin, ASA, Imdur with a small sip of water on the morning of surgery. BETA ATILIO COMPLIANCE: Is the Patient Scheduled for a CABG: Yes. Patient currently takes a beta atilio, and was asked to take it as scheduled. SIGNATURE: Lester Sarabia DO PATIENT NAME: Amelia Leavitt DATE: July 21, 2017 TIME: 3:47 PM PAGER/CONTACT #: Glenda Friedman DO 07/23/2017 8:58 AM Signed Addended by: GLENDA FRIEDMAN DO on: 07/23/2017 08:58 AM Modules accepted: Orders, SmartSet PROGRESS Observed: 07/05/2017 Status: COMPLETED Source: [place] 11:59 AM [facility] REPOSITORY HNO ID: [id number] Author: Deborah (Rn) KATARINA Paulino Service: (none) Author Type: Registered Nurse Type: Progress Notes Filed: 07/05/2017 12:01 PM Note Text: 07/05/2017 12:00 PM IV Access: IV IV Site: left Hand IV GAUGE 24 gauge IV Removal Date 07/05/17 Time 1155 Reactions: WNL Order reviewed by nurse:yes Medications: Definity - dosage 3.5 ml Reaction: No PROGRESS Observed: 07/05/2017 Status: COMPLETED Source: [place] 8:17 AM [facility] REPOSITORY HNO ID: [id number] Author: Shen Rowe DO Service: (none) Author Type: Physician Type: Progress Notes Filed: 07/05/2017 11:06 AM Note Text: [facility] [place] Vinod Carrasco Department of Cardiovascular Medicine SECTION OF INTERVENTIONAL CARDIOLOGY OUTPATIENT VISIT DATE July 05, 2017 OUTPATIENT VISIT TYPE NEW PRIMARY CARE PHYSICIAN: None ( recently retired) PRIMARY SUPERVISOR CAB: Dr. Rosalind Carbajal REFERRING PHYSICIAN: SELF CHIEF COMPLAINT: Cardiac evaluation HISTORY OF PRESENT ILLNESS: Mr. Leavitt is a 67 year old male who presents today for a second opinion regarding the diagnosis and treatment of his CAD. NURSING INTAKE: Mr. Leavitt is a 67 yo retired male from [place], [place] with h/o GA x2, CAD, multiple PCI's, CABG, CHF, PPM/ICD, HLP, h/o smoking and FH of premature CAD, sleep apnea (CPaP prn) who presents for cardiac evaluation He denies DM, HTN He repots his cardiac condition began with chest pain 2009 He was diagnosed with GA and underwent 8 stents He was told slight damage He did well @ 2011 he had chest pain and underwent more stents To CX per notes 2013 He underwent L-LAD 2016 Stent RCA EF 30-35% Per pt he has 18 stents His symptoms would always subside after PCI or CABG He developed recurrent CP and SOB 03/23/17 Nuclear spect LV cavity severely enlarged under post stress conditions LV cavity severely enlarged under rest conditions Small fixed defect apical anterior, apex Extent of this perfusion defect moderate Medium fixed basal inferolat, mid inferolat, apical lateral Extent severe Overall quality of study poor 06/08/16 TTE LV dilated with severe segmental sys dysfunction EF 25-30% RV mildly enlarged with mod RV dysfunction 05/24/17 Coronary angiogram per film review by Dr. Rowe LEFT MAIN TRUNK: ? Normal. ? LEFT ANTERIOR DESCENDING: ? ?the left anterior descending is totally occluded in its mid-portion at the region of a stent. ?The large first major diagonal branch has a critical stenosis at its origin. ?The distal vessel fills via a patent left internal mammary artery graft with a 50% anastomosis stenosis. ? CIRCUMFLEX ARTERY: ? ?there is a long region of stenting in the circumflex which crosses a moderate sized first marginal branch and large second marginal branch leading to a moderate to large third marginal branch hugging the inferior wall. ? LEFT INTERNAL MAMMARY ARTERY TO LEFT ANTERIOR DESCENDING: ?Patent with a 50% anastomotic narrowing. ? RIGHT CORONARY ARTERY: ?There is stent material in the mid portion of this vessel. ?It is subtotal to totally occluded in the mid segment. ?The distal vessel, following successful percutaneous coronary intervention, yields a very large posterior descending branch and moderate sized posterolateral branch. ?The posterior descending artery was certainly graftable at that time. ? LEFT VENTRICLE: ?The LVEDP is mildly increased. ?There is moderate hypokinesia of the inferior and mid anterior wall. ?Overall ejection fraction appears to be fairly well preserved in the 40-45% range. ?There is no obvious valvular pathology. ? COMMENTS: ?this patient went on to successful percutaneous coronary intervention of the mid to distal right coronary artery. Catheterization May 24, 2017: The primary change in this catheterization compared to the April 2016 procedure includes a now totally occluded circumflex system between the first and second marginal branch and total occlusion of the stented right coronary artery. ?The left ventricular function appears to demonstrate some worsening, especially at the infero-apical segment, although the left ventriculogram has much to be desired. ? COMMENTS: I have emailed and asked Dr. Kaushal Huff to review this gentleman's catheterization and subsequent intervention. ?Although the distal right and circumflex targets are not as well appreciated in the most recent catheterization of May 24, they appear to be large in caliber and likely graftable according to the April 2016 study. ?I have asked Dr. Huff to consider redo surgery. ?We can certainly get a Rubidium PET scan with FDG looking for ischemia, scar and hibernation as well as repeating the catheterization with intracoronary nitroglycerin if necessary. ? He was hospitilized and underwent Coronary angiogram. He was evaluated by CT surgeons and told nothing could be done He was readmitted day after discharged with severe CP and placed on Ranexa Which has improved his symptoms He reports mid chest pain non radiating occurs after doing something He uses NTG 1-2 for relief or rests and it subsides in 45 minutes. This is similar to prior angina except 1st time was more left chest He also has a discomfort that is presents all the time. Last pain 3 days ago He notes SOB for several month Like SOB at end of a breath. He also notes SOB with exertion. No rest, No orthopnea, PND or LE edema He was hospitilized for CHF 06/03 He uses Lasix 3 x week and takes extra @ 2 times last 2 weeks for SOB and it helps He denies palpitations, ICD firings He notes cramps in his left and hips that does stop him from walking at times He denies asthma, COPD, cough or wheezing He c/o fatigue He notes lightheadness on rising He deneis syncope, CVA or TIA 08/10/17 Chol 207 Tri 354 HDL 34 LDL 102 WBC 8.9 HGB 15.0 HCT 44.6 Platelet 168 Glu 112 NA 142 K 4.4 Chlor 109 C02 25 Bun 27 Creat 1.32 GFR 54 Diet / Nutrition: Low fat, little salt Weight: no change since last visit Exercise: Was active until 05/02. PAST MEDICAL HISTORY Diagnosis Date - GA (myocardial infarction) x 3 PAST SURGICAL HISTORY Procedure Laterality Date - DEFIBRILLATOR SURGERY - PACEMAKER - PAST SURGICAL HISTORY OF 2011 open heart surgery - PAST SURGICAL HISTORY OF 2006 vertebrae surgery - RIGHT HEART CATHERIZATION SOCIAL HISTORY Social History Substance Use Topics - Smoking status: Former Smoker Packs/day: 0.50 Types: Cigarettes Quit date: 04/21/2017 - Smokeless tobacco: Never Used Comment: had quit for 20 years but restarted 2014 - Alcohol use Not on file Comment: occasionally FAMILY HISTORY Problem Relation Age of Onset - Myocardial infarction [OTHER] Father 17 multiple GA's of GA age 53 - Cancer Sister - No Ocular Disease No Family History ALLERGIES: ALLERGIES No Known Allergies MEDICATIONS: aspirin, enteric coated (ASPIRIN, ENTERIC COATED) 325 mg EC tablet Take 325 mg by mouth once daily. nitroglycerin sublingual (NITROQUICK) 0.4 mg SL tablet Dissolve 0.4 mg under the tongue every 5 minutes as needed. carvedilol (COREG) 6.25 mg tablet Take 6.25 mg by mouth twice daily with meals. furosemide (LASIX) 20 mg tablet 20 mg. Takes 20 mg 3 times weekly M,W,FTakes extra 1 x week last few weeks isosorbide mononitrate ER (IMDUR) 30 mg 24 hr tablet 60 mg once daily. losartan (COZAAR) 25 mg tablet once daily. EFFIENT 10 mg tab once daily. RANEXA 500 mg 12 hr tablet twice daily. diclofenac, EC, (VOLTAREN) 75 mg EC tablet Take 75 mg by mouth twice daily. gabapentin (NEURONTIN) 100 mg capsule Take 100 mg by mouth twice daily. misoprostol (CYTOTEC) 200 mcg tablet Take 200 mcg by mouth once daily. pantoprazole DR (PROTONIX) 40 mg tablet Take 40 mg by mouth once daily. pravastatin (PRAVACHOL) 40 mg tablet Take 40 mg by mouth once daily. erythromycin ophthalmic ointment Use 1 application in both eyes daily at bedtime. REVIEW OF SYSTEMS: GENERAL: no fever, no chills and no change in weight HEENT: no headaches, no difficulty swallowing, own teeth SKIN: no rashes and no ulcers RESPIRATORY: no cough, no orthopnea, no paroxysmal nocturnal dyspnea, no asthma, no COPD, shortness of breath and dyspnea on exertion CARDIOVASCULAR: no syncope, no edema and See HPI GASTROINTESTINAL: no abdominal pain, no nausea, no vomiting and no melanotic stools GENITOURINARY: no dysuria MUSCULOSKELETAL: no muscle pain or myalgias and joint pain NEUROLOGIC: no numbness and no tingling HEMATOLOGY: no bruising easily, no anemia and no cancer ENDOCRINE: no diabetes and no thyroid disease PSYCH: no sleep disturbance PHYSICAL EXAMINATION: BP 131/70 Pulse 70 Ht 5' 10 (1.78m) Wt 220 lb 3.2 oz (99.9kg) SpO2 96% BMI 31.60 kg/(m2). General: Well appearing, in no acute distress, speaking in complete sentences. obese. Skin: No clubbing, no cyanosis. Head/Eyes: Extra ocular movements intact Mouth: Teeth in good repair. Neck: No jugular venous distention, no carotid bruits, carotids have a normal upstroke, no palpable thyromegaly. Lungs: Clear to auscultation and no rales Heart: Regular rhythm, PMI not displaced, S1, S2 normal, no S3, no S4, no heaves, no rub and no murmur. PV Pulses:Pulses intact Abdomen: Soft, nontender, bowel sounds normal, no palpable organomegaly, no bruits. Extremities: No peripheral edema . Grade 2/4 distal pulses bilaterally. Edema Scale: No Musculoskeletal: Normal gait and ambulation Neuro: Oriented to time, place and person CARDIOVASCULAR MEDICINE TESTING: Electrocardiogram: Chest X-ray: Laboratory Testing: Echocardiogram: I have personally reviewed the Electrocardiogram, Chest X- ray, Laboratory Testing and Echocardiogram. IMPRESSION AND RECOMMENDATIONS: Mr. Leavitt is a very pleasant 67 year old gentleman with a long standing history of coronary artery disease the first event being a myocardial infarction in 2010. He has had two myocardial infarctions, inferior and anterior in the past. He has undergone multiple percutaneous coronary interventions and finally coronary artery bypass grafting including a left internal mammary artery to the left anterior descending in 2010. His ejection fraction has been measured between 25 to 30%. He received an ICD a number of years ago. He does have a history of smoking on and off, but has not smoked for several decades. He has family history of premature coronary artery disease and history of obstructive sleep apnea. His last percutaneous coronary intervention was on April 25, 2016 at which time he underwent reopening of the right coronary artery at an instent restenosis and closure with an additional stent in the distal segment of the right coronary artery. The posterior descending branch was quite large at the time. The posterolateral branch extension of the right coronary artery was moderate in size. A more recent left heart catheterization on May 24, 2017, when he was told nothing else could be done, demonstrated now a total occlusion of the circumflex stent beyond the first marginal branch and total occlusion of the mid right coronary artery stented segment. The left internal mammary artery to the left anterior descending was patent with a 50% anastomosis stenosis. The left ventriculogram was quite poor and I cannot truly estimate an ejection fraction. Presently, he has functional class III-IV symptoms understandably. I reviewed his medical regimen and made several adjustments seen below. I asked Dr. Kaushal Huff to review this gentleman?s catheterization from 2015 and 2017 for the possibility of redo coronary artery bypass grafting. Following the history and physical examination and a long discussion with and Mrs. Leavitt and their daughter who is a nurse, I made the following observations and recommendations: He has functional class III-IV symptoms. I believe that he needs to consider redo surgery specifically with grafts to the posterior descending branch of the right coronary artery and the second and third marginal circumflex branches which are well seen on the April 25, 2016 catheterization film. Again, bypassing the anastomosis of the left internal mammary artery would also be indicated, I believe. We will likely need evidence of ischemia and hibernation, including a rubidium PET scan with FDG or a cardiac MRI. I will ask Dr. Huff what he prefers. Plan: 1. Blood work, EKG, and chest x-ray today. 2. Transthoracic echocardiogram today for left ventricular ejection fraction. 3. Either rubidium PET scan plus FDG versus cardiac MRI. Will discuss with Dr. Huff. 4. Increase Coreg form 6.25mg bid to 12.5mg bid. 5. Increase Imdur from 30mg bid to 60mg bid. 6. I will call him in the next 48 hours once I hear from Dr. Huff. I asked him to call me on Wednesday if he has not heard by noontime. I personally interviewed, confirmed and edited the above information as obtained by others. CONTACT INFORMATION: Shen Rowe D.O., Tito., F.Mikhail.CVincentC. Interventional Cardiology Vin[facility] Carrasco Department of Cardiovascular Medicine [facility] [place] [facility] Desk [id number] [address] Office ? [phone] extension [phone] Office Appointments: [phone] extension [phone] Shen Rowe DO July 05, 2017 9:32 AM CBC AND DIFFERENTIAL Collected: 07/05/2017 Status: F Source: [place] 7:25 AM [facility] REPOSITORY TYPE CODE TESTS RESULT OUT OF REFERENCE UNITS RANGE LAB WBC 3.70-11.00 k/uL WBC 10.35 LAB RBC 4.20-6.00 m/uL RBC 4.94 LAB HGB 13.0-17.0 g/dL Hemoglobin 15.6 LAB HCT 39.0-51.0 % Hematocrit 46.6 LAB MCV 80.0-100.0 fL MCV 94.3 LAB MCH 26.0-34.0 pG MCH 31.6 LAB MCHC 30.5-36.0 g/dL MCHC 33.5 LAB RDWCV 11.5-15.0 % RDW-CV 12.8 LAB PLTCT 150-400 k/uL Platelet Count 198 LAB MPV 9.0-12.7 fL MPV 10.8 LAB ANEUT % Neut% 61.4 LAB AANEUT 1.45-7.50 k/uL Abs Neut 6.35 LAB ALYMP % Lymph% 28.0 LAB AALYMP 1.00-4.00 k/uL Abs Lymph 2.90 LAB AMONO % Coleman% 8.0 LAB AAMONO <0.87 k/uL Abs Coleman 0.83 LAB AEOS % Eosin% 2.0 LAB AAEOS <0.46 k/uL Abs Eosin 0.21 LAB ABASO % Baso% 0.6 LAB AABASO <0.11 k/uL Abs Baso 0.06 LAB AUNRBC 0 /100 WBC NRBCs 0.0 LAB ABNRBC <0.01 k/uL Absolute nRBC <0.01 LAB DTYP DTYPE Auto Diff Performed By: #### CBCDIF, CMP, LIPB, LDLDCT #### [facility] [address] [place], [place] [address] COMP METABOLIC PANEL Collected: 07/05/2017 Status: F Source: [place] 7:25 AM [facility] REPOSITORY TYPE CODE TESTS RESULT OUT OF REFERENCE UNITS RANGE LAB TP 6.3-8.0 g/dL Protein, Total 6.7 LAB ALB 3.9-4.9 g/dL Albumin 4.4 LAB CA 8.5-10.2 mg/dL Calcium, Total 9.3 LAB TBIL 0.2-1.3 mg/dL Bilirubin, Total 0.4 LAB ALKP 36-108 U/L Alkaline High Phosphatase 121 LAB AST 14-40 U/L AST 24 LAB GLU 74-99 mg/dL Glucose High 128 Result Comment: The [place] Diabetes Association (ADA) provides guidance for cutoff values for fasting glucose and random glucose. The ADA defines fasting as no caloric intake for at least 8 hours. Fas ting plasma glucose results between 100 to 125 mg/dL indicate increased risk for diabetes (prediabetes). Fasting plasma glucose results greater than or equal to 126 mg/dL meet the criteria for diagnosis of diabetes. In the absence of unequivocal hyperglycemia, results should be confirmed by repeat testing. In a patient with classic symptoms of hyperglycemia or hyperglycemic crisis, random plasma glucose results greater than or equal to 200 mg/dL meet the criteria for diagnosis of diabetes. Reference: Standards of Medical Care in Diabetes 2016, [place] [employer] Association. Diabetes Care. 2016.39(Suppl 1). LAB BUN 9-24 mg/dL BUN High 25 LAB CRET 0.73-1.22 mg/dL Creatinine High 1.50 LAB NA 136-144 mmol/L Sodium 142 LAB K 3.7-5.1 mmol/L Potassium 4.4 LAB CL 97-105 mmol/L Chloride 101 LAB CO2 22-30 mmol/L CO2 26 LAB AGAP 9-18 mmol/L Anion Gap 15 LAB ALT 10-54 U/L ALT 19 LAB GFRAA eGFR- Amer. 57 LAB GFRNAA . eGFR-All Other Races 47 Result Comment: eGFR (Estimated GFR) Units of measure: mL/min/1.73 meters squared eGFR is derived from the reexpressed MDRD Study equation using the following parameters: serum creatinine, age, gender and race. The creatinine assay has been calibrated to be traceable to [employer]. An eGFR <60 mL/min/1.73m2 for >3 months is consistent with chronic kidney disease. Refer to KDOQI guidelines for clinical interpretation. In patients with unstable renal function, e.g. those with acute kidney injury, the eGFR may not accurately reflect actual GFR. Performed By: #### CBCDIF, CMP, LIPB, LDLDCT #### [facility] [address], [place] [address] LIPID PANEL, BASIC Collected: 07/05/2017 Status: F Source: [place] 7:25 AM [facility] REPOSITORY TYPE CODE TESTS RESULT OUT OF REFERENCE UNITS RANGE LAB CHOL <200 mg/dL Cholesterol High 245 Result Comment: <200 mg/dL, Desirable 200-239 mg/dL, Borderline high >239 mg/dL, High LAB TRIGLY <150 mg/dL Triglyceride High 510 Result Comment: <150 mg/dL, Normal 150-199 mg/dL, Borderline high 200-499 mg/dL, High >499 mg/dL, Very high LAB HDL >39 mg/dL HDL-Cholesterol Low 27 Result Comment: 40-59 mg/dL, Acceptable >59 mg/dL, High: Negative risk factor for coronary heart disease <40 mg/dL, Low: Positive risk factor for coronary heart disease LAB LDL <100 mg/dL LDL-Cholesterol Unable to calculate due to increased Triglycerides. See LDL-Chol, Direct. LAB NONHDL <130 mg/dL Non HDL Cholesterol 218 High Result Comment: <130 mg/dL, Optimal 130-159 mg/dL, Near optimal/above optimal 160-189 mg/dL, Borderline high 190-219 mg/dL, High >219 mg/dL, Very high Secondary prevention optimal non HDL Cholesterol levels are recommended to be < 100 mg/dL LAB FT hrs Fasting Time 12 LAB VLDL <30 mg/dL VLDL Unable Cholesterol to calculate due to increased Triglycerides. See LDL-Chol, Direct. LAB TCHDL <5.10 TC:HDL Ratio 9.07 High LAB LDLHDL <2.54 LDL:HDL Ratio Unable to calculate due to elevated Triglycerides. Result Comment: Reference: 1. National Cholesterol Education Program ATP III Guideline At-A-Glance Quick Desk Reference: National Heart, Lung, and Blood [place]. National Institutes of Health. 2001: NIH Publication No. 01-3305. 2. An International Atherosclerosis Society position paper: global recommendations for the management of dyslipidemia: executive summary, Atherosclerosis. 2014: 232(2):410-413. Performed By: #### CBCDIF, CMP, LIPB, LDLDCT #### [facility] [address] [place], [place] [address] LDL-CHOL, DIRECT Collected: 07/05/2017 Status: F Source: [place] 7:25 AM [facility] REPOSITORY TYPE CODE TESTS RESULT OUT OF REFERENCE UNITS RANGE LAB LDLDIR <100 mg/dL High LDL-Chol, 120 Direct Result Comment: <100 mg/dL, Optimal 100-129 mg/dL, Near optimal/above optimal 130-159 mg/dL, Borderline high 160-189 mg/dL, High >189 mg/dL, Very high Secondary prevention optimal LDL Cholesterol levels are recommended to be < 70 mg/dL LAB VLDL1 <30 mg/dL VLDL Cholesterol High 98 Performed By: #### CBCDIF, CMP, LIPB, LDLDCT #### [facility] [address] [place], [place] [address] PROGRESS Observed: 07/05/2017 Status: COMPLETED Source: [place] 7:23 AM [facility] REPOSITORY HNO ID: [id number] Author: Patricia Busby Service: (none) Author Type: (none) Type: Progress Notes Filed: 07/05/2017 7:24 AM Note Text: Radiology Service Progress Note PATIENT NAME: Amelia Leavitt DATE OF SERVICE: July 05, 2017 TIME: 7:24 AM PATIENT IDENTITY VERIFICATION COMPLETED USING TWO (2) METHODS: Patient confirmed name verbally and Date of . PATIENT GENDER DATA: Male PATIENT RELEVANT IMPLANT DATA REVIEWED: Not Applicable RADIOLOGY DEPARTMENT: General X-ray: Exam(s) Completed: Chest X-Ray PERIPHERAL IV DATA: Not applicable SIGNED BY: Patricia Busby July 05, 2017 7:24 AM XR CHEST 2V FRONTAL/LAT Observed: 07/05/2017 Status: F Source: [place] 7:19 AM [facility] REPOSITORY * * *Final Report* * * DATE OF EXAM: Jul 05 2017 7:19AM RANDEE [id number] - XR CHEST 2V FRONTAL/LAT / PROCEDURE REASON: Atherosclerotic heart disease of [place] coronary artery without angina pectoris * * * * Physician Interpretation * * * * EXAMINATION: CHEST RADIOGRAPH (2 VIEW FRONTAL and LATERAL) Clinical History: Atherosclerotic heart disease of [place] coronary artery without angina pectoris MQ: XC2_4 Comparison: None available RESULT: Lines, tubes, and devices: None. Lungs and pleura: The lungs appear clear of focal consolidation or mass. No pleural effusion or pneumothorax is identified. Cardiomediastinal silhouette: The patient is status post median sternotomy and probable CABG. Coronary artery stents are present in the left coronary circulation. The tip of the unipolar ICD lead is in the right ventricle. Other: There are mild degenerative changes in the thoracic spine. IMPRESSION: No acute disease identified in the lungs or mediastinum. Sterilizer Operator: KEVIN Transcribe Date/Time: Jul 05 2017 2:01P Dictated by : ELAINA GOOD MD This examination was interpreted and the report reviewed and electronically signed by: ELAINA GOOD MD on Jul 05 2017 2:04PM EST [id number] CNCO Observed: 06/29/2017 Status: COMPLETED Source: [place] 12:00 AM [facility] [place] REPOSITORY Letter Text Shen Rowe DO, [facility], [address] [place] [address] June 29, 2017 Dear : Mr. Leavitt Thank you for choosing the [facility] for your cardiac care. We are pleased to offer you an appointment with Shen Rowe DO on July 05, 2017 at 8:00 AM. Appointment Preparation Please review the attached appointment schedule and follow all instructions that are given. Be sure to bring this appointment schedule with you as well. Your Medical History and Records Below is a checklist with information you must send to your doctor's office prior to your appointment. This information is required by the doctor prior to your visit to best evaluate and treat your medical condition. Records must be obtained from your physician or the hospital where you have received care previously. You may use this letter as a guide for what is required. You may need to sign a release of information to obtain these records. It is important that we receive your outside records to provide the best care to you. Please fax these results to your [facility] doctor at least one week prior to your appointment. Faxing is the preferred method to receive records. If records must be mailed rather than faxed, they should be sent via mail or express mail directly to the physician using the address and desk number provided in this letter. Items needed for your visit: Your most recent hospital discharge summary related to your current heart problem If you have had any of the following diagnostic tests or procedures listed below, please obtain the film (CD) if applicable and the report Operative notes from previous heart surgeries Most recent cardiac catheterization (CD in DICOM format and report) Most recent echocardiogram (CD in DICOM format and report) Most recent stress test Most recent cardiac CT and MRI (CD and report) Most recent EKG (report and actual tracing; include any abnormal EKGs or rhythm disturbances) Most recent electrophysiology testing (report and actual tracing) Most recent labwork Most recent emergency room visit information Your device identification card if you have an implanted device such as a pacemaker or defibrillator or stent Having this information will give us the best information about your illness and help prevent delays in evaluation and treatment on the day of your appointment. If you are having difficulty obtaining your records, please contact the physician?s office for assistance. Please bring all of your medications in their original bottles. Include all xhgh-ihb-obllelq pills or remedies. This helps avoid confusion over the dosages and names of your current medications. You are encouraged to bring a family member or friend on the day of your appointment, though it is not absolutely necessary. Medication Guidelines Take all of your medications as prescribed, unless you have been given other instructions. You may need to fast or adjust diabetic medications depending on what test or procedures you may have scheduled. Appointment Time The time you are asked to report for your appointment or procedure includes the time necessary to provide you with additional instructions or preparations. There may be a delay in the time of your procedure or seeing your physician because of these preparations. It is our commitment to provide each patient with the best care. We will do our best to make sure that you and your family members are as comfortable as possible during your stay. Parking Marketing Administrator parking is available from 6:00 a.m. to 7:00 p.m. in front of the [facility] ([facility]). You can also park in the Parking Garage located on [address] between [address] and [facility]. Wheelchairs are available in the garage or at the [facility] Admitting and Registration Desk. Discount parking vouchers are available - please ask your parking sweat box attendant or visit the - Network Control Supervisor's Office. Arrival Please report to the [facility] [place] Registration Desk to start your appointment. The desk is located on the first floor of the [facility]. Please show the unit receptionist the enclosed appointment schedule and your insurance information. During Your Appointment A nurse, physician general surgery physician assistant, nurse practitioner, clinical nurse specialist, or fellow (doctor) may see you prior to your appointment with your physician. He or she will review the information from your checklist and will ask you questions regarding your medical history. A physical examination may be performed at this time. You may be scheduled for additional tests that may include blood work, x-rays, EKG, or other diagnostic tests after you see your physician. Appointment Duration If this is your first visit, please plan on being at the [facility] for four hours. If You Have Questions or Need to Reschedule Your Appointment If for some reason you are unable to keep your appointment or you have any questions, please notify us as soon as possible by calling or ext. [phone]. We look forward to meeting you. Sincerely yours, Scheduling Office [facility] [place] Enclosure PROGRESS Observed: 06/22/2017 Status: COMPLETED Source: [place] 10:47 AM [facility] [place] REPOSITORY HNO ID: [id number] Author: Sofía Jensen Service: (none) Author Type: Physician Type: Progress Notes Filed: 06/22/2017 10:50 AM Note Text: ASSESSMENT/PLAN: 1. 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 1) Systane Ultra Artificial Tears - Use 1 Drop into both eyes twice a day. 2) Mary Mask 10 minutes daily onto both eyes. 2. 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 Return to office in 3 weeks for follow up. Sofía Jensen MD I have confirmed and edited as necessary the relevant ophthalmic history, review of systems, surgical history, and ophthalmological examination findings as obtained by the ophthalmic technical staff. I have seen and examined Amelia Leavitt. I have discussed the examination findings, diagnosis, and treatment options with Amelia Leavitt and/or his family. I have also reviewed and agree with the assessment and plan as stated above and agree with all its relevant components. I gave the patient the opportunity to ask questions about the findings, diagnosis, and treatment options. ALLERGIES ALLERGIES DATE TYPE / CODE NAME / CODE REACTION SEVERITY SOURCE 07/21/2017 DRUG/576268 OXYCODONE-ACETAMI OTHER: SEE C [facility] 003(SNOMED NOPHEN Main [place] CT) Repository 05/26/2017 Drug Iodine and Iodide Other Unknown Dagoberto Allergy/416 Containing Community 605210(SNOM Produc/[id number] Hospital ED CT) (RXNORM) Repository Drug/427449 Brilinta tourble [facility] 003(SNOMED (ticagrelor) [facility] CT) System Repository Drug NO KNOWN [facility] Class/51000 ALLERGIES Three Repository 1003(SNOMED CT) Drug/293722 lovastatin vertigo [facility] 003([facility] CT) System Repository Drug NO KNOWN [facility] Class/59741 ALLERGIES Main [place] 1003(SNOMED Repository CT) ENCOUNTERS ENCOUNTERS ADMIT/DISCHARGE ACCOUNT NUMBER ADMITTING ENCOUNTER LOCATION SOURCE CLASS 06/01/2018 [id number] Ambulatory Dagoberto [facility] ding:LAB Repository 05/27/2018/05/30/19 [id number] Ambulatory [address] [place] Repository 05/27/2018/05/27/19 [id number] Ambulatory [address] [place] Repository 05/27/2018/05/27/19 [id number] Ambulatory [place] [facility] [place] Repository 05/06/2018 [id number] Ambulatory [facility] [place] Repository 05/06/2018 [id number] NESTOR Ambulatory [facility] [place] Repository 05/06/2018/05/06/20 [id number] Ambulatory [place] [facility] [place] Repository 05/06/2018/05/06/20 [id number] Ambulatory [place] [facility] [place] Repository 05/06/2018/05/06/20 [id number] Ambulatory [place] [facility] [place] Repository 05/06/2018/05/06/20 [id number] Ambulatory [address] [place] Repository 05/06/2018/05/06/20 [id number] Ambulatory [place] [facility] [place] Repository 05/04/2018/05/08/20 [id number] Ambulatory Building:[address] Repository 03/31/2018/04/01/20 [id number] Ambulatory [address] [place] Repository 03/23/2018/03/27/20 [id number] Ambulatory [address] Repository 03/23/[id number] Fabienne Ambulatory [facility] Repository 03/18/2018/03/21/20 [id number] Ambulatory [address] [place] Repository 03/16/2018/03/16/20 [id number] Ambulatory [address] [place] Repository 03/16/2018/03/17/20 [id number] Ambulatory [address] [place] Repository 03/07/2018/03/07/[id number]intia[address] ding:[facility] Repository 03/07/2018 [id number] [facility] ding:Ash[facility]P Repository rac 03/07/2018/03/07/[id number] ding:[facility] Repository racRoom: Room 1 03/07/2018 [id number] Ambulatory [address] [place] [address] Repository 02/27/2018/03/02/20 [id number] MAMADOU Inpatient [address] Repository 02/22/2018/02/23/[id number]intia[address] ding:[facility] Repository 02/22/2018 [id number] Ambulatory [address] [place] [address] Repository 02/21/2018/02/22/[id number]intia[address] ding:[facility] Repository racRoom: Room 2 02/17/2018/02/18/[id number] ding:[facility] Repository rac 02/14/2018/02/17/20 [id number] CHEO Inpatient [address] ([facility]) [place] Repository 02/14/2018/02/15/20 [id number] Laura Pineda [address] Regional ding:[facility] EDRoom: WR Repository 02/14/2018 [id number] Ambulatory [address] [facility] Repository 01/12/2018/01/14/20 [id number] Ambulatory [address] Repository 12/22/2017/12/23/19 [id number] Ambulatory [address] Repository 12/10/2017/12/11/19 [id number] Ambulatory [address] Repository 12/10/[id number] Fabienne Ambulatory [facility] Repository 11/18/2017/11/19/[id number] Regional ding:[facility] crestRoom: Repository CD:[id number] 11/12/2017/11/13/[id number] Cintia[address] Regional ding:[facility] BAN Repository 11/12/2017/11/13/[id number]intia[address] [facility] Rep[facility] racRoom: Room 1 11/12/2017 [id number] Ambulatory [address] [place] [address] Repository 11/10/2017/11/11/19 [id number] Joe, [address] Regional ding:[facility] Repository 11/10/2017 [id number] Ambulatory [address] [place] [address] Repository 10/21/2017/10/22/[id number] Regional ding:[facility] crestRoom: Repository CD:[id number] 09/28/2017/09/29/[id number] Lucie[address] Regional ding:[facility] Repository 09/21/2017 [id number] Ambulatory Building:[facility] [address] Repository 09/06/2017/09/07/19 [id number] Ambulatory [address] Repository 09/06/2017/09/07/19 [id number] Ambulatory [address] [place] Repository 09/06/2017/09/07/19 [id number] Ambulatory [address] [place] Repository 09/06/2017 [id number] Ambulatory [facility] Repository 09/03/2017/09/04/19 [id number] Ambulatory Building:[address] Repository 09/03/[id number] Karyn Ambulatory [facility] Repository 08/26/2017/08/27/19 [id number] Cintia, Ambulatory [address] ding:[facility] Repository racRoom: Room 3 08/08/2017/08/09/19 [id number] Tiffanie Emergency [address] ding:[facility] EDRoom: WR Repository 08/05/2017/08/06/19 [id number] Dilshad Alcocer Emergency [address] ding:[facility] EDRoom: WR Repository 08/02/2017/08/03/19 [id number] Ambulatory [address] Repository 07/27/2017/08/04/19 [id number] REFUGIO, [address] Repository 07/21/2017/07/22/19 [id number] Ambulatory [address] [place] Repository 07/21/2017/07/22/19 [id number] Ambulatory [address] [place] Repository 07/21/2017/08/14/19 [id number] Ambulatory [address] [place] Repository 07/21/2017/07/22/19 [id number] Ambulatory [address] [place] Repository 07/21/2017/07/22/19 [id number] Ambulatory [address] [place] Repository 07/21/2017/07/22/19 [id number] Ambulatory [address] Repository 07/21/2017/07/22/19 [id number] Ambulatory [address] [place] Repository 07/21/2017 [id number] Ambulatory [facility] Repository 07/13/2017/07/14/19 [id number] Ambulatory [address] Repository 07/05/2017/07/05/19 [id number] Ambulatory [address] Repository 07/05/2017/07/05/19 [id number] Ambulatory [address] Repository 07/05/2017/07/05/19 [id number] Ambulatory [address] Repository 07/05/2017 [id number] Ambulatory [facility] Repository 07/05/2017/07/05/19 [id number] Ambulatory [address] Repository 06/22/2017/06/22/19 [id number] Ambulatory [address] Repository PAYERS PAYERS ENCOUNTER GUARANTOR PAYER SUBSCRIBER SOURCE 06/01/2018 AMELIA Calderon Primary AMELIA Arenas [id number] SR Insurance:MEDICARE CAMPBELLDOB: [address], PART A BPolic [id number] [address]Dix: Number: Repository [id number] () Date:2018-06-01 06/01/2018 Secondary AMELIA Arenas Insurance:STATE CAMPBELLDOB: [facility] Number: [id number] Hospital [id number] Repository Date:2739-52-12GO [address] [address]QL: 06/01/2018 Tertiary NOT GIVENUNK Dagoberto Insurance:SELF PAY [facility] Hospital Number: Effective Repository Date:2018-06-01 05/04/2018 AMELIA Calderon Primary AMELIA Calderon [facility] CAMPBELLDOB: Insurance:COMMERCIALP CAMPBELLDOB: Three Repository olicy Number: [id number] [address] [id number] [place], [place] Date: [address] [place], [place] [address]Blw: ([phone] [address], [place] [address]Nst: (HP) [address]UD: (HP) [phone] 05/04/2018 Secondary AMELIA Calderon [facility] Insurance:COMMERCIALP CAMPBELLDOB: Three Repository olicy Number: [id number] [address] Date:[address] [place], [place] [address], [place] [address]Vzx: [phone]: (HP) [phone] 05/04/2018 Tertiary AMELIA [facility] Health Insurance:MEDICAREPol CAMPBELLDOB: Three Repository icy Number: [id number] [address] Date:4404-87-10CVH [place], [place] J15 PART A CLAIMSPO [id number]: (419) [address] [address]CLIXOTHXS, [phone] (HP) [place] [address]NN: 03/23/2018 AMELIA Calderon Primary [facility] Health CAMPBELLDOB: Insurance:COMMERCIALP CAMPBELLDOB: Three Repository olicy Number: [id number] [address] [id number] [address] [place], [place] Date:[address] [place], [place] [address]Ojs: ([phone]) [address], [place] [address]Zxz: (HP) [address]UL: (HP) [phone] 03/23/2018 Secondary [facility] Insurance:COMMERCIALP CAMPBELLDOB: Three Repository olicy Number: [id number] [address] Date:[address] [place], [place] [address], [place] [address]Qyr: [phone]) [phone]: (HP) [phone] 03/23/2018 Tertiary [facility] Health Insurance:MEDICAREPol CAMPBELLDOB: Three Repository icy Number: [id number] [address] Date:1914-80-51CON [place], [place] J15 PART A CLAIMSPO [id number]: (419) [address] [address]DVHCQENAJ, [phone] (HP) [place] [address]PF: 03/23/2018 Primary AMELIA [facility]on [facility] Insurance:MedicarePol CAMPBELLDOB: Lucie and icy Number: [id number] [facility] [id number] [address] Repository Date:Plan Name:Devonte [facility] [place] [place] [address]Iic: (HP) 03/23/2018 Secondary AMELIA Calderon [facility] Insurance:MedicarePol CAMPBELLDOB: Lucie and icy Number: [id number] [facility] [id number] [address] Repository Date:Plan Name:[place] [address]Dnz: (HP) 03/23/2018 Tertiary AMELIA Calderon [facility] Insurance:[employer] CAMPBELLDOB: Lucie and InsurancePolicy [id number] [facility] Number: [address] Repository [id number] [place] Date:Plan [address]Jmj: (123) Name:HealthPO [phone] (HP) [address], [place] [id number]: 03/07/2018 AMELIA Calderon Primary AMELIA LEAVITTDOB: Insurance:MedicarePol WADSWORTHDOB: [facility] icy Number: Effective [id number] [address] Date:2018-03-07 - [address] [place]ository [place], [place] 4310-16-06Skbt [place] [address]Pme: Name:CD:[id number] [address] [address]Omj: [id number], [place] (HP) [phone]: (665) (HP) [phone] () 03/07/2018 Secondary AMELIA Nazario Insurance:STATE CAMPBELLDOB: [facility] FARMPolicy Number: [id number] System Effective [address] Repository Date:2018-03-07 - [place] 9618-63-11Khpl [address]Gvd: Name:CD:[id number] [address]N[place]ARKEL [place] (HP)Tel: [phone]) [phone]: (WP) [phone] 03/07/2018 AMELIA Calderon Primary AMELIA Nazario CAMPBELLDOB: Insurance:1500 WADSWORTHDOB: [facility] US MEDICARE [id number] System [facility] PRIMARYPolicy Number: [place] [address] [facility] [place] [place] [address]Mex: Date:2018-03-07 [address]Zok: 2100-12-31Plan (HP) Name:CD:[id number] O (HP)Tel: (000) [address] [address]IQYWYLCOY, 000-0000 (WP) [place] [address]TQ: 03/07/2018 Secondary AMELIA Nazario Insurance:1500 [facility] FARMPolicy Number: [id number] System Effective [place] [address] Repository Date:2018-03-07 - [facility] [place] 9228-31-32Ajdr [address]Fso: Name:CD:[id number] (HP) (WP) 03/07/2018 AMELIA Calderon Primary AMELIA Nazario CAMPBELLDOB: Insurance:1500 [facility] US MEDICARE [id number] System [place] [address] PRIMARYPolicy Number: [place] [address] Repository [facility] [place] [address]Nya: Date:2018-02-21 [address]Qkr: 2100-12-31Plan (HP) Name:CD:[id number] O (HP)Tel: (000) [address] [address]WHXXQCCSR, 000-0000 (WP) [place] [address]KT: 03/07/2018 Secondary AMELIA Nazario Insurance:1500 STATE CAMPBELLDOB: [facility] FARMPolicy Number: [id number] System Effective [address] Repository Date:2018-02-21 - [place] 2828-15-36Rhee [address]Tjq: Name:CD:[id number] (HP) (WP) 03/07/2018 [facility] Insurance:MedicarePol [facility] Hospitals icy Number: [id number] Repository [id number] [place], [place] Date:Plan Name:[facility] [place] [id number]: A [id number]: (HP) (HP) 03/07/2018 Secondary [facility] Insurance:MedicarePol WADSWORTHDOB: Hospitals icy Number: [id number] Repository [id number] [address] Date:Plan Name[facility] [place] [id number]: (HP) 03/07/2018 Tertiary [facility] Hospitals Insurance PlanPolicy [id number] Repository Number: [facility] [address] [id number] [place] Date:Plan Name:Health [id number]: (HP) 02/22/2018 AMELIA Calderon Primary AMELIA [facility] BabiesL[facility] DayGe[facility] HospitalB: Insurance:MedicarePol [facility]: [facility] icy Number: Effective [id number] [address] Date:2018-02-22 - [address] [facility] [place] [id number] [place] [address]Ccm: Name:CD:[id number] [address] [address]Mrf: [id number], [place] (HP) [phone]: (800) (HP) 000-0000 (WP) 02/22/2018 Secondary AMELIA Nazario Insurance:STATE CAMPBELLDOB: [facility] FARMPolicy Number: [id number] System Effective [address] Repository Date:2018-02-22 - OPAL GARCIA 0546-53-79Ykbz [address]Bri: Name:CD:[id number] BOX [facility]0NMMARKEL [place] ()Tel: ([phone]) [phone]: (WP) [phone] 02/22/2018 [facility]IA [facility] Insurance:MedicarePol CAMPBELLDOB: Hospitals US icy Number: [id number] Repository [id number] [facility] [place] Date:Plan Name:OPAL Elena [id number]: A [id number]: () (HP) 02/22/2018 Secondary [facility] Insurance:MedicarePol CAMPBELLDOB: Hospitals icy Number: [id number] Repository [id number] [address] Date:Plan Name:OPAL Elena B [id number]: (HP) 02/22/2018 Tertiary [facility] Insurance:[employer] CAMPBELLDOB: Hospitals Insurance PlanPolicy [id number] Repository Number: [facility] [id number] [facility] Date:Plan Name:Health [id number]: (HP) 02/21/2018 AMELIA Calderon Primary AMELIA [facility] BabiesLatter DayHarrison Memorial HospitalB: Insurance:[facility] CAMPBELLDOB: [facility] MEDICARE [id number] System [address] PRIMARYPolicy Number: [facility] [place] [address]Kbo: Date:2018-02-21 [address]Wpz: 4007-33-15Ubod (HP) Name:CD:[id number] O (HP)Tel: (000) [address] [address]RWVWXCKXH, 000-0000 (WP) [place] [address]VA: 02/21/2018 Secondary AMELIA Nazario Insurance:1500 [facility] FARMPolicy Number: [id number] System Effective [address] Repository Date:2018-02-21 - [place], [place] 6184-38-48Cafr [address]Hys: Name:CD:[id number] (HP) (WP) 02/17/2018 AMELIA Calderon Primary AMELIA ROSEB: Insurance:[address] [place], [place] [address]B: [facility] US MEDICARE [id number] [address] [facility] PRIMARYPolicy Number: [facility] [address] Repository [place] [address]Isd: Date:2017-08-26 [address]Xvi: 0605-27-04Skqv (HP) Name:CD:[id number] O (HP)Tel: (000) [address] [address]CCHGBTFKC, 000-0000 (WP) [place] [address]TA: 02/17/2018 Secondary AMELIA Nazario Insurance:1500 [facility] FARMPolicy Number: [id number] System Effective [facility] 250 Repository Date:2017-08-26 - [place] 8066-64-90Mkxk [address]Puh: Name:CD:[id number] (HP) (WP) 02/14/2018 AMELIA Calderon Primary AMELIA ROSEB: Insurance:MedicarePsychiatricDOB: [facility] icy Number: Effective [id number] System [address] Date:2018-02-14 - [facility] [address] Repository [place], [place] 8438-07-19Nboj [place] [address]Ean: Name:CD:[id number] [address] [address]Dzw: 466388WPQYBLZTQZ, [place] (HP) [phone]: ([phone]) (HP) [phone] (WP) 02/14/2018 Secondary AMELIA Calderon [facility] Insurance:STATE CAMPBELLDOB: [facility] FARMPolicy Number: [id number] System Effective [facility] 250 Repository Date:2018-02-14 [place] 4438-04-29Aesl [address]Kva: Name:CD:[id number] [address], [place] (HP)Tel: (320) [phone]: (WP) [phone] 02/14/2018 AMELIA CISNEROS [facility] ResourcesDOB: Insurance:MedicarePol CAMPBELLDOB: Hospitals icy Number: [id number] Repository [id number] Date:Plan Name:[facility] [place] [id number]: A [id number]: (HP) (HP) 02/14/2018 [facility] Insurance:MedicarePol WADSWORTHDOB: Hospitals icy Number: [id number] Repository [id number] [place] [address] Date:Plan Name:[facility] [place] B [id number]: (HP) 02/14/2018 Tertiary [facility] Insurance:[employer] CAMPBELLDOB: Hospitals Insurance PlanPolicy [id number] Repository Number: [place] [address] [id number] [place] Date:Plan Name:Health [id number]: (HP) 12/10/2017 AMELIA Calderon Primary AMELIA Calderon [facility] CAMPBELLDOB: Insurance:COMMERCIALP CAMPBELLDOB: Three Repository olicy Number: [id number] [address] [id number] [address] [place], [place] Date:[address] [place], [place] [address]Eac: (417) [address]ISSohamG[place]DINGS, [place] [address]Nzn: (HP) [address]MF: (HP) [phone] 12/10/2017 Secondary [facility] Insurance:COMMERCIALP CAMPBELLDOB: Three Repository olicy Number: [id number] [address] Date:[address] [place], [place] [address], [place] [address]Lpr: (137) [address]WP: (HP) [phone] 12/10/2017 Tertiary [facility] Health Insurance:MEDICAREPol CAMPBELLDOB: Three Repository icy Number: [id number] [address] Date:1047-79-28KZFBAX[place] J[place] PART A CLAIMSPO [id number]: (117) [address] [address]CSLAKOKVK, [phone] (HP) [place] [address]GR: 12/10/2017 Primary [facility] Insurance:MedicarePol CAMPBELLDOB: Lucie and icy Number: [id number] [facility] [id number] [address] Repository Date:Plan Name:[facility] Cent[facility] [place] [address]Rju: (HP) 12/10/2017 [facility]MedicarePol CAMPBELLDOB: Lucie and icy Number: [id number] [facility] [id number] [address] Repository Date:Plan Name:Devonte [facility] [place] [address]Wmd: (HP) 12/10/2017 [facility] Insurance:[employer] CAMPBELLDOB: Lucie and InsurancePolicy [id number] [facility] Number: [address] Repository [id number] [place], [place] Date:Plan [address]Dwc: (820) Name:[phone] (HP) [address] [place] [address] [id number]: 11/18/2017 AMELIA Calderon Primary AMELIA ROSEB: Insurance:MedicarePol [facility] icy Number: Effective [id number] System [address] Date:2017-10-21 - [address] Repository [place], [place] 8992-09-47[place]jgc [place] [address]Drv: Name:CD:[id number] [address]Evu: [id number], [place] (HP) [phone]: (800) (HP) 000-0000 (WP) 11/18/2017 Secondary AMELIA Nazario Insurance:STATE CAMPBELLDOB: [facility] FARMPolicy Number: [id number] System Effective [address] Repository Date:2017-10-21 - [place], [place] 4145-47-90Wxud [address]Fxl: Name:CD:[id number] [address] [place] [address] (HP)Tel: 000) [phone]: (WP) [phone] 11/12/2017 AMELIA Calderon Primary AMELIA ROSEB: Insurance:MedicarePol WADSWORTHDOB: [facility] icy Number: Effective [id number] System [address] Date:2017-11-12 - [address] Repository [place], [place] 1927-15-05Gewj [place] 8[address]105[address]Tel: Name:CD:[id number] [address]Giz: [id number], [place] (HP) [phone]: (800) (HP) 000-0000 (WP) 11/12/2017 Secondary AMELIA Nazario Insurance:STATE CAMPBELLDOB: [facility] FARMPolicy Number: [id number] System Effective [place] [address] Repository Date:2017-11-12 - [place] 1938-89-27Rtqd [address]Xrq: Name:CD:[id number] [address]ISSohamGIDDINGS, [place] (HP)Tel: [phone]) [phone]: (WP) [phone] 11/12/2017 AMELIA Calderon Primary AMELIA [facility]: Insurance:[address] [place], [place] [address]DOB: [facility] [place] MEDICARE [id number] System [address] [facility] PRIMARYPolicy Number: [place] [address] Repository [place] [address]Xeg: Date:2017-11-12 [address]Sck: 2100-12-31plan (HP) Name:CD:[id number] O (HP)Tel: (000) [address]EVRJXGXAD, 000-0000 (WP) [place] [address]PT: 11/12/2017 Secondary AMELIA Nazario Insurance:[address] [place], [place] [address]DOB: [facility] FARMPolicy Number: [id number] System Effective [place] [address] Repository Date:2017-11-12 - [place] 6173-59-72Aqws [address]Nsp: Name:CD:[id number] (HP) (WP) 11/12/2017 [facility]ELIA [facility] CAMPBELLDOB: [facility] [place] icy Number: [id number] Repository [place] [address] [id number] Date:Plan Name:Devonte [place] [id number]: A [id number]: (HP) (HP) 11/12/2017 Secondary [facility] Insurance:MedicarePol CAMPBELLDOB: Hospitals icy Number: [id number] Repository [id number] Date:Plan Name[facility] [place] [id number]: (HP) 11/12/2017 Tertiary [facility] Insurance:[employer] CAMPBELLDOB: Hospitals Insurance PlanPolicy [id number] Repository Number: [place] [address] [id number] [place] Date:Plan Name:Health [id number]: (HP) 11/10/2017 AMELIA Calderon Primary AMELIA Nazario WADSWORTHB: Insurance:MedicarePol CAMPBELLDOB: [facility] icy Number: Effective [id number] [address] Date:2017-11-02 - [facility] Repository [place], [place] 7410-80-40XdnhBecky [place]ille 60[address]205[address]Tel: Name:CD:[id number] [address] [address]Dol: [id number], [place] (HP) [phone]: (800) (HP) [phone] (WP) 11/10/2017 Secondary AMELIA Nazario Insurance:STATE CAMPBELLDOB: [facility] FARMPolicy Number: [id number] System Effective [address] Repository Date:2017-11-02 - [place], [place] 8566-07-01Naue [address]Csm: Name:CD:[id number] [address], [place] (HP)Tel: ([phone]) [phone]: (WP) [phone] 11/10/2017 AMELIA [facility] NOEMIDOB: Insurance:MedicarePol CAMPBELLDOB: Hospitals icy Number: [id number] Repository [id number] [place] Date:Plan Name:Devonte [place] [id number]: A [id number]: (HP) (HP) 11/10/2017 Secondary [facility] Insurance:MedicarePol CAMPBELLDOB: Hospitals icy Number: [id number] Repository [id number] Date:Plan Name:[place] B [id number]: (HP) 11/10/2017 Tertiary [facility] Insurance:[employer] CAMPBELLDOB: Hospitals Insurance PlanPolicy [id number] Repository Number: [place] [address] [id number] [place] Date:Plan Name:Health [id number]: (HP) 10/21/2017 AMELIA Calderon Primary AMELIA Nazario [facility]: Insurance:MedicarePol CAMPBELLDOB: [facility] icy Number: Effective [id number] System [address] Date:2017-10-19 [facility] Repository [place] 3311-40-89[place] [address]Rbm: Name:CD:[id number] [address] [address]Cii: 065922LFCDXBCCSZ, [place] (HP) [phone]: (800) (HP) 000-0000 (WP) 10/21/2017 Secondary AMELIA Nazario Insurance:STATE WADSWORTHDOB: [facility] FARMPolicy Number: [id number] System Effective [address] Repository Date:2017-10-19 - [place] 7891-09-27Sezc [address]Ual: Name:CD:[id number] [address], [place] (HP)Tel: ([phone]) [phone]: (WP) [phone] 09/28/2017 AMELIA Calderon Primary AMELIA LEAVITTDOB: [facility] CAMPBELLDOB: [facility] icy Number: Effective [id number] [address] Date:2017-09-24 - [address] Repository [place], [place] 9215-24-61[place]fep [place] [address]Owp: Name:CD:[id number] [address] [address]Fdj: [id number], [place] (HP) [phone]: (381) (HP) 000-0000 (WP) 09/28/2017 Secondary AMELIA Nazario Insurance:STATE CAMPBELLDOB: [facility]: [id number] System Effective [place] [address] Repository Date:2017-09-24 - [place] 3796-86-10Hczb [address]Kkb: Name:CD:[id number] [address] [place] [address] (HP)Tel: (150) [phone]: (WP) [phone] 09/21/2017 AMELIA Calderon Primary AMELIA Calderon [facility] CAMPBELLDOB: Insurance:ADRI ROSEB: Three Repository MANAGED [id number] [address] MEDICAREPolicy [address] [place], [place] Number: [place], [place] [address]Huw: (833) [id number] [address]Nqx: (HP) Date:2015-05-17 [phone] (HP) [id number]ARFXMDI, [place] [address]DP: 09/21/2017 Secondary AMELIA Calderon [facility] Insurance:COMMERCIALP CAMPBELLDOB: Three Repository olicy Number: [id number] [address] Date:[address] [place] [address], [place] [address]Jvz: (690) [address]WP: (HP) [phone] 09/21/2017 Tertiary AMELIA Calderon [facility] Insurance:MEDICAREPol CAMPBELLDOB: Three Repository icy Number: [id number] [address] Date:4261-64-63OAB [place], [place] J15 PART A CLAIMSPO [address]Ymj: (419) [address] [address]UNELJXOBW, [phone] (HP) [place] [address]AS: 09/03/2017 AMELIA Kvng Primary AMELIA Calderon [facility] CAMPBELLDOB: Insurance:COMMERCIALP CAMPBELLDOB: Three Repository olicy Number: [id number] [address] [id number] [address] [place], [place] Date:[place], [place] [address]Xsn: 419) [address], [place] [address]Pjo: (HP) [address]TL: (HP) [phone] 09/03/2017 Secondary AMELIA Calderon [facility] Insurance:COMMERCIALP CAMPBELLDOB: Three Repository olicy Number: [id number] [address] Date:[place], [place] [address], [place] [address]Awx: [phone]) [address]WP: (HP) [phone] 09/03/2017 Tertiary AMELIA Calderon [facility] Insurance:MEDICAREPol CAMPBELLDOB: Three Repository icy Number: [id number] [address] Date:1524-13-74FTD [place], [place] J15 PART A CLAIMSPO [id number]: (419) [address]HOELDGEIY, [phone] (HP) [place] [address]VH: 09/03/2017 Primary AMELIA Calderon [facility] Insurance:MedicarePol CAMPBELLDOB: [place] and icy Number: [id number] [facility] [id number] [address] Repository Date:Plan Name:[place] [address]Cdf: (HP) 09/03/2017 Secondary AMELIA Calderon [facility] Insurance:MedicarePol CAMPBELLDOB: Lucie andrews bharatidemetris Number: [id number] [facility] [id number] [facility] [address] Repository Date:Plan Name:Devonte [facility] [place] [address]Bre: (HP) 09/03/2017 Tertiary AMELIA Calderon [facility] Insurance:[employer] CAMPBELLDOB: Lucie and InsurancePolicy [id number] [facility] Number: [facility] [address] Repository [id number] [place], [place] Date:Plan [address]Doi: (419) Name:[facility] [phone] (HP) [address], [place] [id number]: 08/26/2017 AMELIA Calderon Primary AMELIA ROSEB: Insurance:1500 WADSWORTHDOB: [facility] US MEDICARE [id number] [address] PRIMARYPolicy Number: [place] [address] Repository [place] [address]Haf: Date:2017-08-26 [address]Vlr: 6192-97-24Fwux (HP) Name:CD:[id number] O (HP)Tel: (000) [address] [address]QYAOQWCKH, 000-0000 (WP) [place] [address]ZB: 08/26/2017 Secondary AMELIA Nazario Insurance:[address] WADSWORTHDOB: [facility] FARMPolicy Number: [id number] System Effective [place] [address] Repository Date:2017-08-26 - [facility] [place] 4577-71-05Xfhb [address]Miy: Name:CD:[id number] (HP) (WP) 08/08/2017 AMELIA Calderon Primary AMELIA ROSEB: Insurance:MedicarePol CAMPBELLDOB: [facility] icy Number: Effective [id number] System [address] Date:2017-08-08 - [address] Repository [place], [place] 6171-22-64Mjms [place] [address]Tel: Name:CD:[id number] [address] [address]Eeo: [id number], [place] (HP) [phone]: (800) (HP) [phone] (WP) 08/08/2017 Secondary AMELIA Nazario [facility] FARMPolicy Number: [id number] System Effective [facility] Repository Date:2017-08-08 - [place] 6810-14-90Izfz [address]Daq: Name:CD:[id number] [address] [place] [address] (HP)Tel: [phone]) [phone]: (WP) [phone] 08/05/2017 AMELIA Calderon Primary AMELIA ROSEB: Insurance:MedicarePol CAMPBELLDOB: [facility] icy Number: Effective [id number] System [address] Date:2017-08-05 - [address] Repository [place] 0837-58-69Nfcf [place] [address]105[address]Tel: Name:CD:[id number] [address] [address]Jvs: 353586LVJCYPRMCCGIDDINGS, [place] (HP) [phone]: (800) (HP) [phone] (WP) 08/05/2017 Secondary AMELIA Nazario Insurance:[facility] Hospital[facility] Number: [id number] System Effective [address] Repository Date:2017-08-05 - [place] 7965-23-56[place] [address]Uac: Name:CD:[id number] [address]OPAL [place]VES (HP)Tel: ([phone]) [phone]: (wp) [phone]
== END ==
PROVIDERS: Family Provider Family Medicine; PCP Family Medicine; Referring Provider Psychiatry & Neurology Neurology; Visit Provider Psychiatry & Neurology Neurology
DX: R25.1 Tremor, unspecified (principal)
CPT/HCPCS: 36415; 80053; 82390; 82525; 82607; 84443; 85025; 86038

== ENCOUNTER 2021-06-09 16:38 | Outpatient (CLI) | payer MEDICARE, OTHER, SELFPAY ==
[2021-06-09 16:50] VITALS: BP 130/85; PULSE 97; RESP 18; TEMP 36.8; O2SAT 96; BMI 33.3
[2021-06-09] MEDS: 0.9% Saline Lock 10 ML Syringe IV (16:51)
[2021-06-09 17:49] VITALS: BP 116/69; PULSE 86; RESP 16; TEMP 37; O2SAT 94
[2021-06-09 18:47] VITALS: BP 120/78; PULSE 90; RESP 16; TEMP 37.1; O2SAT 95
== END 2021-06-09 23:59 | disposition home or self-care (01) ==
LOC: MS3OUT 16:38 → MS3 16:40
PROVIDERS: PCP Family Medicine; Referring Provider Nurse Practitioner Adult Health; Visit Provider Nurse Practitioner Adult Health
DX: Z23 Encounter for immunization (principal); U07.1 COVID-19
CPT/HCPCS: J7050; M0245; Q0245; A4216